=== PATIENT | female | born 1960 ===

== ENCOUNTER 2020-02-18 17:59 | Outpatient (REF) | payer OTHER, SELFPAY | END 2020-02-18 18:00 | disposition home or self-care (01) | LOC: HO.LAB 17:59 | PROVIDERS: PCP Internal Medicine; Visit Provider Internal Medicine | DX: Z20.828 Contact with and (suspected) exposure to other viral communicable diseases (principal) | CPT/HCPCS: C9803; U0003 ==

== ENCOUNTER 2020-05-01 13:05 | Outpatient (REF) | payer OTHER, SELFPAY | END 2020-05-01 13:06 | disposition home or self-care (01) | LOC: HO.LAB 13:05 | PROVIDERS: PCP Internal Medicine; Visit Provider Internal Medicine | DX: Z20.822 Contact with and (suspected) exposure to COVID-19 (principal) | CPT/HCPCS: 36415; C9803; U0003 ==

== ENCOUNTER → 2020-06-03 12:57 | Outpatient (BNVA) | payer OTHER, SELFPAY | PROVIDERS: PCP Internal Medicine; Visit Provider Hospitalist | DX: J84.89 Other specified interstitial pulmonary diseases (principal); R76.8 Other specified abnormal immunological findings in serum; R05 Cough; F51.01 Primary insomnia; Z79.899 Other long term (current) drug therapy | CPT/HCPCS: 99212 ==

== ENCOUNTER 2020-06-03 13:41 | Outpatient (REF) | payer OTHER, SELFPAY | END 2020-06-03 13:42 | disposition home or self-care (01) | LOC: HO.LAB 13:41 | PROVIDERS: Visit Provider Internal Medicine | DX: Z20.822 Contact with and (suspected) exposure to COVID-19 (principal) | CPT/HCPCS: 36415; C9803; U0003; U0005 ==

== ENCOUNTER 2020-06-18 11:05 | Outpatient (REF) | payer OTHER, SELFPAY | END 2020-06-18 11:06 | disposition home or self-care (01) | LOC: HO.LAB 11:05 | PROVIDERS: Visit Provider Internal Medicine | DX: Z20.822 Contact with and (suspected) exposure to COVID-19 (principal) | CPT/HCPCS: 36415; C9803; U0003; U0005 ==

== ENCOUNTER 2020-06-30 09:10 | Outpatient (REF) | payer OTHER, SELFPAY ==
--- NOTE | ~2020-06-30 | XR_ITS ---
EXAMINATION: XR CHEST CLINICAL INFORMATION: Abnormal immunological findings and serum. COMPARISON: None TECHNIQUE: 2 views of the chest were obtained. FINDINGS: No significant abnormality is noted involving the heart, lungs, mediastinum, bony thorax or soft tissues. XR/XR chest 2V IMPRESSION: Unremarkable chest examination.
[2020-06-30 10:35] LABS: MANUAL DIFF FLAG NO
[2020-06-30 10:49] LABS: Basophils Percent Auto 0.5 % (0-2); Eosinophils Absolute Auto 0.2 X10*3/uL (0.0-0.4); Eosinophils Percent Auto 3.2 % (0-4); Hematocrit 39.6 % (37-47); Hemoglobin 12.5 g/dl (12.0-16.0); Imm Gran Abs Auto 0.01 X10*3/uL (0.00-0.03); Imm Gran Pct Auto 0.2 % (0.0-0.4); Lymphocytes Absolute Auto 1.7 X10*3/uL (1.2-4.9); Lymphocytes Percent Auto 31.4 % (20-40); Mean Corpuscular HGB Conc 31.6 g/dl (31.0-35.0); Mean Corpuscular Hemoglobin 29.8 pg (27.0-33.0); Mean Corpuscular Volume 94.3 fL (80-98); Mean Platelet Volume 9.2 fL (9.4-12.3); Monocytes Absolute Auto 0.4 X10*3/uL (0.1-1.2); Monocytes Percent Auto 6.5 % (2-11); Neutrophils Absolute Auto 3.2 X10*3/uL (2.0-8.3); Neutrophils Percent Auto 58.2 % (45-73); Platelet Count 320 X10*3/uL (160-400); Red Cell Distribution Width 13.1 % (11.0-16.0); White Blood Count 5.5 X10*3/uL (4.8-10.8)
[2020-06-30 11:41] LABS: Erythrocyte Sedimentation Rate 30 MM/HR (0-20)
[2020-07-01 13:32] LABS: Anti DNA DS Antibody 2 IU/mL
[2020-07-01 14:47] LABS: Cyclic Citrullinated Peptide <16 UNITS
[2020-07-01 23:32] LABS: Anti Nuclear Antibody Screen POSITIVE (NEGATIVE)
== END 2020-06-30 09:11 | disposition home or self-care (01) ==
LOC: HO.LAB 09:10
PROVIDERS: PCP Internal Medicine; Visit Provider Hospitalist
DX: R76.8 Other specified abnormal immunological findings in serum (principal); J84.89 Other specified interstitial pulmonary diseases; R05 Cough
CPT/HCPCS: 36415; 71046; 85025; 85652; 86038; 86039; 86200; 86225

== ENCOUNTER 2020-07-28 13:04 | Outpatient (REF) | payer OTHER, SELFPAY ==
[2020-07-28 13:28] LABS: COVID-19 Test Negative (Negative)
== END 2020-07-28 13:05 | disposition home or self-care (01) ==
LOC: HO.LAB 13:04
PROVIDERS: Visit Provider Internal Medicine
DX: Z20.822 Contact with and (suspected) exposure to COVID-19 (principal)
CPT/HCPCS: 36415; 87635; C9803

== ENCOUNTER → 2021-06-02 12:45 | Outpatient (BNVA) | payer OTHER, SELFPAY | PROVIDERS: PCP Internal Medicine; Visit Provider Hospitalist | DX: J84.89 Other specified interstitial pulmonary diseases (principal); R76.8 Other specified abnormal immunological findings in serum; R05.9 Cough, unspecified; F51.01 Primary insomnia | CPT/HCPCS: 99212 ==

== ENCOUNTER 2021-06-04 10:16 | Outpatient (REF) | payer OTHER, SELFPAY ==
--- NOTE | ~2021-06-04 | XR_ITS ---
EXAMINATION: XR CHEST CLINICAL INFORMATION: Interstitial pulmonary disease COMPARISON: Previous chest x-ray June 2020 TECHNIQUE: 2 views of the chest were obtained. FINDINGS: The cardiac and mediastinal contours are normal. There is question of mild bronchiectasis and bronchial wall thickening in the right upper lung/suprahilar region. The lungs are otherwise clear. There is no pleural effusion or pneumothorax. There is evidence of old trauma to the left posterior seventh rib. Bony structures are otherwise unremarkable. XR/XR chest 2V IMPRESSION: Question bronchiectasis and bronchial wall thickening in the central right upper lobe/suprahilar region. Otherwise unremarkable exam.
[2021-06-04 10:45] LABS: MANUAL DIFF FLAG NO
[2021-06-04 10:50] LABS: Basophils Percent Auto 0.3 % (0-2); Eosinophils Absolute Auto 0.1 X10*3/uL (0.0-0.4); Eosinophils Percent Auto 1.9 % (0-4); Hematocrit 39.6 % (37.0-47.0); Hemoglobin 12.4 g/dl (12.0-16.0); Imm Gran Abs Auto 0.02 X10*3/uL (0.00-0.03); Imm Gran Pct Auto 0.3 % (0.0-0.4); Lymphocytes Absolute Auto 1.9 X10*3/uL (1.2-4.9); Lymphocytes Percent Auto 32.9 % (20-40); Mean Corpuscular HGB Conc 31.3 g/dl (31.0-35.0); Mean Corpuscular Hemoglobin 29.3 pg (27.0-33.0); Mean Corpuscular Volume 93.6 fL (80.0-98.0); Mean Platelet Volume 8.9 fL (9.4-12.3); Monocytes Absolute Auto 0.4 X10*3/uL (0.1-1.2); Monocytes Percent Auto 6.7 % (2-11); Neutrophils Absolute Auto 3.4 x10*3/uL (2.0-8.3); Neutrophils Percent Auto 57.9 % (45-73); Platelet Count 306 X10*3/uL (160-400); Red Blood Count 4.23 X10*6/uL (4.20-5.50); Red Cell Distribution Width 13.2 % (11.0-16.0); White Blood Count 5.8 X10*3/uL (4.8-10.8)
[2021-06-04 11:25] LABS: Erythrocyte Sedimentation Rate 26 MM/HR (0-20)
[2021-06-04 11:34] LABS: Alanine Aminotransferase 26 U/L (0-31); Albumin Level 4.7 g/dL (3.5-5.0); Alkaline Phosphatase 119 U/L (39-117); Anion Gap 14 (12-20); Aspartate Amino Transferase 25 U/L (5-31); Bilirubin Direct 0.2 mg/dL (0.0-0.5); Bilirubin Total 0.6 mg/dL (0.0-1.0); Blood Urea Nitrogen 12 mg/dL (9-16); Calcium 10.2 mg/dL (8.4-10.2); Carbon Dioxide 27 mmol/L (22-29); Chloride 107 mmol/L (96-108); Estimated Glomerular Filt Rate > 60; Glucose Random 93 mg/dL (60-115); Potassium 4.5 mmol/L (3.3-5.1); Sodium 143 mmol/L (135-145); Total Protein 8.2 g/dL (6.5-8.0)
[2021-06-06 14:19] LABS: Anti DNA DS Antibody 2 IU/mL
[2021-06-08 12:11] LABS: Anti Nuclear Antibody Screen POSITIVE (NEGATIVE)
== END 2021-06-04 10:17 | disposition home or self-care (01) ==
LOC: HO.XRAY 10:16
PROVIDERS: Visit Provider Hospitalist
DX: J84.89 Other specified interstitial pulmonary diseases (principal); R76.8 Other specified abnormal immunological findings in serum
CPT/HCPCS: 36415; 71046; 80048; 80076; 85025; 85652; 86038; 86039; 86225

== ENCOUNTER 2021-07-17 10:43 | Outpatient (REF) | payer OTHER, SELFPAY ==
[2021-07-17 11:20] LABS: COVID-19 Test Negative (Negative)
== END 2021-07-17 10:44 | disposition home or self-care (01) ==
LOC: HO.LAB 10:43
PROVIDERS: Visit Provider Internal Medicine
DX: Z20.822 Contact with and (suspected) exposure to COVID-19 (principal)
CPT/HCPCS: 87635; C9803

== ENCOUNTER 2021-08-21 10:15 | Outpatient (REF) | payer OTHER, SELFPAY ==
--- NOTE | ~2021-08-21 | XR_ITS ---
EXAMINATION: XR CHEST CLINICAL INFORMATION: Covid infection COMPARISON: Previous chest x-ray May 2021 TECHNIQUE: 2 views of the chest were obtained. FINDINGS: The cardiac and mediastinal contours are stable. There is question of central bronchial wall thickening, particularly in the lower lobes. The lungs are otherwise clear. There is no pleural effusion or pneumothorax. There is evidence of old trauma to left posterior seventh rib. Bony structures are otherwise unremarkable. XR/XR chest 2V IMPRESSION: Question central bronchial wall thickening otherwise unremarkable exam
== END 2021-08-21 10:16 | disposition home or self-care (01) ==
LOC: HO.XRAY 10:15
PROVIDERS: PCP Internal Medicine; Visit Provider Hospitalist
DX: U07.1 COVID-19 (principal)
CPT/HCPCS: 71046

== ENCOUNTER → 2021-09-03 09:59 | Outpatient (BNVA) | payer OTHER, SELFPAY | PROVIDERS: PCP Internal Medicine; Visit Provider Hospitalist | DX: J84.89 Other specified interstitial pulmonary diseases (principal); R76.8 Other specified abnormal immunological findings in serum; R05.9 Cough, unspecified; U07.1 COVID-19; F51.01 Primary insomnia; R00.2 Palpitations | CPT/HCPCS: 99212 ==

== ENCOUNTER 2021-09-08 08:14 | Outpatient (REF) | payer OTHER, SELFPAY ==
[2021-09-08 08:38] LABS: MANUAL DIFF FLAG NO
[2021-09-08 09:10] LABS: Basophils Percent Auto 0.1 % (0-2); Eosinophils Absolute Auto 0.1 X10*3/uL (0.0-0.4); Eosinophils Percent Auto 1.7 % (0-4); Hematocrit 35.8 % (37.0-47.0); Hemoglobin 11.4 g/dl (12.0-16.0); Imm Gran Abs Auto 0.07 X10*3/uL (0.00-0.03); Lymphocytes Absolute Auto 2.3 X10*3/uL (1.2-4.9); Mean Corpuscular HGB Conc 31.8 g/dl (31.0-35.0); Mean Corpuscular Hemoglobin 30.2 pg (27.0-33.0); Mean Corpuscular Volume 94.7 fL (80.0-98.0); Mean Platelet Volume 8.6 fL (9.4-12.3); Monocytes Absolute Auto 0.6 X10*3/uL (0.1-1.2); Monocytes Percent Auto 7.9 % (2-11); Neutrophils Absolute Auto 3.9 x10*3/uL (2.0-8.3); Neutrophils Percent Auto 56.3 % (45-73); Platelet Count 294 X10*3/uL (160-400); Red Blood Count 3.78 X10*6/uL (4.20-5.50); Red Cell Distribution Width 13.6 % (11.0-16.0); White Blood Count 6.9 X10*3/uL (4.8-10.8)
[2021-09-08 09:39] LABS: Anion Gap 10 (12-20); Blood Urea Nitrogen 12 mg/dL (9-16); Calcium 9.4 mg/dL (8.4-10.2); Carbon Dioxide 26 mmol/L (22-29); Chloride 109 mmol/L (96-108); Estimated Glomerular Filt Rate > 60; Glucose Random 83 mg/dL (60-115); Potassium 4.3 mmol/L (3.3-5.1); Sodium 141 mmol/L (135-145)
[2021-09-08 09:52] LABS: TSH reflex Free T4 0.71 uIU/mL (0.32-4.0)
[2021-09-08 09:54] LABS: Erythrocyte Sedimentation Rate 34 MM/HR (0-20)
== END 2021-09-08 08:15 | disposition home or self-care (01) ==
LOC: HO.LAB 08:14
PROVIDERS: Visit Provider Hospitalist
DX: R00.2 Palpitations (principal); U07.1 COVID-19
CPT/HCPCS: 36415; 80048; 84443; 85025; 85652

== ENCOUNTER → 2022-06-04 12:43 | Outpatient (BNVA) | payer MEDICAID, SELFPAY | PROVIDERS: PCP Physician Assistant; Visit Provider Hospitalist | DX: J84.89 Other specified interstitial pulmonary diseases (principal); R76.8 Other specified abnormal immunological findings in serum; G47.00 Insomnia, unspecified; F51.01 Primary insomnia; R00.2 Palpitations; Z23 Encounter for immunization | CPT/HCPCS: 90471; 90677; 99212 ==

== ENCOUNTER 2022-06-30 09:32 | Outpatient (REF) | payer MEDICAID, SELFPAY ==
[2022-06-30 09:55] LABS: MANUAL DIFF FLAG NO
[2022-06-30 10:57] LABS: Basophils Percent Auto 0.5 % (0-2); Eosinophils Absolute Auto 0.1 X10*3/uL (0.0-0.4); Eosinophils Percent Auto 1.7 % (0-4); Hematocrit 37.8 % (37.0-47.0); Hemoglobin 11.9 g/dl (12.0-16.0); Imm Gran Abs Auto 0.02 X10*3/uL (0.00-0.03); Imm Gran Pct Auto 0.3 % (0.0-0.4); Lymphocytes Absolute Auto 2.1 X10*3/uL (1.2-4.9); Lymphocytes Percent Auto 34.8 % (20-40); Mean Corpuscular HGB Conc 31.5 g/dl (31.0-35.0); Mean Corpuscular Hemoglobin 29.7 pg (27.0-33.0); Mean Corpuscular Volume 94.3 fL (80.0-98.0); Mean Platelet Volume 9.1 fL (9.4-12.3); Monocytes Absolute Auto 0.4 X10*3/uL (0.1-1.2); Monocytes Percent Auto 7.1 % (2-11); Neutrophils Absolute Auto 3.3 x10*3/uL (2.0-8.3); Neutrophils Percent Auto 55.6 % (45-73); Platelet Count 287 X10*3/uL (160-400); Red Blood Count 4.01 X10*6/uL (4.20-5.50); White Blood Count 5.9 X10*3/uL (4.8-10.8)
[2022-06-30 11:59] LABS: Erythrocyte Sedimentation Rate 25 MM/HR (0-20)
[2022-06-30 12:01] LABS: Anion Gap 13 (12-20); Blood Urea Nitrogen 16 mg/dL (9-16); Calcium 9.4 mg/dL (8.4-10.2); Carbon Dioxide 25 mmol/L (22-29); Chloride 110 mmol/L (96-108); Estimated Glomerular Filt Rate > 60; Glucose Random 83 mg/dL (60-115); Potassium 4.9 mmol/L (3.3-5.1); Sodium 143 mmol/L (135-145)
[2022-07-02 12:50] LABS: Anti DNA DS Antibody 1 IU/mL
[2022-07-02 23:00] LABS: Immunoglobulin E 20 kU/L (<OR=114)
[2022-07-06 13:44] LABS: Anti Nuclear Antibody Pattern Nuclear, Speckled; Anti Nuclear Antibody Screen POSITIVE (NEGATIVE)
== END 2022-06-30 09:33 | disposition home or self-care (01) ==
LOC: HO.LAB 09:32
PROVIDERS: Visit Provider Hospitalist
DX: J84.89 Other specified interstitial pulmonary diseases (principal); R76.8 Other specified abnormal immunological findings in serum
CPT/HCPCS: 36415; 80048; 82785; 83036; 83525; 84146; 85025; 85652; 86038; 86039; 86225

== ENCOUNTER → 2022-08-03 13:07 | Outpatient (BNVA) | payer MEDICAID, SELFPAY | PROVIDERS: PCP Physician Assistant; Visit Provider Dietitian, Registered | DX: E78.00 Pure hypercholesterolemia, unspecified (principal) | CPT/HCPCS: 97802 ==

== ENCOUNTER 2022-12-10 14:11 | Outpatient (AMB) | payer OTHER, SELFPAY ==
[2022-12-10 14:14] VITALS: BP 118/72; PULSE 82; O2SAT 99
--- NOTE | 2022-12-10 14:14 | A.OFFVIS_ITS ---
Intake Vital Signs 12/10/22 14:14 Weight 142 lb 3.17 oz BP 118/72 Blood Pressure Location Rt brachial Position Sitting Pulse 82 Pulse Source Pulse Oximeter Pulse Oximetry (%) 99 Oxygen Delivery Method Room Air Intake Visit Reasons: COPD Allergies No Known Allergies Allergy (Verified 12/10/22 14:16) Medication List - Last Reconciled 12/10/22 by Ghislaine Graves LPN cholecalciferol (vitamin D3) (Vitamin D3) 0 mcg PO cyclobenzaprine 5 mg PO BEDTIME eszopiclone (Lunesta) 3 mg PO BEDTIME 30 days Symbicort 160-4.5 mcg/actuation (budesonide-formoterol) 2 puffs inhalation BID 30 days NS HPI HPI Comments History of Present Illness Details The patient is a 62-year-old woman with a known history of elevated ROSEY in addition to interstitial lung disease in the past with evidence of organizing pneumonia biopsy. The patient had been doing very well. She recovered completely from the interstitial lung disease. This happened many years ago and she hasn't had any recurrence. Her respiratory status has been stable. She has been evaluated at [facility] with left-sided headaches. The been significant affecting her whole left side. She went to the ER there she had an x-ray that was relatively normal. She also had blood work demonstrating an elevated creatinine. It is unclear at this point. However, she did have elevations in the an a in the past. Subsequent workup for the positive ROSEY resulted in negative double-stranded DNA. The patient had had some arthritis and rashes in the past but she no longer has does findings. The patient is here for pulmonary follow-up visit. The patient is a 59-year-old woman with a known history of elevated ROSEY in addition to interstitial lung disease in the past with evidence of organizing pneumonia biopsy. The patient had been doing very well. She recovered completely from the interstitial lung disease. This happened many years ago and she hasn't had any recurrence. Her respiratory status has been stable. She has been evaluated at [facility] with left-sided headaches. The been significant affecting her whole left side. She went to the ER there she had an x-ray that was relatively normal. She also had blood work demonstrating an elevated creatinine. It is unclear at this point. However, she did have elevations in the an a in the past. Subsequent workup for the positive ROSEY resulted in negative double-stranded DNA. The patient had had some arthritis and rashes in the past but she no longer has does findings. 12/10/2022 the patient is here for a pulmonary follow-up visit. Her respiratory status is stable. Denies any coughing or any shortness of breath. She does complaint of musculoskeletal discomfort. She also notices any rash on her extremities including her lower extremities. Appears to be hyper pigmented areas. Denies any new rashes on her face. The patient has had elevations in her ROSEY titers. She did at some point follow-up with Rheumatology. No real definitive diagnosis noted. In view of the review of her symptoms of be reasonable to recheck her blood work to assess for connective tissue conditions. In addition to that the patient should have a chest x-ray to further follow-up her history of cryptogenic organizing pneumonia. the patient is still struggling with her sleep. The Lunesta is helpful. [facility] Medical History (Updated 12/10/22 @ 13:50 by Christi Ovalle PA-C) ROSEY positive Cervical neuralgia Cough GERD (gastroesophageal reflux disease) Hypercholesterolemia Insomnia Organizing pneumonia Palpitations Vitamin D deficiency Surgical History (Updated 12/10/22 @ 13:50 by Christi Ovalle PA-C) History of laparoscopic cholecystectomy Family History (Updated 12/10/22 @ 13:53 by Christi Ovalle PA-C) Father Prostate cancer Mother Stroke, Onset Age: 65 Brother Myocardial infarction Social History (Updated 06/02/21 @ 13:04 by Delia Manzano Gus) Patient Tobacco Use Status: Former Tobacco user Tobacco use type: Cigarette Years Smoked: 20 years Review of Systems Const Reports difficulty sleeping, Reports fatigue and Denies night sweats ENT Denies change in voice, Denies lip swelling, Denies mouth pain, Reports nasal congestion, Reports nasal discharge and Denies tongue swelling Card Denies chest pain, Reports palpitations and Reports dyspnea on exertion Resp Reports cough and Reports dyspnea on exertion GI Denies abdominal pain Musc Reports myalgias and Reports arthralgias Skin/Breast Reports rash Neuro Denies Neuro-related abnormal movements Psych Denies no additional complaints Endo Reports fatigue and Reports palpitations Nick/Lymph Denies easy bleeding and Denies lymphadenopathy Aller/Immun Denies lip swelling and Denies tongue swelling Physical Exam Vital Signs: Last Vital Signs Pulse 82 12/10/22 14:14 BP 118/72 09/01/23 14:14 Pulse Ox 99 12/10/22 14:14 Oxygen Delivery Method Room Air 12/10/22 14:14 Const General: alert Neck Neck: Yes normal visual inspection, Yes full ROM and Yes no lymphadenopathy Chest Chest palpation & inspection: normal inspection of the chest Resp Effort & Inspection: normal respiratory effort Auscultation: clear to auscultation bilaterally, no crackles, no rales, no rhonchi and no wheezes Cardio Rate: regular rate Rhythm: regular rhythm Heart sounds: S1 normal heart sound present and S2 normal heart sound present GI Palpation (GI): Soft to palpation and nontender Auscultation: normal bowel sounds Skin General skin exam: other ( Hypopigmented macular areas primarily in her lower extremities) Assessment & Plan Assessment & Plan (1) Organizing pneumonia: Code(s): J84.89 - Other specified interstitial pulmonary diseases (2) ROSEY positive: Code(s): R76.8 - Other specified abnormal immunological findings in serum (3) Cough: Code(s): R05 - Cough (4) Insomnia: Code(s): G47.00 - Insomnia, unspecified Qualifiers: Insomnia type: primary Qualified Code(s): F51.01 - Primary insomnia (5) Palpitations: Code(s): R00.2 - Palpitations Plan continue Lunesta 3mg, to use as needed. Bloodwork CXR continue Symbicort NOEL as needed follow-up 6 months Orders: Orders Erythrocyte Sedimentation Rate 12/10/22 J84.89 - Other specified interstitial pulmonary diseases ROSEY Reflex Titer and Pattern 12/10/22 J84.89 - Other specified interstitial pulmonary diseases Complete Blood Count Auto Diff 12/10/22 J84.89 - Other specified interstitial pulmonary diseases XR chest 2V 12/10/22 J84.89 - Other specified interstitial pulmonary diseases Coding Level of Care Code Est Pt Level 4 (56552) Diagnoses Organizing pneumonia . ROSEY positive R76.8 Cough R05 Insomnia F51.01 Insomnia type: primary Palpitations R00.2 Time Spent (min) 17
== END 2022-12-10 14:31 | disposition home or self-care (01) ==
PROVIDERS: PCP Physician Assistant; Visit Provider Hospitalist
DX: J84.89 Other specified interstitial pulmonary diseases (principal); R76.8 Other specified abnormal immunological findings in serum; R05.9 Cough, unspecified; F51.01 Primary insomnia; R00.2 Palpitations
CPT/HCPCS: 99214

== ENCOUNTER → 2022-12-10 14:11 | Outpatient (BNVA) | payer OTHER, SELFPAY | PROVIDERS: PCP Physician Assistant; Visit Provider Hospitalist | DX: J84.89 Other specified interstitial pulmonary diseases (principal); R76.8 Other specified abnormal immunological findings in serum; R05.9 Cough, unspecified; F51.01 Primary insomnia; R00.2 Palpitations | CPT/HCPCS: 99212 ==

== ENCOUNTER 2022-12-14 08:24 | Outpatient (AMB) | payer MEDICAID, SELFPAY ==
--- NOTE | 2022-12-14 08:35 | A.OFFVIS_ITS ---
Intake VS Expanded 12/14/22 08:36 Height 5 ft 2 in Weight 142 lb 3.17 oz BMI 26.0 Intake Visit Reasons: dm Allergies No Known Allergies Allergy (Verified 12/10/22 14:16) HPI Nutrition Presentation Details Pt presents for MNT follow up for lipid disorder Pt reports doing well and working on reducing on fried foods, reducing on saturated fats. Keeping physically active, walking daily. Reports feeling well. Most Recent Diabetes Results: Creatinine 0.87 mg/dL (0.5-1.4) 06/30/22 Blood Urea Nitrogen 16 mg/dL (9-16) 06/30/22 Sodium 143 mmol/L (135-145) 06/30/22 Potassium 4.9 mmol/L (3.3-5.1) 06/30/22 Chloride 110 mmol/L (96-108) H 06/30/22 Carbon Dioxide 25 mmol/L (22-29) 06/30/22 Calcium 9.4 mg/dL (8.4-10.2) 06/30/22 PFS Medical History (Updated 12/10/22 @ 13:50 by Christi Ovalle PA-C) ROSEY positive Cervical neuralgia Cough GERD (gastroesophageal reflux disease) Hypercholesterolemia Insomnia Organizing pneumonia Palpitations Vitamin D deficiency Surgical History (Updated 12/10/22 @ 13:50 by Christi Ovalle PA-C) History of laparoscopic cholecystectomy Family History (Updated 12/10/22 @ 13:53 by Christi Ovalle PA-C) Father Prostate cancer Mother Stroke, Onset Age: 65 Brother Myocardial infarction Social History (Updated 06/02/21 @ 13:04 by MICHELLE Alvarado) Patient Tobacco Use Status: Former Tobacco user Tobacco use type: Cigarette Years Smoked: 20 years Assessment & Plan Assessment & Plan (1) Hypercholesterolemia: Code(s): E78.00 - Pure hypercholesterolemia, unspecified Plan: Educate Pt on low cholesterol meal plan ? Used wt : 70 kg Est kcal as per MSJ: 1750 (40% carb, 30% fat/prot) Est fluid needs: 1750 ml/d (25 ml/kg bw) Rec fiber: increase to 8-10 g per day and gradually increase to 25 g/d or as tolerated Rec Na: < 2000 mg /d Educate patient on: (R= Reviewed, V = verbalizes understanding N/R= Needs review N/A= not applicable) * Low cholesterol food concepts: R * Difference between complex carbohydrates and simple carbohydrates, role of fiber in lowering cholesterol level : R * Differences between fats (MUFA/PUFA/saturated fats, trans fats), low cholesterol and food sources of various fats: R * Food sources of sodium and salt and healthy modifications for heart health and kidney health: R * How to interpret food labels: R * Healthy Plate method concept: R * Physical activity: benefits and precaution: R Patient Instructions: Continue working on reducing saturated fats, read food labels Continue working on choosing baked vs fried foods Keep hydrated Include iron rich foods (oatmeal, spinach, beans, lentils) Coding Level of Care Code Nutr Indiv Subseq (88517) Diagnoses Hypercholesterolemia E78.00 Time Spent (min) 20
[2022-12-14 08:36] VITALS: BMI 26.0
== END 2022-12-14 09:03 | disposition home or self-care (01) ==
PROVIDERS: PCP Physician Assistant; Visit Provider Dietitian, Registered
DX: E78.00 Pure hypercholesterolemia, unspecified (principal)

== ENCOUNTER → 2022-12-14 08:24 | Outpatient (BNVA) | payer OTHER, SELFPAY | PROVIDERS: PCP Physician Assistant; Visit Provider Dietitian, Registered | DX: E78.00 Pure hypercholesterolemia, unspecified (principal); Z71.3 Dietary counseling and surveillance | CPT/HCPCS: 97803 ==

== ENCOUNTER 2023-07-18 09:42 | Outpatient (REF) | payer OTHER, SELFPAY ==
--- NOTE | ~2023-07-18 | XR_ITS ---
EXAMINATION: XR CHEST CLINICAL INFORMATION: Other specified interstitial pulmonary diseases Additional Information: PT states difficulty breathing and that her icer machine routinely orders chest x-rays for check ups. COMPARISON: Prior chest most recent August 2021 TECHNIQUE: 2 views of the chest were obtained. FINDINGS: No significant abnormality is noted involving the heart, lungs, mediastinum, bony thorax or soft tissues. XR/XR chest 2V IMPRESSION: Unremarkable examination.
[2023-07-18 10:35] LABS: MANUAL DIFF FLAG NO
[2023-07-18 11:24] LABS: Basophils Percent Auto 0.6 % (0-2); Eosinophils Absolute Auto 0.1 X10*3/uL (0.0-0.4); Eosinophils Percent Auto 1.4 % (0-4); Hematocrit 34.9 % (37.0-47.0); Hemoglobin 11.2 g/dl (12.0-16.0); Imm Gran Abs Auto 0.04 X10*3/uL (0.00-0.03); Imm Gran Pct Auto 0.8 % (0.0-0.4); Lymphocytes Absolute Auto 1.7 X10*3/uL (1.2-4.9); Lymphocytes Percent Auto 32.6 % (20-40); Mean Corpuscular HGB Conc 32.1 g/dl (31.0-35.0); Mean Corpuscular Hemoglobin 30.6 pg (27.0-33.0); Mean Corpuscular Volume 95.4 fL (80.0-98.0); Monocytes Absolute Auto 0.4 X10*3/uL (0.1-1.2); Monocytes Percent Auto 7.4 % (2-11); Neutrophils Percent Auto 57.2 % (45-73); Platelet Count 265 X10*3/uL (160-400); Red Blood Count 3.66 X10*6/uL (4.20-5.50); Red Cell Distribution Width 13.3 % (11.0-16.0); White Blood Count 5.2 X10*3/uL (4.8-10.8)
[2023-07-18 12:28] LABS: Erythrocyte Sedimentation Rate 25 MM/HR (0-20)
[2023-07-20 10:54] LABS: Cyclic Citrullinated Peptide <16 UNITS
[2023-07-21 13:33] LABS: Anti DNA DS Antibody 1 IU/mL
[2023-07-21 15:07] LABS: ANA Pattern 2 Nuclear, Homogeneous; ANA Pattern 3 Nuclear, Speckled; Anti Nuclear Antibody Screen POSITIVE (NEGATIVE)
== END 2023-07-18 09:43 | disposition home or self-care (01) ==
LOC: HO.XRAY 09:42
PROVIDERS: PCP Physician Assistant; Visit Provider Hospitalist
DX: J44.9 Chronic obstructive pulmonary disease, unspecified (principal); R76.8 Other specified abnormal immunological findings in serum; R05.3 Chronic cough; J84.89 Other specified interstitial pulmonary diseases; G47.00 Insomnia, unspecified; R00.2 Palpitations; F51.01 Primary insomnia
CPT/HCPCS: 36415; 71046; 85025; 85652; 86038; 86039; 86200; 86225; 99212

== ENCOUNTER 2023-07-18 09:42 | Outpatient (AMB) | payer SELFPAY ==
--- NOTE | 2023-07-18 09:53 | A.OFFVIS_ITS ---
Intake Vital Signs 07/18/23 09:54 Height 5 ft 2 in Weight 140 lb BMI 25.6 BP 122/70 Blood Pressure Location Lt brachial Position Sitting Pulse 68 Pulse Source Pulse Oximeter Pulse Oximetry (%) 99 Oxygen Delivery Method Room Air Intake Visit Reasons: COPD Animal Care Supervisor Required: No Allergies No Known Allergies Allergy (Verified 07/18/23 09:59) HPI HPI Comments History of Present Illness Details The patient is a 63-year-old woman with a known history of elevated ROSEY in addition to interstitial lung disease in the past with evidence of organizing pneumonia biopsy. The patient had been doing very well. She recovered completely from the interstitial lung disease. This happened many years ago and she hasn't had any recurrence. Her respiratory status has been stable. She has been evaluated at [facility] with left-sided headaches. The been significant affecting her whole left side. She went to the ER there she had an x-ray that was relatively normal. She also had blood work demonstrating an elevated creatinine. It is unclear at this point. However, she did have elevations in the an a in the past. Subsequent workup for the positive ROSEY resulted in negative double-stranded DNA. The patient had had some arthritis and rashes in the past but she no longer has does findings. The patient is here for pulmonary follow-up visit. The patient is a 59-year-old woman with a known history of elevated ROSEY in addition to interstitial lung disease in the past with evidence of organizing pneumonia biopsy. The patient had been doing very well. She recovered completely from the interstitial lung disease. This happened many years ago and she hasn't had any recurrence. Her respiratory status has been stable. She has been evaluated at [facility] with left-sided headaches. The been significant affecting her whole left side. She went to the ER there she had an x-ray that was relatively normal. She also had blood work demonstrating an elevated creatinine. It is unclear at this point. However, she did have elevations in the an a in the past. Subsequent workup for the positive ROSEY resulted in negative double-stranded DNA. The patient had had some arthritis and rashes in the past but she no longer has does findings. 12/10/2022 the patient is here for a pulmonary follow-up visit. Her respiratory status is stable. Denies any coughing or any shortness of breath. She does complaint of musculoskeletal discomfort. She also notices any rash on her extremities including her lower extremities. Appears to be hyper pigmented areas. Denies any new rashes on her face. The patient has had elevations in her ROSEY titers. She did at some point follow-up with Rheumatology. No real definitive diagnosis noted. In view of the review of her symptoms of be reasonable to recheck her blood work to assess for connective tissue conditions. In addition to that the patient should have a chest x-ray to further follow-up her history of cryptogenic organizing pneumonia. the patient is still struggling with her sleep. The Lunesta is helpful. 07/18/2023 the patient is here for a pulmonary follow-up visit. Overall she is doing well from a respiratory status. She has been having some back pain. Recently she had an injection to the back and it caused her significant discomfort and she is still recovering from that. She was traumatized from it. The patient denies any other joint discomfort. She does have an elevated ROSEY has history of cough. Her last chest x-ray is reassuring. Although is back in 2021. Her respiratory exam is reassuring although she should have a repeat chest x-ray at this time. The last time she had blood work was about a year ago her ROSEY was significantly elevated. She did have 2 titers 1 that was higher than the other. Based on the fact that she has had interstitial lung disease in the past will go ahead and repeat her blood work at this time. [facility] Medical History (Updated 07/18/23 @ 09:56 by Jose Carlos Calvin MD) Cervical neuralgia GERD (gastroesophageal reflux disease) Vitamin D deficiency Hypercholesterolemia Palpitations Insomnia Organizing pneumonia ROSEY positive Cough Surgical History (Updated 12/10/22 @ 13:50 by Christi Ovalle PA-C) History of laparoscopic cholecystectomy Family History (Updated 12/10/22 @ 13:53 by Christi Ovalle PA-C) Father Prostate cancer Mother Stroke, Onset Age: 65 Brother Myocardial infarction Social History (Updated 06/02/21 @ 13:04 by MICHELLE Alvarado) Patient Tobacco Use Status: Former Tobacco user Tobacco use type: Cigarette Years Smoked: 20 years Review of Systems Const Reports difficulty sleeping, Reports fatigue and Denies night sweats ENT Denies change in voice, Denies lip swelling, Denies mouth pain, Reports nasal congestion, Reports nasal discharge and Denies tongue swelling Card Denies chest pain, Reports palpitations and Denies dyspnea on exertion Resp Denies cough and Denies dyspnea on exertion GI Denies abdominal pain Musc Reports back pain, Reports myalgias and Reports arthralgias Skin/Breast Reports rash Neuro Denies Neuro-related abnormal movements Psych Denies no additional complaints Endo Reports fatigue and Reports palpitations Nick/Lymph Denies easy bleeding and Denies lymphadenopathy Aller/Immun Denies lip swelling and Denies tongue swelling Physical Exam Vital Signs: Last Vital Signs Pulse 68 07/18/23 09:54 BP 122/70 07/18/23 09:54 Pulse Ox 99 07/18/23 09:54 Oxygen Delivery Method Room Air 07/18/23 09:54 BMI result Body Mass Index 25.6 Const General: alert Neck Neck: Yes normal visual inspection, Yes full ROM and Yes no lymphadenopathy Chest Chest palpation & inspection: normal inspection of the chest Resp Effort & Inspection: normal respiratory effort Auscultation: clear to auscultation bilaterally, no crackles, no rales, no rhonchi and no wheezes Cardio Rate: regular rate Rhythm: regular rhythm Heart sounds: S1 normal heart sound present and S2 normal heart sound present GI Palpation (GI): Soft to palpation and nontender Auscultation: normal bowel sounds Skin General skin exam: other ( Hypopigmented macular areas primarily in her lower extremities) Assessment & Plan Assessment & Plan (1) Organizing pneumonia: Code(s): J84.89 - Other specified interstitial pulmonary diseases (2) ROSEY positive: Code(s): R76.8 - Other specified abnormal immunological findings in serum (3) Cough: Code(s): R05 - Cough Qualifiers: Cough type: chronic Qualified Code(s): R05.3 - Chronic cough (4) Insomnia: Code(s): G47.00 - Insomnia, unspecified Qualifiers: Insomnia type: primary Qualified Code(s): F51.01 - Primary insomnia (5) Palpitations: Code(s): R00.2 - Palpitations Plan Bloodwork CXR continue Symbicort NOEL as needed follow-up 12 months Orders: Orders XR chest 2V Today J84.89 - Other specified interstitial pulmonary diseases Anti DNA DS Antibody Today J84.89 - Other specified interstitial pulmonary diseases, R05.3 - Chronic cough, R76.8 - Other specified abnormal immunological findings in serum ROSEY Reflex Titer and Pattern Today J84.89 - Other specified interstitial pulmonary diseases, R05.3 - Chronic cough, R76.8 - Other specified abnormal immunological findings in serum Cyclic Citrullinated Peptide Today J84.89 - Other specified interstitial pulmonary diseases, R05.3 - Chronic cough, R76.8 - Other specified abnormal immunological findings in serum Erythrocyte Sedimentation Rate Today J84.89 - Other specified interstitial pulmonary diseases, R05.3 - Chronic cough, R76.8 - Other specified abnormal immunological findings in serum Coding Level of Care Code Est Pt Level 4 (63450) Diagnoses Organizing pneumonia J. ROSEY positive R76.8 Chronic cough R05.3 Cough type: chronic Primary insomnia F51.01 Insomnia type: primary Palpitations R00.2 Time Spent (min) 17
[2023-07-18 09:54] VITALS: BP 122/70; PULSE 68; O2SAT 99; BMI 25.6
== END 2023-07-18 10:13 | disposition home or self-care (01) ==
PROVIDERS: PCP Physician Assistant; Visit Provider Hospitalist
DX: J84.89 Other specified interstitial pulmonary diseases (principal); R76.8 Other specified abnormal immunological findings in serum; R05.3 Chronic cough; F51.01 Primary insomnia; R00.2 Palpitations
CPT/HCPCS: 99214

== ENCOUNTER 2024-03-26 09:17 | Outpatient (AMB) | payer SELFPAY ==
[2024-03-26 09:28] VITALS: BP 118/60; PULSE 64; O2SAT 100
--- NOTE | 2024-03-26 09:28 | MHC.OFFVIS ---
Vital Signs 03/26/24 09:28 Weight 142 lb BP 118/60 Blood Pressure Location Rt brachial Position Sitting Pulse 64 Pulse Source Pulse Oximeter Pulse Oximetry (%) 100 Oxygen Delivery Method Room Air Intake Visit Reasons: copd Allergies No Known Allergies Allergy (Verified 03/26/24 09:32) Medication List - Last Reconciled 03/26/24 by Ghislaine Graves LPN amitriptyline 10 mg PO BEDTIME atorvastatin 20 mg PO DAILY buspirone 10 mg PO BID cholecalciferol (vitamin D3) (Vitamin D3) 0 mcg PO cyclobenzaprine 5 mg PO BEDTIME eszopiclone (Lunesta) 3 mg PO BEDTIME 30 days fluoxetine 10 mg PO DAILY hydroxyzine HCl 10 mg PO TID lorazepam mg PO meloxicam 15 mg PO DAILY Symbicort 160-4.5 mcg/actuation (budesonide-formoterol) 2 puffs inhalation BID 30 days NS tizanidine 4 mg PO BEDTIME HPI Comments Details: The patient is a 64-year-old woman with a known history of elevated ROSEY in addition to interstitial lung disease in the past with evidence of organizing pneumonia biopsy. The patient had been doing very well. She recovered completely from the interstitial lung disease. This happened many years ago and she hasn't had any recurrence. Her respiratory status has been stable. She has been evaluated at [facility] with left-sided headaches. The been significant affecting her whole left side. She went to the ER there she had an x-ray that was relatively normal. She also had blood work demonstrating an elevated creatinine. It is unclear at this point. However, she did have elevations in the an a in the past. Subsequent workup for the positive ROSEY resulted in negative double-stranded DNA. The patient had had some arthritis and rashes in the past but she no longer has does findings. The patient is here for pulmonary follow-up visit. The patient is a 59-year-old woman with a known history of elevated ROSEY in addition to interstitial lung disease in the past with evidence of organizing pneumonia biopsy. The patient had been doing very well. She recovered completely from the interstitial lung disease. This happened many years ago and she hasn't had any recurrence. Her respiratory status has been stable. She has been evaluated at [facility] with left-sided headaches. The been significant affecting her whole left side. She went to the ER there she had an x-ray that was relatively normal. She also had blood work demonstrating an elevated creatinine. It is unclear at this point. However, she did have elevations in the an a in the past. Subsequent workup for the positive ROSEY resulted in negative double-stranded DNA. The patient had had some arthritis and rashes in the past but she no longer has does findings. 12/10/2022 the patient is here for a pulmonary follow-up visit. Her respiratory status is stable. Denies any coughing or any shortness of breath. She does complaint of musculoskeletal discomfort. She also notices any rash on her extremities including her lower extremities. Appears to be hyper pigmented areas. Denies any new rashes on her face. The patient has had elevations in her ROSEY titers. She did at some point follow-up with Rheumatology. No real definitive diagnosis noted. In view of the review of her symptoms of be reasonable to recheck her blood work to assess for connective tissue conditions. In addition to that the patient should have a chest x-ray to further follow-up her history of cryptogenic organizing pneumonia. the patient is still struggling with her sleep. The Lunesta is helpful. 07/18/2023 the patient is here for a pulmonary follow-up visit. Overall she is doing well from a respiratory status. She has been having some back pain. Recently she had an injection to the back and it caused her significant discomfort and she is still recovering from that. She was traumatized from it. The patient denies any other joint discomfort. She does have an elevated ROSEY has history of cough. Her last chest x-ray is reassuring. Although is back in 2021. Her respiratory exam is reassuring although she should have a repeat chest x-ray at this time. The last time she had blood work was about a year ago her ROSEY was significantly elevated. She did have 2 titers 1 that was higher than the other. Based on the fact that she has had interstitial lung disease in the past will go ahead and repeat her blood work at this time. 03/26/2024 the patient is here for a pulmonary follow-up visit. Overall the patient has been doing well. She did develop COVID over the summer while she was in [place] and she was treated with prescriptions medicines. She did require a nebulizer and also albuterol for her wheezing. Subsequently after that [place] and she developed the flu. She decided not to seek medical care so therefore she continue with conservative therapies at home. She knows back to her baseline will make sure she has inhalers to be able to take a. Her last chest x-ray was back in July and it was intact without any acute disease. In addition to that she is complaining of some arthralgias and myalgias. At this point she has had elevations in her ROSEY therefore Rheumatology referral will be warranted. She is going to follow-up with her primary care and though hopefully refer her to Rheumatology of the time. [facility] Medical History (Updated 07/18/23 @ 09:56 by Jose Carlos Calvin MD) Cervical neuralgia GERD (gastroesophageal reflux disease) Vitamin D deficiency Hypercholesterolemia Palpitations Insomnia Organizing pneumonia ROSEY positive Cough Surgical History (Updated 12/10/22 @ 13:50 by Christi Ovalle PA-C) History of laparoscopic cholecystectomy Family History (Updated 12/10/22 @ 13:53 by Christi Ovalle PA-C) Father Prostate cancer Mother Stroke, Onset Age: 65 Brother Myocardial infarction Social History (Updated 06/02/21 @ 13:04 by Delia Manzano Gus) Patient Tobacco Use Status: Former Tobacco user Tobacco use type: Cigarette Years Smoked: 20 years Review of Systems Const Reports difficulty sleeping, Reports fatigue and Denies night sweats ENT Denies change in voice, Denies lip swelling, Denies mouth pain, Reports nasal congestion, Reports nasal discharge and Denies tongue swelling Card Denies chest pain and Denies dyspnea on exertion Resp Reports cough and Denies dyspnea on exertion GI Denies abdominal pain Musc Reports back pain, Reports myalgias and Reports arthralgias Skin/Breast Reports rash Neuro Denies Neuro-related abnormal movements Psych Denies no additional complaints Endo Reports fatigue Nick/Lymph Denies easy bleeding and Denies lymphadenopathy Aller/Immun Denies lip swelling and Denies tongue swelling Physical Exam Vital Signs: Last Vital Signs Pulse 64 03/26/24 09:28 BP 118/60 03/26/24 09:28 Pulse Ox 100 03/26/24 09:28 Oxygen Delivery Method Room Air 03/26/24 09:28 Const General: alert Neck Neck: Yes normal visual inspection, Yes full ROM and Yes no lymphadenopathy Chest Chest palpation & inspection: normal inspection of the chest Resp Effort & Inspection: normal respiratory effort Auscultation: clear to auscultation bilaterally, no crackles, no rales, no rhonchi and no wheezes Cardio Rate: regular rate Rhythm: regular rhythm Heart sounds: S1 normal heart sound present and S2 normal heart sound present GI Palpation (GI): Soft to palpation and nontender Auscultation: normal bowel sounds Skin General skin exam: other ( Hypopigmented macular areas primarily in her lower extremities) Assessment & Plan Assessment & Plan (1) Organizing pneumonia: Code(s): J84.89 - Other specified interstitial pulmonary diseases Category: Medical (2) ROSEY positive: Code(s): R76.8 - Other specified abnormal immunological findings in serum Category: Medical (3) Cough: Code(s): R05 - Cough Category: Medical Qualifiers: Cough type: chronic Qualified Code(s): R05.3 - Chronic cough (4) Insomnia: Code(s): G47.00 - Insomnia, unspecified Category: Medical Qualifiers: Insomnia type: primary Qualified Code(s): F51.01 - Primary insomnia Plan CXR spring 2024 continue Symbicort NOEL as needed consider Rheumatology referral follow-up 12 months Orders: Orders XR chest 2V Today J84.89 - Other specified interstitial pulmonary diseases Medications: Refilled Symbicort 160-4.5 mcg/actuation (budesonide-formoterol) 2 puffs inhalation BID 10.2 grams 11RF 30 days NS J44.9 - Chronic obstructive pulmonary disease, unspecified Coding Level of Care Code Est Pt Level 4 (73632) Diagnoses Organizing pneumonia J84.89 ROSEY positive R76.8 Chronic cough R05.3 Cough type: chronic Primary insomnia F51.01 Insomnia type: primary Time Spent (min) 16
== END 2024-03-26 10:00 | disposition home or self-care (01) ==
PROVIDERS: PCP Physician Assistant; Visit Provider Hospitalist
DX: J84.89 Other specified interstitial pulmonary diseases (principal); R76.8 Other specified abnormal immunological findings in serum; R05.3 Chronic cough; F51.01 Primary insomnia
CPT/HCPCS: 99214

== ENCOUNTER 2024-05-11 08:45 | Outpatient (AMB) | payer OTHER, SELFPAY ==
[2024-05-11 08:49] VITALS: BP 128/74; PULSE 64; O2SAT 100
--- NOTE | 2024-05-11 08:49 | MHC.OFFVIS ---
Vital Signs 05/11/24 08:49 Height 5 ft 2 in BMI Reason not done Patient refused/unable BP 128/74 Blood Pressure Location Rt brachial Position Sitting Pulse 64 Pulse Source Pulse Oximeter Pulse Oximetry (%) 100 Oxygen Delivery Method Room Air Intake Visit Reasons: abnormal CT Allergies No Known Allergies Allergy (Verified 05/11/24 08:51) HPI Comments Details: The patient is a 64-year-old woman with a known history of elevated ROSEY in addition to interstitial lung disease in the past with evidence of organizing pneumonia biopsy. The patient had been doing very well. She recovered completely from the interstitial lung disease. This happened many years ago and she hasn't had any recurrence. Her respiratory status has been stable. She has been evaluated at [facility] with left-sided headaches. The been significant affecting her whole left side. She went to the ER there she had an x-ray that was relatively normal. She also had blood work demonstrating an elevated creatinine. It is unclear at this point. However, she did have elevations in the an a in the past. Subsequent workup for the positive ROSEY resulted in negative double-stranded DNA. The patient had had some arthritis and rashes in the past but she no longer has does findings. The patient is here for pulmonary follow-up visit. The patient is a 59-year-old woman with a known history of elevated ROSEY in addition to interstitial lung disease in the past with evidence of organizing pneumonia biopsy. The patient had been doing very well. She recovered completely from the interstitial lung disease. This happened many years ago and she hasn't had any recurrence. Her respiratory status has been stable. She has been evaluated at [facility] with left-sided headaches. The been significant affecting her whole left side. She went to the ER there she had an x-ray that was relatively normal. She also had blood work demonstrating an elevated creatinine. It is unclear at this point. However, she did have elevations in the an a in the past. Subsequent workup for the positive ROSEY resulted in negative double-stranded DNA. The patient had had some arthritis and rashes in the past but she no longer has does findings. 03/26/2024 the patient is here for a pulmonary follow-up visit. Overall the patient has been doing well. She did develop COVID over the summer while she was in [place] and she was treated with prescriptions medicines. She did require a nebulizer and also albuterol for her wheezing. [facility] She decided not to seek medical care so therefore she continue with conservative therapies at home. She knows back to her baseline will make sure she has inhalers to be able to take a. Her last chest x-ray was back in July and it was intact without any acute disease. In addition to that she is complaining of some arthralgias and myalgias. At this point she has had elevations in her ROSEY therefore Rheumatology referral will be warranted. She is going to follow-up with her primary care and though hopefully refer her to Rheumatology of the time. 05/11/2024 the patient is here for sick visit. Apparently she started developing worsening pelvic discomfort. She went to [facility] where she was evaluated in the ER. She had a CT scan of the abdomen. It demonstrates she had adnexal masses bilaterally. They were concerned for malignancy. In addition to that picked up some changes on the lung windows. Therefore she underwent a CT scan of the chest. The description demonstrates areas of opacities airspace disease with ground-glass opacities. The patient is asymptomatic denies any cough wheezing. She denies any recent viral syndromes. She does have joint pains. She does take Motrin and also other Ryder 2 inhibitors for that. The patient was seen by Oncology. And she also seen a general surgeon and she is going to undergo surgery. She does have a history of positive ROSEY and has a history of cryptogenic organizing pneumonia treated with prednisone while in [place]. Most likely she has an underlying active interstitial process. Her previous x-rays have been okay. Will go ahead and start her on prednisone after she gets blood work and then will follow-up with an x-ray in a few weeks to see if there is interval improvement of the areas. Ultimately she will need another CT scan and only to review the images from [facility]. [facility] Medical History (Updated 05/11/24 @ 09:10 by Jose Carlos Calvin MD) Pneumonitis ILD (interstitial lung disease) Cervical neuralgia GERD (gastroesophageal reflux disease) Vitamin D deficiency Hypercholesterolemia Palpitations Insomnia Organizing pneumonia ROSEY positive Cough Surgical History (Updated 12/10/22 @ 13:50 by Christi Ovalle PA-C) History of laparoscopic cholecystectomy Family History (Updated 12/10/22 @ 13:53 by Christi Ovalle PA-C) Father Prostate cancer Mother Stroke, Onset Age: 65 Brother Myocardial infarction Social History Patient Tobacco Use Status: Former Tobacco user Tobacco use type: Cigarette Years Smoked: 20 years Review of Systems Const Reports difficulty sleeping, Reports fatigue and Denies night sweats ENT Denies change in voice, Denies lip swelling, Denies mouth pain, Reports nasal congestion, Reports nasal discharge and Denies tongue swelling Card Denies chest pain and Denies dyspnea on exertion Resp Reports cough and Denies dyspnea on exertion GI Denies abdominal pain Reports as per HPI Musc Reports back pain, Reports myalgias and Reports arthralgias Skin/Breast Reports rash Neuro Denies Neuro-related abnormal movements Psych Denies no additional complaints Endo Reports fatigue Nick/Lymph Denies easy bleeding and Denies lymphadenopathy Aller/Immun Denies lip swelling and Denies tongue swelling Physical Exam Vital Signs: Last Vital Signs Pulse 64 05/11/24 08:49 BP 128/74 05/11/24 08:49 Pulse Ox 100 05/11/24 08:49 Oxygen Delivery Method Room Air 05/11/24 08:49 Const General: alert Neck Neck: Yes normal visual inspection, Yes full ROM and Yes no lymphadenopathy Chest Chest palpation & inspection: normal inspection of the chest Resp Effort & Inspection: normal respiratory effort Auscultation: clear to auscultation bilaterally, no crackles, no rales, no rhonchi and no wheezes Cardio Rate: regular rate Rhythm: regular rhythm Heart sounds: S1 normal heart sound present and S2 normal heart sound present GI Palpation (GI): Soft to palpation and nontender Auscultation: normal bowel sounds Skin General skin exam: other ( Hypopigmented macular areas primarily in her lower extremities) Assessment & Plan Assessment & Plan (1) Organizing pneumonia: Code(s): J84.89 - Other specified interstitial pulmonary diseases Category: Medical (2) ROSEY positive: Code(s): R76.8 - Other specified abnormal immunological findings in serum Category: Medical (3) Cough: Code(s): R05 - Cough Category: Medical Qualifiers: Cough type: chronic Qualified Code(s): R05.3 - Chronic cough (4) Insomnia: Code(s): G47.00 - Insomnia, unspecified Category: Medical Qualifiers: Insomnia type: primary Qualified Code(s): F51.01 - Primary insomnia (5) ILD (interstitial lung disease): Code(s): J84.9 - Interstitial pulmonary disease, unspecified Category: Medical Plan bloodwork start prednisone CXR will undergo [employer] surgery continue Symbicort NOEL as needed consider Rheumatology referral follow-up 6-8 weeks Orders: Orders Anti DNA DS Antibody 05/11/24 J84.9 - Interstitial pulmonary disease, unspecified, J98.4 - Other disorders of lung ANCA Vasculitides 05/11/24 J84.9 - Interstitial pulmonary disease, unspecified, J98.4 - Other disorders of lung Sjogren's Antibodies 05/11/24 J84.9 - Interstitial pulmonary disease, unspecified, J98.4 - Other disorders of lung Erythrocyte Sedimentation Rate 05/11/24 J84.9 - Interstitial pulmonary disease, unspecified, J98.4 - Other disorders of lung Cyclic Citrullinated Peptide 05/11/24 J84.9 - Interstitial pulmonary disease, unspecified, J98.4 - Other disorders of lung ROSEY Reflex Titer and Pattern 05/11/24 J84.9 - Interstitial pulmonary disease, unspecified, J98.4 - Other disorders of lung Scleroderma 70 Antibody 05/11/24 J84.9 - Interstitial pulmonary disease, unspecified, J98.4 - Other disorders of lung Immunoglobulin E 05/11/24 J84.9 - Interstitial pulmonary disease, unspecified, J98.4 - Other disorders of lung Hypersensitive Pneumonitis Prf 05/11/24 J84.9 - Interstitial pulmonary disease, unspecified, J98.4 - Other disorders of lung, R91.8 - Other nonspecific abnormal finding of lung field Medications: New prednisone PO daily; Take 4 tabs x 4 days, then 3 tabs x 4 days, then 2 tabs daily x 4 days, then 1 tab x 4 days to complete. 30 tabs 0RF 16 days Coding Level of Care Code Est Pt Level 4 (63796) Diagnoses Organizing pneumonia J84.89 ROSEY positive R76.8 Chronic cough R05.3 Cough type: chronic Primary insomnia F51.01 Insomnia type: primary ILD (interstitial lung disease) J84.9 Time Spent (min) 17
--- OUTSIDE RECORDS SUMMARY | 2024-05-11 08:59 | XMS_ITS | Encounter Summary ---
Author Organization [facility] Address [address] [place] [address] Care Team Providers Care Paper And Pulp Mill Operator Name Role Phone Candy Almanzar Primary Care Provider + Reason for Referral * Consultation (Routine) - Closed Specialty Diagnoses / Procedures Referred By Contac t Referred To Contact Gynecologic Oncology / Breast Surgery Diagnoses Ovarian mass Liza Guajardo MD [address] [place] [address] Hilton Raymundo MD 271 [facility] [address] [place] [address] Referral ID Status Reason Start Date Expiration Date V isits Requested Visits Authorized [id number] Closed Specialty Services Required 04/19/2024 04/19/2025 1 1 Reason for Visit * Reason Comments Consult * Consultation (Routine) - Closed Specialty Diagnoses / Procedures Referred By Contac t Referred To Contact Hematology and Oncology Diagnoses Ovarian mass Candy Almanzar PA 175 [facility] [address] [place] [address] Referral ID Status Reason Start Date Expiration Date V isits Requested Visits Authorized [id number] Closed Specialty Services Required 04/19/2024 04/19/2025 1 1 Encounter Details Date Type Department Care Team (Late st Contact Info) Description 04/19/2024 2:45 PM EST Office Visit [facility] Hematology Oncology [address] [place] [address] Liza Guajardo MD [address] [place] [address] Ovarian mass Social History Tobacco Use Types Packs/Day Years Used Date Smoking Tobacco: Former Cigarettes Smokeless Tobacco: Never Tobacco Cessation:Counseling Given: Not Answered Alcohol Use Standard Drinks/Week Comments No 0 (1 standard drink = 0.6 oz pur e alcohol) Sex and Gender Information Value Date Recorded Sex Assigned at Not on file Gender Identity Not on file Sexual Orientation Not on file Job Start Date Occupation Industry Not on file Not on file Not on file documented as of this encounter Last Filed Vital Signs Vital Sign Reading Time Taken Comments Blood Pressure 126/59 04/19/2024 3:03 PM EST Pulse 92 04/19/2024 3:03 PM EST Temperature 37.2 ??C (99 ??F) 04/19/2024 3:03 PM EST Respiratory Rate - - Oxygen Saturation 98% 04/19/2024 3:03 PM EST Inhaled Oxygen Concentration - - Weight 66.6 kg (146 lb 12.8 oz) 04/19/2024 3:03 PM EST Height 152.4 cm (5') 04/19/2024 3:03 PM EST Body Mass Index 28.67 04/19/2024 3:03 PM EST documented in this encounter Functional Status Functional Status Response Date of Assess ment Are you deaf or do you have serious difficulty h earing? No 04/18/2024 Are you blind or do you have serious difficulty seeing, even when wearing glasses? No 04/18/2024 Do you have serious difficul ty walking or climbing stairs? No 04/18/2024 Do you have serious difficulty dressing or bathi ng? No 04/18/2024 Because of a physical, menta l, or emotional condition, do you have serious difficulty doing errands alone such as visiting the doctor? No 04/18/2024 Cognitive Status Response Date of Assessm ent Because of a physical, menta l, or emotional condition, do you have serious difficulty concentrating, remembering, or making decisions? (5 years old or older) No 04/18/2024 documented as of this encounter Progress Notes * Liza Guajardo MD - 04/19/2024 2:[address] Almanzar Thank you very much for referring this patient for consultation. HPI: This is a 64-year-old lady, who is referred from the emergency room after she presented there with abdominal pain and was found to have a complex left-sided ovarian mass concerning for malignancy Patient is accompanied by her granddaughter, Corinna who acts as Swedish Greek foreign languages department chair Patient reports that she has had increasing abdominal discomfort and pain over the last week. She came into the emergency room and had imaging studies as reviewed below. Initially she had a CT abdomen/pelvis that revealed a complex calcified left ovarian lesion and right-sided ovarian cyst. Pelvic ultrasound was performed that confirmed the findings. There was no ascites or lymphadenopathy. Thereafter she had a CT chest for completion that demonstrated nodules, and she was started on antibiotic for suspected pulmonary infection. However patient does have a prior history of pulmonary fibrosis for which she follows with Dr. Calvin, she has appointment for 05/11. Patient denies any fever, chills cough or dyspnea. Reviewed imaging studies and results. She also had a CA125 that was low at 14.2. I recommended referral to PRODUCT DEVELOPMENT ECOLOGIST oncology and patient agrees ROS: GENERAL: No malaise, significant weight loss or fever Recent weight gain NECK: No lumps, goiter, pain or significant neck swelling RESPIRATORY: No cough, wheezing or shortness of breath CARDIOVASCULAR: No chest pain, leg swelling or palpitations GI: Lower abdominal discomfort, No blood in stools or black stools MUSCULOSKELETAL: No joint pain or swelling, back pain, or muscle pain. HEMATOLOGY/LYMPHOLOGY No prolonged bleeding, easy bruisability or swollen nodes Other Systems review is non contributory PAST MEDICAL HISTORY: Active Ambulatory Problems Diagnosis Date Noted Asthma 2024 CAD (coronary artery disease) 02/22/2023 Chest pain 11/12/2022 Cyst of right kidney 07/29/2017 Fibrosis of lung (CMS/HCC) 01/20/2017 GERD (gastroesophageal reflux disease) 07/29/2017 Interstitial lung disease (CMS/HCC) 01/20/2017 Pain, joint, multiple sites 07/29/2017 Positive ROSEY (antinuclear antibody) 07/29/2017 Pure hypercholesterolemia 03/02/2022 Vitamin D deficiency 03/02/2022 Resolved Ambulatory Problems Diagnosis Date Noted No Resolved Ambulatory Problems Past Medical History: Diagnosis Date Anxiety PAST SURGICAL HISTORY: Past Surgical History: Procedure Laterality Date CHOLECYSTECTOMY PROCEDURE: HISTORICAL CHOLECYSTECTOMY CHOLECYSTECTOMY PROCEDURE: DC LAPAROSCOPY SURG CHOLECYSTECTOMY COLONOSCOPY PROCEDURE: HISTORICAL COLONOSCOPY ESOPHAGOGASTRODUODENOSCOPY PROCEDURE: DC ESOPHAGOGASTRODUODENOSCOPY TRANSORAL DIAGNOSTIC OTHER SURGICAL HISTORY PROCEDURE: ---- OTHER ----; COMMENT: hist lung biopsy x 2 SOCIAL HISTORY: Social History Tobacco Use Smoking status: Former Current packs/day: 0.25 Types: Cigarettes Smokeless tobacco: Never Substance Use Topics Alcohol use: No She is currently retired FAMILY HISTORY: Family History Problem Relation Name Age of Onset Stroke Mother stroke at age 65, heart problems, cancer ? type, HTN Coronary artery disease Mother Prostate cancer Father Heart attack Brother No Known Problems Daughter No Known Problems Daughter Coronary artery disease Uncle Coronary artery disease Sister MEDICATIONS: Current Outpatient Medications: amitriptyline (ELAVIL) 10 mg tablet, Take 1 Tablet by mouth at bedtime., Disp: , Rfl: aspirin 81 mg chewable tablet, Chew 1 tablet (81 mg total) 1 (one) time each day., Disp: , Rfl: atorvastatin (LIPITOR) 20 mg tablet, Take 1 tablet (20 mg total) by mouth 1 (one) time each day., Disp: , Rfl: busPIRone (BUSPAR) 10 mg tablet, , Disp: , Rfl: cholecalciferol (VITAMIN D-3) 50 mcg (2,000 unit) capsule, Take 1 capsule (2,000 Units total) by mouth 1 (one) time each day., Disp: , Rfl: doxycycline (VIBRAMYCIN) 100 mg capsule, Take 1 capsule (100 mg total) by mouth 2 (two) times a dayfor 10 days. Take with at least 8 ounces (large glass) of water, do not lie down for 30 minutes after, Disp: 20 capsule, Rfl: 0 eszopiclone (LUNESTA) 3 mg tablet, Take 3 mg by mouth at bedtime as needed., Disp: , Rfl: FLUoxetine (PROzac) 10 mg tablet, Take 1 tablet (10 mg total) by mouth 1 (one) time each day., Disp: , Rfl: gabapentin (NEURONTIN) 100 mg capsule, Take 1 capsule (100 mg total) by mouth 2 (two) times a day.,Disp: 60 capsule, Rfl: 2 LORazepam (ATIVAN) 0.5 mg tablet, Take 1 tablet (0.5 mg total) by mouth every 6 (six) hours if needed., Disp: , Rfl: meloxicam (MOBIC) 15 mg tablet, Take 1 tablet (15 mg total) by mouth 1 (one) time each day if needed for moderate pain. Take with food., Disp: 90 tablet, Rfl: 1 tiZANidine (ZANAFLEX) 4 mg tablet, Take 1 tablet (4 mg total) by mouth at bedtime as needed for muscle spasms (neck spasms)., Disp: 90 tablet, Rfl: 1 No Known Allergies PHYSICAL EXAM: Visit Vitals BP 126/59 (BP Location: Right arm, Patient Position: Sitting, BP Cuff Size: Small adult) Pulse 92 Temp 37.2 ??C (99 ??F) (Temporal) Ht 1.524 m (60 ) Wt 66.6 kg (146 lb 12.8 oz) SpO2 98% BMI 28.67 kg/m?? Smoking Status Former BSA 1.64 m?? APPEARANCE: Alert and in no acute distress + Fatigue EYES: PERRL, conjunctiva pink and sclera are Normal without icterus ORAL CAVITY: No erythema or exudates NECK: Neck supple, no adenopathy, HEART: RRR with normal S1 and S2, no murmurs, no gallops, no JVD appreciated LUNG: clear to auscultation bilaterally Percussion note normal LYMPH NODES: No palpable superficial adenopathy ABDOMEN: Bowel sounds normoactive, no bruits, soft,tender lower abd without organomegaly or palpable masses EXTREMITIES: Extremities warm and well perfused without clubbing, cyanosis, rash or edema NEURO: Oriented X 3, no focal weakness; sensation is normal Slow gait LABS: Lab Results Component Value Date WBC 8.5 04/18/2024 HGB 11.1 (L) 04/18/2024 HCT 35.3 04/18/2024 MCV 95.4 04/18/2024 PLT 340 04/18/2024 Lab Results Component Value Date NA 137 04/18/2024 K 4.0 04/18/2024 CO2 27 04/18/2024 CL 106 04/18/2024 BUN 16 04/18/2024 Testing: Review of Lab results , interpreted Lab Results Component Value Date WBC 8.5 04/18/2024 HGB 11.1 (L) 04/18/2024 HCT 35.3 04/18/2024 MCV 95.4 04/18/2024 PLT 340 04/18/2024 Lab Results Component Value Date NA 137 04/18/2024 K 4.0 04/18/2024 CL 106 04/18/2024 CO2 27 04/18/2024 GLUCOSE 89 04/18/2024 BUN 16 04/18/2024 CREATININE 0.90 04/18/2024 CALCIUM 9.0 04/18/2024 PROT 7.8 04/18/2024 ALBUMIN 3.6 04/18/2024 BILITOT 0.3 04/18/2024 AST 24 04/18/2024 ALT 36 04/18/2024 ALKPHOS 258 (H) 04/18/2024 EGFR 72 04/18/2024 Review of Imaging, interpreted CT Chest wo Contrast Narrative: History: Abnormal findings in the lungs on earlier abdominal CT. Comparison: CT abdomen/pelvis from earlier today. Technique: Helical volumetric imaging of the thorax was performed without IV contrast. DLP: 360.76 mGy/cm SeeqpeVentureBeat VCT Iterative reconstruction technique Findings: Image detail is mildly limited, especially in the lower lungs, due to respiratory motion. The trachea and central bronchial tree are patent. Several small nodular airspace opacities are scattered bilaterally, a combination of groundglass attenuation and lester lung consolidation. The largest of these areas is approximately 2.5 cm in diameter in the right lung apex. The findings at the bas e of the lingula and right middle lobe and both lower lobes are more consolidative in nature. The intervening lung is normal. No pleural or pericardial effusions are seen. The heart is within normal limits for size. Coronary artery calcification is noted. There is mild ectasia of the distal aortic arch and proximal descending thoracic aorta. The thyroid gland shows no suspicious nodule. Several subcentimeter lymph nodes are scattered within the mediastinum, nonspecific. A small portion of the upper abdomen included on the lowest images through the thorax is remarkablefor cholecystectomy sequelae of. The regional skeleton is intact. Impression: Impression: Scattered nodular airspace opacities in both lungs, possibly infectious/inflammatory in nature, with a neoplastic process not excluded. Short-term follow-up is recommended. Telerad HARPAL ([id number]) -------- FINAL REPORT -------- Dictated By: Mayi Avila Dictated Date: 04/18/2024 19:22 ET Assigned Physician: Mayi Avila Reviewed and Electronically Signed By: Mayi Avila Signed Date: 04/18/2024 19:30 ET Workstation ID: [id number] Transcribed By: Self Edit Transcribed Date: 04/18/2024 19:22 ET US Pelvis Non OB Complete w Transvaginal Narrative: INDICATION: Pelvic pain concern for ovarian torsion. Technique: Ultrasound of the pelvis was obtained with both transabdominal and transvaginal imaging. Comparison: CT scan of the abdomen and pelvis from same day reviewed. FINDINGS: Uterus: Normal in size, shape and echogenicity. The endometrial stripe measures 1 mm in width. Right ovary: Moderate complex cystic lesion again noted in the right adnexa largest measuring 5.6 cm x 4.5 cm x 5.6 cm. Peripheral echogenicity noted with vascular flow however no definite normal ovarian tissue identified. Left ovary: Calcified lesion with shadowing noted in the left adnexa corresponding to lesion noted on CT imaging measuring approximately 3 cm with posterior acoustic shadowing. No normal left ovariantissue noted. Free fluid: None. Impression: Bilateral adnexal cystic changes similar to prior CAT scan. Ovarian torsion cannot be excluded since no normal ovarian tissue is identified. Consider gynecological consultation. -------- FINAL REPORT -------- Dictated By: Ahmet Rivera Dictated Date: 04/18/2024 16:28 ET Assigned Physician: Ahmet Rivera Reviewed and Electronically Signed By: Ahmet Rivera Signed Date: 04/18/2024 16:33 ET Workstation ID: [id number] Transcribed By: Self Edit Transcribed Date: 04/18/2024 16:[address] Abdomen Pelvis w Contrast Narrative: INDICATION: Bilateral lower quadrant abdominal pain TECHNIQUE: CT scan of the abdomen and pelvis obtained with a total of 90 cc of Isovue-370 administered intravenously without incident. Oral contrast administered. Scanner: GE LightSpeed 64 slice VCT Dose reduction technique: ASIR (Adaptive statistical iterative reconstruction) and/or AEC (automated exposure control) Dose: total exam DLP 589 mGY per cm COMPARISON: No prior studies are available for comparison. FINDINGS: Mild branching [id number]-like attenuation within the lingula and inferior lateral left lower lobe. Peripheral atelectatic changes suspected along the inferomedial aspect of the right middle, laterally along the right lower lobe as well as within the lingula. No pleural effusions. Bony structures are unremarkable for the patient's age. Liver, spleen, pancreas, adrenal glands and kidneys are within normal limits. Status post cholecystectomy. Stomach unremarkable. Small bowel loops are well-opacified and normal in course and caliber withoutwall thickening or dilatation. Terminal unremarkable. Appendix normal. Unopacified colon within normal limits. No free air or free fluid. Urinary bladder decompressed. Uterus unremarkable. 3.2 cm rounded lesion in the left adnexa with peripheral calcification possibly a complex cyst. Cystic changes also noted on the right side with 5.5 cm as well as 2.8 cm components. Abdominal aorta normal in course and caliber. No lymphadenopathy. Impression: Bilateral adnexal cystic changes as detailed above. Scattered tree-in-bud attenuation as well as atelectasis within the lung bases suggesting atypical pneumonia. -------- FINAL REPORT -------- Dictated By: Ahmet Rivera Dictated Date: 04/18/2024 14:48 ET Assigned Physician: Ahmet Rivera Reviewed and Electronically Signed By: Ahmet Rivera Signed Date: 04/18/2024 14:55 ET Workstation ID: [id number] Transcribed By: Self Edit Transcribed Date: 04/18/2024 14:48 ET Review of External Documentation Notes from PCP office, notes from ER Tests ordered - None ASSESSMENT 1. Ovarian mass PLAN: 64-year-old lady with bilateral adnexal cystic changes, particularly calcified complex cyst in the left pelvis, concerning for benign/malignant ovarian lesion. She seems to have particularly symptomsrelated to abdominal pain, however no other concerning B symptoms such as weight loss. Tumor [id number] is in the normal range. She may have a borderline malignancy or benign lesion. Regarding the lung findings, in the absence of symptoms suggestive of pneumonia this is more likelyrelated to her pre-existing pulmonary fibrosis. Recommend follow-up with reduction plant supervisor and continueuse of inhaler. Patient agrees I discussed with the patient and her daughter regarding the imaging, lab and clinical findings. I recommended a referral to PRODUCT DEVELOPMENT ECOLOGIST oncology. Patient does not usually follow with a apprentice painter neckties. Will contact the nurse navigator of the office to expedite her appointment. Follow-up here in 3 months and sooner if any findings indicating need for systemic therapy. Patient and granddaughter are in agreement with this plan. Liza Guajardo MD Cc: Candy Almanzar, Steph Cc Jose Carlos Calvin Cc Hilton Raymundo documented in this encounter Plan of Treatment Upcoming Encounters Date Type Department Care Team (Latest Contact Info) Description 05/22/2024 1:00 PM EST Office Visit Internal Medicine - [place] [address] [phone] Candy Almanzar PA [address] [address] 06/11/2024 10:00 AM EST Pre-Admission Testing [facility] Pre-Admission Testing [address] [place] [phone] 06/18/2024 7:30 AM EDT Hospital Encounter [facility] Main OR [address] [place] [phone] Hilton Raymundo MD [address] [place] [phone] 06/18/2024 7:30 AM EDT - 06/18/2024 10:30 AM EDT Surgery [facility] Main OR [address] [place] [phone] Hilton Raymundo MD [address] [place] [phone] Davinci assisted laparoscopic bilateral salpingo-oophorectom y, ? total hysterectomy, staging, open laparotomy. [[id number] (CPT??)] 07/03/2024 11:20 AM EDT Office Visit [facility] [place] 271 [facility] [address] [place] [phone] Hilton Raymundo MD 271 [facility] [address] [place] [address] 07/18/2024 11:15 AM EDT Office Visit [facility] Hematology Oncology [address] [place] [phone] Richa-Liza Cruz MD [address] [place] [phone] Scheduled Procedures Name Priority Associated Diagnoses Date/Ti me OOPHORECTOMY ROBOT TWO Adnexal mass Cysts of both ovaries Pelvic pain 06/18/2024 7:30 AM EDT Scheduled Referrals Name Type Priority Associated Diagnoses Order Schedule Ambulatory referral to Gynecologic Oncology Outpatient Referral Routine Ovarian mass Expected: 04/26/2024, Expires: 04/19/2025 documented as of this encounter Visit Diagnoses Diagnosis Ovarian mass Unspecified noninflammatory disorder of ovary, fallopian tube, and broad ligament Adnexal mass Other specified symptom associated with female genital organs Cysts of both ovaries Other and unspecified ovarian cyst Pelvic pain documented in this encounter Orders Outpatient Referral Count Last Ordered Date Fir st Ordered Date AMB REFERRAL TO HEMATOLOGY / ONCOLOGY 1 12/2024 documented in this encounter Care Teams Paper And Pulp Mill Operator Relationship Specialty Start Date End Date Candy Almanzar PA [address] [address] PCP - General Internal Medicine 05/04/21 documented as of this encounter
--- OUTSIDE RECORDS SUMMARY | 2024-05-11 08:59 | XMS_ITS | Encounter Summary ---
Author Organization [facility] Address [address] [place] [address] Care Team Providers Care Casino Investigator Name Role Phone Danyel Anthony MD Primary Care Provider [phone] Candy Almanzar PA-C Primary Care Provider + Axel Montero MD Unavailable [phone] Dorothea Barragan NP Unavailable [phone] Encounter Details Date Type Department Care Team Description 08/02/2017 On Call Pharmacy Technician Report Medical Records [address] [place] [id number] Danyel Anthony MD [address] [place], [place] [phone] Social History Tobacco Use Types Packs/Day Years Used Date Smoking Tobacco: Never Assessed Sex Assigned at Date Recorded Not on file Job Start Date Occupation Industry Not on file Not on file Not on file documented as of this encounter Plan of Treatment Not on file documented as of this encounter Visit Diagnoses Not on filedocumented in this encounter Care Teams Casino Investigator Relationship Specialty Start Date End Date Danyel Anthony MD [address] [place], [place] [phone] PCP - General Internal Medicine 07/18/17 05/03/21 Candy Almanzar PA-C [address] [place], [place] [phone] PCP - General Internal Medicine 05/04/21 Axel Montero MD [address] [place] [phone] Specialist Cardiovascular Disease 09/09/22 Dorothea Barragan NP [address] [place] [address] [place] [address] [address] Cardiology 09/07/23 documented as of this encounter
--- OUTSIDE RECORDS SUMMARY | 2024-05-11 08:59 | XMS_ITS | Encounter Summary ---
Author Organization [facility] Address [address] [place] [address] Care Team Providers Care Creative Services Manager Name Role Phone Candy Almanzar Primary Care Provider + Reason for Visit * Reason Comments Consult Ovarian mass * Consultation (Routine) - Closed Specialty Diagnoses / Procedures Referred By Rehan mccall Referred To Contact Gynecologic Oncology / Breast Surgery Diagnoses Ovarian mass Richa-Liza Cruz MD [address] [place] [address] Hilton Raymundo MD 271 [facility] [address] [place] [address] Referral ID Status Reason Start Date Expiration Date V isits Requested Visits Authorized [id number] Closed Specialty Services Required 04/19/2024 04/19/2025 1 1 Encounter Details Date Type Department Care Team (Late st Contact Info) Description 05/03/2024 1:20 PM EST Consult Breast [facility] [address] [facility] [address] [place] [address] Hilton Raymundo MD 271 [facility] [address] [place] [address] Adnexal mass (Primary Dx); Cysts of both ovaries; Pelvic pain; Ovarian mass Social History Tobacco Use Types [...] Sign Reading Time Taken Comments Blood Pressure 120/72 05/03/2024 1:24 PM EST Pulse 63 05/03/2024 1:24 PM EST Temperature 36.8 ??C (98.2 ??F) 05/03/2024 1:24 PM ES T Respiratory Rate - - Oxygen Saturation - - Inhaled Oxygen Concentration - - Weight 67.2 kg (148 lb 3.2 oz) 05/03/2024 1:24 P M EST Height - - Body Mass Index 28.94 04/19/2024 3:03 PM EST documented in this [...] as of this encounter Progress Notes * Hilton Raymundo MD - 05/03/2024 1:20 PM EST REFERRING PROVIDER: Liza Guajardo MD PRIMARY CARE PROVIDER: HARPAL May CHIEF COMPLAINT: Bilateral adnexal masses. HISTORY OF PRESENT ILLNESS: Ms. Bonilla is a 64 y.o. female who presents for evaluation management following recent diagnosis of bilateral adnexal masses with concern for malignancy. The patient is accompanied by her granddaughter, Corinna. The patient is [place]orese-speaking and the encounter is performed with assistance of court interpreter via video. To review her history: The patient initially presented with increasing abdominal discomfort and pain in the first week of April. She presented to the emergency room at [facility] on 04/18/2024. CT abdomen pelvis on 04/18/2024 demonstrated in the pelvis a 3.2 cm rounded lesion in the left adnexawith peripheral calcification possibly a complex cyst. There were cystic changes also noted on the right adnexa with 5.5 cm as well as 2.8 cm components. Pelvic ultrasound on 825 further characterized in the right ovary a moderate complex cystic lesion measuring 5.6 x 4.5 x 5.6 cm. There was peripheral echogenicity noted with vascular flow however no definite normal ovarian tissue was identified. In the left ovary, there was a calcified lesion with shadowing noted corresponding to the lesion on CT that measured approximately 3 cm with posterior acoustic shadowing. There was no normal left ovarian tissue noted. CT chest without contrast on 04/18/2024 revealed scattered nodular airspace opacities in both lungs, possibly infectious/inflammatory in nature, with a neoplastic process not excluded. Of note, the patient does have a history of interstitial lung disease and pulmonary fibrosis. Today, she endorses some persistent lower abdominal pain. She denies any nausea or vomiting. Her appetite is fairly good. Denies fevers, chills, bowel or urinary symptoms. 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 The patient endorses glaucoma, heart murmur, muscle pain, frequent headaches, excessive urination. Remainder of comprehensive reiview of systems is negative as per intake sheet. PROBLEM LIST: Patient Active Problem List Diagnosis Date Noted Adnexal mass 05/03/2024 Cysts of both ovaries 05/03/2024 Pelvic pain 05/03/2024 Asthma 2024 CAD (coronary artery disease) 02/22/2023 Chest pain 11/12/2022 Pure hypercholesterolemia 03/02/2022 Vitamin D deficiency 03/02/2022 Cyst of right kidney 07/29/2017 GERD (gastroesophageal reflux disease) 07/29/2017 Pain, joint, multiple sites 07/29/2017 Positive ROSEY (antinuclear antibody) 07/29/2017 Fibrosis of lung (CMS/HCC) 01/20/2017 Interstitial lung disease (CMS/HCC) 01/20/2017 PAST MEDICAL HISTORY: Past Medical History: Diagnosis Date Anxiety Asthma DX:Asthma Cyst of right kidney 07/29/2017 DX:Cyst of right kidney Fibrosis of lung (CMS/HCC) 01/20/2017 DX:Fibrosis of lung (HCC) GERD (gastroesophageal reflux disease) 07/29/2017 DX:GERD (gastroesophageal reflux disease) Heart murmur Interstitial lung disease (CMS/HCC) 01/20/2017 DX:Interstitial lung disease (HCC) Pain, joint, multiple sites 07/29/2017 DX:Pain, joint, multiple sites Positive ROSEY (antinuclear antibody) 07/29/2017 DX:Positive ROSEY (antinuclear antibody) PAST SURGICAL HISTORY: Past Surgical History: Procedure Laterality Date CHOLECYSTECTOMY PROCEDURE: HISTORICAL CHOLECYSTECTOMY CHOLECYSTECTOMY PROCEDURE: FL LAPAROSCOPY SURG CHOLECYSTECTOMY COLONOSCOPY PROCEDURE: HISTORICAL COLONOSCOPY ESOPHAGOGASTRODUODENOSCOPY PROCEDURE: FL ESOPHAGOGASTRODUODENOSCOPY TRANSORAL DIAGNOSTIC OTHER SURGICAL HISTORY PROCEDURE: ---- OTHER ----; COMMENT: hist lung biopsy x 2 SOCIAL HISTORY: Social History Tobacco Use Smoking status: Former Current packs/day: 0.25 Types: Cigarettes Smokeless tobacco: Never Substance Use Topics Alcohol use: No FAMILY HISTORY: Family History Problem Relation Name Age of Onset Stroke Mother stroke at age 65, heart problems, cancer ? type, HTN Coronary artery disease Mother Prostate cancer Father Heart attack Brother No Known Problems Daughter No Known Problems Daughter Coronary artery disease Uncle Coronary artery disease Sister ACTIVE MEDICATIONS: Medication list was reviewed and updated with the patient. Current Outpatient Medications on File Prior to Visit Medication Sig Dispense Refill busPIRone (BUSPAR) 10 mg tablet eszopiclone (LUNESTA) 3 mg tablet Take 3 mg by mouth at bedtime as needed. FLUoxetine (PROzac) 10 mg tablet Take 1 tablet (10 mg total) by mouth 1 (one) time each day. gabapentin (NEURONTIN) 100 mg capsule Take 1 capsule (100 mg total) by mouth 2 (two) times a day. 60 capsule 2 LORazepam (ATIVAN) 0.5 mg tablet Take 1 tablet (0.5 mg total) by mouth every 6 (six) hours if needed. meloxicam (MOBIC) 15 mg tablet Take 1 tablet (15 mg total) by mouth 1 (one) time each day if neededfor moderate pain. Take with food. 90 tablet 1 tiZANidine (ZANAFLEX) 4 mg tablet Take 1 tablet (4 mg total) by mouth at bedtime as needed for muscle spasms (neck spasms). 90 tablet 1 [DISCONTINUED] aspirin 81 mg chewable tablet Chew 1 tablet (81 mg total) 1 (one) time each day. cholecalciferol (VITAMIN D-3) 50 mcg (2,000 unit) capsule Take 1 capsule (2,000 Units total) by mouth 1 (one) time each day. [DISCONTINUED] amitriptyline (ELAVIL) 10 mg tablet Take 1 Tablet by mouth at bedtime. [DISCONTINUED] atorvastatin (LIPITOR) 20 mg tablet Take 1 tablet (20 mg total) by mouth 1 (one) time each day. [DISCONTINUED] doxycycline (VIBRAMYCIN) 100 mg capsule Take 1 capsule (100 mg total) by mouth 2 (two) times a day for 10 days. Take with at least 8 ounces (large glass) of water, do not lie down for 30 minutes after 20 capsule 0 No current facility-administered medications on file prior to visit. ALLERGIES: No Known Allergies PHYSICAL EXAM: Visit Vitals BP 120/72 Pulse 63 Temp 36.8 ??C (98.2 ??F) (Temporal) Wt 67.2 kg (148 lb 3.2 oz) BMI 28.94 kg/m?? Smoking Status Former BSA 1.64 m?? GENERAL: Awake, alert, and in no acute distress. HEAD: Normocephalic, atraumatic. EYES: Pupils equal and round. Anicteric sclera. Conjunctiva normal. NECK: Supple, thyroid midline and without goiter or nodule. No tenderness or mass. No appreciable adenopathy. CHEST: Non-tender. LUNGS: Clear to auscultation bilaterally without wheezing, rales, or rhonchi. CARDIAC: RRR, normal S1/S2, no appreciable murmur. ABDOMEN: Soft, non-distended. Slight tenderness to deep palpation in the lower abdomen. No appreciable mass. No organomegaly. No ventral or umbilical hernia noted. EXTREMITIES: Warm, well-perfused. No edema. BACK: Grossly normal range of motion. SKIN: Skin color, texture, turgor normal. Warm, no lesion or rash noted on visible skin. NEURO: Awake, alert and oriented. Cranial nerves are intact. Motor and sensory grossly intact. GYNECOLOGIC: External genitalia within normal limits. Urethral meatus, urethra, and bladder are normal. Speculum exam reveals normal vaginal mucosa without lesion. Cervix normal in appearance withoutdischarge. Bimanual exam reveals small, midline uterus, with no tenderness to palpation. Right adnexal mass is appreciated, mobile, slightly tender. No left adnexal mass palpated. LABS: Lab results, as listed below, were reviewed and discussed with the patient. Lab Results Component Value Date CA125 14.2 04/18/2024 IMAGING: The following images were personally reviewed, including reports and associated films. Findings were discussed with the patient. 04/18/2024 CT Abdomen Pelvis with Contrast INDICATION: Bilateral lower quadrant abdominal pain TECHNIQUE: CT scan of the abdomen and pelvis obtained with a total of 90 cc of Isovue-370 administered intravenously without incident. Oral contrast administered. Scanner: NSCpeZignals 64 slice VCT Dose reduction technique: ASIR (Adaptive statistical iterative reconstruction) and/or AEC (automated exposure control) Dose: total exam DLP 589 mGY per cm COMPARISON: No prior studies are available for comparison. FINDINGS: Mild branching [id number]-[id number]-like attenuation within the lingula and inferior lateral [...] normal in course and caliber. No lymphadenopathy. IMPRESSION: Bilateral adnexal cystic changes as detailed above. Scattered tree-in-bud attenuation as well as atelectasis within the lung bases suggesting atypical pneumonia. -------- FINAL REPORT -------- Dictated By: Ahmet Rivera Dictated Date: 04/18/2024 14:48 ET 04/18/2024 US Pelvis Non OB Complete w Transvaginal INDICATION: Pelvic pain concern for ovarian torsion. [...] normal left ovariantissue noted. Free fluid: None. IMPRESSION: Bilateral adnexal cystic changes similar to prior CAT scan. Ovarian torsion cannot be excluded since no normal ovarian tissue is identified. Consider gynecological consultation. -------- FINAL REPORT -------- Dictated By: Ahmet Rivera Dictated Date: 04/18/2024 16:28 ET 04/18/2024 CT Chest wo Contrast History: Abnormal findings in the lungs on earlier abdominal CT. Comparison: CT abdomen/pelvis from earlier today. Technique: Helical volumetric imaging of the thorax was performed without IV contrast. DLP: 360.76 mGy/cm Taamkrupeed VCT Iterative reconstruction technique Findings: Image detail [...] sequelae of. The regional skeleton is intact. IMPRESSION: Scattered nodular airspace opacities in both lungs, possibly infectious/inflammatory in nature, with a neoplastic process not excluded. Short-term follow-up is recommended. Aileen ROWAN ([id number]) -------- FINAL REPORT -------- Dictated By: Mayi Avila Dictated Date: 04/18/2024 19:22 ET ASSESSMENT AND PLAN: 1. 2. 3. Adnexal mass Cysts of both ovaries Pelvic pain Case Request Operating Room: Robot assisted laparoscopic bilateral salpingo-oophorectomy, possible total hysterectomy, staging, open laparotomy. CBC and differential Type and screen In summary, Ms. Bonilla is a 64 y.o. female with bilateral ovarian cystic lesions and pelvic pain. I reviewed my findings and recommendations with the patient and her daughter today. I discussed thedifferential diagnosis of ovarian cystic lesions including: ?? Benign ovarian cysts ?? Ovarian cysts of borderline malignant potential ?? Malignant ovarian cysts (ovarian cancer) ?? Benign non-ovarian processes (fallopian tube cysts, fibroids, scar tissue) ?? Malignant non-ovarian processes (metastasis from another primary site) Malignancy cannot be ruled out without removal of the cystic lesions. Preoperative biopsy is not feasible as needle biopsy risks rupture of the cyst. If a malignancy were present, this would risk spill of tumor cells into the abdominal cavity that increases the risk of recurrence and potentially lead to the need for chemotherapy. I have recommended surgical excision of both tubes and ovaries. Once the specimens are removed, they will be sent for frozen section by pathology while the patient is still sleep. If the pathology isbenign, no further surgery would be required. If a malignancy were identified, further intraoperative procedures would be dependent upon what is identified. The spectrum of ovarian malignancies extends from low grade or borderline tumors that only require removal of the involved ovary to high gradetumors that require complete staging including hysterectomy, omentectomy, and pelvic/para-aortic lymphadenectomy. Surgical staging is an important part of management for some ovarian cancers as it can help determine whether the patient will benefit from postoperative chemotherapy. Given the size of the ovarian lesions, the patient is a candidate for a minimally invasive procedure. The ovaries will be placed in a bag, decompressed at the incision, to allow for removal through laparoscopic incisions without risking peritoneal contamination. We discussed the potential need for conversion to an open incision if the patient does not tolerate laparoscopy or in the event of an unanticipated event. We discussed that oncologic outcomes are equivalent with minimally invasive surgery with lower rates of perioperative complications and faster recovery versus laparotomy. We discussed the risks of surgery including bleeding, infection, injury to adjacent organs, anesthesia risks, thromboembolic risks, and risk of catastrophic event. At the conclusion of our discussion, the patient expressed understanding and agrees to proceed with surgery. Surgical consent was signed in the office today for: Robot-assisted laparoscopic bilateral salpingo- oophorectomy, possible total hysterectomy, staging, open laparotomy. I spent a total of 65 minutes on the date of the service, in seeing the patient and performing the following activities: Preparing to see the patient (e.g. reviewing tests), Obtaining and/or reviewing separately obtained history, Performing a medically appropriate examination and/or evaluation, Counseling and educating the patient, family or caregiver, Ordering medications, tests, or procedures and Documenting clinical information in the electronic health record. The encounter was performed with the assistance of a court interpreter, which further extended the time needed for the visit. Thank you for allowing me to participate in the care of Ms. Olga Bonilla at the [place] [facility] today. Please do not hesitate to contact me with any questions or concerns. Hilton Raymundo MD Gynecologic Oncologist and Breast Surgeon [place] [facility] [place] [address] CC: MD Candy Potts PA documented in this encounter Plan of Treatment Upcoming Encounters Date Type Department Care Team (Latest Contact Info) Description 05/22/2024 1:00 PM EST Office Visit Internal Medicine - [place] [address] [phone] Candy Almanzar PA 175 [place] [address] 06/11/2024 10:00 AM EST Pre-Admission Testing [facility] Pre-Admission Testing [address] [place] [phone] 06/18/2024 7:30 AM EDT Hospital Encounter [facility] Main OR [address] [place] [phone] Hilton Raymundo MD [address] [place] [address] 06/18/2024 7:30 AM EDT - 06/18/2024 10:[address] [facility] Main [address] [phone] Hilton Raymundo MD [address] [place] [id number] Davinci assisted laparoscopic bilateral salpingo-oophorectom y, ? total hysterectomy, staging, open laparotomy. [80347 (CPT??)] 07/03/2024 11:20 AM EDT Office Visit [facility] Care [address] [phone] Hilton Raymundo MD [address] [place] [address] 07/18/2024 11:15 AM EDT Office Visit [facility] Hematology Oncology [address] [place] [phone] Liza Guajardo MD [address] [place] [phone] Scheduled Orders Name Type Priority Associated Diagnoses Orde r Schedule CBC and differential Lab Routine Adnexal mass Cysts of both ovaries Pelvic pain 1 Occurrences starting 05/03/2024 until 05/03/2025 Type and screen Lab Routine Adnexal mass Cysts of both ovaries Pelvic pain 1 Occurrences starting 05/03/2024 until 05/03/2025 Scheduled Procedures Name Priority Associated Diagnoses Date/Ti me OOPHORECTOMY ROBOT TWO Adnexal mass Cysts of both ovaries Pelvic pain 06/18/2024 7:30 AM EDT documented as of this encounter Visit Diagnoses Diagnosis Adnexal mass- Primary Other specified symptom associated with female genital organs Cysts of both ovaries Other and unspecified ovarian cyst Pelvic pain Ovarian mass Unspecified noninflammatory disorder of ovary, fallopian tube, and broad ligament Adnexal mass Other specified symptom associated with female genital organs Cysts of both ovaries Other and unspecified ovarian cyst Pelvic pain Adnexal mass Other specified symptom associated with female genital organs Cysts of both ovaries Other and unspecified ovarian cyst Pelvic pain documented in this encounter Discontinued Medications Medication Sig Discontinue Reason Start Date End Da te amitriptyline (ELAVIL) 10 mg tablet Take 1 Tablet by mouth at bedtime. 05/03/2024 atorvastatin (LIPITOR) 20 mg tablet Take 1 tablet (20 mg total) by mouth 1 (one) time each day. 04/19/2023 05/03/2024 aspirin 81 mg chewable tablet Chew 1 tablet (81 mg total) 1 (one) time each day. 05/03/2024 doxycycline (VIBRAMYCIN) 100 mg capsule Take 1 capsule (100 mg total) by mouth 2 (two) times a day for 10 days. Take with at least 8 ounces (large glass) of water, do not lie down for 30 minutes after 04/18/2024 05/03/2024 documented as of this encounter Orders Outpatient Referral Count Last Ordered Date Fir st Ordered Date AMB REFERRAL TO GYNECOLOGIC ONCOLOGY 1 04/12 Case Request Count Last Ordered Date First Orde red Date CASE REQUEST OPERATING ROOM 1 05/03/2024 documented in this encounter Care Teams Creative Services Manager Relationship Specialty Start Date End Date Candy Almanzar PA [address] [address] PCP - General Internal Medicine 05/04/21 documented as of this encounter
--- OUTSIDE RECORDS SUMMARY | 2024-05-11 09:00 | XMS_ITS | Encounter Summary ---
Author Organization [facility] Address [address] [place] [address] Care Team Providers Care Cryptologic Technician Operator/Analyst Name Role Phone Candy Almanzar Primary Care Provider + Reason for Visit * Reason Onset Date Comments OTHER 05/07/2024 Advice Only 05/07/2024 Encounter Details Date Type Department Care Team (Late st Contact Info) Description 05/07/2024 Telephone [facility] - [place] [address] [facility] [address] [place] [phone] Hilton Raymundo MD [address] [facility] [address] [place] [address] OTHER; Advice Only Social History Tobacco Use Types Packs/Day Years Used Date Smoking Tobacco: Former Cigarettes Smokeless Tobacco: Never Alcohol Use Standard Drinks/Week Comments No 0 (1 standard drink = 0.6 oz pur e alcohol) Sex and Gender Information Value Date Recorded Sex Assigned at Not on file Gender Identity Not on file Sexual Orientation Not on file Job Start Date Occupation Industry Not on file Not on file Not on file documented as of this encounter Functional Status Functional Status Response [...] as of this encounter Progress Notes * Cookie Gagnon MA - 05/11/2024 7:15 AM EST You are fully booked until June. Unless you would like to strip picker XI time * Hilton Raymundo MD - 05/10/2024 5:58 PM EST Clyde Gary, why is her surgery scheduled so far out? If she is having so much pain, she should havesurgery sooner. * Nini Zelaya RN - 05/08/2024 10:07 AM EST Pt called using blanket inspector service ID# [id number] to assess her pain. She is rating her pain a 6 on a 1-10 pain scale. She states pain is located in both ovaries and into her lower back. She has only tried tylenol. I told her she can try motrin and heating pad to both lower abdomen and lower back. She states that she will try this. She was instructed to call back if this does not seem to be working, * Hilton Raymundo MD - 05/07/2024 8:31 PM EST Nini- Can you call this patient and assess her pain, etc. Has she tried OTC meds; How bad is thepain; What has she used in the past for pain, etc. Let me know if she needs an opioid prescription sent in. * Jorgito Ingram - 05/07/2024 11:43 AM EST Patients daughter called in stating that patient would like a pain medication prescribed for her upuntil her surgery. Please contact patient. documented in this encounter Plan of Treatment Upcoming Encounters Date Type Department Care Team (Latest Contact Info) Description 05/22/2024 1:00 PM EST Office Visit Internal Medicine - [place] [address] [phone] Candy Almanzar PA [address] [address] 06/11/2024 10:00 AM EST Pre-Admission Testing [facility] Pre-Admission Testing [address] [place] [phone] 06/18/2024 7:30 AM EDT Hospital Encounter [facility] Main OR [address] [place] [phone] Hilton Raymundo MD [address] [place] [address] 06/18/2024 7:30 AM EDT - 06/18/2024 10:30 AM EDT Surgery [facility] Main OR [address] [place] [phone] Hilton Raymundo MD [address] [address] Davinci assisted laparoscopic bilateral salpingo-oophorectom y, ? total hysterectomy, staging, open laparotomy. [[id number] (CPT??)] 07/03/2024 11:20 AM EDT Office Visit [facility] [address] [phone] Hilton Raymundo MD [address] [facility] 110 [place] [address] 07/18/2024 11:15 AM EDT Office Visit [facility] Hematology Oncology [address] [place] [phone] Liza Guajardo MD [address] [place] [phone] Scheduled Procedures Name Priority Associated Diagnoses Date/Ti me OOPHORECTOMY ROBOT TWO Adnexal mass Cysts of both ovaries Pelvic pain 06/18/2024 7:30 AM EDT documented as of this encounter Visit Diagnoses Not on filedocumented in this encounter Care Teams Cryptologic Technician Operator/Analyst Relationship Specialty Start Date End Date Candy Almanzar PA [address] [facility] 200 [place] [address] PCP - General Internal Medicine 05/04/21 documented as of this encounter
--- OUTSIDE RECORDS SUMMARY | 2024-05-11 09:00 | XMS_ITS | Encounter Summary ---
Author Organization [facility] Address [address] [place] [address] Care Team Providers Care Toe Sewer Name Role Phone Candy Almnazar Primary Care Provider + Reason for Visit * Reason Onset Date Comments Appointment 04/23/2024 Encounter Details Date Type Department Care Team (Late st Contact Info) Description 04/23/2024 Telephone [facility] [address] [place] [address] Nini Zelaya, RN Appointment Social History Tobacco Use Types Packs/Day Years [...] as of this encounter Progress Notes * Nini Zelaya RN - 04/23/2024 3:13 PM EST I spoke with patient via neck skewer to give her a new patient appointment with Dr. Raymundo. She was given date, time and location of the appointment along with our phone number documented in this encounter Plan of Treatment Upcoming Encounters Date Type Department Care Team (Latest Contact Info) Description 05/22/2024 1:00 PM EST Office Visit Internal Medicine [facility] [place] [address] [phone] Candy Almanzar PA [address] [address] 06/11/2024 10:00 AM EST Pre-Admission Testing [facility] Pre-Admission Testing [address] [place] [phone] 06/18/2024 7:30 AM EDT Hospital Encounter [facility] Main OR [address] [place] [phone] Hilton Raymundo MD [address] [place] [address] 06/18/2024 7:30 AM EDT - 06/18/2024 10:30 AM EDT Surgery [facility] Main OR [address] [place] [phone] Hilton Raymundo MD [address] [place] [address] Davinci assisted laparoscopic bilateral salpingo-oophorectom y, ? total hysterectomy, staging, open laparotomy. [[id number] (CPT??)] 07/03/2024 11:20 AM EDT Office Visit [facility] [address] [facility] [address] [place] [phone] Hilton Raymundo MD 271 [facility] [address] [place] [address] 07/18/2024 11:15 AM EDT Office Visit [facility] Hematology Oncology [address] [place] [phone] Richa-Liza Cruz MD [address] [place] [phone] Scheduled Procedures Name Priority Associated Diagnoses Date/Ti me OOPHORECTOMY ROBOT TWO Adnexal mass Cysts of both ovaries Pelvic pain 06/18/2024 7:30 AM EDT documented as of this encounter Visit Diagnoses Not on filedocumented in this encounter Care Teams Toe Sewer Relationship Specialty Start Date End Date Candy Almanzar PA [address] [address] PCP - General Internal Medicine 05/04/21 documented as of this encounter
--- OUTSIDE RECORDS SUMMARY | 2024-05-11 09:00 | XMS_ITS | Clinical Summary ---
Author Organization [facility] Address [address] [place] [address] Care Team Providers Care Sap Abap Programmer Name Role Phone Unavailable Primary Care Provider Unavailabl e Source Comments PLEASE NOTE, if this patient is a minor, it may be UNLAWFUL to discuss sensitive information that is contained in these records (such as FAMILY PLANNING, MENTAL HEALTH or SUBSTANCE ABUSE) with the minor patient's parent or other person without the patient's specific authorization.[facility] Allergies No known active allergies Medications ondansetron (ZOFRAN) 4 mg tablet 0 05/05/2015 Active pantoprazole (PROTONIX) 40 mg EC tabletIndication s:Gastroesophage al reflux disease, esophagitis presence not specified Take 1 Tab by mouth every morning before breakfast. Swallow whole. Do not crush or chew. 30 Tab 2 01/26/2016 Active naproxen sodium (ANAPROX) 550 mg tabletIndication s:Pain in joint, multiple sites Take 1 Tab by mouth 2 (two) times daily with a meal. 60 Tab 2 01/26/2016 Active Active Problems Problem Noted Date Diagnosed Date Cyst of right kidney 07/22/2015 Screening for colon cancer 06/03/2015 Overview (06/03/2015): 03/24/15 Eval by Nena Buckner at [facility] for Colon Consult. Will plan for colonoscopy. H/O mammogram 05/23/2015 Overview (05/23/2015): Done on 03/31/2015 at [facility]: no mammographic evidence of malignancy is seen. Next due 03/2016 Positive ROSEY (antinuclear antibody) 02/27/2015 Pulmonary fibrosis (HCC-CMS) 02/21/2015 Interstitial pneumonitis (HCC-CMS) Immunizations Name Administration Dates Next Due INFLUENZA, SEASONAL, INJECTABLE 02/21/2015 Family History Medical History Relation Name Comments Diabetes Brother Cancer Father prostate Cancer Mother Heart Problems Mother Stroke Mother Relation Name Status Comments Brother Father Mother Social History Tobacco Use Types Packs/Day Years Used Date Smoking Tobacco: Former Smokeless Tobacco: Never Alcohol Use Standard Drinks/Week Comments No 0 (1 standard drink = 0.6 oz pur e alcohol) Social Connections Answer Date Recorded Social Connections and Isolation 0 12/03/2018 Financial Resource Strain Answer Date R ecorded Financial Resource Strain 0 2018 Stress Answer Date Recorded Stress 0 12/03/2018 Physical Activity Answer Date Recorded Physical Activity 0 12/03/2018 Food Insecurity Answer Date Recorded Food 0 12/03/2018 Transportation Needs Answer Date Record ed Transportation 0 12/03/2018 Housing Stability Answer Date Recorded Housing 0 12/03/2018 Safety and Environment Answer Date Kristopher rded Safety 0 12/03/2018 Utilities Answer Date Recorded Utilities 0 12/03/2018 Employment Answer Date Recorded Employment 0 12/03/2018 Comments No Sex and Gender Information Value Date Recorded Sex Assigned at Not on file Legal Sex Female 11:23 AM PDT Gender Identity Not on file Sexual Orientation Not on file Occupation Industry Job Start Date Job End Date unemployed Not on file Not on file Not on file Last Filed Vital Signs Vital Sign Reading Time Taken Comments Blood Pressure 110/64 01/10/2017 11:07 AM EDT Pulse 64 01/10/2017 11:07 AM EDT Temperature 36.9 ??C (98.5 ??F) 01/10/2017 11:07 AM E DT Respiratory Rate 16 01/10/2017 11:07 AM EDT Oxygen Saturation - - Inhaled Oxygen Concentration - - Weight 65.8 kg (145 lb) 01/10/2017 11:07 AM EDT Height 160 cm (5' 3 ) 01/10/2017 11:07 AM EDT Body Mass Index 25.69 01/10/2017 11:07 AM EDT Plan of Treatment Not on file Insurance [employer] [place] [facility] [place] [address] [place] [facility] Member Subscriber Plan / Payer (Ef fective 2015-Present) Name:George Bonillaga Relation to Subscriber:Self Name:Chad Payer ID:[id number] Group ID:Not on file Type:Indemnity Address: [place] [address] [address] [address]
--- OUTSIDE RECORDS SUMMARY | 2024-05-11 09:00 | XMS_ITS | Encounter Summary ---
Author Organization [facility] Address [address] [place] [address] Care Team Providers Care Cardroom Manager Name Role Phone Candy Almanzar PA-C Primary Care Provider + Axel Montero MD Unavailable [phone] Dorothea Barragan NP Unavailable [phone] Encounter Details Date Type Department Care Team Description 09/12/2023 SCAN Medical Records [address] [place] [phone] Abstract, Provider Social History Tobacco Use Types Packs/Day Years Used Date Smoking Tobacco: Former Cigarettes 0.3 20 Smokeless Tobacco: Never Alcohol Use Standard Drinks/Week Comments No 0 (1 standard drink = 0.6 oz pur e alcohol) Sex Assigned at Date Recorded Not on file Job Start Date Occupation Industry Not on file Not on file Not on file documented as of this encounter Plan of Treatment Not on file documented as of this encounter Procedures Procedure Name Priority Date/Time Associated Diagnosis Comments OUTSIDE CARDIAC CATH Routine 09/12/2023 OUTSIDE LAB Routine 09/12/2023 documented in this encounter Results * OUTSIDE LAB (09/12/2023) Provider Default LAB * OUTSIDE CARDIAC CATH (09/12/2023) Provider Default CARDIOLOGY documented in this encounter Visit Diagnoses Not on filedocumented in this encounter Care Teams Cardroom Manager Relationship Specialty Start Date End Date Candy Almanzar PA-C PCP - General Internal Medicine 05/04/21 Axel Montero MD [address] [place] [address] Specialist Cardiovascular Disease 09/09/22 Dorothea Barragan NP [address] [address] Cardiology 09/07/23 documented as of this encounter
--- OUTSIDE RECORDS SUMMARY | 2024-05-11 09:00 | XMS_ITS | Encounter Summary ---
Author Organization [facility] Address [address] [place] [address] Care Team Providers Care Commodities Manager Name Role Phone Candy Almanzar PA-C Primary Care Provider + Axel Montero MD Unavailable [phone] Dorothea Barragan NP Unavailable Encounter Details Date Type Department Care Team Description 08/16/2023 SCAN Medical Records [address] [place] [phone] Abstract, Provider Social History Tobacco Use Types [...] Name Priority Date/Time Associated Diagnosis Comments OUTSIDE LAB Routine 08/16/2023 documented in this encounter Results * OUTSIDE LAB (08/16/2023) Provider Default LAB documented in this encounter Visit Diagnoses Not on filedocumented in this encounter Care Teams Commodities Manager Relationship Specialty Start Date End Date Candy Almanzar PA-C PCP - General Internal Medicine 05/04/21 Axel Montero MD [address] [place] [phone] Specialist Cardiovascular Disease 09/09/22 Dorothea Barragan NP [address] [place] [address] Cardiology 09/07/23 documented as of this encounter
--- OUTSIDE RECORDS SUMMARY | 2024-05-11 09:00 | XMS_ITS | Encounter Summary ---
Author Organization [facility] Address [address] [place] [address] Care Team Providers Care Entertainment Director Name Role Phone Danyel Anthony MD Primary Care Provider [phone] Candy Almanzar PA-C Primary Care Provider + Axel Montero MD Unavailable [phone] Dorothea Barragan NP Unavailable [phone] Encounter Details Date Type Department Care Team Description 07/20/2017 Release of Information Medical Records [address] [place] [phone] Abstract, Provider Social History Tobacco Use Types Packs/Day Years Used Date Smoking Tobacco: Never Assessed Sex Assigned at Date Recorded Not on file Job Start Date Occupation Industry Not on file Not on file Not on file documented as of this encounter Plan of Treatment Not on file documented as of this encounter Visit Diagnoses Not on filedocumented in this encounter Care Teams Entertainment Director Relationship Specialty Start Date End Date Danyel Anthony MD [address] [place], [place] [phone] PCP - General Internal Medicine 07/18/17 05/03/21 Candy Almanzar PA-C [address] [place] [address] PCP - General Internal Medicine 05/04/21 Axel Montero MD [address] [place] [address] Dr [address] [place] [address] Specialist Cardiovascular Disease 09/09/22 Dorothea Barragan NP [address] [place] [address] [address] Cardiology 09/07/23 documented as of this encounter
--- OUTSIDE RECORDS SUMMARY | 2024-05-11 09:00 | XMS_ITS | Encounter Summary ---
Author Organization [facility] Address [address] [place] [address] Care Team Providers Care Mouthpiece Maker Name Role Phone Candy Almanzar PA-C Primary Care Provider + Axel Montero MD Unavailable [phone] Dorothea Barragan NP Unavailable [phone] Reason for Visit * Reason Onset Date Comments refill request 01/02/2024 Encounter Details Date Type Department Care Team Description 01/02/2024 Refill Internal Medicine - [address], [address] [place] [address] Candy Almanzar PA-C [address] [place] [phone] refill request Social History Tobacco Use Types Packs/Day Years Used Date Smoking Tobacco: Former Cigarettes 0.3 20 Smokeless Tobacco: Never Alcohol Use Standard Drinks/Week Comments No 0 (1 standard drink = 0.6 oz pur e alcohol) Sex Assigned at Date Recorded Not on file Job Start Date Occupation Industry Not on file Not on file Not on file documented as of this encounter Miscellaneous Notes * Telephone Encounter - Alee Watt M.A. - 01/05/2024 8:38 AM EDT Lab Results Component Value Date NA 142 09/02/2022 K 3.8 09/02/2022 CO2 27 09/02/2022 CL 109 09/02/2022 BUN 12 09/02/2022 CREAT 0.82 09/02/2022 GLU 78 09/02/2022 CA 9.2 09/02/2022 GFR 81 09/02/2022 * Telephone Encounter - Aimee Garcia - 01/02/2024 10:34 AM EDT [place] 05/17/23 documented in this encounter Plan of Treatment Not on file documented as of this encounter Visit Diagnoses Diagnosis Cervico-occipital neuralgia Other syndromes affecting cervical region documented in this encounter Care Teams Mouthpiece Maker Relationship Specialty Start Date End Date Candy Almanzar PA-C PCP - General Internal Medicine 05/04/21 Axel Montero MD [address] [place] [address] Specialist Cardiovascular Disease 09/09/22 Dorothea Barragan NP [address] [place] [address] Cardiology 09/07/23 documented as of this encounter
--- OUTSIDE RECORDS SUMMARY | 2024-05-11 09:00 | XMS_ITS | Encounter Summary ---
Author Organization [facility] Address [address] [place] [address] Care Team Providers Care City Planning Aide Name Role Phone Candy Almanzar PA-C Primary Care Provider + Axel Montero MD Unavailable [phone] Dorothea Barragan NP Unavailable [phone] Reason for Visit * Reason Onset Date Comments REFERRAL 03/19/[address] [facility] Encounter Details Date Type Department Care Team Description 03/19/2022 Telephone Pulmonology - [place] [address] [facility] [address] [place] [address] Candy Almanzar PA-C [address] [place] [address] RE[facility]AL [facility] Social History Tobacco Use Types Packs/Day Years Used Date Smoking Tobacco: Former Cigarettes 0.3 20 Smokeless Tobacco: Never Alcohol Use Standard Drinks/Week Comments No 0 (1 standard drink = 0.6 oz pur e alcohol) Sex Assigned at Date Recorded Not on file Job Start Date Occupation Industry Not on file Not on file Not on file COVID-19 Exposure Response Date Recorded In the last 10 days, have yo u been in contact with someone who was confirmed or suspected to have Coronavirus/COVID-19? No / Unsure 03/02/2022 12:35 PM EST documented as of this encounter Miscellaneous Notes * Telephone Encounter - Shanda Brookeentes - 05/12/2022 1:59 PM EST Migratory Game Bird Biologist please advise see message below please contact patient. * Telephone Encounter - Joy Dakota Matamoros - 05/12/2022 10:30 AM EST Patient walked in, she has questions regarding this referral. She would like to know what is going on since she has not herd anything about it. Please Advise. * Telephone Encounter - Shanda Brookeentes - 03/23/2022 2:29 PM EST Migratory Game Bird Biologist please advise does provider need to put new referral orders for Dermatology and Nutrition patient insurance changed now only has [facility] referral that was processed does not accept [employer]. * Telephone Encounter - Candy Almanzar PA-C - 03/23/2022 11:05 AM EST Okay let me know if I need to place new referrals for dermatology and nutrition. Thank you. * Telephone Encounter - Shanda Najera - 03/23/2022 9:44 AM EST Candy, Yes that is correct per patient Dr. Sharma does not accept localbacon. I did send a message to the referral department to notify them regarding Nutrition and Dermetology referral. * Telephone Encounter - Candy Almanzar PA-C - 03/22/2022 4:46 PM EST Okay there is already nutrition referral in her chart. Can they book her with whoever will take herinsurance? Also why did referrals book her with Dr. Sharma if he does not take her insurance? * Telephone Encounter - Shanda Najera - 03/22/2022 2:41 PM EST Candy I called and spoke with the patient she stated Dr. Sharma does not accept Farfetch Patient needs to be seen by a dermetologist and Nutrionist who accepts iMER. Not sure if Anitra takes iMER but the previous issue was she could not see the nutrionist because Anitra is notcredentialed with [facility] patient no longer has behzad so maybe she can now see her. * Telephone Encounter - Shanda Najera - 03/22/2022 2:38 PM EST Migratory Game Bird Biologist please advise patient had nutriton referral placed on 03/02/22 note stated Anitra Pereira is not credientialed with [facility]. Patient no longer has behzad only [employer] can she now see the nutrionist.? * Telephone Encounter - Candy Almanzar PA-C - 03/19/2022 3:45 PM EST I placed a referral to dermatology 03/02/2022 and looks like she was scheduled with Dr. Driscoll as she said that Dr. Isabel does not take her insurance. She is saying that Dr. Driscoll does not take her insurance either? * Telephone Encounter - Sherice Oro M.A. - 03/19/2022 1:24 PM EST Fwd to pcp please review below thanks * Telephone Encounter - Joy Matamoros - 03/19/2022 11:41 AM EST Patient walked in, Her insurance change to [employer] and she needs a new referral to a dermatologythat accepts [employer] since the one that was sent to doesn't. Please Advice documented in this encounter Plan of Treatment Not on file documented as of this encounter Visit Diagnoses Not on filedocumented in this encounter Care Teams City Planning Aide Relationship Specialty Start Date End Date Candy Almanzar PA-C PCP - General Internal Medicine 05/04/21 Axel Montero MD [address] [place] [address] Specialist Cardiovascular Disease 09/09/22 Dorothea Barragan NP [address] [place] [address] Cardiology 09/07/23 documented as of this encounter
--- OUTSIDE RECORDS SUMMARY | 2024-05-11 09:00 | XMS_ITS | Encounter Summary ---
Author Organization [facility] Address [address] [place] [address] Care Team Providers Care Bellhop Captain Name Role Phone Candy Almanzar PA-C Primary Care Provider + Axel Montero MD Unavailable [phone] Dorothea Barragan NP Unavailable [phone] Reason for Visit * Reason Comments E-prescribe Rx Request Encounter Details Date Type Department Care Team Description 08/23/2022 Refill Internal Medicine - [address], [address] [place] [address] Candy Almanzar PA-C [address] [place] [phone] E-prescribe Rx Request Social History Tobacco Use Types Packs/Day Years [...] encounter Miscellaneous Notes * Telephone Encounter - Luz Patino - 08/25/2022 11:07 AM EDT Brian 03/02/22 Nov 08/30/22 documented in this encounter Plan of Treatment Not on file documented as of this encounter Visit Diagnoses Diagnosis Cervico-occipital neuralgia Other syndromes affecting cervical region documented in this encounter Care Teams Bellhop Captain Relationship Specialty Start Date End Date Candy Almanzar PA-C PCP - General Internal Medicine 05/04/21 Axel Montero MD [address] [place] [phone] Specialist Cardiovascular Disease 09/09/22 Dorothea Barragan NP [address] [place] [address] [phone] Cardiology 09/07/23 documented as of this encounter
--- OUTSIDE RECORDS SUMMARY | 2024-05-11 09:01 | XMS_ITS | Encounter Summary ---
Author Organization [facility] Address [address] [place] [address] Care Team Providers Care Tariff Expert Name Role Phone Candy Almanzar PA-C Primary Care Provider + Axel Montero MD Unavailable [phone] Dorothea Barragan NP Unavailable [phone] Encounter Details Date Type Department Care Team Description 09/03/2021 Application Packaging Consultant Report Medical Records [address] [place] [address] Jose Carlos Calvin MD Social History Tobacco Use Types Packs/Day Years [...] on filedocumented in this encounter Care Teams Tariff Expert Relationship Specialty Start Date End Date Candy Almanzar PA-C PCP - General Internal Medicine 05/04/21 Axel Montero MD [address] [place] [address] [place] [address] Specialist Cardiovascular Disease 09/09/22 Dorothea Barragan, KATT [address] [place] [address] Cardiology 09/07/23 documented as of this encounter
--- OUTSIDE RECORDS SUMMARY | 2024-05-11 09:01 | XMS_ITS | Encounter Summary ---
Author Organization [facility] Address [address] [place] [address] Care Team Providers Care Furniture Associate Name Role Phone Candy Almanzar PA-C Primary Care Provider + Axel Montero MD Unavailable Dorothea Barragan NP Unavailable [phone] Encounter Details Date Type Department Care Team Description 02/22/2023 Telephone Cardio [facility] [address] [place] [address] [address] [place] [address] Axel Montero MD [address] [place] [address] [address] Baptiste [address] [place], [place] [phone] Social History Tobacco Use Types Packs/Day Years [...] Recorded In the last 10 days, have sagar u been in contact with someone who was confirmed or suspected to have Coronavirus/COVID-19? No / Unsure 02/22/2023 3:11 PM EST documented as of this encounter Miscellaneous Notes * Telephone Encounter - Rajat Ingram - 02/22/2023 4:09 PM EST PT left sample medication at checkout , if calls it is with the front desk administrator in cabinet. Pt may stop by and chart picker when available. documented in this encounter Plan of Treatment Not on file documented as of this encounter Visit Diagnoses Not on filedocumented in this encounter Care Teams Furniture Associate Relationship Specialty Start Date End Date Candy Almanzar PA-C PCP - General Internal Medicine 05/04/21 Axel Montero MD [address] [place] [address] [phone] Specialist Cardiovascular Disease 09/09/22 Dorothea Barragan NP [address] [place] [address] [phone] Cardiology 09/07/23 documented as of this encounter
--- OUTSIDE RECORDS SUMMARY | 2024-05-11 09:01 | XMS_ITS | Clinical Summary ---
Author Organization [address] [facility] Address [address] [place] [address] Phone Care Team Providers Care Supply Aide Name Role Phone Candy Almanzar Primary Care Provider + Allergies No known active allergies Medications Medication Sig Dispensed Refills Start Date End Date Status cholecalciferol (VITAMIN D-3) 50 mcg (2,000 unit) capsule Take 1 capsule (2,000 Units total) by mouth 1 (one) time each day. 08/30/2022 Active eszopiclone (LUNESTA) 3 mg tablet Take 3 mg by mouth at bedtime as needed. Active FLUoxetine (PROzac) 10 mg tablet Take 1 tablet (10 mg total) by mouth 1 (one) time each day. Active LORazepam (ATIVAN) 0.5 mg tablet Take 1 tablet (0.5 mg total) by mouth every 6 (six) hours if needed. Active busPIRone (BUSPAR) 10 mg tablet 02/08/2024 Active meloxicam (MOBIC) 15 mg tabletIndication s:Chronic neck and back pain Take 1 tablet (15 mg total) by mouth 1 (one) time each day if needed for moderate pain. Take with food. 90 tablet 1 02/20/2024 Active tiZANidine (ZANAFLEX) 4 mg tabletIndication s:Chronic neck and back pain Take 1 tablet (4 mg total) by mouth at bedtime as needed for muscle spasms (neck spasms). 90 tablet 1 02/20/2024 Active gabapentin (NEURONTIN) 100 mg capsuleIndicatio ns:Chronic neck and back pain Take 1 capsule (100 mg total) by mouth 2 (two) times a day. 60 capsule 2 02/20/2024 Active amitriptyline (ELAVIL) 10 mg tablet Take 1 Tablet by mouth at bedtime. 05/03/2024 Discontinued aspirin 81 mg chewable tablet Chew 1 tablet (81 mg total) 1 (one) time each day. 05/03/2024 Discontinued atorvastatin (LIPITOR) 20 mg tablet Take 1 tablet (20 mg total) by mouth 1 (one) time each day. 04/19/2023 05/03/2024 Discontinued doxycycline (VIBRAMYCIN) 100 mg capsule Take 1 capsule (100 mg total) by mouth 2 (two) times a day for 10 days. Take with at least 8 ounces (large glass) of water, do not lie down for 30 minutes after 20 capsule 04/18/2024 05/03/2024 Discontinued Active Problems Problem Noted Date Diagnosed Date Adnexal mass 05/03/2024 Cysts of both ovaries 05/03/2024 Pelvic pain 05/03/2024 Asthma 2024 CAD (coronary artery disease) 02/22/2023 Overview (2024): Last Assessment & Plan: Patient has a history of nonobstructive coronary artery disease. She recently underwent a left heart catheterization which showed mild luminal irregularities less than 30% in the left main, LAD, left circumflex and 30% stenosis in the mid subsection of the proximal RCA. We discussed these results in depth today. She reports she has not noticed any difference in her symptoms since starting isosorbide mononitrate and ultimately discontinued the medication after her left heart catheterization. She denies any further episodes of chest pain. She will continue her current cardioprotective medical therapy with statin and aspirin. Patient advised to seek emergency medical attention by calling 911 if they were to develop severe dyspnea, chest pain that did not resolve with rest or nitroglycerin, or if they were to faint. Chest pain 11/12/2022 Overview (2024): Last Assessment & Plan: The patient came for evaluation due to episodes of chest pain. The description of the symptoms is consistent with atypical chest pain. The patient has also been noticing symptoms of exertional dyspnea/fatigue. The patient has the following risk factors for coronary artery disease: Hyperlipidemia. Given the patient's age, gender, description of the symptoms, and risk factors for CAD, the patient has an intermediate risk for coronary artery disease. Nuclear stress test in July 2022 did not show any evidence of ischemia or infarct. However, further testing is indicated given the patient's continued symptoms of chest discomfort, dyspnea and fatigue. As such, we will order a cardiac CT scan to rule out any epicardial coronary artery disease as a cause of the patient's symptoms. The use of a cardiac CT scan is recommended by the ACC chest pain guidelines for evaluation of intermediate risk patients without known CAD. Also, will order an echocardiogram to rule out any underlying structural heart disease that may be related to her symptoms. Pure hypercholesterolemia 03/02/2022 Overview (2024): Last Assessment & Plan: The patient has a history of hyperlipidemia as well as a history of nonobstructive coronary artery disease. Last fasting lipid panel showed acceptable cholesterol control with an LDL of 70. She will continue her current dose of atorvastatin as prescribed. I have reviewed with the patient the importance of a heart healthy lifestyle which includes eating a low-fat low-salt diet, getting regular exercise, maintaining a healthy weight, not smoking, and following up with routine medical care. Vitamin D deficiency 03/02/2022 Cyst of right kidney 07/29/2017 GERD (gastroesophageal reflux disease) 8 Pain, joint, multiple sites 07/29/2017 Positive ROSEY (antinuclear antibody) 07/29/2017 Fibrosis of lung 01/20/2017 Interstitial lung disease 01/20/2017 Encounters Date Type Department Care Team Description 05/07/2024 Telephone [facility] [address] [place] [address] Hilton Raymundo MD OTHER; Advice Only 05/03/2024 1:20 PM EST Consult [facility] [address] [place] [address] Hilton Raymundo MD Adnexal mass (Primary Dx); Cysts of both ovaries; Pelvic pain; Ovarian mass 04/23/2024 Telephone [facility] [address] [place] [address] Nini Zelaya, RN Appointment 04/19/2024 2:45 PM EST Office Visit [facility] Hematology Oncology [address] [place] [address] Liza Guajardo MD Ovarian mass 04/18/2024 10:26 AM EST - 04/18/2024 9:45 PM EST Emergency [facility] Emergency [address] [place] [address] Jose Daniel Collazo MD Abnormal chest CT (Primary Dx); Pelvic pain Discharge Disposition: Home or Self Care 02/20/2024 9:45 AM EST Office Visit [facility] [place] [address] [facility] [address] [place] [address] Candy Almanzar PA Pure hypercholesterolemia (Primary Dx); Chronic neck and back pain; Anxiety and depression from Last 3 Months Immunizations Name Administration Dates Next Due Influenza Quadravalent, MDCK , 0.5ml, preservative free (Flucelvax) 6mo and older 05/04/2021 Surgical History Surgery Date Site/Laterality Comments CHOLECYSTECTOMY PROCEDURE: HISTORICAL CHOLECYSTECTOMY OTHER SURGICAL HISTORY PROCEDURE: ---- OTHER ----; COMMENT: hist lung biopsy x 2 COLONOSCOPY PROCEDURE: HISTORICAL COLONOSCOPY CHOLECYSTECTOMY PROCEDURE: [place] LAPAROSCOPY SURG CHOLECYSTECTOMY ESOPHAGOGASTRODUODENOSCOPY PROCEDURE: [place] ESOPHAGOGASTRODUODENOSCOPY TRANSORAL DIAGNOSTIC Medical History Medical History Date Comments Fibrosis of lung (CMS/HCC) 01/20/2017 DX:Fi brosis of lung (HCC) Interstitial lung disease (CMS/HCC) 01/20/2017 DX:Interstitial lung disease (HCC) GERD (gastroesophageal reflux disease) 07/29/2017 DX:GERD (gastroesophageal reflux disease) Positive ROSEY (antinuclear antibody) 07/29/2017 DX:Positive ROSEY (antinuclear antibody) Cyst of right kidney 07/29/2017 DX:Cyst of right kidney Pain, joint, multiple sites 07/29/2017 DX:P ain, joint, multiple sites Asthma DX:Asthma Anxiety Heart murmur Family History Medical History Relation Name Comments Heart attack Brother No Known Problems Daughter 1 No Known Problems Daughter 2 Prostate cancer Father Coronary artery disease Mother Stroke Mother stroke at age 6 5, heart problems, cancer ? type, HTN Coronary artery disease Sister Coronary artery disease Uncle Relation Name Status Comments Brother Daughter 1 Daughter 2 Father Mother Sister Uncle Social History Tobacco Use Types Packs/Day Years [...] file Not on file Not on file Obstetrics History Last Filed Vital Signs Vital Sign Reading Time Taken Comments Blood Pressure 120/72 05/03/2024 1:24 PM EST Pulse 63 05/03/2024 1:24 PM EST Temperature 36.8 ??C (98.2 ??F) 05/03/2024 1:24 PM ES T Respiratory Rate 18 04/18/2024 7:41 PM EST Oxygen Saturation 98% 04/19/2024 3:03 PM EST Inhaled Oxygen Concentration - - Weight 67.2 kg (148 lb 3.2 oz) 05/03/2024 1:24 P M EST Height 152.4 cm (5') 04/19/2024 3:03 PM EST Body Mass Index 28.94 04/19/2024 3:03 PM EST Plan of Treatment Upcoming Encounters Date Type Department Care Team (Latest Contact Info) Description 05/22/2024 1:00 PM EST Office Visit [facility] [place] [address] [place] [phone] Candy Almanzar PA [address] [facility] [address] [place] [address] 06/11/2024 10:00 AM EST Pre-Admission Testing [facility] Pre-Admission Testing [address] [place] [phone] 06/18/2024 7:30 AM EDT Hospital Encounter [facility] Main OR [address] [place] [phone] Hilton Raymundo MD [address] [address] 06/18/2024 7:30 AM EDT - 06/18/2024 10:30 AM EDT Surgery [facility] Main OR [address] [place] [phone] Hilton Raymundo MD [address] [place] [address] Davinci assisted laparoscopic bilateral salpingo-oophorectom y, ? total hysterectomy, staging, open laparotomy. [04521 (CPT??)] 07/03/2024 11:20 AM EDT Office Visit [address] [phone] Hilton Raymundo MD [address] [place] [address] 07/18/2024 11:15 AM EDT Office Visit [facility] Hematology Oncology [address] [place] [phone] Liza Guajardo MD [address] [place] [phone] Scheduled Procedures Name Priority Associated Diagnoses Date/Ti me OOPHORECTOMY ROBOT TWO Adnexal mass Cysts of both ovaries Pelvic pain 06/18/2024 7:30 AM EDT Health Maintenance Due Date Last Done Comments Breast Cancer Screening 1960 Pneumococcal Vaccine: Pediatrics (0 to 5 Years) and At-Risk Patients (6 to 64 Years) (1 of 2 - PCV) 1967 DTaP,Tdap,and Td Vaccines (1 - Tdap) 01/24/1980 Cervical Cancer Screening: P ap Smear 1982 Zoster Vaccines (1 of 2) 2011 RSV Immunization Patients 60 + Years Old (1 - Risk 60-74 years 1-dose series) 2021 Colorectal Cancer Screening: Colonoscopy 03/14/2022 Depression Screening 03/14/2022 HIV Screening 03/14/2022 Social Influencers of Health Screening 03/14/2022 COVID-19 Vaccine (1 - 2023-2 5 season) 2023 Influenza Vaccine (#1) 2023 , 02/21/2015 Hypertension/CHF/CAD Annual BMP Blood Test 04/18/2025 04/18/2024, 01/25/2024, 10/03/2022 Cholesterol Screening (Lipid Panel) 01/24/2029 01/25/2024, 12/09/2022 Hepatitis C Screening Completed 02/06/2018 HIB Vaccines Aged Out No longer eligi ble based on patient's age to complete this topic HPV Vaccines Aged Out No longer eligi ble based on patient's age to complete this topic Hepatitis A Vaccines Aged Out No long er eligible based on patient's age to complete this topic Hepatitis B Vaccines Aged Out No long er eligible based on patient's age to complete this topic IPV Vaccines Aged Out No longer eligi ble based on patient's age to complete this topic MMR Vaccines Aged Out No longer eligi ble based on patient's age to complete this topic Meningococcal ACWY Vaccine Aged Out N o longer eligible based on patient's age to complete this topic RSV Immunization Patients Under 20 months Aged Out No longer eligible b ased on patient's age to complete this topic Varicella Vaccines Aged Out No longer eligible based on patient's age to complete this topic Procedures Procedure Name Priority Date/Time Associated Diagnosis Comments CT CHEST WO CONTRAST STAT 04/18/2024 5:06 PM EST US PELVIS NON OB COMPLETE W TRANSVAGINAL STAT 04/18/2024 4:[address] ABDOMEN PELVIS W CONTRAST STAT 04/18/2024 1:54 PM EST MCGEE URINE CULTURE TUBE STAT 04/18/2024 1:45 PM EST URINALYSIS WITH REFLEX MICROSCOPIC AND CULTURE STAT 04/18/2024 1:45 PM EST URINALYSIS WITH REFLEX MICROSCOPIC AND CULTURE STAT 04/18/2024 1:45 PM EST CANCER ANTIGEN 125 Add-On 04/18/2024 10 :54 AM EST CBC WITH AUTO DIFFERENTIAL STAT 04/18/2024 10:54 AM EST COMPREHENSIVE METABOLIC PANEL STAT 04/18/2024 10:54 AM EST CBC AND DIFFERENTIAL STAT 04/18/2024 10:54 AM EST LIPID PANEL Routine 12/09/2022 HM HEPATITIS C SCREENING Routine 02/06/2018 from Last 3 Months or Most Recently Relevant to Health Maintenance Results * CT Chest wo Contrast (04/18/2024 5:06 PM EST) Anatomical Region Laterality Modality Body Computed Tomogra phy 04/18/2024 7:22 PM EST Impressions 04/18/2024 7:30 PM EST Impression: Scattered nodular airspace opacities in both lungs, possibly infectious/inflammatory in nature, with a neoplastic process not excluded. Short-term follow-up is recommended. Telerad HARPAL ([id number]) -------- FINAL REPORT -------- Dictated By: Mayi Avila Dictated Date: 04/18/2024 19:22 ET Assigned Physician: Mayi Avila Reviewed and Electronically Signed By: Mayi Avila Signed Date: 04/18/2024 19:30 ET Workstation ID: [id number] Transcribed By: Self Edit Transcribed Date: 04/18/2024 19:22 ET Narrative 04/18/2024 7:30 PM EST History: Abnormal findings in the lungs on earlier abdominal CT. Comparison: CT abdomen/pelvis from earlier today. Technique: Helical volumetric imaging of the thorax was performed without IV contrast. DLP: 360.76 mGy/cm [employer] VCT Iterative reconstruction technique Findings: Image detail [...] right lung apex. The findings at the base of the lingula and right middle lobe [...] the lowest images through the thorax is remarkable for cholecystectomy sequelae of. The regional skeleton is intact. Procedure Note Mayi Avila MD - 04/18/2024 History: Abnormal findings in the lungs on earlier abdominal CT. Comparison: CT abdomen/pelvis from earlier today. Technique: Helical volumetric imaging of the thorax was performed withoutIV contrast. DLP: 360.76 mGy/cm [employer] VCT Iterative reconstruction technique Findings: Image detail is mildly limited, especially in the lower lungs, due torespiratory motion. The trachea and central bronchial tree are patent. Several small nodularairspace opacities are scattered bilaterally, a combination of groundglassattenuation and lester lung consolidation. The largest of these areas isapproximately 2.5 cm in diameter in the right lung apex. The findings atthe base of the lingula and right middle lobe and both lower lobes aremore consolidative in nature. The intervening lung is normal. No pleural or pericardial effusions are seen. The heart is within normal limits for size. Coronary artery calcificationis noted. There is mild ectasia of the distal aortic arch and proximaldescending thoracic aorta. The thyroid gland shows no suspicious nodule.Several subcentimeter lymph nodes are scattered within the mediastinum,nonspecific. A small portion of the upper abdomen included on the lowest images throughthe thorax is remarkable for cholecystectomy sequelae of. The regional skeleton is intact. IMPRESSION: Impression: Scattered nodular airspace opacities in both lungs, possiblyinfectious/inflammatory in nature, with a neoplastic process not excluded.Short-term follow-up is recommended. Telerad PA ([id number]) -------- FINAL REPORT -------- Dictated By: Mayi Avila Dictated Date: 04/18/2024 19:22 ET Assigned Physician: Mayi Avila Reviewed and Electronically Signed By: Mayi Avila Signed Date: 04/18/2024 19:30 ET Workstation ID: [id number] Transcribed By: Self Edit Transcribed Date: 04/18/2024 19:22 ET Bailey R[address]AN IMG CT PROCEDU RES * US Pelvis Non OB Complete w Transvaginal (04/18/2024 4:02 PM EST) Anatomical Region Laterality Modality Body, Pelvis Ultrasound 04/18/2024 4:28 PM EST Impressions 04/18/2024 4:33 PM EST Bilateral adnexal cystic changes similar to prior CAT scan. Ovarian torsion cannot be excluded since no normal ovarian tissue is identified. Consider gynecological consultation. -------- FINAL REPORT -------- Dictated By: Ahmet Rivera Dictated Date: 04/18/2024 16:28 ET Assigned Physician: Ahmet Rivera Reviewed and Electronically Signed By: Ahmet Rivera Signed Date: 04/18/2024 16:33 ET Workstation ID: [id number] Transcribed By: Self Edit Transcribed Date: 04/18/2024 16:28 ET Narrative 04/18/2024 4:33 PM EST INDICATION: Pelvic pain concern for ovarian torsion. [...] with posterior acoustic shadowing. No normal left ovarian tissue noted. Free fluid: None. Procedure Note Ahmet Rivera MD - 04/18/2024 INDICATION: Pelvic pain concern for ovarian torsion. Technique: Ultrasound of the pelvis was obtained with both transabdominaland transvaginal imaging. Comparison: CT scan of the abdomen and pelvis from same day reviewed. FINDINGS: Uterus: Normal in size, shape and echogenicity. The endometrial stripemeasures 1 mm in width. Right ovary: Moderate complex cystic lesion again noted in the rightadnexa largest measuring 5.6 cm x 4.5 cm x 5.6 cm. Peripheral echogenicitynoted with vascular flow however no definite normal ovarian tissueidentified. Left ovary: Calcified lesion with shadowing noted in the left adnexacorresponding to lesion noted on CT imaging measuring approximately 3 cmwith posterior acoustic shadowing. No normal left ovarian tissue noted. Free fluid: None. IMPRESSION: Bilateral adnexal cystic changes similar to prior CAT scan. Ovariantorsion cannot be excluded since no normal ovarian tissue is identified.Consider gynecological consultation. -------- FINAL REPORT -------- Dictated By: Ahmet Rivera Dictated Date: 04/18/2024 16:28 ET Assigned Physician: Ahmet Rivera Reviewed and Electronically Signed By: Ahmet Rivera Signed Date: 04/18/2024 16:33 ET Workstation ID: [id number] Transcribed By: Self Edit Transcribed Date: 04/18/2024 16:28 ET Bailey ROWAN IMG US PROCEDU RES * CT Abdomen Pelvis w Contrast (04/18/2024 1:54 PM EST) Anatomical Region Laterality Modality Body Computed Tomogra phy 04/18/2024 2:48 PM EST Impressions 04/18/2024 2:55 PM EST Bilateral adnexal cystic changes as detailed above. Scattered tree-in-bud attenuation as well as atelectasis within the lung bases suggesting atypical pneumonia. -------- FINAL REPORT -------- Dictated By: Ahmet Rivera Dictated Date: 04/18/2024 14:48 ET Assigned Physician: Ahmet Rivera Reviewed and Electronically Signed By: Ahmet Rivera Signed Date: 04/18/2024 14:55 ET Workstation ID: [id number] Transcribed By: Self Edit Transcribed Date: 04/18/2024 14:48 ET Narrative 04/18/2024 2:55 PM EST INDICATION: Bilateral lower quadrant abdominal pain TECHNIQUE: CT scan of the abdomen and pelvis obtained with a total of 90 cc of Isovue-370 administered intravenously without incident. Oral contrast administered. Scanner: [employer] 64 slice VCT Dose reduction technique: ASIR (Adaptive statistical iterative reconstruction) and/or AEC (automated exposure control) Dose: total exam DLP 589 mGY per cm COMPARISON: No prior studies are available for comparison. FINDINGS: Mild branching [id number]-fg-ogq-like attenuation within the lingula and inferior lateral [...] well-opacified and normal in course and caliber without wall thickening or dilatation. Terminal unremarkable. Appendix normal. [...] normal in course and caliber. No lymphadenopathy. Procedure Note Ahmet Rivera MD - 04/18/2024 INDICATION: Bilateral lower quadrant abdominal pain TECHNIQUE: CT scan of the abdomen and pelvis obtained with a total of 90cc of Isovue-370 administered intravenously without incident. Oralcontrast administered. Scanner: [employer] 64 slice VCT Dose reduction technique: ASIR (Adaptive statistical iterativereconstruction) and/or AEC (automated exposure control) Dose: total exam DLP 589 mGY per cm COMPARISON: No prior studies are available for comparison. FINDINGS: Mild branching uwfe-sv-jgu-like attenuation within the lingula andinferior lateral left lower lobe. Peripheral atelectatic changes suspectedalong the inferomedial aspect of the right middle, laterally along theright lower lobe as well as within the lingula. No pleural effusions. Bony structures are unremarkable for the patient's age. Liver, spleen, pancreas, adrenal glands and kidneys are within normallimits. Status post cholecystectomy. Stomach unremarkable. Small bowel loops are well-opacified and normal incourse and caliber without wall thickening or dilatation. Terminalunremarkable. Appendix normal. Unopacified colon within normal limits. Nofree air or free fluid. Urinary bladder decompressed. Uterus unremarkable. 3.2 cm rounded lesion in the left adnexa withperipheral calcification possibly a complex cyst. Cystic changes alsonoted on the right side with 5.5 cm as well as 2.8 cm components. Abdominal aorta normal in course and caliber. No lymphadenopathy. IMPRESSION: Bilateral adnexal cystic changes as detailed above. Scattered tree-in-bud attenuation as well as atelectasis within the lungbases suggesting atypical pneumonia. -------- FINAL REPORT -------- Dictated By: Ahmet Rivera Dictated Date: 04/18/2024 14:48 ET Assigned Physician: Ahmet Rivera Reviewed and Electronically Signed By: Ahmet Rivera Signed Date: 04/18/2024 14:55 ET Workstation ID: [id number] Transcribed By: Self Edit Transcribed Date: 04/18/2024 14:48 ET Ashlee ROWAN Masha CT PROCEDURES * (ABNORMAL) Urinalysis with reflex microscopic and culture (04/18/2024 1:45 PM EST) Specific [place] Urine 1.007 1.003 - 1.030 LAB URINALYSIS - AUTOMATED METHOD 04/18/2024 2:04 PM [facility] pH, Urine 6.5 5.0 - 8.0 pH LAB URINALYSIS - AUTOMATED METHOD 04/18/2024 2:04 PM [facility] Leukocytes, Urine Negative Negative LAB URINALYSIS - AUTOMATED METHOD 04/18/2024 2:04 PM [facility] Nitrite, Urine Negative Negative LAB URINALYSIS - AUTOMATED METHOD 04/18/2024 2:04 PM [facility] Protein, Urine Negative <=Trace mg/dL LAB URINALYSIS - AUTOMATED METHOD 04/18/2024 2:04 PM [facility] Glucose, Urine Negative Negative mg/dL LAB URINALYSIS - AUTOMATED METHOD 04/18/2024 2:04 PM [facility] Ketones, Urine Negative Negative mg/dL LAB URINALYSIS - AUTOMATED METHOD 04/18/2024 2:04 PM [facility] Urobilinogen, Urine 0.2 0.2 - 1.0 mg/dL LAB URINALYSIS - AUTOMATED METHOD 04/18/2024 2:04 PM [facility] Bilirubin, Urine Negative Negative LAB URINALYSIS - AUTOMATED METHOD 04/18/2024 2:04 PM [facility] Blood, Urine Trace(A) Negative LAB URINALYSIS - AUTOMATED METHOD 04/18/2024 2:04 PM [facility] RBC, Urine 2.2 0 - 4 /HPF LAB URINALYSIS - AUTOMATED METHOD 04/18/2024 2:04 PM [facility] WBC, Urine 0.1 0 - 4 /HPF LAB URINALYSIS - AUTOMATED METHOD 04/18/2024 2:04 PM [facility] Squamous Epithelial, Urine 2 0 - 60 /LPF LAB URINALYSIS - AUTOMATED METHOD 04/18/2024 2:04 PM [facility] Bacteria, Urine Negative Negative /HPF LAB URINALYSIS - AUTOMATED METHOD 04/18/2024 2:04 PM [facility] Hyaline Casts, Urine 0.0 0 - 3 /LPF LAB URINALYSIS - AUTOMATED METHOD 04/18/2024 2:04 PM [facility] Urine Urine specimen obtained by clean catch procedure / Unknown Non-blood Collection / Unknown 04/18/2024 1:45 PM EST 04/18/2024 1:54 PM EST Jose Daniel A Cottle MD LAB URINE ORDERABLES Performing Organization Address [facility]/ZIP Co de Phone Number [facility] [address] [place] [address], * [place]ge[place] urine culture tube (04/18/2024 1:45 PM EST) Pathologist [facility] Extra Tube Hold for add-ons. 04/18/2024 3:01 PM EST [facility] Comment:Auto resulted. Urine Urine specimen obtained by clean catch procedure / Unknown Non-blood Collection / Unknown 04/18/2024 1:45 PM EST 04/18/2024 1:54 PM EST Jose Daniel Gus Collazo MD LAB URINE ORDERABLES Performing Organization Address [facility]/ZIP Co de Phone Number [facility] [address] [place] [address], * (ABNORMAL) CBC auto differential (04/18/2024 10:54 AM EST) [facility] WBC 8.5 4.8 - 10.8 K/mcL LAB HEMETOLOGY METHOD 04/18/2024 12:19 PM [facility] RBC 3.70(L) 3.80 - 4.80 M/mcL LAB HEMETOLOGY METHOD 04/18/2024 12:19 PM [facility] Hemoglobin 11.1(L) 11.5 - 16.0 g/dL LAB HEMETOLOGY METHOD 04/18/2024 12:19 PM [facility] Hematocrit 35.3 35.0 - 47.0 % LAB HEMETOLOGY METHOD 04/18/2024 12:19 PM [facility] LAB MCV 95.4 79.0 - 98.0 FL LAB HEMETOLOGY METHOD 04/18/2024 12:19 PM [facility] MCH 30.0 27.0 - 32.0 pcg LAB HEMETOLOGY METHOD 04/18/2024 12:19 PM [facility] LAB MCHC 31.4(L) 32.0 - 37.0 g/dL LAB HEMETOLOGY METHOD 04/18/2024 12:19 PM [facility] LAB RDW 12.4 11.0 - 15.0 % LAB HEMETOLOGY METHOD 04/18/2024 12:19 PM [facility] Platelets 340 130 - 400 K/mcL LAB HEMETOLOGY METHOD 04/18/2024 12:19 PM [facility] LAB MPV 8.7 7.0 - 11.0 FL LAB HEMETOLOGY METHOD 04/18/2024 12:19 PM [facility] LAB NRBC 0.0 <1.0 % LAB HEMETOLOGY METHOD 04/18/2024 12:19 PM [facility] LAB NRBC Absolute 0.00 <0.10 K/mcL LAB HEMETOLOGY METHOD 04/18/2024 12:19 PM [facility] LAB Neutrophils Relative 76.8 % LAB HEMETOLOGY METHOD 04/18/2024 12:19 PM [facility] Lymphocytes Relative 16.6 % LAB HEMETOLOGY METHOD 04/18/2024 12:19 PM [facility] Monocytes Relative 5.2 % LAB HEMETOLOGY METHOD 04/18/2024 12:19 PM [facility] Eosinophils Relative 0.7 % LAB HEMETOLOGY METHOD 04/18/2024 12:19 PM [facility] Basophils Relative 0.2 % LAB HEMETOLOGY METHOD 04/18/2024 12:19 PM [facility] Immature Granulocytes Relative 0.5 % LAB HEMETOLOGY METHOD 04/18/2024 12:19 PM [facility] Neutrophils Absolute 6.53 1.50 - 7.00 K/mcL LAB HEMETOLOGY METHOD 04/18/2024 12:19 PM EST [facility] LAB Lymphocytes Absolute 1.41 1.00 - 5.00 K/mcL LAB HEMETOLOGY METHOD 04/18/2024 12:19 PM EST [facility] LAB Monocytes Absolute 0.44 0.20 - 1.00 K/mcL LAB HEMETOLOGY METHOD 04/18/2024 12:19 PM EST [facility] LAB Eosinophils Absolute 0.06 0.00 - 0.50 K/mcL LAB HEMETOLOGY METHOD 04/18/2024 12:19 PM EST [facility] Basophils Absolute 0.02 0.00 - 0.20 K/mcL LAB HEMETOLOGY METHOD 04/18/2024 12:19 PM EST [facility] Immature Granulocytes Absolute 0.04(H) 0.00 - 0.03 K/mcL LAB HEMETOLOGY METHOD 04/18/2024 12:19 PM EST [facility] Blood Venous blood specimen / Unknown Venipuncture / Unknown 04/18/2024 10:54 AM EST 04/18/2024 12:00 PM EST Jose Daniel Collazo MD LAB BLOOD ORDERABLES [facility] [address] [place] [address], * Cancer antigen 125 (04/18/2024 10:54 AM EST) CA 125 14.2 <35.0 unit/mL LAB CHEMISTRY METHOD 04/18/2024 7:00 PM EST [facility] Blood Venous blood specimen / Unknown Venipuncture / Unknown 04/18/2024 10:54 AM EST 04/18/2024 11:59 AM EST Narrative [facility] - 04/18/2024 7:00 PM EST The Siemens Advia Centaur Chemiluminescent Immunoassay is used. Results obtained with different assay methods or kits cannot be used interchangeably. Results cannot be interpreted as absolute evidence of the presence or absence of malignant disease. Bailey ROWAN LAB BLOOD MELANIE BLISS [facility] [address] [place] [address], * (ABNORMAL) Comprehensive metabolic panel (04/18/2024 10:54 AM EST) Sodium 137 133 - 145 mmol/L LAB CHEMISTRY METHOD 04/18/2024 12:29 PM [facility] Potassium 4.0 3.5 - 5.5 mmol/L LAB CHEMISTRY METHOD 04/18/2024 12:29 PM [facility] Chloride 106 96 - 110 mmol/L LAB CHEMISTRY METHOD 04/18/2024 12:29 PM [facility] CO2 27 21 - 32 mmol/L LAB CHEMISTRY METHOD 04/18/2024 12:29 PM [facility] Anion Gap 4 3 - 11 LAB CHEMISTRY METHOD 04/18/2024 12:29 PM [facility] Glucose 89 70 - 100 mg/dL LAB CHEMISTRY METHOD 04/18/2024 12:29 PM [facility] BUN 16 5 - 25 mg/dL LAB CHEMISTRY METHOD 04/18/2024 12:29 PM [facility] Creatinine 0.90 0.50 - 1.10 mg/dL LAB CHEMISTRY METHOD 04/18/2024 12:29 PM [facility] eGFR 72 >=60 mL/min/1. 73m2 LAB CHEMISTRY METHOD 04/18/2024 12:29 PM [facility] Comment:Calculation based on the??Chronic Kidney Disease Epidemiology Collaboration (CKD-EPI) equation refit??without adjustment for race. BUN/Creatinine Ratio 17.8 LAB CHEMISTRY METHOD 04/18/2024 12:29 PM [facility] Calcium 9.0 8.5 - 10.5 mg/dL LAB CHEMISTRY METHOD 04/18/2024 12:29 PM [facility] AST (SGOT) 24 10 - 42 unit/L LAB CHEMISTRY METHOD 04/18/2024 12:29 PM [facility] ALT (SGPT) 36 10 - 60 unit/L LAB CHEMISTRY METHOD 04/18/2024 12:29 PM [facility] Alkaline Phosphatase 258(H) 42 - 121 unit/L LAB CHEMISTRY METHOD 04/18/2024 12:29 PM [facility] Total Protein 7.8 6.0 - 8.0 g/dL LAB CHEMISTRY METHOD 04/18/2024 12:29 PM [facility] Albumin 3.6 3.2 - 5.0 g/dL LAB CHEMISTRY METHOD 04/18/2024 12:29 PM [facility] Total Bilirubin 0.3 0.0 - 1.4 mg/dL LAB CHEMISTRY METHOD 04/18/2024 12:29 PM [facility] Blood Venous blood specimen / Unknown Venipuncture / Unknown 04/18/2024 10:54 AM EST 04/18/2024 11:59 AM EST Jose Daniel Collazo MD LAB BLOOD ORDERABLES [facility] [address] [place] [address], * Lipid panel (12/09/2022) LDL/HDL Ratio 3 0 - 4 Triglycerides 148 0 - 150 mg/dL Cholesterol 168 0 - 200 mg/dL HDL 65 40 mg/dL LDL Cholesterol 74 0 - 100 mg/dL Blood Venous blood specimen / Unknown Historical Provider LAB BLOOD ORDERAB LES * Hepatitis C Screening (02/06/2018) Pathologist [facility] Hepatitis C Screening abstracted Historical Provider MD [employer] E from Last 3 Months or Most Recently Relevant to Health Maintenance Care Teams Supply Aide Relationship Specialty Start Date End Date Candy Almanzar PA [address] [facility] [address] [place] [address] PCP - General Internal Medicine 05/04/21
--- OUTSIDE RECORDS SUMMARY | 2024-05-11 09:01 | XMS_ITS | Encounter Summary ---
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 Role Phone Candy Almanzar Primary Care Provider + Reason for Visit * Reason Comments Abdominal Pain Pelvic pain x 6 days radiating to back Encounter Details Date Type Department Care Team (Late st Contact Info) Description 04/18/2024 10:26 AM EST - 04/18/2024 9:45 PM EST Emergency [facility] Emergency [address] [place] [phone] Jose Daniel Collazo MD [address] [place] [address] (Primary Dx); Pelvic pain Discharge Disposition: Home or Self Care Social History Tobacco Use Types Packs/Day Years [...] Sign Reading Time Taken Comments Blood Pressure 125/91 04/18/2024 7:41 PM EST Pulse 70 04/18/2024 7:41 PM EST Temperature 36.8 ??C (98.2 ??F) 04/18/2024 7:41 PM ES T Respiratory Rate 18 04/18/2024 7:41 PM EST Oxygen Saturation 99% 04/18/2024 7:41 PM EST Inhaled Oxygen Concentration - - Weight 63.5 kg (140 lb) 04/18/2024 10:30 AM EST Height 157.5 cm (5' 2 ) 04/18/2024 10:30 AM EST Body Mass Index 25.61 04/18/2024 10:30 AM EST documented in this encounter Functional Status [...] No 04/18/2024 documented as of this encounter Medications at Time of Discharge Medication Sig Dispensed Refills Start Date End Date busPIRone (BUSPAR) 10 mg tablet 02/08/2024 cholecalciferol (VITAMIN D-3) 50 mcg (2,000 unit) capsule Take 1 capsule (2,000 Units total) by mouth 1 (one) time each day. 08/30/2022 eszopiclone (LUNESTA) 3 mg tablet Take 3 mg by mouth at bedtime as needed. FLUoxetine (PROzac) 10 mg tablet Take 1 tablet (10 mg total) by mouth 1 (one) time each day. gabapentin (NEURONTIN) 100 mg capsuleIndications:Chr onic neck and back pain Take 1 capsule (100 mg total) by mouth 2 (two) times a day. 60 capsule 2 02/20/2024 LORazepam (ATIVAN) 0.5 mg tablet Take 1 tablet (0.5 mg total) by mouth every 6 (six) hours if needed. 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 Take with food. 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 90 tablet 1 02/20/2024 amitriptyline (ELAVIL) 10 mg tablet Take 1 Tablet by mouth at bedtime. 05/03/2024 aspirin 81 mg chewable tablet Chew 1 tablet (81 mg total) 1 (one) time each day. 05/03/2024 atorvastatin (LIPITOR) 20 mg tablet Take 1 tablet (20 mg total) by mouth 1 (one) time each day. 04/19/2023 05/03/2024 doxycycline (VIBRAMYCIN) 100 mg capsule Take 1 capsule (100 mg total) by mouth 2 (two) times a day for 10 days. Take with at least 8 ounces (large glass) of water, do not lie down for 30 minutes after 20 capsule 04/18/2024 05/03/2024 documented as of this encounter Ordered Prescriptions Prescription Sig Dispensed Refills Start Date End Da te doxycycline (VIBRAMYCIN) 100 mg capsule Take 1 capsule (100 mg total) by mouth 2 (two) times a day for 10 days. Take with at least 8 ounces (large glass) of water, do not lie down for 30 minutes after 20 capsule 04/18/2024 05/03/2024 documented in this encounter Discharge Disposition Disposition Code Departure Means Destination Comment s Home or Self Nursing Home documented in this encounter Progress Notes * Jeannie Day RN - 04/18/2024 10:25 AM EST Denies burning with urination. Complaints of lower abdominal and pelvic pain radiating to back x 6 days. Complaints of headache. * HARPAL Clarke - 04/18/2024 10:23 AM EST Emergency Medicine Note Patient Name: Olga Bonilla Initial Evaluation: 04/18/2024 : 1960 Patient's PCP: HARPAL May Emergency Physician: HARPAL Clarke History of Present Illness Chief Complaint: Chief Complaint Patient presents with Abdominal Pain Pelvic pain x 6 days radiating to back HPI: This is a 64-year-old female with medical history of anxiety presenting today with complaint of abdominal pain. Patient reports for the past 6 days she has had a lower abdominal pain that has been worsening. Pain radiating to her back bilaterally. She also reports urination. She denies fevers, headache or visual changes, chest pain shortness of breath, nausea vomiting or diarrhea, constipation, weakness or paresthesias. She took Tylenol without relief. Last dose of Tylenol was last. Currently pain is 6 out of 10 severity. Reports abdominal surgical history of cholecystectomy. She denies concern for STI, denies a change in vaginal discharge. ROS: I have performed a ROS with the pertinent positives and negatives documented in the history ofpresent illness. Previous History Past Medical History: Diagnosis Date Anxiety Asthma DX:Asthma Cyst of right kidney 07/29/2017 DX:Cyst of right kidney Fibrosis of lung ([facility]/HCC) 01/20/2017 DX:Fibrosis of lung (HCC) GERD (gastroesophageal reflux disease) 07/29/2017 DX:GERD (gastroesophageal reflux disease) Interstitial lung disease ([facility]/HCC) 01/20/2017 DX:Interstitial lung disease (HCC) Pain, joint, multiple sites 07/29/2017 DX:Pain, joint, multiple sites Positive ROSEY (antinuclear antibody) 07/29/2017 DX:Positive ROSEY (antinuclear antibody) Past Surgical History: Procedure Laterality Date CHOLECYSTECTOMY PROCEDURE: HISTORICAL CHOLECYSTECTOMY CHOLECYSTECTOMY PROCEDURE: [place] LAPAROSCOPY SURG CHOLECYSTECTOMY COLONOSCOPY PROCEDURE: HISTORICAL COLONOSCOPY ESOPHAGOGASTRODUODENOSCOPY PROCEDURE: [place] ESOPHAGOGASTRODUODENOSCOPY TRANSORAL DIAGNOSTIC OTHER SURGICAL HISTORY PROCEDURE: ---- OTHER ----; COMMENT: hist lung biopsy x 2 Social History Tobacco Use Smoking status: Former Current packs/day: 0.25 Types: Cigarettes Smokeless tobacco: Never Substance Use Topics Alcohol use: No Drug use: Never Family History Problem Relation Name Age of Onset Stroke Mother stroke at age 65, heart problems, cancer ? type, HTN Coronary artery disease Mother Prostate cancer Father Heart attack Brother No Known Problems Daughter No Known Problems Daughter Coronary artery disease Uncle Coronary artery disease Sister has No Known Allergies. No current facility-administered medications on file prior to encounter. Current Outpatient Medications on File Prior to Encounter Medication Sig Dispense Refill amitriptyline (ELAVIL) 10 mg tablet Take 1 Tablet by mouth at bedtime. aspirin 81 mg chewable tablet Chew 1 tablet (81 mg total) 1 (one) time each day. atorvastatin (LIPITOR) 20 mg tablet Take 1 tablet (20 mg total) by mouth 1 (one) time each day. busPIRone (BUSPAR) 10 mg tablet cholecalciferol (VITAMIN D-3) 50 mcg (2,000 unit) capsule Take 1 capsule (2,000 Units total) by mouth 1 (one) time each day. eszopiclone (LUNESTA) 3 mg tablet Take 3 [...] muscle spasms (neck spasms). 90 tablet 1 Physical Exam ED Triage Vitals [04/18/24 1030] Temp Heart Rate Resp BP 37.1 ??C (98.8 ??F) 86 16 109/72 SpO2 Temp Source Heart Rate Source Patient Position 98 % Oral Monitor Sitting BP Location FiO2 (%) Right arm;Upper -- General: awake, calm, cooperative, in no acute distress. Skin: warm, dry, no diaphoresis. Eyes: PERRLA, EOMI. Respiratory: lungs clear to auscultation bilaterally, no increased work of breathing. Cardiovascular: regular rate and rhythm, no peripheral edema. Equal pulses in all four extremities. Gastrointestinal: Soft, nondistended, tender to palpation in bilateral lower quadrants with guarding no rebound tenderness, no CVA tenderness. Normoactive bowel signs MSK: Moving all extremities spontaneously, no deformity or edema. Neurologic: Awake, alert, and oriented x3. No focal deficits. Psychiatric: Appropriate mood and affect Results Labs Reviewed COMPREHENSIVE METABOLIC PANEL - Abnormal Result Value Sodium 137 Potassium 4.0 Chloride 106 CO2 27 Anion Gap 4 Glucose 89 BUN 16 Creatinine 0.90 eGFR 72 BUN/Creatinine Ratio 17.8 Calcium 9.0 AST (SGOT) 24 ALT (SGPT) 36 Alkaline Phosphatase 258 (*) Total Protein 7.8 Albumin 3.6 Total Bilirubin 0.3 CBC WITH AUTO DIFFERENTIAL - Abnormal WBC 8.5 RBC 3.70 (*) Hemoglobin 11.1 (*) Hematocrit 35.3 MCV 95.4 MCH 30.0 MCHC 31.4 (*) RDW 12.4 Platelets 340 MPV 8.7 NRBC 0.0 NRBC Absolute 0.00 Neutrophils Relative 76.8 Lymphocytes Relative 16.6 Monocytes Relative 5.2 Eosinophils Relative 0.7 Basophils Relative 0.2 Immature Granulocytes Relative 0.5 Neutrophils Absolute 6.53 Lymphocytes Absolute 1.41 Monocytes Absolute 0.44 Eosinophils Absolute 0.06 Basophils Absolute 0.02 Immature Granulocytes Absolute 0.04 (*) URINALYSIS WITH REFLEX MICROSCOPIC AND CULTURE - Abnormal Specific [place] Urine 1.007 pH, Urine 6.5 Leukocytes, Urine Negative Nitrite, Urine Negative Protein, Urine Negative Glucose, Urine Negative Ketones, Urine Negative Urobilinogen, Urine 0.2 Bilirubin, Urine Negative Blood, Urine Trace (*) RBC, Urine 2.2 WBC, Urine 0.1 Squamous Epithelial, Urine 2 Bacteria, Urine Negative Hyaline Casts, Urine 0.0 CBC AND DIFFERENTIAL Narrative: The following orders were created for panel order CBC and differential. Procedure Abnormality Status --------- ------ CBC auto differential[[id number]] Abnormal Final result Please view results for these tests on the individual orders. URINALYSIS WITH REFLEX MICROSCOPIC AND CULTURE Narrative: The following orders were created for panel order Urinalysis with reflex microscopic and culture. Procedure Abnormality Status --------- ------ Urinalysis with reflex ...[[id number]] Abnormal Final result Mcgee urine culture tube[[id number]] Final result Please view results for these tests on the individual orders. Abnormal Labs Reviewed COMPREHENSIVE METABOLIC PANEL - Abnormal; Notable for the following components: Result Value Alkaline Phosphatase 258 (*) All other components within normal limits CBC WITH AUTO DIFFERENTIAL - Abnormal; Notable for the following components: RBC 3.70 (*) Hemoglobin 11.1 (*) MCHC 31.4 (*) Immature Granulocytes Absolute 0.04 (*) All other components within normal limits URINALYSIS WITH REFLEX MICROSCOPIC AND CULTURE - Abnormal; Notable for the following components: Blood, Urine Trace (*) All other components within normal limits CT Abdomen Pelvis w Contrast Final Result Bilateral adnexal cystic changes as detailed above. Scattered tree-in-bud attenuation as well as atelectasis within the lung bases suggesting atypical pneumonia. -------- FINAL REPORT -------- Dictated By: Ahmet Rivera Dictated Date: 04/18/2024 14:48 ET Assigned Physician: Ahmet Rivera Reviewed and Electronically Signed By: Ahmet Rivera Signed Date: 04/18/2024 14:55 ET Workstation ID: [id number] Transcribed By: Self Edit Transcribed Date: 04/18/2024 14:48 ET XR Chest 2 Views (Results Pending) US Pelvis Non OB Complete (Results Pending) EKG Interpretation Critical Care Time None ? Differential Diagnosis Urinary tract infection, pyelonephritis, nephrolithiasis, appendicitis, diverticulitis, gastroenteritis Medical Decision Making 64-year-old female presenting with 6 out of 10 constant abdominal pain as sharp and radiated to herback on bilateral sides. On exam patient alert and oriented no acute distress she is hemodynamically stable and afebrile. Cardiopulmonary exam is unremarkable, abdomen is soft nondistended tender palpation bilateral lower quadrants with guarding no rebound, no CVA tenderness. CTA pelvis is pending at this time. Labs are pending. Medications sodium chloride 0.9 % bolus 1,000 mL (0 mL intravenous Stopped 04/18/24 1432) ondansetron (PF) (ZOFRAN) injection 4 mg (4 mg intravenous Given 04/18/24 1304) ketorolac (TORADOL) injection 15 mg (15 mg intravenous Given 04/18/24 1304) sodium chloride 0.9 % flush 10 mL (10 mL intravenous Given 04/18/24 1342) iopamidoL (ISOVUE-370) 370 mg iodine /mL (76 %) injection 90 mL (90 mL intravenous Given 04/18/24 1342) ED Course as of 04/18/24 1547 TueApr 18, 2024 1515 US Pelvis Non OB Complete [RH] 1516 US Pelvis Non OB Complete [RH] 1534 Labs are unremarkable there is no leukocytosis, no JON, no electrolyte derangement. UA shows trace blood electrolytes negative. [BT] 1535 CT Abdomen Pelvis w Contrast Bilateral adnexal cystic changes as detailed above. Scattered tree-in-bud attenuation as well as atelectasis within the lung bases suggesting atypical pneumonia. [BT] 1535 Chest x-ray and pelvic ultrasound are pending at this time. [facility] Shabnam Conklin PA-C at approximately 4 PM pending disposition. [BT] ED Course User Index [BT] HARPAL Clarke [RH] HARPAL Quiles Procedures Procedures Diagnosis No diagnosis found. Disposition Data Unavailable ED Prescriptions None Physician Attestation This is a split/shared visit with HARPAL Clarke. I personally performed the medical decision making (MDM) for the care of this patient on 04/18/24 as documented below 64-year-old female patient presents with a complaint of abdominal pain, primarily lower abdomen which has been present over the course of the last 6 days. She has no nausea or vomiting. She has no prior history of similar pain. She does have a prior surgical history significant for cholecystectomy.Upon my exam, the patient is diffusely tender across the lower abdomen. Vital signs were reviewed. Laboratory analysis ordered and CT scan of the abdomen pelvis ordered to rule out surgical/infectious etiology. HARPAL Clarke 04/18/24 3:47 PM EST HARPAL Clarke PA 04/18/24 1256 Jose Daniel Collazo MD 04/18/24 1304 HARPAL Clarke 04/18/24 1536 HARPAL Clarke 04/18/24 1547 documented in this encounter Plan of Treatment Upcoming Encounters Date Type Department Care Team (Latest Contact Info) Description 05/22/2024 1:00 PM EST Office Visit Internal Medicine - [place] [address] [phone] Candy Almanzar PA [address] [address] 06/11/2024 10:00 AM EST Pre-Admission Testing [facility] Pre-Admission Testing [address] [place] [phone] 06/18/2024 7:30 AM EDT Hospital Encounter [facility] Main [address] [phone] Hilton Raymundo MD [address] [place] [phone] 06/18/2024 7:30 AM EDT - 06/18/2024 10:30 AM EDT Surgery [facility] Main [address] [phone] Hilton Raymundo MD [address] [place] [phone] Davinci assisted laparoscopic bilateral salpingo-oophorectom y, ? total hysterectomy, staging, open laparotomy. [98020 (CPT??)] 07/03/2024 11:20 AM EDT Office Visit [facility] [address] [phone] Hilton Raymundo MD [address] [place] [phone] 07/18/2024 11:15 AM EDT Office Visit [facility] Hematology Oncology [address] [place] [phone] Liza Guajardo MD [address] [place] [phone] Scheduled Procedures Name Priority Associated Diagnoses Date/Ti me OOPHORECTOMY ROBOT TWO Adnexal mass Cysts of both ovaries Pelvic pain 06/18/2024 7:30 AM EDT documented as of this encounter Procedures Procedure Name Priority Date/Time Associated Diagnosis Comments CT CHEST WO CONTRAST STAT 04/18/2024 5:06 PM EST US PELVIS NON OB COMPLETE W TRANSVAGINAL STAT 04/18/2024 4:[address] ABDOMEN PELVIS W CONTRAST STAT 04/18/2024 1:54 PM EST URINALYSIS WITH REFLEX MICROSCOPIC AND CULTURE STAT 04/18/2024 1:45 PM EST MCGEE URINE CULTURE TUBE STAT 04/18/2024 1:45 PM EST URINALYSIS WITH REFLEX MICROSCOPIC AND CULTURE STAT 04/18/2024 1:45 PM EST CBC WITH AUTO DIFFERENTIAL STAT 04/18/2024 10:54 AM EST CBC AND DIFFERENTIAL STAT 04/18/2024 10:54 AM EST CANCER ANTIGEN 125 Add-On 04/18/2024 10 :54 AM EST COMPREHENSIVE METABOLIC PANEL STAT 04/18/2024 10:54 AM EST documented in this encounter Results * CT Chest wo Contrast (04/18/2024 5:06 PM EST) Anatomical Region Laterality Modality Body Computed Tomogra phy 04/18/2024 7:22 PM EST Impressions 04/18/2024 7:30 PM EST Impression: Scattered nodular airspace opacities in both lungs, possibly infectious/inflammatory in nature, with a neoplastic process not excluded. Short-term follow-up is recommended. Telerad HARPAL ([id number]) -------- FINAL REPORT -------- Dictated By: Mayi Avila Dictated Date: 04/18/2024 19:22 ET Assigned Physician: Mayi Avila Reviewed and Electronically Signed By: Mayi Avila Signed Date: 04/18/2024 19:30 ET Workstation ID: [id number] Transcribed By: Self Edit Transcribed Date: 04/18/2024 19:22 ET Narrative 04/18/2024 7:30 PM EST History: Abnormal findings in the lungs on earlier abdominal CT. Comparison: CT abdomen/pelvis from earlier today. Technique: Helical volumetric imaging of the thorax was performed without IV contrast. DLP: 360.76 mGy/cm GE Lightspeed VCT Iterative reconstruction technique Findings: Image detail [...] was performed withoutIV contrast. DLP: 360.76 mGy/cm GE Dinero Limitedpeed VCT Iterative reconstruction technique Findings: Image detail [...] neoplastic process not excluded.Short-term follow-up is recommended. Aileen ROWAN ([id number]) -------- FINAL REPORT -------- Dictated By: Mayi Avila Dictated Date: 04/18/2024 19:22 ET Assigned Physician: Mayi Avila Reviewed and Electronically Signed By: Mayi Avila Signed Date: 04/18/2024 19:30 ET Workstation ID: [id number] Transcribed By: Self Edit Transcribed Date: 04/18/2024 [...] Signed Date: 04/18/2024 16:33 ET Workstation ID: [id number] Transcribed By: Self Edit Transcribed Date: 04/18/2024 [...] Signed Date: 04/18/2024 16:33 ET Workstation ID: [id number] Transcribed By: Self Edit Transcribed Date: 04/18/2024 16:28 ET Bailey Hynds-Katerin PA IMG US PROCEDU RES * CT Abdomen [...] Signed Date: 04/18/2024 14:55 ET Workstation ID: [id number] Transcribed By: Self Edit Transcribed Date: 04/18/2024 14:48 ET Narrative 04/18/2024 2:55 PM EST INDICATION: Bilateral lower quadrant abdominal pain TECHNIQUE: CT scan of the abdomen and pelvis obtained with a total of 90 cc of Isovue-370 administered intravenously without incident. Oral contrast administered. Scanner: [employer] 64 slice VCT Dose reduction technique: ASIR (Adaptive statistical iterative reconstruction) and/or AEC (automated exposure control) Dose: total exam DLP 589 mGY per cm COMPARISON: No prior studies are available for comparison. FINDINGS: Mild branching iwux-fm-mrj-like attenuation within the lingula and inferior lateral [...] administered intravenously without incident. Oralcontrast administered. Scanner: [employer] 64 slice VCT Dose reduction technique: ASIR (Adaptive statistical iterativereconstruction) and/or AEC (automated exposure control) Dose: total exam DLP 589 mGY per cm COMPARISON: No prior studies are available for comparison. FINDINGS: Mild branching dwsl-wl-pbd-like attenuation within the lingula andinferior lateral left [...] Signed Date: 04/18/2024 14:55 ET Workstation ID: [id number] Transcribed By: Self Edit Transcribed Date: 04/18/2024 14:48 ET Ashlee ROWAN [facility] [place] PROCEDURES * Mcgee urine culture tube (04/18/2024 1:45 PM EST) Extra Tube Hold for add-ons. 04/18/2024 3:01 PM [facility] Comment:Auto resulted. Urine Urine specimen obtained by clean catch procedure / Unknown Non-blood Collection / Unknown 04/18/2024 1:45 PM EST 04/18/2024 1:54 PM EST Jose Daniel Collazo MD LAB URINE ORDERABLES [facility] [address] [place] [address], * (ABNORMAL) Urinalysis with reflex microscopic and culture (04/18/2024 1:45 PM EST) [facility] Specific [place] Urine 1.007 1.003 - 1.030 LAB URINALYSIS - AUTOMATED METHOD 04/18/2024 2:04 PM [facility] pH, Urine 6.5 5.0 - 8.0 pH LAB URINALYSIS - AUTOMATED METHOD 04/18/2024 2:04 PM [facility] Leukocytes, Urine Negative Negative LAB URINALYSIS - AUTOMATED METHOD 04/18/2024 2:04 PM [facility] Nitrite, Urine Negative Negative LAB URINALYSIS - AUTOMATED METHOD 04/18/2024 2:04 PM [facility] Protein, Urine Negative <=Trace mg/dL LAB URINALYSIS - AUTOMATED METHOD 04/18/2024 2:04 PM [facility] Glucose, Urine Negative Negative mg/dL LAB URINALYSIS - AUTOMATED METHOD 04/18/2024 2:04 PM [facility] Ketones, Urine Negative Negative mg/dL LAB URINALYSIS - AUTOMATED METHOD 04/18/2024 2:04 PM [facility] Urobilinogen, Urine 0.2 0.2 - 1.0 mg/dL LAB URINALYSIS - AUTOMATED METHOD 04/18/2024 2:04 PM [facility] Bilirubin, Urine Negative Negative LAB URINALYSIS - AUTOMATED METHOD 04/18/2024 2:04 PM [facility] Blood, Urine Trace(A) Negative LAB URINALYSIS - AUTOMATED METHOD 04/18/2024 2:04 PM [facility] RBC, Urine 2.2 0 - 4 /HPF LAB URINALYSIS - AUTOMATED METHOD 04/18/2024 2:04 PM [facility] WBC, Urine 0.1 0 - 4 /HPF LAB URINALYSIS - AUTOMATED METHOD 04/18/2024 2:04 PM [facility] Squamous Epithelial, Urine 2 0 - 60 /LPF LAB URINALYSIS - AUTOMATED METHOD 04/18/2024 2:04 PM [facility] Bacteria, Urine Negative Negative /HPF LAB URINALYSIS - AUTOMATED METHOD 04/18/2024 2:04 PM [facility] Hyaline Casts, Urine 0.0 0 - 3 /LPF LAB URINALYSIS - AUTOMATED METHOD 04/18/2024 2:04 PM [facility] Urine Urine specimen obtained by clean catch procedure / Unknown Non-blood Collection / Unknown 04/18/2024 1:45 PM EST 04/18/2024 1:54 PM EST Jose Daniel Collazo MD LAB URINE ORDERABLES [facility] [address] [place] [address], * Cancer antigen 125 (04/18/2024 10:54 AM EST) CA 125 14.2 <35.0 unit/mL LAB CHEMISTRY METHOD 04/18/2024 7:00 PM [facility] Blood Venous blood specimen / Unknown Venipuncture / Unknown 04/18/2024 10:54 AM EST 04/18/2024 11:59 AM EST Narrative [facility] - 04/18/2024 7:00 PM EST The Siemens Advia Centaur Chemiluminescent Immunoassay is used. Results obtained with different assay methods or kits cannot be used interchangeably. Results cannot be interpreted as absolute evidence of the presence or absence of malignant disease. Bailey ROWAN LAB BLOOD MELANIE BLISS [facility] [address] [place] [address], * (ABNORMAL) CBC auto differential (04/18/2024 10:54 AM EST) WBC 8.5 4.8 - 10.8 K/mcL LAB HEMETOLOGY METHOD 04/18/2024 12:19 PM [facility] RBC 3.70(L) 3.80 - 4.80 M/mcL LAB HEMETOLOGY METHOD 04/18/2024 12:19 PM [facility] Hemoglobin 11.1(L) 11.5 - 16.0 g/dL LAB HEMETOLOGY METHOD 04/18/2024 12:19 PM [facility] Hematocrit 35.3 35.0 - 47.0 % LAB HEMETOLOGY METHOD 04/18/2024 12:19 PM [facility] MCV 95.4 79.0 - 98.0 FL LAB HEMETOLOGY METHOD 04/18/2024 12:19 PM [facility] MCH 30.0 27.0 - 32.0 pcg LAB HEMETOLOGY METHOD 04/18/2024 12:19 PM [facility] MCHC 31.4(L) 32.0 - 37.0 g/dL LAB HEMETOLOGY METHOD 04/18/2024 12:19 PM [facility] RDW 12.4 11.0 - 15.0 % LAB HEMETOLOGY METHOD 04/18/2024 12:19 PM [facility] Platelets 340 130 - 400 K/mcL LAB HEMETOLOGY METHOD 04/18/2024 12:19 PM [facility] MPV 8.7 7.0 - 11.0 FL LAB HEMETOLOGY METHOD 04/18/2024 12:19 PM [facility] NRBC 0.0 <1.0 % LAB HEMETOLOGY METHOD 04/18/2024 12:19 PM [facility] NRBC Absolute 0.00 <0.10 K/mcL LAB HEMETOLOGY METHOD 04/18/2024 12:19 PM [facility] Neutrophils Relative 76.8 % LAB HEMETOLOGY METHOD 04/18/2024 12:19 PM [facility] Lymphocytes Relative 16.6 % LAB HEMETOLOGY METHOD 04/18/2024 12:19 PM [facility] Monocytes Relative 5.2 % LAB HEMETOLOGY METHOD 04/18/2024 12:19 PM [facility] Eosinophils Relative 0.7 % LAB HEMETOLOGY METHOD 04/18/2024 12:19 PM [facility] Basophils Relative 0.2 % LAB HEMETOLOGY METHOD 04/18/2024 12:19 PM [facility] Immature Granulocytes Relative 0.5 % LAB HEMETOLOGY METHOD 04/18/2024 12:19 PM [facility] Neutrophils Absolute 6.53 1.50 - 7.00 K/mcL LAB HEMETOLOGY METHOD 04/18/2024 12:19 PM [facility] Lymphocytes Absolute 1.41 1.00 - 5.00 K/mcL LAB HEMETOLOGY METHOD 04/18/2024 12:19 PM [facility] Monocytes Absolute 0.44 0.20 - 1.00 K/mcL LAB HEMETOLOGY METHOD 04/18/2024 12:19 PM [facility] Eosinophils Absolute 0.06 0.00 - 0.50 K/[facility] LAB HEMETOLOGY METHOD 04/18/2024 12:19 PM [facility] Basophils Absolute 0.02 0.00 - 0.20 K/mcL LAB HEMETOLOGY METHOD 04/18/2024 12:19 PM [facility] Immature Granulocytes Absolute 0.04(H) 0.00 - 0.03 K/mcL LAB HEMETOLOGY METHOD 04/18/2024 12:19 PM [facility] Blood Venous blood specimen / Unknown Venipuncture / Unknown 04/18/2024 10:54 AM EST 04/18/2024 12:00 PM EST Jose Daniel Collazo MD LAB BLOOD ORDERABLES [facility] [address] [place] [address], * (ABNORMAL) Comprehensive metabolic panel (04/18/2024 10:54 AM EST) Sodium 137 133 - 145 mmol/L LAB CHEMISTRY METHOD 04/18/2024 12:29 PM [facility] Potassium 4.0 3.5 - 5.5 mmol/L LAB CHEMISTRY METHOD 04/18/2024 12:29 PM [facility] Chloride 106 96 - 110 mmol/L LAB CHEMISTRY METHOD 04/18/2024 12:29 PM [facility] CO2 27 21 - 32 mmol/L LAB CHEMISTRY METHOD 04/18/2024 12:29 PM [facility] Anion Gap 4 3 - 11 LAB CHEMISTRY METHOD 04/18/2024 12:29 PM [facility] Glucose 89 70 - 100 mg/dL LAB CHEMISTRY METHOD 04/18/2024 12:29 PM [facility] BUN 16 5 - 25 mg/dL LAB CHEMISTRY METHOD 04/18/2024 12:29 PM [facility] Creatinine 0.90 0.50 - 1.10 mg/dL LAB CHEMISTRY METHOD 04/18/2024 12:29 PM [facility] eGFR 72 >=60 mL/min/1. 73m2 LAB CHEMISTRY METHOD 04/18/2024 12:29 PM [facility] Comment:Calculation based on the??Chronic Kidney Disease Epidemiology Collaboration (CKD-EPI) equation refit??without adjustment for race. BUN/Creatinine Ratio 17.8 LAB CHEMISTRY METHOD 04/18/2024 12:29 PM [facility] Calcium 9.0 8.5 - 10.5 mg/dL LAB CHEMISTRY METHOD 04/18/2024 12:29 PM [facility] AST (SGOT) 24 10 - 42 unit/L LAB CHEMISTRY METHOD 04/18/2024 12:29 PM [facility] ALT (SGPT) 36 10 - 60 unit/L LAB CHEMISTRY METHOD 04/18/2024 12:29 PM [facility] Alkaline Phosphatase 258(H) 42 - 121 unit/L LAB CHEMISTRY METHOD 04/18/2024 12:29 PM [facility] Total Protein 7.8 6.0 - 8.0 g/dL LAB CHEMISTRY METHOD 04/18/2024 12:29 PM [facility] Albumin 3.6 3.2 - 5.0 g/dL LAB CHEMISTRY METHOD 04/18/2024 12:29 PM [facility] Total Bilirubin 0.3 0.0 - 1.4 mg/dL LAB CHEMISTRY METHOD 04/18/2024 12:29 PM [facility] Blood Venous blood specimen / Unknown Venipuncture / Unknown 04/18/2024 10:54 AM EST 04/18/2024 11:59 AM EST Jose Daniel Collazo MD [facility]LOOD [facility]AB[facility] [address] [place] [address], documented in this encounter Visit Diagnoses Diagnosis Abnormal chest CT- Primary Nonspecific (abnormal) findings on radiological and other examination of other intrathoracic organs Pelvic pain Adnexal mass Other specified symptom associated with female genital organs Cysts of both ovaries Other and unspecified ovarian cyst Pelvic pain documented in this encounter Administered Medications Inactive Administered Medications - up to 3 most recent administrations Medication Order MAR Action Action Date Dose Rate Site iopamidoL (ISOVUE-370) 370 mg iodine /mL (76 %) injection 90 mL 90 mL, intravenous, Once in imaging, Starting on Tue04/18/24 at 1342, For 1 dose Given 04/18/2024 1:42 PM EST 90 mL ketorolac (TORADOL) injection 15 mg 15 mg, intravenous, Once, On Tue04/18/24 at 1224, For 1 dose Given 04/18/2024 1:04 PM EST 15 mg ondansetron (PF) (ZOFRAN) injection 4 mg 4 mg, intravenous, Once, On Tue04/18/24 at 1224, For 1 dose Given 04/18/2024 1:04 PM EST 4 mg sodium chloride 0.9 % bolus 1,000 mL 1,000 mL, intravenous, at 2,000 mL/hr, Administer over 30 Minutes, Once, On Tue04/18/24 at 1224, For 1 dose New Bag 04/18/2024 1:05 PM EST 1,000 mL 2000 mL/hr sodium chloride 0.9 % flush 10 mL 10 mL, intravenous, Once, On Tue04/18/24 at 1343, For 1 dose Given 04/18/2024 1:42 PM EST 10 mL documented in this encounter Active and Recently Administered Medications Times are shown in EST. Scheduled Medication Order 04/16/2024 04/17/2024 04/18/2024 iopamidoL (ISOVUE-370) 370 mg iodine /mL (76 %) injection 90 mL (COMPLETED) 90 mL, intravenous, Once in imaging, Starting on Tue04/18/24 at 1342, For 1 dose 1342 (Given - Provid er: Corinne Chow) ketorolac (TORADOL) injection 15 mg (COMPLETED) 15 mg, intravenous, Once, On Tue04/18/24 at 1224, For 1 dose 1304 (Given - Provid er: Isabel Ingram RN) ondansetron (PF) (ZOFRAN) injection 4 mg (COMPLETED) 4 mg, intravenous, Once, On Tue04/18/24 at 1224, For 1 dose 1304 (Given - Provid er: Isabel Ingram RN) sodium chloride 0.9 % bolus 1,000 mL (COMPLETED) 1,000 mL, intravenous, at 2,000 mL/hr, Administer over 30 Minutes, Once, On Tue04/18/24 at 1224, For 1 dose 1305 (New Bag - Prov ider: Isabel Ingram RN)1432 (Stopped - Provider: Isabel Ingram RN) sodium chloride 0.9 % flush 10 mL (COMPLETED) 10 mL, intravenous, Once, On Tue04/18/24 at 1343, For 1 dose 1342 (Given - Provid er: Corinne Chow) documented in this encounter Care Teams Artificial Glass Eye Maker Relationship Specialty Start Date End Date Cnady Almanzar PA [address] [place] [address] PCP - General Internal Medicine 05/04/21 documented as of this encounter
--- OUTSIDE RECORDS SUMMARY | 2024-05-11 09:01 | XMS_ITS | Encounter Summary ---
Author Organization [facility] Address [address] [place] [address] Care Team Providers Care Beveler Name Role Phone Candy Almanzar PA-C Primary Care Provider + Axel Montero MD Unavailable [phone] Dorothea Barragan NP Unavailable [phone] Encounter Details Date Type Department Care Team Description 03/15/2023 Field Identification Specialist Report Medical Records [address] [place] [address] Vaibhav White DO Social History Tobacco Use Types Packs/Day Years [...] PM EST documented as of this encounter Plan of Treatment Not on file documented as of this encounter Visit Diagnoses Not on filedocumented in this encounter Care Teams Beveler Relationship Specialty Start Date End Date Candy Almanzar PA-C PCP - General Internal Medicine 05/04/21 Axel Montero MD [address] [place] [address] Specialist Cardiovascular Disease 09/09/22 Dorothea Barragan NP [address] [place] [address] [address] Cardiology 09/07/23 documented as of this encounter
--- OUTSIDE RECORDS SUMMARY | 2024-05-11 09:01 | XMS_ITS | Encounter Summary ---
Author Organization [facility] [place] [facility] Address [address] [place] [address] Care Team Providers Care Cinder Worker Name Role Phone Danyel Anthony MD Primary Care Provider [phone] Candy Almanzar PA-C Primary Care Provider + Axel Montero MD Unavailable [phone] Dorothea Barragan NP Unavailable [phone] Encounter Details Date Type Department Care Team Description 04/23/2019 Coater Hand Report Medical Records [address] [place] [address] Axel Montero MD [address] [place] [address] Dr Baptiste [address] [place] [address] Social History Tobacco Use Types Packs/Day Years [...] on filedocumented in this encounter Care Teams Cinder Worker Relationship Specialty Start Date End Date Danyel Anthony MD [address] [place], [place] [id number] PCP - General Internal Medicine 07/18/17 05/03/21 Candy Almanzar PA-C [address] [place] [address] PCP - General Internal Medicine 05/04/21 Axel Montero MD [address] [place] [address] Specialist Cardiovascular Disease 09/09/22 Dorothea Barragan NP [address] [place] [address] [address] Cardiology 09/07/23 documented as of this encounter
--- OUTSIDE RECORDS SUMMARY | 2024-05-11 09:01 | XMS_ITS | Encounter Summary ---
Author Organization [facility] Address [address] [place] [address] Care Team Providers Care Magnetic Tape Typewriter Operator Name Role Phone Danyel Anthony MD Primary Care Provider [phone] Candy Almanzar PA-C Primary Care Provider + Axel Montero MD Unavailable [phone] Dorothea Barragan NP Unavailable [phone] Encounter Details Date Type Department Care Team Description 04/12/2019 Music Video Director Report Medical Records [address] [place] [address] Jose Carlos Calvin MD Social History Tobacco [...] on filedocumented in this encounter Care Teams Magnetic Tape Typewriter Operator Relationship Specialty Start Date End Date Danyel Anthony MD [address] [place] [address] PCP - General Internal Medicine 07/18/17 05/03/21 Candy Almanzar PA-C [address] [place], [place] [phone] PCP - General Internal Medicine 05/04/21 Axel Montero MD [address] [place] [address] Specialist Cardiovascular Disease 09/09/22 Dorothea Barragan NP [address] [place] [address] [id number] Cardiology 09/07/23 documented as of this encounter
--- OUTSIDE RECORDS SUMMARY | 2024-05-11 09:01 | XMS_ITS | Encounter Summary ---
Author Organization [facility] Address [address] [place] [address] Care Team Providers Care Sap Abap Programmer Name Role Phone Candy Almanzar PA-C Primary Care Provider + Axel Montero MD Unavailable [phone] Dorothea Barragan NP Unavailable [phone] Encounter Details Date Type Department Care Team Description 10/16/2022 Release of Information Medical Records [address] [place] [id number] [place] [address] Social History Tobacco Use Types Packs/Day Years [...] on filedocumented in this encounter Care Teams Sap Abap Programmer Relationship Specialty Start Date End Date Candy Almanzar PA-C PCP - General Internal Medicine 05/04/21 Axel Montero MD [address] [place] [address] [place] [address] Specialist Cardiovascular Disease 09/09/22 Dorothea Barragan, KATT [address] [place] [address] Cardiology 09/07/23 documented as of this encounter
--- OUTSIDE RECORDS SUMMARY | 2024-05-11 09:01 | XMS_ITS | Encounter Summary ---
Author Organization [facility] Address [address] [place] [address] Care Team Providers Care Mortgage Advisor Name Role Phone Candy Almanzar PA-C Primary Care Provider + Axel Montero MD Unavailable [phone] Dorothea Barragan NP Unavailable [phone] Encounter Details Date Type Department Care Team Description 09/02/2022 Orders Only Internal Medicine - [address], [address] [place], [place] [phone] Candy Almanzar PA-C [address] [place] [phone] Abnormal chest x-ray Social History Tobacco Use Types Packs/Day Years [...] suspected to have Coronavirus/COVID-19? No / Unsure 09/02/2022 7:39 AM EDT documented as of this encounter Plan of Treatment Not on file documented as of this encounter Procedures Procedure Name Priority Date/Time Associated Diagnosis Comments CHG RADIOLOGIC EXAM CHEST 2 VIEWS Routine 09/02/2022 Abnormal chest x-ray documented in this encounter Results * RADIOLOGIC EXAM CHEST 2 VIEWS (09/02/2022) Candy Almanzar PA-C RADIOLOGY documented in this encounter Visit Diagnoses Diagnosis Abnormal chest x-ray Other nonspecific abnormal finding of lung field documented in this encounter Care Teams Mortgage Advisor Relationship Specialty Start Date End Date Candy Almanzar PA-C PCP - General Internal Medicine 05/04/21 Axel Montero MD [address] [place] [address] Specialist Cardiovascular Disease 09/09/22 Dorothea Barragan NP [address] [place] [address] [address] Cardiology 09/07/23 documented as of this encounter
--- OUTSIDE RECORDS SUMMARY | 2024-05-11 09:01 | XMS_ITS | Encounter Summary ---
Author Organization [facility] Address [address] [place] [address] Care Team Providers Care Auto Damage Adjuster Name Role Phone Danyel Anthony MD Primary Care Provider [phone] Candy Almanzar PA-C Primary Care Provider + Axel Montero MD Unavailable [phone] Dorothea Barragan NP Unavailable [phone] Encounter Details Date Type Department Care Team Description 05/01/2019 Aeronautical Engineer Report Medical Records [address] [place] [address] Sarah Jarquin MD Social History Tobacco Use Types Packs/Day [...] on filedocumented in this encounter Care Teams Auto Damage Adjuster Relationship Specialty Start Date End Date Danyel Anthony MD [address] [place] [address] PCP - General Internal Medicine 07/18/17 05/03/21 Candy Almanzar PA-C [address] [place] [address] PCP - General Internal Medicine 05/04/21 Axel Montero MD [address] [place] [address] Specialist Cardiovascular Disease 09/09/22 Dorothea Barragan NP [address] [place] [address] Cardiology 09/07/23 documented as of this encounter
--- OUTSIDE RECORDS SUMMARY | 2024-05-11 09:01 | XMS_ITS | Encounter Summary ---
Author Organization [facility] Address [address] [place] [address] Care Team Providers Care Event Management Consultant Name Role Phone Candy Almanzar PA-C Primary Care Provider + Axel Montero MD Unavailable [phone] Dorothea Barragan NP Unavailable [phone] Encounter Details Date Type Department Care Team Description 06/23/2023 Hospital Medical Records [address] [place] [address] Vaibhav White DO Social History Tobacco Use [...] on filedocumented in this encounter Care Teams Event Management Consultant Relationship Specialty Start Date End Date Candy Almanzar PA-C PCP - General Internal Medicine 05/04/21 Axel Montero MD [address] [place] [address] [place] [address] Specialist Cardiovascular Disease 09/09/22 Dorothea Barragan, KATT [address] [place] [address] [place] [address] Cardiology 09/07/23 documented as of this encounter
--- OUTSIDE RECORDS SUMMARY | 2024-05-11 09:01 | XMS_ITS | Encounter Summary ---
Author Organization [facility] Address [address] [place] [address] Care Team Providers Care Stick Inserter Name Role Phone Candy Almanzar PA-C Primary Care Provider + Axel Montero MD Unavailable [phone] Dorothea Barragan NP Unavailable [phone] Reason for Visit * Reason Comments E-prescribe Rx Request Encounter Details Date Type Department Care Team Description 10/27/2021 Refill Internal Medicine - [address], [address] [place] [address] Candy Almanzar PA-C [address] [place] [phone] E-prescribe Rx Request Social History Tobacco [...] encounter Miscellaneous Notes * Telephone Encounter - Sherice Oro M.A. - 10/28/2021 1:18 PM EDT Rx last filled on 08/31/21 w/ 1 refill rx pended fwd norma riggs * Telephone Encounter - Eve Jordan - 10/27/2021 4:43 PM EDT [place] 05/04/21 NOV 01/15/22 documented in this encounter Plan of Treatment Not on file documented as of this encounter Visit Diagnoses Diagnosis Upper back pain on left side Pain in thoracic spine documented in this encounter Care Teams Stick Inserter Relationship Specialty Start Date End Date Candy Almanzar PA-C PCP - General Internal Medicine 05/04/21 Axel Montero MD [address] [place] [address] Specialist Cardiovascular Disease 09/09/22 Dorothea Barragan NP [address] [place] [address] Cardiology 09/07/23 documented as of this encounter
--- OUTSIDE RECORDS SUMMARY | 2024-05-11 09:01 | XMS_ITS | Encounter Summary ---
Author Organization [facility] Address [address] [place] [address] Care Team Providers Care Microsoft Infrastructure Consultant Name Role Phone Danyel Anthony MD Primary Care Provider [phone] Candy Almanzar PA-C Primary Care Provider + Axel Montero MD Unavailable [phone] Dorothea Barragan NP Unavailable [phone] Reason for Visit * Reason Onset Date Comments Silk Soaker Feedback 04/09/2021 Insurance Auth ( Dr. Jose Carlos Calvin) Encounter Details Date Type Department Care Team Description 04/09/2021 Telephone Internal Medicine - [address], [address] [place] [address] Danyel Anthony MD [address] [place] [address] Silk Soaker Feedback (Insurance Auth (Dr. Jose Carlos Calvin)) Social History Tobacco Use Types Packs/Day Years [...] encounter Miscellaneous Notes * Telephone Encounter - Wendy Dowd - 04/09/2021 10:11 AM EST Subscriber: OLGA SANDERS : 1960 Submitter : DANYEL ANTHONY Submitter Type: Provider Referral (#[id number]) Specialty Care Review Type: Initial Certification Status : Certified in total Service Type : Medical Care Place Of Service : Office Visits : 6 Service Date : 04/11/2021-04/11/2022 Service Providers Provider Name ID Provider Type JOSE CARLOS CALVIN NPI : [id number] Service Provider documented in this encounter Plan of Treatment Not on file documented as of this encounter Visit Diagnoses Not on filedocumented in this encounter Care Teams Microsoft Infrastructure Consultant Relationship Specialty Start Date End Date Danyel Anthony MD [address] [place] [address] PCP - General Internal Medicine 07/18/17 05/03/21 Candy Almanzar PA-C [address] [place] [address] PCP - General Internal Medicine 05/04/21 Axel Montero MD [address] [place] [address] Specialist Cardiovascular Disease 09/09/22 Dorothea Barragan NP [address] [place] [address] Cardiology 09/07/23 documented as of this encounter
--- OUTSIDE RECORDS SUMMARY | 2024-05-11 09:01 | XMS_ITS | Encounter Summary ---
Author Organization [facility] Address [address] [place] [address] Care Team Providers Care Director Of Public Works Name Role Phone Candy Almanzar PA-C Primary Care Provider + Axel Montero MD Unavailable [phone] Dorothea Barragan NP Unavailable [phone] Encounter Details Date Type Department Care Team Description 08/25/2021 Medical Assembly Report Medical Records [address] [place] [address] Sarah Jarquin MD Social History Tobacco Use [...] on filedocumented in this encounter Care Teams Director Of Public Works Relationship Specialty Start Date End Date Candy Almanzar PA-C PCP - General Internal Medicine 05/04/21 Axel Montero MD [address] [place] [address] Dr Arceo [place], [place] [phone] Specialist Cardiovascular Disease 09/09/22 Dorothea Barragan, KATT [address] [place] [address] [place] [address] Cardiology 09/07/23 documented as of this encounter
--- OUTSIDE RECORDS SUMMARY | 2024-05-11 09:01 | XMS_ITS | Encounter Summary ---
Author Organization [facility] Address [address] [place] [address] Care Team Providers Care Premium Representative Name Role Phone Candy Almanzar PA-C Primary Care Provider + Axel Montero MD Unavailable [phone] Dorothea Barragan NP Unavailable [phone] Encounter Details Date Type Department Care Team Description 06/02/2021 Key Account Coordinator Report Medical Records [address] [place] [phone] Jose Carlos Calvin MD Social History Tobacco [...] Exposure Response Date Recorded In the last month, have you been in contact with someone who was confirmed or suspected to have Coronavirus / COVID-19? No / Unsure 05/04/2021 3:32 PM EST documented as of this encounter Plan of Treatment Not on file documented as of this encounter Visit Diagnoses Not on filedocumented in this encounter Care Teams Premium Representative Relationship Specialty Start Date End Date Candy Almanzar PA-C PCP - General Internal Medicine 05/04/21 Axel Montero MD [address] [place] [address] Specialist Cardiovascular Disease 09/09/22 Dorothea Barragan NP [address] [place] [address] [address] Cardiology 09/07/23 documented as of this encounter
--- OUTSIDE RECORDS SUMMARY | 2024-05-11 09:01 | XMS_ITS | Encounter Summary ---
Author Organization [facility] Address [address] [place] [address] Care Team Providers Care Knockout Machine Operator Name Role Phone Candy Almanzar PA-C Primary Care Provider + Axel Montero MD Unavailable [phone] Dorothea Barragan NP Unavailable [phone] Encounter Details Date Type Department Care Team Description 03/24/2022 [facility] Medical Records [address] [place] [address] Abstract, Provider Social History Tobacco Use Types [...] on filedocumented in this encounter Care Teams Knockout Machine Operator Relationship Specialty Start Date End Date Candy Almanzar PA-C PCP - General Internal Medicine 05/04/21 Axel Montero MD [address] [place] [address] Specialist Cardiovascular Disease 09/09/22 Dorothea Barragan NP [address] [place] [address] [address] Cardiology 09/07/23 documented as of this encounter
--- OUTSIDE RECORDS SUMMARY | 2024-05-11 09:01 | XMS_ITS | Encounter Summary ---
Author Organization [facility] Address [address] [place] [address] Care Team Providers Care Paperhanger Supervisor Name Role Phone Candy Almanzar PA-C Primary Care Provider + Axel Montero MD Unavailable Dorothea Barragan NP Unavailable Reason for Visit * Reason Onset Date Comments refill request 03/19/2022 Encounter Details Date Type Department Care Team Description 03/19/2022 Refill Pulmonology - [facility] [address] [facility] [address] [place] [address] Candy Almanzar PA-C [address] [place] [address] refill request Social History Tobacco Use [...] encounter Miscellaneous Notes * Telephone Encounter - Candy Almanzar PA-C - 03/19/2022 1:38 PM EST This is prescribed by her varnishing unit operator Dr. Calvin, not primary care. Thank you. * Telephone Encounter - Naz Sadler MA - 03/19/2022 11:54 AM EST Acquisition Specialist printed and placed on desk * Telephone Encounter - Joy Matamoros - 03/19/2022 11:44 AM EST Patient would like script to be: E-PRESCRIBED/FAXED TO PHARMACY WHEN WAS THE PATIENT'S LAST APPOINTMENT IN ADULT MEDICINE? 03/02/22 WHEN WAS THE LAST TIME THE PATIENT SAW THEIR PCP? Same as above Does patient have an upcoming appointment? Yes 08/30/22 (THE MEDICATION REQUESTED IS ON THE MED LIST ABOVE) All of the medications requested were on the CURRENT MEDS list Did you check the Pharmacy information above?: YES Patient wants: 30 -day supply Is this a mail order prescription request ? NO If the refill is from a FAXED refill request what is the RX # listed on the fax? N/A Patients current insurance carrier is: [place] / Product Type[place]ICA[place] [id number] documented in this encounter Plan of Treatment Not on file documented as of this encounter Visit Diagnoses Not on filedocumented in this encounter Care Teams Paperhanger Supervisor Relationship Specialty Start Date End Date Candy Almanzar PA-C PCP - General Internal Medicine 05/04/21 Axel Montero MD [address] [place] [address] Specialist Cardiovascular Disease 09/09/22 Dorothea Barragan NP [address] [place] [id number] Cardiology 09/07/23 documented as of this encounter
--- OUTSIDE RECORDS SUMMARY | 2024-05-11 09:01 | XMS_ITS | Encounter Summary ---
Author Organization [facility] Address [address] [place] [address] Care Team Providers Care University Lecturer Name Role Phone Candy Almanzar PA-C Primary Care Provider + Axel Montero MD Unavailable [phone] Dorothea Barragan NP Unavailable [phone] Reason for Visit * Reason Comments E-prescribe Rx Request Encounter Details Date Type Department Care Team Description 04/25/2022 Refill Internal Medicine - [address], [address] [place] [address] Candy Almanzar PA-C [address] [place] [phone] E-prescribe Rx Request Social History Tobacco [...] encounter Miscellaneous Notes * Telephone Encounter - Lillian Hdez - 04/26/2022 11:10 AM EST Brian 03/02/2022 Nov 08/30/2022 documented in this encounter Plan of Treatment Not on file documented as of this encounter Visit Diagnoses Diagnosis Cervico-occipital neuralgia Other syndromes affecting cervical region documented in this encounter Care Teams University Lecturer Relationship Specialty Start Date End Date Candy Almanzar PA-C PCP - General Internal Medicine 05/04/21 Axel Montero MD [address] [place] [address] [phone] Specialist Cardiovascular Disease 09/09/22 Dorothea Barragan NP [address] [place] [address] Cardiology 09/07/23 documented as of this encounter
--- OUTSIDE RECORDS SUMMARY | 2024-05-11 09:02 | XMS_ITS | Encounter Summary ---
Author Organization [facility] Address [address] [place] [address] Care Team Providers Care Um Nurse Name Role Phone Candy Almanzar PA-C Primary Care Provider + Axel Montero MD Unavailable [phone] Dorothea Barragan NP Unavailable [phone] Reason for Visit * Reason Onset Date Comments refill request 10/11/2022 Patient is reque sting Rx Refill on Duloxetine 30mg, Tizanidine 4mg, Atorvastatin 10mg. Encounter Details Date Type Department Care Team Description 10/11/2022 Refill Internal Medicine - [address], [address] [place] [address] Candy Almanzar PA-C [address] [place] [phone] refill request (Patient is requesting Rx Refill on Duloxetine 30mg, Tizanidine 4mg, Atorvastatin 10mg. ) Social History Tobacco Use Types Packs/Day Years [...] encounter Miscellaneous Notes * Telephone Encounter - Mar Mtz - 10/11/2022 9:39 AM EDT Lab Results Component Value Date CHOL 240 09/02/2022 LDL 146 09/02/2022 HDL 54 09/02/2022 TRIG 203 09/02/2022 * Telephone Encounter - Aroldo Dewey - 10/11/2022 9:04 AM EDT [place] 08/30/22 NOV 11/16/22 documented in this encounter Plan of Treatment Not on file documented as of this encounter Visit Diagnoses Diagnosis Pure hypercholesterolemia Cervico-occipital neuralgia Other syndromes affecting cervical region documented in this encounter Care Teams Um Nurse Relationship Specialty Start Date End Date Candy Almanzar PA-C PCP - General Internal Medicine 05/04/21 Axel Montero MD [address] [place] [address] Specialist Cardiovascular Disease 09/09/22 Dorothea Barragan NP [address] [place] [address] Cardiology 09/07/23 documented as of this encounter
--- OUTSIDE RECORDS SUMMARY | 2024-05-11 09:02 | XMS_ITS | Encounter Summary ---
Author Organization [facility] Address [address] [place] [address] Care Team Providers Care Credit Assistant Name Role Phone Candy Almanzar PA-C Primary Care Provider + Axel Montero MD Unavailable [phone] Dorothea Barragan NP Unavailable [phone] Encounter Details Date Type Department Care Team Description 09/03/2022 Telephone Internal Medicine - [address], [address] [place], [place] [phone] Candy Almanzar PA-C [address] [place] [address] Social History Tobacco Use Types Packs/Day Years [...] AM EDT documented as of this encounter Miscellaneous Notes * Telephone Encounter - Greg Sampson - 09/03/2022 9:40 AM EDT Spoke with pt and informed of xray results. * Telephone Encounter - Kennbrainainsley Sampson - 09/03/2022 9:40 AM EDT ----- Message from Candy Almanzar PA-C sent at 09/02/2022 3:44 PM EDT ----- Please let patient know that her chest x-ray is normal. documented in this encounter Plan of Treatment Not on file documented as of this encounter Visit Diagnoses Not on filedocumented in this encounter Care Teams Credit Assistant Relationship Specialty Start Date End Date Candy Almanzar PA-C PCP - General Internal Medicine 05/04/21 Axel Montero MD [address] [place] [address] Specialist Cardiovascular Disease 09/09/22 Dorothea Barragan NP [address] [place] [address] Cardiology 09/07/23 documented as of this encounter
== END 2024-05-11 09:17 | disposition home or self-care (01) ==
PROVIDERS: PCP Physician Assistant; Visit Provider Hospitalist
DX: J84.89 Other specified interstitial pulmonary diseases (principal); R76.8 Other specified abnormal immunological findings in serum; R05.3 Chronic cough; F51.01 Primary insomnia; J84.9 Interstitial pulmonary disease, unspecified
CPT/HCPCS: 99214

== ENCOUNTER → 2024-05-11 08:45 | Outpatient (BNVA) | payer OTHER, SELFPAY | PROVIDERS: PCP Physician Assistant; Visit Provider Hospitalist | DX: J84.89 Other specified interstitial pulmonary diseases (principal); J84.9 Interstitial pulmonary disease, unspecified; R05.3 Chronic cough; J98.4 Other disorders of lung; R91.8 Other nonspecific abnormal finding of lung field; R76.8 Other specified abnormal immunological findings in serum; F51.01 Primary insomnia | CPT/HCPCS: 99212 ==

== ENCOUNTER 2024-05-11 09:28 | Outpatient (REF) | payer OTHER, SELFPAY ==
--- OUTSIDE RECORDS SUMMARY | 2024-05-11 09:58 | XMS_ITS | Encounter Summary ---
Author Organization [facility] Address [address] [place] [address] Care Team Providers Care Sales Strategy Manager Name Role Phone Danyel Anthony MD Primary Care Provider [phone] Candy Almanzar PA-C Primary Care Provider + Axel Montero MD Unavailable [phone] Dorothea Barragan NP Unavailable [phone] Encounter Details Date Type Department Care Team Description 03/03/2019 [facility] Medical Records [address] [place] [phone] [place] [address] Social History Tobacco Use Types Packs/Day Years [...] Name Priority Date/Time Associated Diagnosis Comments OUTSIDE EKG Routine 03/03/2019 documented in this encounter Results * OUTSIDE EKG (03/03/2019) Provider Default CARDIOLOGY documented in this encounter Visit Diagnoses Not on filedocumented in this encounter Care Teams Sales Strategy Manager Relationship Specialty Start Date End Date Danyel Anthony MD [address] [place] [address] PCP - General Internal Medicine 07/18/17 05/03/21 Candy Almanzar PA-C [address] [facility] [place] [address] PCP - General Internal Medicine 05/04/21 Axel Montero MD [address] [place] [address] Specialist Cardiovascular Disease 09/09/22 Dorothea Barragan NP [address] [place] [address] [address] Cardiology 09/07/23 documented as of this encounter
--- OUTSIDE RECORDS SUMMARY | 2024-05-11 09:58 | XMS_ITS | Encounter Summary ---
Author Organization [facility] Address [address] [place] [address] Care Team Providers Care Screener And Blender Name Role Phone Candy Almanzar Primary Care Provider + Reason for Visit * Reason Comments Consult Ovarian mass * Consultation (Routine) - Closed Specialty Diagnoses / Procedures Referred By Rehan mccall Referred To Contact Gynecologic Oncology / Breast Surgery Diagnoses Ovarian mass Richa-Liza Cruz MD [address] [place] [address] Hilton Raymundo MD 271 [facility] 110 [place] [address] Referral ID Status Reason Start Date Expiration Date V isits Requested Visits Authorized [id number] Closed Specialty Services Required 04/19/2024 04/19/2025 1 1 Encounter Details Date Type Department Care Team (Late st Contact Info) Description 05/03/2024 1:20 PM EST Consult [facility] 271 [facility] [address] [place] [address] Hilton Raymundo MD 271 [facility] 110 [place] [address] Adnexal mass (Primary Dx); Cysts of both [...] by her granddaughter, Corinna. The patient is Burmese-speaking and the encounter is performed with assistance of mat gauger via video. To review her history: The patient initially presented with increasing abdominal discomfort and pain in the first week of April. She presented to the emergency room at [facility] on 04/18/2024. CT abdomen pelvis on 04/18/2024 [...] Denies fevers, chills, bowel or urinary symptoms. 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 Oral contrast administered. Scanner: [email or web address] 64 slice VCT Dose reduction technique: ASIR (Adaptive statistical iterative reconstruction) and/or AEC (automated exposure control) Dose: total exam DLP 589 mGY per cm COMPARISON: No prior studies are available for comparison. FINDINGS: Mild branching peao-ww-ros-like attenuation within the lingula and inferior lateral [...] performed without IV contrast. DLP: 360.76 mGy/cm EmergenSeepeed VCT Iterative reconstruction technique Findings: Image detail [...] excluded. Short-term follow-up is recommended. Aileen ROWAN ([id number]) -------- FINAL REPORT -------- Dictated By: Mayi [...] was performed with the assistance of a mat gauger, which further extended the time needed for the visit. Thank you for allowing me to participate in the care of Ms. Olga Bonilla at the [facility] today. Please do not hesitate to contact me with any questions or concerns. Hilton Raymundo MD Gynecologic Oncologist and Breast Surgeon [facility] [place] [address] CC: MD Candy Potts PA documented in this encounter Plan of Treatment Upcoming Encounters Date Type Department Care Team (Latest Contact Info) Description 05/22/2024 1:00 PM EST Office Visit Internal Medicine - [place] [address] [phone] Candy Almanzar PA [address] [place] [address] 06/11/2024 10:00 AM EST Pre-Admission Testing [facility] Pre-Admission Testing [address] [place] [phone] 06/18/2024 7:30 AM EDT Hospital Encounter [facility] Main OR [address] [place] [phone] Hilton Raymundo MD [address] [place] [address] 06/18/2024 7:30 AM EDT - 06/18/2024 10:30 AM EDT Surgery [facility] Main [address] [phone] Hilton Raymundo MD [address] [place] [address] Davinci assisted laparoscopic bilateral salpingo-oophorectom y, ? total hysterectomy, staging, open laparotomy. [42212 (CPT??)] 07/03/2024 11:20 AM EDT Office Visit [facility] Care [address] [phone] Hilton Raymundo MD [address] [place] [address] 07/18/2024 11:15 AM EDT Office Visit [facility] Hematology Oncology [address] [place] [phone] Liza Guajardo MD [address] [place] [phone] Scheduled Orders Name Type Priority Associated Diagnoses [...] 05/03/2024 documented in this encounter Care Teams Screener And Blender Relationship Specialty Start Date End Date Candy Almanzar PA [address] [address] PCP - General Internal Medicine 05/04/21 documented as of this encounter
--- OUTSIDE RECORDS SUMMARY | 2024-05-11 09:58 | XMS_ITS | Encounter Summary ---
Author Organization [facility] Address [address] [place] [address] Care Team Providers Care Fashion Model Name Role Phone Candy Almanzar Primary Care Provider + Reason for Referral * Consultation (Routine) - Closed Specialty Diagnoses / Procedures Referred By Contac t Referred To Contact Gynecologic Oncology / Breast Surgery Diagnoses Ovarian mass Liza Guajardo MD [address] [place] [address] Hilton Raymundo MD 271 [facility] 110 [place] [address] Referral ID Status Reason Start Date Expiration Date V isits Requested Visits Authorized [id number] Closed Specialty Services Required 04/19/2024 04/19/2025 1 1 Reason for Visit * Reason Comments Consult * Consultation (Routine) - Closed Specialty Diagnoses / Procedures Referred By Contac t Referred To Contact Hematology and Oncology Diagnoses Ovarian mass Candy Almanzar PA 175 [facility] 200 [address] Referral ID Status Reason Start Date Expiration Date V isits Requested Visits Authorized [id number] Closed Specialty Services Required 04/19/2024 04/19/2025 1 1 Encounter Details Date Type Department Care Team (Late st Contact Info) Description 04/19/2024 2:45 PM EST Office Visit [facility] Hematology Oncology [address] [place] [address] Liza Guajardo MD [address] [place] [address] Ovarian mass Social History Tobacco [...] by her granddaughter, Corinna who acts as Portuguese Lebanese beauty culturist Patient reports that she has had increasing [...] low at 14.2. I recommended referral to [facility] oncology and patient agrees ROS: GENERAL: No [...] Date CHOLECYSTECTOMY PROCEDURE: HISTORICAL CHOLECYSTECTOMY CHOLECYSTECTOMY PROCEDURE: GA LAPAROSCOPY SURG CHOLECYSTECTOMY COLONOSCOPY PROCEDURE: HISTORICAL COLONOSCOPY ESOPHAGOGASTRODUODENOSCOPY PROCEDURE: GA ESOPHAGOGASTRODUODENOSCOPY TRANSORAL DIAGNOSTIC OTHER SURGICAL HISTORY PROCEDURE: [...] performed without IV contrast. DLP: 360.76 mGy/cm [employer] VCT Iterative reconstruction technique Findings: Image detail [...] excluded. Short-term follow-up is recommended. Telerad HARPAL ([id number]) -------- FINAL REPORT -------- Dictated By: Mayi Avila Dictated Date: 04/18/2024 19:22 ET Assigned Physician: Mayi Avila Reviewed and Electronically Signed By: Mayi Avila Signed Date: 04/18/2024 19:30 ET Workstation ID: [id number] Transcribed By: Self Edit Transcribed Date: 04/18/2024 [...] Signed Date: 04/18/2024 16:33 ET Workstation ID: [id number] Transcribed By: Self Edit Transcribed Date: 04/18/2024 [...] are available for comparison. FINDINGS: Mild branching ghkf-xq-nhv-like attenuation within the lingula and inferior lateral [...] Signed Date: 04/18/2024 14:55 ET Workstation ID: [id number] Transcribed By: Self Edit Transcribed Date: 04/18/2024 [...] B symptoms such as weight loss. Tumor [id number] is in the normal range. She may have a borderline malignancy or benign lesion. Regarding the lung findings, in the absence of symptoms suggestive of pneumonia this is more likelyrelated to her pre-existing pulmonary fibrosis. Recommend follow-up with chef de cuisine and continueuse of inhaler. Patient agrees I discussed with the patient and her daughter regarding the imaging, lab and clinical findings. I recommended a referral to [facility] oncology. Patient does not usually follow with a director of conservation. Will contact the nurse navigator of the [...] PM EST Office Visit Internal Medicine - [place] [address] [phone] Candy Almanzar PA [address] [address] 06/11/2024 10:00 AM EST Pre-Admission Testing [facility] Pre-Admission Testing [address] [place] [phone] 06/18/2024 7:30 AM EDT Hospital Encounter [facility] Main OR [address] [place] [phone] Hilton Raymundo MD [address] [place] [address] 06/18/2024 7:30 AM EDT - 06/18/2024 10:30 AM EDT Surgery [facility] Main OR [address] [place] [phone] Hilton Raymundo MD [address] [place] [address] Davinci assisted laparoscopic bilateral salpingo-oophorectom y, ? total hysterectomy, staging, open laparotomy. [[id number] (CPT??)] 07/03/2024 11:20 AM EDT Office Visit [facility] [place] [facility] [place] 271 [facility] 200 [place] [phone] Hilton Raymundo MD 271 [facility] 110 [place] [address] 07/18/2024 11:15 AM EDT Office Visit [facility] Hematology Oncology [address] [place] [phone] Richa-Liza Cruz MD [address] [place] [phone] Scheduled Procedures Name Priority Associated Diagnoses Date/Ti [...] 12/2024 documented in this encounter Care Teams Fashion Model Relationship Specialty Start Date End Date Candy Almanzar PA [address] [address] PCP - General Internal Medicine 05/04/21 documented as of this encounter
--- OUTSIDE RECORDS SUMMARY | 2024-05-11 09:59 | XMS_ITS | Encounter Summary ---
Author Organization [facility] Address [address] [place] [address] Care Team Providers Care English As A Second Language Instructor Name Role Phone Danyel Anthony MD Primary Care Provider [phone] Candy Almanzar PA-C Primary Care Provider + Axel Montero MD Unavailable [phone] Dorothea Barragan NP Unavailable [phone] Encounter Details Date Type Department Care Team Description 08/17/2017 Transfer Records Medical Records [address] [place] [address] Abstract, Provider Social History Tobacco Use Types Packs/Day Years Used Date Smoking Tobacco: Former Cigarettes 0.3 20 Sex Assigned at Date Recorded Not on file Job Start Date Occupation Industry Not on file Not on file Not on file documented as of this encounter Plan of Treatment Not on file documented as of this encounter Visit Diagnoses Not on filedocumented in this encounter Care Teams English As A Second Language Instructor Relationship Specialty Start Date End Date Danyel Anthony MD [address] [place], [place] [phone] PCP - General Internal Medicine 07/18/17 05/03/21 Candy Almanzar PA-C [address] [place] [address] PCP - General Internal Medicine 05/04/21 Axel Montero MD [address] [place] [address] Dr Baptiste [address] [place] [address] Specialist Cardiovascular Disease 09/09/22 Dorothea Barragan NP [address] [place] [address] [address] Cardiology 09/07/23 documented as of this encounter
--- OUTSIDE RECORDS SUMMARY | 2024-05-11 09:59 | XMS_ITS | Encounter Summary ---
Author Organization [facility] Address [address] [place] [address] Care Team Providers Care Coal Pulverizing Operator Name Role Phone Candy Almanzar Primary Care Provider + Reason for Visit * Reason Onset Date Comments OTHER 05/07/2024 Advice Only 05/07/2024 Encounter Details Date Type Department Care Team (Late st Contact Info) Description 05/07/2024 Telephone [facility] [place] [address] [facility] [address] [address] [address] [place] [phone] Hilton Raymundo MD [address] [facility] [address] [address] [place] [address] [place] [address] OTHER; Advice Only Social History Tobacco Use [...] until June. Unless you would like to hot die picker XI time * Hilton Raymundo MD - 05/10/2024 5:58 PM EST Clyde Gary, why is her surgery scheduled so far out? If she is having so much pain, she should havesurgery sooner. * Nini Zelaya RN - 05/08/2024 10:07 AM EST Pt called using campaign management senior manager service ID# [id number] to assess her pain. She is rating [...] PM EST Office Visit Internal Medicine - [place] [address] [phone] Candy Almanzar PA [address] [address] 06/11/2024 10:00 AM EST Pre-Admission Testing [facility] Pre-Admission Testing [address] [place] [phone] 06/18/2024 7:30 AM EDT Hospital Encounter [facility] Main OR [address] [place] [phone] Hilton Raymundo MD [address] [place] [address] 06/18/2024 7:30 AM EDT - 06/18/2024 10:30 AM EDT Surgery [facility] Main OR [address] [place] [phone] Hilton Raymundo MD [address] [address] Davinci assisted laparoscopic bilateral salpingo-oophorectom y, ? total hysterectomy, staging, open laparotomy. [[id number] (CPT??)] 07/03/2024 11:20 AM EDT Office Visit [facility] [address] [phone] Hilton Raymundo MD 271 [facility] 110 [place] [address] 07/18/2024 11:15 AM EDT Office Visit [facility] Hematology Oncology [address] [place] [phone] Liza Guajardo MD [address] [place] [phone] Scheduled Procedures Name Priority Associated Diagnoses Date/Ti me OOPHORECTOMY ROBOT TWO Adnexal mass Cysts of both ovaries Pelvic pain 06/18/2024 7:30 AM EDT documented as of this encounter Visit Diagnoses Not on filedocumented in this encounter Care Teams Coal Pulverizing Operator Relationship Specialty Start Date End Date Candy Almanzar PA 175 [facility] 200 [place] [address] PCP - General Internal Medicine 05/04/21 documented as of this encounter
--- OUTSIDE RECORDS SUMMARY | 2024-05-11 09:59 | XMS_ITS | Encounter Summary ---
Author Organization [facility] Address [address] [place] [address] Care Team Providers Care Laborer Drying Department Name Role Phone Candy Almanzar Primary Care Provider + Reason for Visit * Reason Onset Date Comments Appointment 04/23/2024 Encounter Details Date Type Department Care Team (Late st Contact Info) Description 04/23/2024 Telephone [facility] [place] [address] [facility] [address] [place] [address] Nini Zelaya, RN Appointment Social [...] PM EST I spoke with patient via etymology teacher to give her a new patient appointment with Dr. Raymundo. She was given date, time and location of the appointment along with our phone number documented in this encounter Plan of Treatment Upcoming Encounters Date Type Department Care Team (Latest Contact Info) Description 05/22/2024 1:00 PM EST Office Visit Internal Medicine - [place] [address] [address] Candy Almanzar PA [address] [address] 06/11/2024 10:00 AM EST Pre-Admission Testing [facility] Pre-Admission Testing [address] [place] [phone] 06/18/2024 7:30 AM EDT Hospital Encounter [facility] Main OR [address] [place] [phone] Hilton Raymundo MD [address] [place] [address] 06/18/2024 7:30 AM EDT - 06/18/2024 10:30 AM EDT Surgery [facility] Main OR [address] [place] [phone] Hilton Raymundo MD [address] [place] [address] Davinci assisted laparoscopic bilateral salpingo-oophorectom y, ? total hysterectomy, staging, open laparotomy. [[id number] (CPT??)] 07/03/2024 11:20 AM EDT Office Visit [facility] [place] 271 [facility] 200 [place] [phone] Hilton Raymundo MD 271 [facility] 110 [place] [address] 07/18/2024 11:15 AM EDT Office Visit [facility] Hematology Oncology 271 [place] [phone] Richa-Liza Cruz MD 271 [place] [phone] Scheduled Procedures Name Priority Associated Diagnoses Date/Ti me OOPHORECTOMY ROBOT TWO Adnexal mass Cysts of both ovaries Pelvic pain 06/18/2024 7:30 AM EDT documented as of this encounter Visit Diagnoses Not on filedocumented in this encounter Care Teams Laborer Drying Department Relationship Specialty Start Date End Date Candy Almanzar PA [address] [address] PCP - General Internal Medicine 05/04/21 documented as of this encounter
--- OUTSIDE RECORDS SUMMARY | 2024-05-11 09:59 | XMS_ITS | Encounter Summary ---
Author Organization [facility] Address [address] [place] [address] Care Team Providers Care Nuclear Operator Name Role Phone Candy Almanzar PA-C Primary Care Provider + Axel Montero MD Unavailable [phone] Dorothea Barragan NP Unavailable [phone] Reason for Visit * Reason Onset Date Comments refill request 01/02/2024 Encounter Details Date Type Department Care Team Description 01/02/2024 Refill Internal Medicine - [address], [address] [place] [address] Candy Almanzar PA-C [address] [place] [phone] refill request Social History Tobacco Use [...] region documented in this encounter Care Teams Nuclear Operator Relationship Specialty Start Date End Date Candy Almanzar PA-C PCP - General Internal Medicine 05/04/21 Axel Montero MD [address] [place] [address] Specialist Cardiovascular Disease 09/09/22 Dorothea Barragan NP [address] [place] [address] Cardiology 09/07/23 documented as of this encounter
--- OUTSIDE RECORDS SUMMARY | 2024-05-11 09:59 | XMS_ITS | Clinical Summary ---
Author Organization [facility] Address [address] [place] [address] Care Team Providers Care Stiff Leg Operator Name Role Phone Unavailable Primary Care Provider [...] (06/03/2015): 03/24/15 Eval by Nena Buckner at [facility] for Colon Consult. Will plan for colonoscopy. H/O mammogram 05/23/2015 Overview (05/23/2015): Done on 03/31/2015 at [facility]: no mammographic evidence of malignancy is seen. [...] on file Insurance [employer] NET D[facility] [place] [address] [employer] [facility] Member Subscriber Plan / Payer (Ef fective 2015-Present) Name:Geogre Bonillaga Relation to Subscriber:Self Name:Chad Payer ID:[id number] Group ID:Not on file Type:Indemnity Address: [place] [address] [address] [id number]
--- OUTSIDE RECORDS SUMMARY | 2024-05-11 10:01 | XMS_ITS | Encounter Summary ---
Author Organization [facility] Address [address] [place] [address] Care Team Providers Care Strategic Communications Specialist Name Role Phone Candy Almanzar PA-C Primary Care Provider + Axel Montero MD Unavailable [phone] Dorothea Barragan NP Unavailable [phone] Reason for Visit * Reason Comments E-prescribe Rx Request Encounter Details Date Type Department Care Team Description 06/24/2022 Refill Internal Medicine - [address], [address] [place] [address] Candy Almanzar PA-C [address] [place] [phone] E-prescribe Rx Request Social History Tobacco [...] encounter Miscellaneous Notes * Telephone Encounter - Lashaun Wallace - 06/24/2022 2:13 PM EDT BP Readings from Last 3 Encounters: 03/02/22 115/72 01/15/22 (!) 140/70 05/04/21 108/72 * Telephone Encounter - Eve Jordan - 06/24/2022 12:07 PM EDT Brian 03/02/22 Nov 08/30/22 documented in this encounter Plan of Treatment Not on file documented as of this encounter Visit Diagnoses Diagnosis Cervico-occipital neuralgia Other syndromes affecting cervical region documented in this encounter Care Teams Strategic Communications Specialist Relationship Specialty Start Date End Date Candy Almanzar PA-C PCP - General Internal Medicine 05/04/21 Axel Montero MD [address] [place] [address] [place] [address] Specialist Cardiovascular Disease 09/09/22 Dorothea Barragan NP [address] [place] [address] [address] Cardiology 09/07/23 documented as of this encounter
--- OUTSIDE RECORDS SUMMARY | 2024-05-11 10:01 | XMS_ITS | Encounter Summary ---
Author Organization [facility] Address [address] [place] [address] Care Team Providers Care In Classroom Tutor Name Role Phone Candy Almanzar PA-C Primary Care Provider + Axel Montero MD Unavailable [phone] Dorothea Barragan NP Unavailable [phone] Encounter Details Date Type Department Care Team Description 03/24/2022 [facility] Medical Records [address] [place] [address] Abstract, Provider Social History Tobacco Use Types [...] on filedocumented in this encounter Care Teams In Classroom Tutor Relationship Specialty Start Date End Date Candy Almanzar PA-C PCP - General Internal Medicine 05/04/21 Axel Montero MD [address] [place] [address] Specialist Cardiovascular Disease 09/09/22 Dorothea Barragan NP [address] [place] [address] [address] Cardiology 09/07/23 documented as of this encounter
--- OUTSIDE RECORDS SUMMARY | 2024-05-11 10:01 | XMS_ITS | Encounter Summary ---
Author Organization [facility] [employer] [facility] Address [address] [place] [address] Care Team Providers Care Marine Cargo Inspector Name Role Phone Candy Almanzar PA-C Primary Care Provider + Axel Montero MD Unavailable [phone] Dorothea Barragan NP Unavailable [phone] Encounter Details Date Type Department Care Team Description 09/13/2023 Orders Only Cardio [facility] [address] [place] [address] [address] [place] [address] Default, Provider Social History Tobacco Use Types Packs/Day [...] Diagnosis Comments OUTSIDE CARDIAC CATH Routine 09/12/2023 documented in this encounter Results * OUTSIDE CARDIAC CATH (09/12/2023) Provider Default CARDIOLOGY documented in this encounter Visit Diagnoses Not on filedocumented in this encounter Care Teams Marine Cargo Inspector Relationship Specialty Start Date End Date Candy Almanzar PA-C PCP - General Internal Medicine 1/24/22 Axel Montero MD [address] [place] [address] Specialist Cardiovascular Disease 09/09/22 Dorothea Barragan NP [address] [place] [address] Cardiology 09/07/23 documented as of this encounter
--- OUTSIDE RECORDS SUMMARY | 2024-05-11 10:01 | XMS_ITS | Encounter Summary ---
Author Organization [facility] Address [address] [place] [address] Care Team Providers Care Mine Inspector Name Role Phone Candy Almanzar PA-C Primary Care Provider + Axel Montero MD Unavailable Dorothea Barragan NP Unavailable [phone] Encounter Details Date Type Department Care Team Description 06/06/2023 Engine Repairer Service Report Medical Records [address] [place] [address] Vaibhav White DO Social History Tobacco Use [...] on filedocumented in this encounter Care Teams Mine Inspector Relationship Specialty Start Date End Date Candy Almanzar PA-C PCP - General Internal Medicine 05/04/21 Axel Montero MD [address] [place] [address] [place] [address] Specialist Cardiovascular Disease 09/09/22 Dorothea Barragan, KATT [address] [place] [address] Cardiology 09/07/23 documented as of this encounter
--- OUTSIDE RECORDS SUMMARY | 2024-05-11 10:01 | XMS_ITS | Encounter Summary ---
Author Organization [facility] Address [address] [place] [address] Care Team Providers Care Medical Research Associate Name Role Phone Candy Almanzar PA-C Primary Care Provider + Axel Montero MD Unavailable [phone] Dorothea Barragan NP Unavailable [phone] Encounter Details Date Type Department Care Team Description 06/23/2023 Hospital Medical Records [address] [place] [address] Vaibhav White DO Social History Tobacco Use [...] on filedocumented in this encounter Care Teams Medical Research Associate Relationship Specialty Start Date End Date Candy Almanzar PA-C PCP - General Internal Medicine 05/04/21 Axel Montero MD [address] [place] [address] [place] [address] Specialist Cardiovascular Disease 09/09/22 Dorothea Barragan, KATT [address] [place] [address] [place] [address] Cardiology 09/07/23 documented as of this encounter
--- OUTSIDE RECORDS SUMMARY | 2024-05-11 10:01 | XMS_ITS | Encounter Summary ---
Author Organization [facility] Address [address] [place] [address] Care Team Providers Care Postal Superintendent Name Role Phone Candy Almanzar PA-C Primary Care Provider + Axel Montero MD Unavailable [phone] Dorothea Barragan NP Unavailable [phone] Reason for Visit * Reason Onset Date Comments REFERRAL 03/19/2022 Dermatology [facility] Encounter Details Date Type Department Care Team Description 03/19/2022 Telephone Pulmonology - [place] [address] [facility] [address] [place] [address] Candy Almanzar PA-C [address] [place] [address] [facility] Social History Tobacco Use Types Packs/Day Years [...] Shanda Brookeentes - 05/12/2022 1:59 PM EST Textile Chemist please advise see message below please contact patient. * Telephone Encounter - Joy Dakota Matamoros - 05/12/2022 10:30 AM EST Patient walked in, she has questions regarding this referral. She would like to know what is going on since she has not herd anything about it. Please Advise. * Telephone Encounter - Shanda Brookeentes - 03/23/2022 2:29 PM EST Textile Chemist please advise does provider need to put new referral orders for Dermatology and Nutrition patient insurance changed now only has [facility] referral that was processed does not accept [employer] Card. * Telephone Encounter - Candy Almanzar PA-C - 03/23/2022 11:05 AM EST Okay let me know if I need to place new referrals for dermatology and nutrition. Thank you. * Telephone Encounter - Shanda Najera - 03/23/2022 9:44 AM EST Candy, Yes that is correct per patient Dr. Sharma does not accept [employer]. I did send a message to the [...] she stated Dr. Sharma does not accept [employer] Card Patient needs to be seen by a dermetologist and Nutrionist who accepts [employer]. Not sure if Anitra takes [employer] but the previous issue was she could not see the nutrionist because Anitra is notcredentialed with [facility] patient no longer has behzad so maybe she can now see her. * Telephone Encounter - Shanda Najera - 03/22/2022 2:38 PM EST Textile Chemist please advise patient had [facility] referral placed on 03/02/22 note stated Anitra Pereira [facility] not crediential[facility]. Patient no longer has behzad only [employer] Card can she now see the nutrionist.? * [...] Patient walked in, Her insurance change to [employer] and she needs a new referral to a dermatologythat accepts [employer] since the one that was sent to doesn't. Please Advice documented in this encounter Plan of Treatment Not on file documented as of this encounter Visit Diagnoses Not on filedocumented in this encounter Care Teams Postal Superintendent Relationship Specialty Start Date End Date Candy Almanzar PA-C PCP - General Internal Medicine 05/04/21 Axel Montero MD [address] [place] [address] Specialist Cardiovascular Disease 09/09/22 Dorothea Barragan NP [address] [place] [address] Cardiology 09/07/23 documented as of this encounter
--- OUTSIDE RECORDS SUMMARY | 2024-05-11 10:02 | XMS_ITS | Encounter Summary ---
Author Organization [facility] Address [address] [place] [address] Care Team Providers Care Glove Cutter Name Role Phone Danyel Anthony MD Primary Care Provider [phone] Candy Almanzar PA-C Primary Care Provider + Axel Montero MD Unavailable [phone] Dorothea Barragan NP Unavailable [phone] Encounter Details Date Type Department Care Team Description 04/23/2019 Nuclear Control Operator Report Medical Records [address] [place] [address] Axel Montero MD [address] [place] [address] Dr Baptiste [address] [place] [address] Social History Tobacco Use Types Packs/Day Years [...] on filedocumented in this encounter Care Teams Glove Cutter Relationship Specialty Start Date End Date Danyel Anthony MD [address] [place], [place] [phone] PCP - General Internal Medicine 07/18/17 05/03/21 Candy Almanzar PA-C [address] [place] [address] PCP - General Internal Medicine 05/04/21 Axel Montero MD [address] [place] [address] Specialist Cardiovascular Disease 09/09/22 Dorothea Barragan NP [address] [place] [address] [address] Cardiology 09/07/23 documented as of this encounter
--- OUTSIDE RECORDS SUMMARY | 2024-05-11 10:02 | XMS_ITS | Encounter Summary ---
Author Organization [facility] Address [address] [place] [address] Care Team Providers Care Casino Floorperson Name Role Phone Candy Almanzar PA-C Primary Care Provider + Axel Montero MD Unavailable [phone] Dorothea Barragan NP Unavailable [phone] Reason for Visit * Reason Comments E-prescribe Rx Request Encounter Details Date Type Department Care Team Description 10/27/2021 Refill Internal Medicine - [address], [address] [place] [address] Candy Almanzar PA-C [address] [place] [phone] E-prescribe Rx Request Social History Tobacco [...] spine documented in this encounter Care Teams Casino Floorperson Relationship Specialty Start Date End Date Candy Almanzar PA-C PCP - General Internal Medicine 05/04/21 Axel Montero MD [address] [place] [address] Specialist Cardiovascular Disease 09/09/22 Dorothea Barragan NP [address] [place] [address] Cardiology 09/07/23 documented as of this encounter
--- OUTSIDE RECORDS SUMMARY | 2024-05-11 10:02 | XMS_ITS | Clinical Summary ---
Author Organization 175 [facility] Address [address] [place] [address] Phone Care Team Providers Care Solder Deposit Operator Name Role Phone Candy Almanzar Primary [...] Type Department Care Team Description 05/07/2024 Telephone [facility] [address] [place] [address] Hilton Raymundo MD OTHER; Advice Only 05/03/2024 1:20 PM EST Consult [facility] [address] [place] [address] Hilton Raymundo MD Adnexal mass (Primary Dx); Cysts of both ovaries; Pelvic pain; Ovarian mass 04/23/2024 Telephone [facility] [address] [place] [address] Nini Zelaya, RN Appointment 04/19/2024 2:45 PM EST Office Visit Hematology Oncology [address] [place] [address] Liza Guajardo MD Ovarian mass 04/18/2024 10:26 AM EST - 04/18/2024 9:45 PM EST Emergency Emergency [address] [place] [address] Jose Daniel Collazo MD Abnormal chest CT (Primary Dx); Pelvic pain Discharge Disposition: Home or Self Care 02/20/2024 9:45 AM EST Office Visit Internal Medicine - [place] 175 [facility] [address] [place] [address] Candy Almanzar PA Pure hypercholesterolemia [...] 2 COLONOSCOPY PROCEDURE: HISTORICAL COLONOSCOPY CHOLECYSTECTOMY PROCEDURE: AL LAPAROSCOPY SURG CHOLECYSTECTOMY ESOPHAGOGASTRODUODENOSCOPY PROCEDURE: AL ESOPHAGOGASTRODUODENOSCOPY TRANSORAL DIAGNOSTIC Medical History Medical History [...] PM EST Office Visit [facility] [place] [address] [facility] [address] [place] [phone] Candy Almanzar PA 175 [facility] 200 [place] [address] 06/11/2024 10:00 AM EST Pre-Admission Testing Pre-Admission Testing [address] [place] [phone] 06/18/2024 7:30 AM EDT Hospital Encounter Main OR [address] [place] [phone] Hilton Raymundo MD [address] [address] 06/18/2024 7:30 AM EDT - 06/18/2024 10:30 AM EDT Surgery Main OR [address] [place] [phone] Hilton Raymundo MD [address] [place] [address] Davinci assisted laparoscopic bilateral salpingo-oophorectom y, ? total hysterectomy, staging, open laparotomy. [12022 (CPT??)] 07/03/2024 11:20 AM EDT Office Visit [address] [phone] Hilton Raymundo MD [address] [place] [address] 07/18/2024 11:15 AM EDT Office Visit Hematology Oncology [address] [place] [phone] Liza Guajardo MD [address] [place] [phone] Scheduled Procedures Name Priority Associated Diagnoses Date/Ti [...] excluded. Short-term follow-up is recommended. Telerad HARPAL ([id number]) -------- FINAL REPORT -------- Dictated By: Mayi Avila Dictated Date: 04/18/2024 19:22 ET Assigned Physician: Mayi Avila Reviewed and Electronically Signed By: Mayi Avila Signed Date: 04/18/2024 19:30 ET Workstation ID: [id number] Transcribed By: Self Edit Transcribed Date: 04/18/2024 19:22 ET Narrative 04/18/2024 7:30 PM EST History: Abnormal findings in the lungs on earlier abdominal CT. Comparison: CT abdomen/pelvis from earlier today. Technique: Helical volumetric imaging of the thorax was performed without IV contrast. DLP: 360.76 mGy/cm Hidden Radio VCT Iterative reconstruction technique Findings: Image detail [...] was performed withoutIV contrast. DLP: 360.76 mGy/cm Hidden Radio VCT Iterative reconstruction technique Findings: Image detail [...] not excluded.Short-term follow-up is recommended. Telerad PA ([id number]) -------- FINAL REPORT -------- Dictated By: Mayi Avila Dictated Date: 04/18/2024 19:22 ET Assigned Physician: Mayi Avila Reviewed and Electronically Signed By: Mayi Avila Signed Date: 04/18/2024 19:30 ET Workstation ID: [id number] Transcribed By: Self Edit Transcribed Date: 04/18/2024 [...] Signed Date: 04/18/2024 16:33 ET Workstation ID: [id number] Transcribed By: Self Edit Transcribed Date: 04/18/2024 [...] Signed Date: 04/18/2024 16:33 ET Workstation ID: [id number] Transcribed By: Self Edit Transcribed Date: 04/18/2024 [...] Signed Date: 04/18/2024 14:55 ET Workstation ID: [id number] Transcribed By: Self Edit Transcribed Date: 04/18/2024 14:48 ET Narrative 04/18/2024 2:55 PM EST INDICATION: Bilateral lower quadrant abdominal pain TECHNIQUE: CT scan of the abdomen and pelvis obtained with a total of 90 cc of Isovue-370 administered intravenously without incident. Oral contrast administered. Scanner: [email or web address] 64 slice VCT Dose reduction technique: ASIR (Adaptive statistical iterative reconstruction) and/or AEC (automated exposure control) Dose: total exam DLP 589 mGY per cm COMPARISON: No prior studies are available for comparison. FINDINGS: Mild branching cmwk-ys-mvp-like attenuation within the lingula and inferior lateral [...] are available for comparison. FINDINGS: Mild branching rxrs-rs-opo-like attenuation within the lingula andinferior lateral left [...] Signed Date: 04/18/2024 14:55 ET Workstation ID: [id number] Transcribed By: Self Edit Transcribed Date: 04/18/2024 14:48 ET Ashlee ROWAN Masha CT PROCEDURES * (ABNORMAL) Urinalysis with reflex microscopic and culture (04/18/2024 1:45 PM EST) Specific [place] Urine 1.007 1.003 - 1.030 LAB URINALYSIS - AUTOMATED METHOD 04/18/2024 2:04 PM [facility] pH, Urine 6.5 5.0 - 8.0 pH LAB URINALYSIS - AUTOMATED METHOD 04/18/2024 2:04 PM [facility] Leukocytes, Urine Negative Negative LAB URINALYSIS - AUTOMATED METHOD 04/18/2024 2:04 PM [facility] Nitrite, Urine Negative Negative LAB URINALYSIS - AUTOMATED METHOD 04/18/2024 2:04 PM [facility] Protein, Urine Negative <=Trace mg/dL LAB URINALYSIS - AUTOMATED METHOD 04/18/2024 2:04 PM [facility] Glucose, Urine Negative Negative mg/dL LAB URINALYSIS - AUTOMATED METHOD 04/18/2024 2:04 PM [facility] Ketones, Urine Negative Negative mg/dL LAB URINALYSIS - AUTOMATED METHOD 04/18/2024 2:04 PM [facility] Urobilinogen, Urine 0.2 0.2 - 1.0 mg/dL LAB URINALYSIS - AUTOMATED METHOD 04/18/2024 2:04 PM [facility] Bilirubin, Urine Negative Negative LAB URINALYSIS - AUTOMATED METHOD 04/18/2024 2:04 PM [facility] Blood, Urine Trace(A) Negative LAB URINALYSIS - AUTOMATED METHOD 04/18/2024 2:04 PM [facility] RBC, Urine 2.2 0 - 4 /HPF LAB URINALYSIS - AUTOMATED METHOD 04/18/2024 2:04 PM [facility] WBC, Urine 0.1 0 - 4 /HPF LAB URINALYSIS - AUTOMATED METHOD 04/18/2024 2:04 PM [facility] Squamous Epithelial, Urine 2 0 - 60 /LPF LAB URINALYSIS - AUTOMATED METHOD 04/18/2024 2:04 PM [facility] Bacteria, Urine Negative Negative /HPF LAB URINALYSIS - AUTOMATED METHOD 04/18/2024 2:04 PM [facility] Hyaline Casts, Urine 0.0 0 - 3 /LPF LAB URINALYSIS - AUTOMATED METHOD 04/18/2024 2:04 PM [facility] Urine Urine specimen obtained by clean catch procedure / Unknown Non-blood Collection / Unknown 04/18/2024 1:45 PM EST 04/18/2024 1:54 PM EST Jose Daniel A Alcona MD LAB URINE ORDERABLES Performing Organization Address [facility]/ZIP Co de Phone Number [facility] [address] [place] [address], * [place]gee urine culture tube (04/18/2024 1:45 PM EST) Pathologist [facility] Extra Tube Hold for add-ons. 04/18/2024 3:01 PM EST [facility] Comment:Auto resulted. Urine Urine specimen obtained by clean catch procedure / Unknown Non-blood Collection / Unknown 04/18/2024 1:45 PM EST 04/18/2024 1:54 PM EST Jose Daniel Gus Collazo MD LAB URINE ORDERABLES Performing Organization Address [facility]/ZIP Co de Phone Number [facility] [address] [place] [address], * (ABNORMAL) CBC auto differential (04/18/2024 10:54 AM EST) [facility] WBC 8.5 4.8 - 10.8 K/mcL LAB HEMETOLOGY METHOD 04/18/2024 12:19 PM [facility] RBC 3.70(L) 3.80 - 4.80 M/mcL LAB HEMETOLOGY METHOD 04/18/2024 12:19 PM [facility] Hemoglobin 11.1(L) 11.5 - 16.0 g/dL LAB HEMETOLOGY METHOD 04/18/2024 12:19 PM [facility] Hematocrit 35.3 35.0 - 47.0 % LAB HEMETOLOGY METHOD 04/18/2024 12:19 PM [facility] MCV 95.4 79.0 - 98.0 FL LAB HEMETOLOGY METHOD 04/18/2024 12:19 PM [facility] MCH 30.0 27.0 - 32.0 pcg LAB HEMETOLOGY METHOD 04/18/2024 12:19 PM [facility] MCHC 31.4(L) 32.0 - 37.0 g/dL LAB HEMETOLOGY METHOD 04/18/2024 12:19 PM [facility] RDW 12.4 11.0 - 15.0 % LAB HEMETOLOGY METHOD 04/18/2024 12:19 PM [facility] Platelets 340 130 - 400 K/mcL LAB HEMETOLOGY METHOD 04/18/2024 12:19 PM [facility] MPV 8.7 7.0 - 11.0 FL LAB HEMETOLOGY METHOD 04/18/2024 12:19 PM [facility] NRBC 0.0 <1.0 % LAB HEMETOLOGY METHOD 04/18/2024 12:19 PM [facility] NRBC Absolute 0.00 <0.10 K/mcL LAB HEMETOLOGY METHOD 04/18/2024 12:19 PM [facility] Neutrophils Relative 76.8 % LAB HEMETOLOGY METHOD 04/18/2024 12:19 PM [facility] Lymphocytes Relative 16.6 % LAB HEMETOLOGY METHOD 04/18/2024 12:19 PM [facility] Monocytes Relative 5.2 % LAB HEMETOLOGY METHOD 04/18/2024 12:19 PM [facility] Eosinophils Relative 0.7 % LAB HEMETOLOGY METHOD 04/18/2024 12:19 PM [facility] Basophils Relative 0.2 % LAB HEMETOLOGY METHOD 04/18/2024 12:19 PM [facility] Immature Granulocytes Relative 0.5 % LAB HEMETOLOGY METHOD 04/18/2024 12:19 PM [facility] Neutrophils Absolute 6.53 1.50 - 7.00 [...] LAB BLOOD ORDERABLES [facility] [address] [place] [address], * Cancer antigen 125 (04/18/2024 10:54 AM [...] BLOOD MELANIE BLISS [facility] [address] [place] [address], * (ABNORMAL) Comprehensive metabolic panel (04/18/2024 10:54 AM EST) Sodium 137 133 - 145 mmol/L LAB CHEMISTRY METHOD 04/18/2024 12:29 PM [facility] Potassium 4.0 3.5 - 5.5 mmol/L LAB CHEMISTRY METHOD 04/18/2024 12:29 PM [facility] Chloride 106 96 - 110 mmol/L LAB CHEMISTRY METHOD 04/18/2024 12:29 PM [facility] CO2 27 21 - 32 mmol/L LAB CHEMISTRY METHOD 04/18/2024 12:29 PM [facility] Anion Gap 4 3 - 11 LAB CHEMISTRY METHOD 04/18/2024 12:29 PM [facility] Glucose 89 70 - 100 mg/dL LAB CHEMISTRY METHOD 04/18/2024 12:29 PM [facility] BUN 16 5 - 25 mg/dL LAB CHEMISTRY METHOD 04/18/2024 12:29 PM [facility] Creatinine 0.90 0.50 - 1.10 mg/dL LAB CHEMISTRY METHOD 04/18/2024 12:29 PM [facility] eGFR 72 >=60 mL/min/1. 73m2 LAB CHEMISTRY METHOD 04/18/2024 12:29 PM [facility] Comment:Calculation based on the??Chronic Kidney Disease Epidemiology Collaboration (CKD-EPI) equation refit??without adjustment for race. BUN/Creatinine Ratio 17.8 LAB CHEMISTRY METHOD 04/18/2024 12:29 PM [facility] Calcium 9.0 8.5 - 10.5 mg/dL LAB CHEMISTRY METHOD 04/18/2024 12:29 PM [facility] AST (SGOT) 24 10 - 42 unit/L LAB CHEMISTRY METHOD 04/18/2024 12:29 PM [facility] ALT (SGPT) 36 10 - 60 unit/L LAB CHEMISTRY METHOD 04/18/2024 12:29 PM [facility] Alkaline Phosphatase 258(H) 42 - 121 unit/L LAB CHEMISTRY METHOD 04/18/2024 12:29 PM [facility] Total Protein 7.8 6.0 - 8.0 g/dL LAB CHEMISTRY METHOD 04/18/2024 12:29 PM [facility] Albumin 3.6 3.2 - 5.0 g/dL LAB CHEMISTRY METHOD 04/18/2024 12:29 PM [facility] Total Bilirubin 0.3 0.0 - 1.4 mg/dL LAB CHEMISTRY METHOD 04/18/2024 12:29 PM [facility] Blood Venous blood specimen / Unknown Venipuncture / Unknown 04/18/2024 10:54 AM EST 04/18/2024 11:59 AM EST Jose Daniel Collazo MD LAB BLOOD ORDERABLES [facility] [address] [place] [address], * Lipid panel (12/09/2022) LDL/HDL Ratio 3 0 - 4 Triglycerides 148 0 - 150 mg/dL Cholesterol 168 0 - 200 mg/dL HDL 65 40 mg/dL LDL Cholesterol 74 0 - 100 mg/dL Blood Venous blood specimen / Unknown Historical Provider LAB BLOOD ORDERAB LES * Hepatitis C Screening (02/06/2018) Pathologist [facility] Hepatitis C Screening abstracted Historical Provider MD HEALTH MAINTENANC E from Last 3 Months or Most Recently Relevant to Health Maintenance Care Teams Solder Deposit Operator Relationship Specialty Start Date End Date Candy Almanzar PA [address] [facility] [address] [place] [address] PCP - General Internal Medicine 05/04/21
--- OUTSIDE RECORDS SUMMARY | 2024-05-11 10:02 | XMS_ITS | Encounter Summary ---
Author Organization [facility] Address [address] [place] [address] Care Team Providers Care Saddle Stitch Operator Name Role Phone Candy Almanzar PA-C Primary Care Provider + Axel Montero MD Unavailable [phone] Dorothea Barragan NP Unavailable [phone] Encounter Details Date Type Department Care Team Description 09/02/2022 Orders Only Internal Medicine - [address], [address] [place], [place] [phone] Candy Almanzar PA-C [address] [place] [phone] Abnormal chest x-ray Social History Tobacco [...] field documented in this encounter Care Teams Saddle Stitch Operator Relationship Specialty Start Date End Date Candy Almanzar PA-C PCP - General Internal Medicine 05/04/21 Axel Montero MD [address] [place] [address] Specialist Cardiovascular Disease 09/09/22 Dorothea Barragan NP [address] [place] [address] [place] [address] [address] Cardiology 09/07/23 documented as of this encounter
--- OUTSIDE RECORDS SUMMARY | 2024-05-11 10:02 | XMS_ITS | Encounter Summary ---
Author Organization [facility] Address [address] [place] [address] Care Team Providers Care Refrigeration Installer Name Role Phone Danyel Anthony MD Primary Care Provider [phone] Candy Almanzar PA-C Primary Care Provider + Axel Montero MD Unavailable [phone] Dorothea Barragan NP Unavailable [phone] Encounter Details Date Type Department Care Team Description 05/01/2019 Alignment Mechanic Report Medical Records [address] [place] [id number] Sarah Jarquin MD Social History Tobacco Use [...] on filedocumented in this encounter Care Teams Refrigeration Installer Relationship Specialty Start Date End Date Danyel Anthony MD [address] [place] [address] PCP - General Internal Medicine 07/18/17 05/03/21 Candy Almanzar PA-C [address] [place] [address] PCP - General Internal Medicine 05/04/21 Axel Montero MD [address] [place] [address] Specialist Cardiovascular Disease 09/09/22 Dorothea Barragan NP [address] [place] [phone] Cardiology 09/07/23 documented as of this encounter
--- OUTSIDE RECORDS SUMMARY | 2024-05-11 10:02 | XMS_ITS | Encounter Summary ---
Author Organization [facility] Address [address] [place] [address] Care Team Providers Care Airplane Cabin Attendant Name Role Phone Candy Almanzar Primary Care Provider + Reason for Visit * Reason Comments Abdominal Pain Pelvic pain x 6 days radiating to back Encounter Details Date Type Department Care Team (Late st Contact Info) Description 04/18/2024 10:26 AM EST - 04/18/2024 9:45 PM EST Emergency [facility] Emergency [address] [place] [phone] Jose Daniel Collazo MD [address] [place] [address] (Primary Dx); Pelvic pain [...] hours if needed. 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 Take with food. 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 neck and back pain Take 1 [...] Means Destination Comment s Home or Self Longterm documented in this encounter Progress Notes * [...] DX:Cyst of right kidney Fibrosis of lung ([facility]/HCC) 01/20/2017 DX:Fibrosis of lung (HCC) GERD (gastroesophageal reflux disease) 07/29/2017 DX:GERD (gastroesophageal reflux disease) Interstitial lung disease ([facility]/HCC) 01/20/2017 DX:Interstitial lung disease (HCC) Pain, joint, multiple sites 07/29/2017 DX:Pain, joint, multiple sites Positive ROSEY (antinuclear antibody) 07/29/2017 DX:Positive ROSEY (antinuclear antibody) Past Surgical History: Procedure Laterality Date CHOLECYSTECTOMY PROCEDURE: HISTORICAL CHOLECYSTECTOMY CHOLECYSTECTOMY PROCEDURE: PA LAPAROSCOPY SURG CHOLECYSTECTOMY COLONOSCOPY PROCEDURE: HISTORICAL COLONOSCOPY ESOPHAGOGASTRODUODENOSCOPY PROCEDURE: PA ESOPHAGOGASTRODUODENOSCOPY TRANSORAL DIAGNOSTIC OTHER SURGICAL HISTORY PROCEDURE: [...] REFLEX MICROSCOPIC AND CULTURE - Abnormal Specific [place] Urine 1.007 pH, Urine 6.5 Leukocytes, Urine [...] Procedure Abnormality Status --------- ------ CBC auto differential[[id number]] Abnormal Final result Please view results for these tests on the individual orders. URINALYSIS WITH REFLEX MICROSCOPIC AND CULTURE Narrative: The following orders were created for panel order Urinalysis with reflex microscopic and culture. Procedure Abnormality Status --------- ------ Urinalysis with reflex ...[[id number]] Abnormal Final result Mcgee urine culture tube[[id number]] Final result Please view results for these [...] Signed Date: 04/18/2024 14:55 ET Workstation ID: [id number] Transcribed By: Self Edit Transcribed Date: 04/18/2024 [...] time. [facility] Shabnam Conklin PA-C at approximately 4 [...] PM EST Office Visit Internal Medicine - [place] [address] [phone] Candy Almanzar PA [address] [address] 06/11/2024 10:00 AM EST Pre-Admission Testing [facility] Pre-Admission Testing [address] [place] [phone] 06/18/2024 7:30 AM EDT Hospital Encounter [facility] Main [address] [phone] Hilton Raymundo MD [address] [place] [address] 06/18/2024 7:30 AM EDT - 06/18/2024 10:30 AM EDT Surgery [facility] Main [address] [phone] Hilton Raymundo MD [address] [place] [address] Davinci assisted laparoscopic bilateral salpingo-oophorectom y, ? total hysterectomy, staging, open laparotomy. [[id number] (CPT??)] 07/03/2024 11:20 AM EDT Office Visit [facility] [address] [address] Hilton Raymundo MD [address] [place] [address] 07/18/2024 11:15 AM EDT Office Visit [facility] Hematology Oncology [address] [place] [phone] Liza Guajardo MD [address] [place] [phone] Scheduled Procedures Name Priority Associated Diagnoses Date/Ti [...] excluded. Short-term follow-up is recommended. Telerad HARPAL ([id number]) -------- FINAL REPORT -------- Dictated By: Mayi Avila Dictated Date: 04/18/2024 19:22 ET Assigned Physician: Mayi Avila Reviewed and Electronically Signed By: Mayi Avila Signed Date: 04/18/2024 19:30 ET Workstation ID: [id number] Transcribed By: Self Edit Transcribed Date: 04/18/2024 [...] performed withoutIV contrast. DLP: 360.76 mGy/cm GE reKode Educationpeed VCT Iterative reconstruction technique Findings: Image detail is mildly limited, especially in the lower lungs, due torespiratory motion. The trachea and central bronchial tree are patent. Several small nodularairspace opacities are scattered bilaterally, a combination of groundglassattenuation and letser lung consolidation. The largest of these areas [...] not excluded.Short-term follow-up is recommended. Aileen ROWAN ([id number]) -------- FINAL REPORT -------- Dictated By: Mayi Avila Dictated Date: 04/18/2024 19:22 ET Assigned Physician: Mayi Avila Reviewed and Electronically Signed By: Mayi Avila Signed Date: 04/18/2024 19:30 ET Workstation ID: [id number] Transcribed By: Self Edit Transcribed Date: 04/18/2024 [...] Signed Date: 04/18/2024 16:33 ET Workstation ID: [id number] Transcribed By: Self Edit Transcribed Date: 04/18/2024 [...] Signed Date: 04/18/2024 16:33 ET Workstation ID: [id number] Transcribed By: Self Edit Transcribed Date: 04/18/2024 [...] Signed Date: 04/18/2024 14:55 ET Workstation ID: [id number] Transcribed By: Self Edit Transcribed Date: 04/18/2024 14:48 ET Narrative 04/18/2024 2:55 PM EST INDICATION: Bilateral lower quadrant abdominal pain TECHNIQUE: CT scan of the abdomen and pelvis obtained with a total of 90 cc of Isovue-370 administered intravenously without incident. Oral contrast administered. Scanner: [employer] 64 slice VCT Dose reduction technique: ASIR (Adaptive statistical iterative reconstruction) and/or AEC (automated exposure control) Dose: total exam DLP 589 mGY per cm COMPARISON: No prior studies are available for comparison. FINDINGS: Mild branching txvi-ct-ilj-like attenuation within the lingula and inferior lateral [...] administered intravenously without incident. Oralcontrast administered. Scanner: [employer] 64 slice VCT Dose reduction technique: ASIR (Adaptive statistical iterativereconstruction) and/or AEC (automated exposure control) Dose: total exam DLP 589 mGY per cm COMPARISON: No prior studies are available for comparison. FINDINGS: Mild branching dymi-vu-nox-like attenuation within the lingula andinferior lateral left [...] Signed Date: 04/18/2024 14:55 ET Workstation ID: [id number] Transcribed By: Self Edit Transcribed Date: 04/18/2024 14:48 ET Ashlee ROWAN [facility] CT PROCEDURES * Mcgee urine culture tube (04/18/2024 1:45 PM EST) Extra Tube Hold for add-ons. 04/18/2024 3:01 PM [facility] Comment:Auto resulted. Urine Urine specimen obtained by clean catch procedure / Unknown Non-blood Collection / Unknown 04/18/2024 1:45 PM EST 04/18/2024 1:54 PM EST Jose Daniel Collazo MD LAB URINE ORDERABLES [facility] [address] [place] [address], * (ABNORMAL) Urinalysis with reflex microscopic and culture (04/18/2024 1:45 PM EST) [facility] Specific [place] Urine 1.007 1.003 - 1.030 LAB URINALYSIS - AUTOMATED METHOD 04/18/2024 2:04 PM [facility] pH, Urine 6.5 5.0 - 8.0 pH LAB URINALYSIS - AUTOMATED METHOD 04/18/2024 2:04 PM [facility] Leukocytes, Urine Negative Negative LAB URINALYSIS - AUTOMATED METHOD 04/18/2024 2:04 PM [facility] Nitrite, Urine Negative Negative LAB URINALYSIS - AUTOMATED METHOD 04/18/2024 2:04 PM [facility] Protein, Urine Negative <=Trace mg/dL LAB URINALYSIS - AUTOMATED METHOD 04/18/2024 2:04 PM [facility] Glucose, Urine Negative Negative mg/dL LAB URINALYSIS - AUTOMATED METHOD 04/18/2024 2:04 PM [facility] Ketones, Urine Negative Negative mg/dL LAB URINALYSIS - AUTOMATED METHOD 04/18/2024 2:04 PM [facility] Urobilinogen, Urine 0.2 0.2 - 1.0 mg/dL LAB URINALYSIS - AUTOMATED METHOD 04/18/2024 2:04 PM [facility] Bilirubin, Urine Negative Negative LAB URINALYSIS - AUTOMATED METHOD 04/18/2024 2:04 PM [facility] Blood, Urine Trace(A) Negative LAB URINALYSIS - AUTOMATED METHOD 04/18/2024 2:04 PM [facility] RBC, Urine 2.2 0 - 4 /HPF LAB URINALYSIS - AUTOMATED METHOD 04/18/2024 2:04 PM [facility] WBC, Urine 0.1 0 - 4 /HPF LAB URINALYSIS - AUTOMATED METHOD 04/18/2024 2:04 PM [facility] Squamous Epithelial, Urine 2 0 - 60 /LPF LAB URINALYSIS - AUTOMATED METHOD 04/18/2024 2:04 PM [facility] Bacteria, Urine Negative Negative /HPF LAB URINALYSIS - AUTOMATED METHOD 04/18/2024 2:04 PM [facility] Hyaline Casts, Urine 0.0 0 - 3 /LPF LAB URINALYSIS - AUTOMATED METHOD 04/18/2024 2:04 PM [facility] Urine Urine specimen obtained by clean catch procedure / Unknown Non-blood Collection / Unknown 04/18/2024 1:45 PM EST 04/18/2024 1:54 PM EST Jose Daniel Collazo MD LAB URINE ORDERABLES [facility] [address] [place] [address], * Cancer antigen 125 (04/18/2024 10:54 AM EST) CA 125 14.2 <35.0 unit/mL LAB CHEMISTRY METHOD 04/18/2024 7:00 PM [facility] Blood Venous blood specimen / Unknown Venipuncture / Unknown 04/18/2024 10:54 AM EST 04/18/2024 11:59 AM EST Narrative [facility] - 04/18/2024 7:00 PM EST The Siemens Advia Centaur Chemiluminescent Immunoassay is used. Results obtained with different assay methods or kits cannot be used interchangeably. Results cannot be interpreted as absolute evidence of the presence or absence of malignant disease. Bailey ROWAN LAB BLOOD MELANIE BLISS [facility] [address] [place] [address], * (ABNORMAL) CBC auto differential (04/18/2024 10:54 AM EST) WBC 8.5 4.8 - 10.8 K/mcL LAB HEMETOLOGY METHOD 04/18/2024 12:19 PM [facility] RBC 3.70(L) 3.80 - 4.80 M/mcL LAB HEMETOLOGY METHOD 04/18/2024 12:19 PM [facility] Hemoglobin 11.1(L) 11.5 - 16.0 g/dL LAB HEMETOLOGY METHOD 04/18/2024 12:19 PM [facility] Hematocrit 35.3 35.0 - 47.0 % LAB HEMETOLOGY METHOD 04/18/2024 12:19 PM [facility] MCV 95.4 79.0 - 98.0 FL LAB HEMETOLOGY METHOD 04/18/2024 12:19 PM [facility] MCH 30.0 27.0 - 32.0 pcg LAB HEMETOLOGY METHOD 04/18/2024 12:19 PM [facility] MCHC 31.4(L) 32.0 - 37.0 g/dL LAB HEMETOLOGY METHOD 04/18/2024 12:19 PM [facility] RDW 12.4 11.0 - 15.0 % LAB HEMETOLOGY METHOD 04/18/2024 12:19 PM [facility] Platelets 340 130 - 400 K/mcL LAB HEMETOLOGY METHOD 04/18/2024 12:19 PM [facility] MPV 8.7 7.0 - 11.0 FL LAB HEMETOLOGY METHOD 04/18/2024 12:19 PM [facility] NRBC 0.0 <1.0 % LAB HEMETOLOGY METHOD 04/18/2024 12:19 PM [facility] NRBC Absolute 0.00 <0.10 K/mcL LAB HEMETOLOGY METHOD 04/18/2024 12:19 PM [facility] Neutrophils Relative 76.8 % LAB HEMETOLOGY METHOD 04/18/2024 12:19 PM [facility] Lymphocytes Relative 16.6 % LAB HEMETOLOGY METHOD 04/18/2024 12:19 PM [facility] Monocytes Relative 5.2 % LAB HEMETOLOGY METHOD 04/18/2024 12:19 PM [facility] Eosinophils Relative 0.7 % LAB HEMETOLOGY METHOD 04/18/2024 12:19 PM [facility] Basophils Relative 0.2 % LAB HEMETOLOGY METHOD 04/18/2024 12:19 PM [facility] Immature Granulocytes Relative 0.5 % LAB HEMETOLOGY METHOD 04/18/2024 12:19 PM [facility] Neutrophils Absolute 6.53 1.50 - 7.00 K/mcL LAB HEMETOLOGY METHOD 04/18/2024 12:19 PM [facility] Lymphocytes Absolute 1.41 1.00 - 5.00 K/mcL LAB HEMETOLOGY METHOD 04/18/2024 12:19 PM [facility] Monocytes Absolute 0.44 0.20 - 1.00 K/mcL LAB HEMETOLOGY METHOD 04/18/2024 12:19 PM [facility] Eosinophils Absolute 0.06 0.00 - 0.50 K/[facility] LAB HEMETOLOGY METHOD 04/18/2024 12:19 PM [facility] Basophils Absolute 0.02 0.00 - 0.20 K/mcL LAB HEMETOLOGY METHOD 04/18/2024 12:19 PM [facility] Immature Granulocytes Absolute 0.04(H) 0.00 - 0.03 K/mcL LAB HEMETOLOGY METHOD 04/18/2024 12:19 PM [facility] Blood Venous blood specimen / Unknown Venipuncture / Unknown 04/18/2024 10:54 AM EST 04/18/2024 12:00 PM EST Jose Daniel Collazo MD LAB BLOOD ORDERABLES [facility] [address] [place] [address], * (ABNORMAL) Comprehensive metabolic panel (04/18/2024 10:54 AM EST) Sodium 137 133 - 145 mmol/L LAB CHEMISTRY METHOD 04/18/2024 12:29 PM [facility] Potassium 4.0 3.5 - 5.5 mmol/L LAB CHEMISTRY METHOD 04/18/2024 12:29 PM [facility] Chloride 106 96 - 110 mmol/L LAB CHEMISTRY METHOD 04/18/2024 12:29 PM [facility] CO2 27 21 - 32 mmol/L LAB CHEMISTRY METHOD 04/18/2024 12:29 PM [facility] Anion Gap 4 3 - 11 LAB CHEMISTRY METHOD 04/18/2024 12:29 PM [facility] Glucose 89 70 - 100 mg/dL LAB CHEMISTRY METHOD 04/18/2024 12:29 PM [facility] BUN 16 5 - 25 mg/dL LAB CHEMISTRY METHOD 04/18/2024 12:29 PM [facility] Creatinine 0.90 0.50 - 1.10 mg/dL LAB CHEMISTRY METHOD 04/18/2024 12:29 PM [facility] eGFR 72 >=60 mL/min/1. 73m2 LAB CHEMISTRY METHOD 04/18/2024 12:29 PM [facility] Comment:Calculation based on the??Chronic Kidney Disease Epidemiology Collaboration (CKD-EPI) equation refit??without adjustment for race. BUN/Creatinine Ratio 17.8 LAB CHEMISTRY METHOD 04/18/2024 12:29 PM [facility] Calcium 9.0 8.5 - 10.5 mg/dL LAB CHEMISTRY METHOD 04/18/2024 12:29 PM [facility] AST (SGOT) 24 10 - 42 unit/L LAB CHEMISTRY METHOD 04/18/2024 12:29 PM [facility] ALT (SGPT) 36 10 - 60 unit/L LAB CHEMISTRY METHOD 04/18/2024 12:29 PM [facility] Alkaline Phosphatase 258(H) 42 - 121 unit/L LAB CHEMISTRY METHOD 04/18/2024 12:29 PM [facility] Total Protein 7.8 6.0 - 8.0 g/dL LAB CHEMISTRY METHOD 04/18/2024 12:29 PM [facility] Albumin 3.6 3.2 - 5.0 g/dL LAB CHEMISTRY METHOD 04/18/2024 12:29 PM [facility] Total Bilirubin 0.3 0.0 - 1.4 mg/dL LAB CHEMISTRY METHOD 04/18/2024 12:29 PM [facility] Blood Venous blood specimen / Unknown Venipuncture / Unknown 04/18/2024 10:54 AM EST 04/18/2024 11:59 AM EST Jose Daniel Collazo MD LAB [facility]LOOD [facility]AB[facility] [address] [place] [address], documented in this encounter Visit Diagnoses Diagnosis [...] Chow) documented in this encounter Care Teams Airplane Cabin Attendant Relationship Specialty Start Date End Date Candy Almanzar PA [address] [place] [phone] PCP - General Internal Medicine 05/04/21 documented as of this encounter
--- OUTSIDE RECORDS SUMMARY | 2024-05-11 10:02 | XMS_ITS | Encounter Summary ---
Author Organization [facility] Address [address] [place] [address] Care Team Providers Care Vehicle Detailer Name Role Phone Candy Almanzar PA-C Primary Care Provider + Axel Montero MD Unavailable [phone] Dorothea Barragan NP Unavailable [phone] Reason for Visit * Reason Onset Date Comments refill request 10/11/2022 Patient is reque sting Rx Refill on Duloxetine 30mg, Tizanidine 4mg, Atorvastatin 10mg. Encounter Details Date Type Department Care Team Description 10/11/2022 Refill Internal Medicine - [address], [address] [place] [address] Candy Almanzar PA-C [address] [place] [phone] refill request (Patient is requesting Rx Refill [...] region documented in this encounter Care Teams Vehicle Detailer Relationship Specialty Start Date End Date Candy Almanzar PA-C PCP - General Internal Medicine 05/04/21 Axel Montero MD [address] [place] [phone] Specialist Cardiovascular Disease 09/09/22 Dorothea Barragan NP [address] [place] [address] Cardiology 09/07/23 documented as of this encounter
--- OUTSIDE RECORDS SUMMARY | 2024-05-11 10:02 | XMS_ITS | Encounter Summary ---
Author Organization [email or web address] [facility] Address [address] [place] [address] Care Team Providers Care Flight Superintendent Name Role Phone Candy Almanzar PA-C Primary Care Provider + Aexl Montero MD Unavailable Dorothea Barragan NP Unavailable [phone] Encounter Details Date Type Department Care Team Description 02/22/2023 Telephone Cardio [facility] [address] [place] [address] Drive [address] [place] [address] Axel Montero MD [address] [place] [address] [address] [place], [place] [address] Social History Tobacco Use Types Packs/Day Years [...] if calls it is with the front office supervisor in cabinet. Pt may stop by and last picker when available. documented in this encounter Plan of Treatment Not on file documented as of this encounter Visit Diagnoses Not on filedocumented in this encounter Care Teams Flight Superintendent Relationship Specialty Start Date End Date Candy Almanzar PA-C PCP - General Internal Medicine 05/04/21 Axel Montero MD [address] [place] [phone] Specialist Cardiovascular Disease 09/09/22 Dorothea Barragan NP [address] [place] [address] [address] [phone] Cardiology 09/07/23 documented as of this encounter
--- OUTSIDE RECORDS SUMMARY | 2024-05-11 10:02 | XMS_ITS | Encounter Summary ---
Author Organization [facility] Address [address] [place] [address] Care Team Providers Care Public Health Doctor Name Role Phone Candy Almanzar PA-C Primary Care Provider + Axel Montero MD Unavailable [phone] Dorothea Barragan NP Unavailable [phone] Encounter Details Date Type Department Care Team Description 11/16/2022 SCAN Medical Records [address] [place] [id number] [facility] Social History Tobacco Use Types Packs/Day Years [...] suspected to have Coronavirus/COVID-19? No / Unsure 11/16/2022 9:46 AM EDT documented as of this encounter Plan of Treatment Not on file documented as of this encounter Visit Diagnoses Not on filedocumented in this encounter Care Teams Public Health Doctor Relationship Specialty Start Date End Date Candy Almanzar PA-C PCP - General Internal Medicine 05/04/21 Axel Montero MD [address] [place] [address] Specialist Cardiovascular Disease 09/09/22 Dorothea Barragan NP [address] [place] [address] [address] Cardiology 09/07/23 documented as of this encounter
--- OUTSIDE RECORDS SUMMARY | 2024-05-11 10:02 | XMS_ITS | Encounter Summary ---
Author Organization [facility] Address [address] [place] [address] Care Team Providers Care Customer Manager Name Role Phone Candy Almanzar PA-C Primary Care Provider + Axel Montero MD Unavailable Dorothea Barragan NP Unavailable [phone] Reason for Visit * Reason Comments E-prescribe Rx Request Encounter Details Date Type Department Care Team Description 12/26/2021 Refill Internal Medicine - [address], [address] [place] [address] Candy Almanzar PA-C [address] [place] [phone] E-prescribe Rx Request Social History Tobacco [...] * Telephone Encounter - Lashaun Wallace - 12/28/2021 1:47 PM EDT BP Readings from Last 3 Encounters: 05/04/21 108/72 02/26/21 94/62 10/19/19 128/74 * Telephone Encounter - Adela Garcia - 12/28/2021 8:17 AM EDT [place] 05/04/2021 NOV 01/15/2022 documented in this encounter Plan of Treatment Not on file documented as of this encounter Visit Diagnoses Diagnosis Upper back pain on left side Pain in thoracic spine documented in this encounter Care Teams Customer Manager Relationship Specialty Start Date End Date Candy Almanzar PA-C PCP - General Internal Medicine 05/04/21 Axel Montero MD [address] [place] [address] Specialist Cardiovascular Disease 09/09/22 Dorothea Barragan NP [address] [place] [address] [place] [address] [address] Cardiology 09/07/23 documented as of this encounter
--- OUTSIDE RECORDS SUMMARY | 2024-05-11 10:02 | XMS_ITS | Encounter Summary ---
Author Organization [facility] Address [address] [place] [address] Care Team Providers Care Steam Shovelman Name Role Phone Candy Almanzar PA-C Primary Care Provider + Axel Montero MD Unavailable [phone] Dorothea Barragan NP Unavailable [phone] Encounter Details Date Type Department Care Team Description 06/02/2021 Sweat Box Attendant Report Medical Records [address] [place] [address] Jose Carlos Calvin MD Social History Tobacco [...] on filedocumented in this encounter Care Teams Steam Shovelman Relationship Specialty Start Date End Date Candy Almanzar PA-C PCP - General Internal Medicine 05/04/21 Axel Montero MD [address] [place] [phone] Specialist Cardiovascular Disease 09/09/22 Dorothea Barragan NP [address] [place] [address] [address] Cardiology 09/07/23 documented as of this encounter
[2024-05-11 11:21] LABS: Erythrocyte Sedimentation Rate 32 MM/HR (0-20)
[2024-05-14 16:23] LABS: Anti DNA DS Antibody 1 IU/mL; Antibody to SS-A Antigen <1.0 NEG AI (<1.0 NEG); Antibody to SS-B Antigen <1.0 NEG AI (<1.0 NEG); Myeloperoxidase Antibody <1.0 AI; Proteinase 3 PR3 Antibodies <1.0 AI; Scleroderma 70 Antibody <1.0 NEG AI (<1.0 NEG)
[2024-05-14 22:08] LABS: Cyclic Citrullinated Peptide <16 UNITS
[2024-05-15 05:54] LABS: Immunoglobulin E 18 kU/L (<OR=114)
[2024-05-18 10:59] LABS: ANA Pattern 2 Nuclear, Speckled; ANA Titer 2 1:40 titer; Anti Nuclear Antibody Screen POSITIVE (NEGATIVE)
[2024-05-18 13:53] LABS: Asperg fumigatus Precip Abs NEGATIVE (NEGATIVE); Micropoly faeni Abs NEGATIVE (NEGATIVE); Pigeon serum Abs NEGATIVE (NEGATIVE); Saccharo pora viridis Abs NEGATIVE (NEGATIVE); Thermo candidus Abs NEGATIVE (NEGATIVE); Thermoa vulgaris #1 NEGATIVE (NEGATIVE)
== END 2024-05-11 09:29 | disposition home or self-care (01) ==
LOC: HO.LAB 09:28
PROVIDERS: PCP Physician Assistant; Visit Provider Hospitalist
DX: R05.3 Chronic cough (principal); R91.8 Other nonspecific abnormal finding of lung field; R76.8 Other specified abnormal immunological findings in serum; J84.89 Other specified interstitial pulmonary diseases; J98.4 Other disorders of lung; J84.9 Interstitial pulmonary disease, unspecified
CPT/HCPCS: 36415; 82785; 85652; 86021; 86038; 86039; 86200; 86225; 86235; 86331; 86606; 86609

== ENCOUNTER 2024-05-28 10:25 | Outpatient (REF) | payer OTHER, SELFPAY ==
--- NOTE | ~2024-05-28 | XR_ITS ---
CLINICAL HISTORY: J84.89 - Other specified interstitial pulmonary diseases 2 view chest x-ray Comparison: 08/21/2021 Findings: No consolidation or effusion. Heart size is normal. No acute fracture. Right upper abdominal surgical clips. IMPRESSION: 1. No acute findings. This document has been electronically signed by: Aliya Kirk MD on 05/28/2024 10:59:49
--- OUTSIDE RECORDS SUMMARY | 2024-05-28 10:28 | XMS_ITS | Encounter Summary ---
Author Organization [facility] Address [address] [place] [address] Care Team Providers Care Window Display Designer Name Role Phone Candy Almanzar Primary Care Provider + Reason for Visit * Reason Onset Date Comments OTHER 05/07/2024 Advice Only 05/07/2024 Encounter Details Date Type Department Care Team (Late st Contact Info) Description 05/07/2024 [facility]phone [facility] [place] [address] [place] [phone] Hilton Raymundo MD [address] [facility] [address] [facility] [address] [place] [address] OTHER; Advice Only Social History Tobacco Use Types Packs/Day Years Used Date Smoking Tobacco: Former Cigarettes Smokeless Tobacco: Never Alcohol Use Standard Drinks/Week Comments No 0 (1 standard drink = 0.6 oz pur e alcohol) Comments Unknown Sex and Gender Information Value Date Recorded Sex Assigned at Female 05/28/2024 9:32 AM EST Legal Sex Female 1:00 AM EST Gender Identity Female 05/28/2024 9:32 AM EST Sexual Orientation Something else 05/28/2024 9: 32 AM EST Sexual Orientation Straight 05/28/2024 9: 32 AM EST documented as of this encounter Functional Status * Are you deaf or do you have serious difficulty hearing? Answer Date of Assessment Author No 04/18/2024 3:02 PM Le Velasco RN * Are you blind or do you have serious difficulty seeing, even when wearing glasses? Answer Date of Assessment Author No 04/18/2024 3:02 PM eL Velasco RN * Do you have serious difficulty walking or climbing stairs? Answer Date of Assessment Author No 04/18/2024 3:02 PM Le Velasco RN * Do you have serious difficulty dressing or bathing? Answer Date of Assessment Author No 04/18/2024 3:02 PM Le Velasco RN * Because of a physical, mental, or emotional condition, do you have serious difficulty doing errandsalone such as visiting the doctor? Answer Date of Assessment Author No 04/18/2024 3:02 PM Le Velasco RN documented as of this encounter Mental Status * Because of a physical, mental, or emotional condition, do you have serious difficulty concentrating, remembering, or making decisions? (5 years old or older) Answer Entry Date Author No 04/18/2024 3:02 PM Le Velasco RN documented in this encounter Progress Notes * Cookie Gagnon MA - 05/14/2024 8:47 AM EST Pt is now booked for 06/04 @ 145 * Cookie Gagnon MA - 05/11/2024 7:15 [...] 05/08/2024 10:07 AM EST Pt called using lang interpreter service ID# [id number] to assess her pain. She is rating [...] Department Care Team (Latest Contact Info) Description 06/04/2024 1:45 PM EST Hospital Encounter [facility] [place] [address] [place] [phone] Hilton Raymundo MD [address] [place] [phone] 06/04/2024 1:45 PM EST - 06/04/2024 4:[address] [facility] OR [address] [place] [phone] Hilton Raymundo MD [address] [place] [phone] Davinci assisted laparoscopic bilateral salpingo-oophorectom y, ? total hysterectomy, staging, open laparotomy. [29000 (CPT??)] 06/19/2024 2:20 PM EDT Office [facility] [place] [address] [phone] Hilton Raymundo MD 271 [facility] 110 [place] [address] 07/03/2024 1:00 PM EDT Office Visit Internal Medicine [facility] [place] [address] [phone] Candy Almanzar PA [address] [address] 07/18/2024 11:15 AM EDT Office Visit [facility] Hematology Oncology [address] [place] [phone] Liza Guajardo MD [address] [place] [phone] Scheduled Procedures Name Priority Associated Diagnoses Date/Ti me OOPHORECTOMY ROBOT TWO Adnexal mass Cysts of both ovaries Pelvic pain 06/04/2024 1:45 PM EST documented as of this encounter Visit Diagnoses Not on filedocumented in this encounter Care Teams Window Display Designer Relationship Specialty Start Date End Date Candy Almanzar PA [address] [address] PCP - General Internal Medicine 05/04/21 documented as of this encounter
--- OUTSIDE RECORDS SUMMARY | 2024-05-28 10:28 | XMS_ITS | Clinical Summary ---
Author Organization 175 [facility] Address 175 [place] [address] Phone Care Team Providers Care Supervisor Of Officials Name Role Phone Candy Almanzar Primary Care Provider + Allergies No known active allergies Medications cholecalcifero l (VITAMIN D-3) 50 mcg (2,000 unit) capsule Take 1 capsule (2,000 Units total) by mouth 1 (one) time each day. 08/31/19 23 Active eszopiclone (LUNESTA) 3 mg tablet Take 3 mg by mouth at bedtime as needed. Active FLUoxetine (PROzac) 10 mg tablet Take 1 tablet (10 mg total) by mouth 1 (one) time each day. Active LORazepam (ATIVAN) 0.5 mg tablet Take 1 tablet (0.5 mg total) by mouth every 6 (six) hours if needed. Active busPIRone (BUSPAR) 10 mg tablet 02/08/20 24 Active meloxicam (MOBIC) 15 mg tabletIndicati ons:Chronic neck and back pain Take 1 tablet (15 mg total) by mouth 1 (one) time each day if needed for moderate pain. Take with food. 90 tablet 1 02/20/20 24 Active gabapentin (NEURONTIN) 100 mg capsuleIndicat ions:Chronic neck and back pain Take 1 capsule (100 mg total) by mouth 2 (two) times a day. 60 capsule 2 02/20/20 24 Active predniSONE 10 mg tablets,dose pack Take by mouth. Active tiZANidine (ZANAFLEX) 4 mg tabletIndicati ons:Chronic neck and back pain Take 1 tablet (4 mg total) by mouth at bedtime as needed for muscle spasms (neck spasms). 90 tablet 1 05/22/19 25 Active amitriptyline (ELAVIL) 10 mg tablet Take 1 Tablet by mouth at bedtime. 025 Discontinued aspirin 81 mg chewable tablet Chew 1 tablet (81 mg total) 1 (one) time each day. 025 Discontinued atorvastatin (LIPITOR) 20 mg tablet Take 1 tablet (20 mg total) by mouth 1 (one) time each day. 04/19/19 24 025 Discontinued tiZANidine (ZANAFLEX) 4 mg tabletIndicati ons:Chronic neck and back pain Take 1 tablet (4 mg total) by mouth at bedtime as needed for muscle spasms (neck spasms). 90 tablet 1 02/20/20 24 025 Discontinued(Re order) doxycycline (VIBRAMYCIN) 100 mg capsule Take 1 capsule (100 mg total) by mouth 2 (two) times a day for 10 days. Take with at least 8 ounces (large glass) of water, do not lie down for 30 minutes after 20 capsule 04/18/19 25 025 Discontinued Active Problems Problem Noted Date Diagnosed [...] Encounters Date Type Department Care Team Description 05/22/2024 1:00 PM EST Office Visit Internal Medicine - [address] [place] [phone] Candy Almanzar PA Adnexal mass (Primary Dx); Chronic neck and back pain 05/07/[address] [phone] Hilton Raymundo MD OTHER; Advice Only 05/03/2024 1:20 PM EST Consult [address] [phone] Hilton Raymundo MD Adnexal mass (Primary Dx); Cysts of both ovaries; Pelvic pain; Ovarian mass 04/23/[address] [phone] Nini Zelaya, CALLY Appointment 04/19/2024 2:45 PM EST Office Visit [facility] Hematology Oncology [address] [place] [phone] Liza Guajardo MD Ovarian mass 04/18/2024 10:26 AM EST - 04/18/2024 9:45 PM EST Emergency [facility] Emergency [address] [place] [place] [phone] Jose Daniel Collazo MD Abnormal chest CT (Primary Dx); Pelvic pain Discharge Disposition: Home or Self Care from Last 3 Months Immunizations Name Administration Dates Next Due Influenza Quadravalent, MDCK , 0.5ml, preservative free (Flucelvax) 6mo and older 05/04/2021 Surgical History Surgery Date Site/Laterality Comments CHOLECYSTECTOMY PROCEDURE: HISTORICAL CHOLECYSTECTOMY OTHER SURGICAL HISTORY PROCEDURE: ---- OTHER ----; COMMENT: hist lung biopsy x 2 COLONOSCOPY PROCEDURE: HISTORICAL COLONOSCOPY CHOLECYSTECTOMY PROCEDURE: OR LAPAROSCOPY SURG CHOLECYSTECTOMY ESOPHAGOGASTRODUODENOSCOPY PROCEDURE: OR ESOPHAGOGASTRODUODENOSCOPY TRANSORAL DIAGNOSTIC Medical History Medical History [...] multiple sites Asthma DX:Asthma Anxiety Heart murmur Depression Arthritis Family History Medical History Relation Name Comments [...] Orientation Straight 05/28/2024 9: 32 AM EST Obstetrics History Last Filed Vital Signs Vital Sign Reading Time Taken Comments Blood Pressure 128/88 05/22/2024 1:02 PM EST Pulse 70 05/22/2024 1:02 PM EST Temperature 36.6 ??C (97.9 ??F) 05/22/2024 1:02 PM ES T Respiratory Rate 18 04/18/2024 7:41 PM EST Oxygen Saturation 98% 05/22/2024 1:02 PM EST Inhaled Oxygen Concentration - - Weight 64.9 kg (143 lb) 05/22/2024 1:02 PM EST Height 157.5 cm (5' 2 ) 05/22/2024 1:02 PM EST Body Mass Index 26.16 05/22/2024 1:02 PM EST Plan of Treatment Upcoming Encounters Date Type Department Care Team (Latest Contact Info) Description 06/04/2024 1:45 PM EST Hospital Encounter [facility] Main OR [address] [place] [place] [phone] Hilton Raymundo MD [address] [place] [address] [place] [address] 06/04/2024 1:45 PM EST - 06/04/2024 4:45 PM EST Surgery [facility] Main OR [address] [place] [phone] Hilton Raymundo MD [address] [address] Davinci assisted laparoscopic bilateral salpingo-oophorectom y, ? total hysterectomy, staging, open laparotomy. [54350 (CPT??)] 06/19/2024 2:20 PM EDT Office Visit [facility] [address] [phone] Hilton Raymundo MD [address] [address] 07/03/2024 1:00 PM EDT Office Visit Internal Medicine [facility] [address] [phone] Candy Almanzar, HARPAL [address] [address] 07/18/2024 11:15 AM EDT Office Visit [facility] Hematology Oncology [address] [place] [place] [phone] Liza Guajardo MD [address] [place] [phone] Scheduled Procedures Name Priority Associated Diagnoses Date/Ti me OOPHORECTOMY ROBOT TWO Adnexal mass Cysts of both ovaries Pelvic pain 06/04/2024 1:45 PM EST Health Maintenance Due Date Last Done Comments Breast Cancer Screening 1960 DTaP,Tdap,and Td Vaccines (1 - Tdap) 01/24/1980 Pneumococcal Vaccine: 50+ Years (1 of 2 - PCV) 01/24/1980 Pneumococcal Vaccine: Pediatrics (0 to 5 Years) and At-Risk Patients (6 to 64 Years) (1 of 2 - PCV) 01/24/1980 Cervical Cancer Screening: P ap Smear [...] patient's age to complete this topic Meningococcal B Vacine Aged Out No lo nger eligible based on patient's age to complete this topic RSV Immunization Patients Under 20 months Aged Out No longer eligible b ased on patient's age to complete this topic Varicella Vaccines Aged Out No longer eligible based on patient's age to complete this topic Procedures Procedure Name Priority Date/Time Associated Diagnosis Comments CBC WITH AUTO DIFFERENTIAL Routine 05/28/2024 9:45 AM EST Adnexal mass Cysts of both ovaries Pelvic pain CBC AND DIFFERENTIAL Routine 05/28/2024 9:45 AM EST Adnexal mass Cysts of both ovaries Pelvic pain CT CHEST WO CONTRAST STAT 04/18/2024 5:06 [...] 10:54 AM EST LIPID PANEL Routine 12/09/2022 HEPATITIS C SCREENING Routine 02/06/2018 from Last 3 Months or Most Recently Relevant to Health Maintenance Results * (ABNORMAL) CBC auto differential (05/28/2024 9:45 AM EST) Only the most recent of2 resultswithin the time period is included. WBC 9.4 4.8 - 10.8 K/mcL LAB HEMETOLOGY METHOD 05/28/2024 10:[address] [facility] RBC 4.00 3.80 - 4.80 M/mcL LAB HEMETOLOGY METHOD 05/28/2024 10:[address] [facility] Hemoglobin 11.9 11.5 - 16.0 g/dL LAB HEMETOLOGY METHOD 05/28/2024 10:19 AM [facility] Hematocrit 37.6 35.0 - 47.0 % LAB HEMETOLOGY METHOD 05/28/2024 10:19 AM [facility] MCV 94.5 79.0 - 98.0 FL LAB HEMETOLOGY METHOD 05/28/2024 10:19 AM [facility] MCH 29.9 27.0 - 32.0 pcg LAB HEMETOLOGY METHOD 05/28/2024 10:19 AM [facility] MCHC 31.6(L) 32.0 - 37.0 g/dL LAB HEMETOLOGY METHOD 05/28/2024 10:19 AM [facility] RDW 13.8 11.0 - 15.0 % LAB HEMETOLOGY METHOD 05/28/2024 10:19 AM [facility] Platelets 324 130 - 400 K/mcL LAB HEMETOLOGY METHOD 05/28/2024 10:19 AM [facility] MPV 8.5 7.0 - 11.0 FL LAB HEMETOLOGY METHOD 05/28/2024 10:19 AM [facility] NRBC 0.0 <1.0 % LAB HEMETOLOGY METHOD 05/28/2024 10:19 AM [facility] NRBC Absolute 0.00 <0.10 K/mcL LAB HEMETOLOGY METHOD 05/28/2024 10:19 AM [facility] Neutrophils Relative 57.9 % LAB HEMETOLOGY METHOD 05/28/2024 10:19 AM [facility] Lymphocytes Relative 34.5 % LAB HEMETOLOGY METHOD 05/28/2024 10:19 AM [facility] Monocytes Relative 5.6 % LAB HEMETOLOGY METHOD 05/28/2024 10:[address] [facility] Eosinophils Relative 1.1 % LAB HEMETOLOGY METHOD 05/28/2024 10:19 AM [facility] Basophils Relative 0.5 % LAB HEMETOLOGY METHOD 05/28/2024 10:19 AM [facility] Immature Granulocytes Relative 0.4 % LAB HEMETOLOGY METHOD 05/28/2024 10:19 AM [facility] Neutrophils Absolute 5.42 1.50 - 7.00 K/mcL LAB HEMETOLOGY METHOD 05/28/2024 10:19 AM [facility] Lymphocytes Absolute 3.23 1.00 - 5.00 K/mcL LAB HEMETOLOGY METHOD 05/28/2024 10:19 AM [facility] Monocytes Absolute 0.52 0.20 - 1.00 K/mcL LAB HEMETOLOGY METHOD 05/28/2024 10:19 AM [facility] Eosinophils Absolute 0.10 0.00 - 0.50 K/mcL LAB HEMETOLOGY METHOD 05/28/2024 10:19 AM [facility] Basophils Absolute 0.05 0.00 - 0.20 K/mcL LAB HEMETOLOGY METHOD 05/28/2024 10:19 AM [facility] Immature Granulocytes Absolute 0.04(H) 0.00 - 0.03 K/mcL LAB HEMETOLOGY METHOD 05/28/2024 10:19 AM [facility] Blood Venous blood specimen / Unknown Venipuncture / Unknown 05/28/2024 9:45 AM EST 05/28/2024 10:13 AM EST us Hilton Raymundo MD LAB BLOOD ORDERABLES Final Resul t [facility] [address] [place] [address], * CT Chest wo Contrast (04/18/2024 5:06 PM EST) Anatomical Region Laterality Modality Body Computed Tomogra phy 04/18/2024 7:22 PM EST Impressions 04/18/2024 7:30 PM EST Impression: Scattered nodular airspace opacities in both lungs, possibly infectious/inflammatory in nature, with a neoplastic process not excluded. Short-term follow-up is recommended. Telerad HARPAL ([id number]) -------- FINAL REPORT -------- Dictated By: Mayi Avila Dictated Date: 04/18/2024 19:22 ET Assigned Physician: Mayi Avila Reviewed and Electronically Signed By: Mayi Avila Signed Date: 04/18/2024 19:30 ET Workstation ID: [id number] Transcribed By: Self Edit Transcribed Date: 04/18/2024 19:22 ET Narrative 04/18/2024 7:30 PM EST History: Abnormal findings in the lungs on earlier abdominal CT. Comparison: CT abdomen/pelvis from earlier today. Technique: Helical volumetric imaging of the thorax was performed without IV contrast. DLP: 360.76 mGy/cm [employer] VCT Iterative reconstruction technique Findings: Image detail [...] was performed withoutIV contrast. DLP: 360.76 mGy/cm Second [employer] VCT Iterative reconstruction technique Findings: Image detail [...] not excluded.Short-term follow-up is recommended. Aileen ROWAN ([id number]) -------- FINAL REPORT -------- Dictated By: Mayi Avila Dictated Date: 04/18/2024 19:22 ET Assigned Physician: Mayi Avila Reviewed and Electronically Signed By: Mayi Avila Signed Date: 04/18/2024 19:30 ET Workstation ID: [id number] Transcribed By: Self Edit Transcribed Date: 04/18/2024 19:22 ET us Bailey ROWAN IMMasha CT PROCEDURES Sheyla l Result * US Pelvis Non OB Complete w [...] Signed Date: 04/18/2024 16:33 ET Workstation ID: [id number] Transcribed By: Self Edit Transcribed Date: 04/18/2024 [...] Signed Date: 04/18/2024 16:33 ET Workstation ID: [id number] Transcribed By: Self Edit Transcribed Date: 04/18/2024 16:28 ET us Bailey Hynds-Katerin PA IMG US PROCEDURES Sheyla l Result * CT Abdomen Pelvis w Contrast (04/18/2024 [...] Signed Date: 04/18/2024 14:55 ET Workstation ID: [id number] Transcribed By: Self Edit Transcribed Date: 04/18/2024 14:48 ET Narrative 04/18/2024 2:55 PM EST INDICATION: Bilateral lower quadrant abdominal pain TECHNIQUE: CT scan of the abdomen and pelvis obtained with a total of 90 cc of Isovue-370 administered intravenously without incident. Oral contrast administered. Scanner: [employer] 64 slice VCT Dose reduction technique: ASIR (Adaptive statistical iterative reconstruction) and/or AEC (automated exposure control) Dose: total exam DLP 589 mGY per cm COMPARISON: No prior studies are available for comparison. FINDINGS: Mild branching [id number]-dq-[id number]-like attenuation within the lingula and inferior lateral [...] administered intravenously without incident. Oralcontrast administered. Scanner: [employer] 64 slice VCT Dose reduction technique: ASIR (Adaptive statistical iterativereconstruction) and/or AEC (automated exposure control) Dose: total exam DLP 589 mGY per cm COMPARISON: No prior studies are available for comparison. FINDINGS: Mild branching wcvh-hk-[id number]-like attenuation within the lingula andinferior lateral left [...] Signed Date: 04/18/2024 14:55 ET Workstation ID: [id number] Transcribed By: Self Edit Transcribed Date: 04/18/2024 14:48 ET Ashlee ROWAN IMMasha CT PROCEDURES Final Result * (ABNORMAL) Urinalysis with reflex microscopic and culture (04/18/2024 1:45 PM EST) Specific [place] Urine 1.007 1.003 - 1.030 LAB URINALYSIS - AUTOMATED METHOD 04/18/2024 2:04 PM [facility] pH, Urine 6.5 5.0 - 8.0 pH LAB URINALYSIS - AUTOMATED METHOD 04/18/2024 2:04 PM [facility] Leukocytes, Urine Negative Negative LAB URINALYSIS - AUTOMATED METHOD 04/18/2024 2:04 PM [facility] Nitrite, Urine Negative Negative LAB URINALYSIS - AUTOMATED METHOD 04/18/2024 2:04 PM [facility] Protein, Urine Negative <=Trace mg/dL LAB URINALYSIS - AUTOMATED METHOD 04/18/2024 2:04 PM [facility] Glucose, Urine Negative Negative mg/dL LAB URINALYSIS - AUTOMATED METHOD 04/18/2024 2:04 PM [facility] Ketones, Urine Negative Negative mg/dL LAB URINALYSIS - AUTOMATED METHOD 04/18/2024 2:04 PM [facility] Urobilinogen, Urine 0.2 0.2 - 1.0 mg/dL LAB URINALYSIS - AUTOMATED METHOD 04/18/2024 2:04 PM [facility] Bilirubin, Urine Negative Negative LAB URINALYSIS - AUTOMATED METHOD 04/18/2024 2:04 PM [facility] Blood, Urine Trace(A) Negative LAB URINALYSIS - AUTOMATED METHOD 04/18/2024 2:04 PM [facility] RBC, Urine 2.2 0 - 4 /HPF LAB URINALYSIS - AUTOMATED METHOD 04/18/2024 2:04 PM [facility] WBC, Urine 0.1 0 - 4 /HPF LAB URINALYSIS - AUTOMATED METHOD 04/18/2024 2:04 PM [facility] Squamous Epithelial, Urine 2 0 - 60 /LPF LAB URINALYSIS - AUTOMATED METHOD 04/18/2024 2:04 PM [facility] Bacteria, Urine Negative Negative /HPF LAB URINALYSIS - AUTOMATED METHOD 04/18/2024 2:04 PM [facility] Hyaline Casts, Urine 0.0 0 - 3 /LPF LAB URINALYSIS - AUTOMATED METHOD 04/18/2024 2:04 PM [facility] Urine Urine specimen obtained by clean catch procedure / Unknown Non-blood Collection / Unknown 04/18/2024 1:45 PM EST 04/18/2024 1:54 PM EST Jose Daniel Collazo MD LAB URINE ORDERABLES Final Resu lt [facility] [address] [place] [address], * [place] urine culture tube (04/18/2024 1:45 PM EST) Extra Tube Hold for add-ons. 04/18/2024 3:01 PM [facility] Comment:Auto resulted. Urine Urine specimen obtained by clean catch procedure / Unknown Non-blood Collection / Unknown 04/18/2024 1:45 PM EST 04/18/2024 1:54 PM EST Jose Daniel Collazo MD LAB URINE ORDERABLES Final Resu lt Performing Organization Address City/[facility]/ZIP Co de Phone Number [facility] [address] [place] [address], [place] [phone] * Cancer antigen 125 (04/18/2024 10:54 AM EST) CA 125 14.2 <35.0 unit/mL LAB CHEMISTRY METHOD 04/18/2024 7:[address] [facility] Blood Venous blood specimen / Unknown Venipuncture / Unknown 04/18/2024 10:54 AM EST 04/18/2024 11:[address] [facility] - 04/18/2024 7:00 PM EST The Siemens Advia Centaur Chemiluminescent Immunoassay is used. Results obtained with different assay methods or kits cannot be used interchangeably. Results cannot be interpreted as absolute evidence of the presence or absence of malignant disease. Bailey ROWAN LAB BLOOD ORDERABLES F inal Result Performing Organization Address [facility]/ZIP Co de Phone Number [facility] [address] [place] [address], [place] [phone] * (ABNORMAL) Comprehensive metabolic panel (04/18/2024 10:54 AM EST) Sodium 137 133 - 145 mmol/L LAB CHEMISTRY METHOD 04/18/2024 12:[address] [facility] Potassium 4.0 3.5 - 5.5 mmol/L LAB CHEMISTRY METHOD 04/18/2024 12:[address] [facility] Chloride 106 96 - 110 mmol/L LAB CHEMISTRY METHOD 04/18/2024 12:[address] [facility] CO2 27 21 - 32 mmol/L LAB CHEMISTRY METHOD 04/18/2024 12:[address] [facility] Anion Gap 4 3 - 11 LAB CHEMISTRY METHOD 04/18/2024 12:29 PM [facility] Glucose 89 70 - 100 mg/dL LAB CHEMISTRY METHOD 04/18/2024 12:29 PM [facility] BUN 16 5 - 25 mg/dL LAB CHEMISTRY METHOD 04/18/2024 12:29 PM [facility] Creatinine 0.90 0.50 - 1.10 mg/dL LAB CHEMISTRY METHOD 04/18/2024 12:29 PM [facility] eGFR 72 >=60 mL/min/1. 73m2 LAB CHEMISTRY METHOD 04/18/2024 12:29 PM [facility] Comment:Calculation based on the??Chronic Kidney Disease Epidemiology Collaboration (CKD-EPI) equation refit??without adjustment for race. BUN/Creatinine Ratio 17.8 LAB CHEMISTRY METHOD 04/18/2024 12:29 PM [facility] Calcium 9.0 8.5 - 10.5 mg/dL LAB CHEMISTRY METHOD 04/18/2024 12:29 PM [facility] AST (SGOT) 24 10 - 42 unit/L LAB CHEMISTRY METHOD 04/18/2024 12:29 PM [facility] ALT (SGPT) 36 10 - 60 unit/L LAB CHEMISTRY METHOD 04/18/2024 12:29 PM [facility] Alkaline Phosphatase 258(H) 42 - 121 unit/L LAB CHEMISTRY METHOD 04/18/2024 12:29 PM [facility] Total Protein 7.8 6.0 - 8.0 g/dL LAB CHEMISTRY METHOD 04/18/2024 12:29 PM [facility] Albumin 3.6 3.2 - 5.0 g/dL LAB CHEMISTRY METHOD 04/18/2024 12:29 PM [facility] Total Bilirubin 0.3 0.0 - 1.4 mg/dL LAB CHEMISTRY METHOD 04/18/2024 12:29 PM [facility] Blood Venous blood specimen / Unknown Venipuncture / Unknown 04/18/2024 10:54 AM EST 04/18/2024 11:59 AM EST Jose Daniel Collazo MD LAB BLOOD ORDERABLES Final Resu lt [facility] [address] [place] [address], * Lipid panel (12/09/2022) LDL/HDL Ratio 3 0 - 4 Triglycerides 148 0 - 150 mg/dL Cholesterol 168 0 - 200 mg/dL HDL 65 >=40 mg/dL LDL Cholesterol 74 0 - 100 mg/dL Blood Venous blood specimen / Unknown Historical Provider LAB BLOOD ORDERABLES Sheyla l Result * Hepatitis C Screening (02/06/2018) Pathologist [facility] Hepatitis C Screening abstracted Historical Provider HEALTH MAINTENANCE Final Result from Last 3 Months or Most Recently Relevant to Health Maintenance Insurance [facility] Care Teams Supervisor Of Officials Relationship Specialty Start Date End Date Candy Almanzar PA 175 [facility] [address] [place] [address] PCP - General Internal Medicine 05/04/21
--- OUTSIDE RECORDS SUMMARY | 2024-05-28 10:28 | XMS_ITS | Encounter Summary ---
Author Organization [facility] Address [address] [place] [address] Care Team Providers Care Pillowcase Sewer Name Role Phone Candy Almanzar Primary Care Provider + Reason for Visit * Reason Comments Consult Ovarian mass * Consultation (Routine) - Closed Specialty Diagnoses / Procedures Referred By Rehan mccall Referred To Contact Gynecologic Oncology / Breast Surgery Diagnoses Ovarian mass Richa-Liza Cruz MD [address] [place] [address] Phone: tel: fax: Hilton Raymundo MD 271 [facility] [address] [place] [address] Phone: tel: fax: Referral ID Status Reason Start Date Expiration Date V isits Requested Visits Authorized [id number] Closed Specialty Services Required 04/19/2024 04/19/2025 1 1 Encounter Details Date Type Department Care Team (Late st Contact Info) Description 05/03/2024 1:20 PM EST Consult Breast Care Center [facility] 271 [facility] [address] [place] [address] Hilton Raymundo MD [address] [facility] [address] [place], [place] [id number] Adnexal mass (Primary Dx); Cysts of both [...] AM EST documented as of this encounter Last Filed [...] EST documented in this encounter Functional Status * Are you [...] Entry Date Author No 04/18/2024 3:02 PM EST Le Ingram RN documented in this encounter Progress Notes * Hilton Raymundo [...] by her granddaughter, Corinna. The patient is Australian-speaking and the encounter is performed with assistance of hazardous material specialist via video. To review her history: The patient initially presented with increasing abdominal discomfort and pain in the first week of April. She presented to the emergency room at [facility] on 04/18/2024. CT abdomen pelvis [...] Denies fevers, chills, bowel or urinary symptoms. 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 Oral contrast administered. Scanner: [employer] 64 slice VCT Dose reduction technique: ASIR (Adaptive statistical iterative reconstruction) and/or AEC (automated exposure control) Dose: total exam DLP 589 mGY per cm COMPARISON: No prior studies are available for comparison. FINDINGS: Mild branching xbya-ad-vfx-like attenuation within the lingula and inferior lateral [...] performed without IV contrast. DLP: 360.76 mGy/cm payeverT Iterative reconstruction technique Findings: Image detail is [...] not excluded. Short-term follow-up is [place]. [place] ([id number]) -------- FINAL REPORT -------- Dictated By: Mayi [...] was performed with the assistance of a hazardous material specialist, which further extended the time needed for the visit. Thank you for allowing me to participate in the care of Ms. Olga Bonilla at the [facility] today. Please do not hesitate to contact me with any questions or concerns. Hilton Raymundo MD Gynecologic Oncologist and Breast Surgeon [facility] [place] [address] CC: MD Candy Potts PA documented in this encounter Plan of Treatment Upcoming Encounters Date Type Department Care Team (Latest Contact Info) Description 06/04/2024 1:45 PM EST Hospital Encounter [facility] Main [place] [address] [place] [phone] Hilton Raymundo MD [address] [address] 06/04/2024 1:45 PM EST - 06/04/2024 4:[address] [facility] Main OR [address] [place] [phone] Hilton Raymundo MD [address] [address] Davinci assisted laparoscopic bilateral salpingo-oophorectom y, ? total hysterectomy, staging, open laparotomy. [[id number] (CPT??)] 06/19/2024 2:20 PM EDT Office Visit Breast Care Center [facility] [address] [phone] Hilton Raymundo MD [address] [address] 07/03/2024 1:00 PM EDT Office Visit Internal Medicine [facility] [address] [phone] Candy Almanzar PA [address] [address] 07/18/2024 11:15 AM EDT Office Visit [facility] Hematology Oncology [address] [place] [phone] Liza Guajardo MD [address] [place] [phone] Pending Results Name Type Priority Associated Diagnoses Date /Time Type and screen Lab Routine Adnexal mass Cysts of both ovaries Pelvic pain 05/28/2024 9:45 AM EST Scheduled Orders Name Type Priority Associated Diagnoses Orde r Schedule Type and screen Lab Routine Adnexal mass [...] 05/03/2024 documented in this encounter Care Teams Pillowcase Sewer Relationship Specialty Start Date End Date Kalnenieks, Candy C, PA [address] [place] [address] PCP - General Internal Medicine 05/04/21 documented as of this encounter
--- OUTSIDE RECORDS SUMMARY | 2024-05-28 10:28 | XMS_ITS | Clinical Summary ---
Author Organization [facility] Address [address] [place] [address] Care Team Providers Care Pathology Tech Name Role Phone Unavailable Primary Care Provider [...] (06/03/2015): 03/24/15 Eval by Nena Buckner at [facility] for Colon Consult. Will plan for colonoscopy. H/O mammogram 05/23/2015 Overview (05/23/2015): Done on 03/31/2015 at [facility]: no mammographic evidence of malignancy is seen. [...] on file Insurance [employer] [facility] [place] [id number] [employer] [facility] Member Subscriber Plan / Payer (Ef fective 2015-Present) Name:George Bonillaga Relation to Subscriber:Self Name:Chad Payer ID:[id number] Group ID:Not on file Type:Indemnity Address: [place] [address] [address] [address]
--- OUTSIDE RECORDS SUMMARY | 2024-05-28 10:29 | XMS_ITS | Encounter Summary ---
Author Organization [facility] Address [address] [place] [address] Care Team Providers Care Unhairing Machine Operator Name Role Phone Candy Almanzar Primary Care Provider + Reason for Visit * Reason Comments Follow-up [facility] ER 04/18/24 pelv ic pain Encounter Details Date Type Department Care Team (Late st Contact Info) Description 05/22/2024 1:00 PM EST Office Visit Internal Medicine - [place] [address] [place] [phone] Candy Almanzar PA [address] [place] [address] [place] [address] Adnexal mass (Primary Dx); Chronic neck and back pain Social History Tobacco Use Types Packs/Day Years [...] 05/22/2024 1:02 PM ES T Respiratory Rate - - Oxygen Saturation 98% 05/22/2024 1:02 PM EST Inhaled Oxygen Concentration - - Weight 64.9 kg (143 lb) 05/22/2024 1:02 PM EST Height 157.5 cm (5' 2 ) 05/22/2024 1:02 PM EST Body Mass Index 26.16 05/22/2024 1:02 PM EST documented in this encounter Functional [...] Le Velasco RN documented in this encounter Ordered Prescriptions Prescription Sig Dispense Quantity Refills Last Filled Start Date End Date tiZANidine (ZANAFLEX) 4 mg tabletIndications: Chronic neck and back pain Take 1 tablet (4 mg total) by mouth at bedtime as needed for muscle spasms (neck spasms). 90 tablet 1 05/22/2024 documented in this encounter Progress Notes * HARPAL May - 05/22/2024 1:00 PM EST CHIEF COMPLAINT: Follow-up ([facility] ER 04/18/24 pelvic pain) IDENTIFIER: Olga Bonilla is a 64 y.o. old female. HPI: ER follow-up. Patient was seen at [facility] ER 04/18/2024 with complaints of pelvic pain. CT scan abdomenand pelvis revealed bilateral adnexal cystic changes, scattered tree-in-bud attenuation as well as atelectasis within the lung bases suggesting atypical pneumonia. She did have CT of her chest which revealed scattered nodular airspace opacities in both lungs, possibly infectious/inflammatory in nature, with neoplastic process not excluded. Short- term follow-up was recommended. 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 Ca1 25 was in normal range. She was referred to [facility] oncologist Dr. Perez seen 05/03/2024 who recommended robotic assisted laparoscopic bilateral salpingo- oophorectomy, possible total hysterectomy, staging, open laparotomy which is scheduled 06/04/24. Of note she did f/u with her pulm Dr. Calvin recently who she see's for ILD, and he treated her with a course of oral prednisone. She was treated with a course of doxycycline at ER visit 04/18/24. She is also on symbicort 160/4.5 mcg 1 puff bid. She is on gabapentin 100 mg twice daily, meloxicam 15 mg daily as needed (holding now because sheis on prednisone) and tizanidine 4 mg nightly as needed for her neck and back pain, wants a refill on tizanidine. She also takes Tylenol for her pelvic pain. Accompanied by her granddaughter today. Other providers: Medical Insurance Collector Dr. Calvin - ILD Neurologist Dr. Jarquin - headaches Organisational Psychologist - Glaucoma Head Waiter Dr. Montero - hyperlipidemia, chest pain Psychiatrist at [address] - anxiety Enroute Controller Dr. White - neck pain ROS: GENERAL: Negative for malaise, significant weight loss and fever RESPIRATORY: No cough, wheezing or shortness of breath CARDIOVASCULAR: No chest pain, leg swelling or palpitations SKIN: No lesions, rash or itching NEURO: No headaches or dizziness PAST MEDICAL HISTORY: Patient Active Problem List Diagnosis Date Noted [...] (CMS/HCC) 01/20/2017 Interstitial lung disease (CMS/HCC) 01/20/2017 Past Surgical History: Procedure Laterality Date CHOLECYSTECTOMY [...] artery disease Uncle Coronary artery disease Sister MEDICATIONS DISCONTINUED/REORDERED: Medications Discontinued During This Encounter Medication Reason tiZANidine (ZANAFLEX) 4 mg tablet Reorder ACTIVE MEDICATIONS: Outpatient Medications Marked as Taking for the 05/22/24 encounter (Office Visit) with HARPAL May Medication Sig Dispense Refill tiZANidine (ZANAFLEX) 4 mg tablet Take 1 tablet (4 mg total) by mouth at bedtime as needed for muscle spasms (neck spasms). 90 tablet 1 ALLERGIES: No Known Allergies PHYSICAL EXAM: Visit Vitals BP 128/88 (BP Location: Left arm, Patient Position: Sitting, BP Cuff Size: Adult) Pulse 70 Temp 36.6 ??C (97.9 ??F) (Temporal) Ht 1.575 m (62 ) Wt 64.9 kg (143 lb) SpO2 98% BMI 26.16 kg/m?? Smoking Status Former BSA 1.66 m?? APPEARANCE: Alert and in no acute distress EYES: Conjunctiva and sclera normal. HEART: RRR LUNG: clear to auscultation bilaterally EXTREMITIES: No edema NEURO: Awake, alert and oriented x 3 SKIN: Skin color normal. Warm and dry. LABS: Admission on 04/18/2024, Discharged on 04/18/2024 Component Date Value Ref Range Status Sodium 04/18/2024 137 133 - 145 mmol/L Final Potassium 04/18/2024 4.0 3.5 - 5.5 mmol/L Final Chloride 04/18/2024 106 96 - 110 mmol/L Final CO2 04/18/2024 27 21 - 32 mmol/L Final Anion Gap 04/18/2024 4 3 - 11 Final Glucose 04/18/2024 89 70 - 100 mg/dL Final BUN 04/18/2024 16 5 - 25 mg/dL Final Creatinine 04/18/2024 0.90 0.50 - 1.10 mg/dL Final eGFR 04/18/2024 72 >=60 mL/min/1.73m2 Final Calculation based on the Chronic Kidney Disease Epidemiology Collaboration (CKD- EPI) equation refitwithout adjustment for race. BUN/Creatinine Ratio 04/18/2024 17.8 Final Calcium 04/18/2024 9.0 8.5 - 10.5 mg/dL Final AST (SGOT) 04/18/2024 24 10 - 42 unit/L Final ALT (SGPT) 04/18/2024 36 10 - 60 unit/L Final Alkaline Phosphatase 04/18/2024 258 (H) 42 - 121 unit/L Final Total Protein 04/18/2024 7.8 6.0 - 8.0 g/dL Final Albumin 04/18/2024 3.6 3.2 - 5.0 g/dL Final Total Bilirubin 04/18/2024 0.3 0.0 - 1.4 mg/dL Final WBC 04/18/2024 8.5 4.8 - 10.8 K/mcL Final RBC 04/18/2024 3.70 (L) 3.80 - 4.80 M/mcL Final Hemoglobin 04/18/2024 11.1 (L) 11.5 - 16.0 g/dL Final Hematocrit 04/18/2024 35.3 35.0 - 47.0 % Final MCV 04/18/2024 95.4 79.0 - 98.0 FL Final MCH 04/18/2024 30.0 27.0 - 32.0 pcg Final MCHC 04/18/2024 31.4 (L) 32.0 - 37.0 g/dL Final RDW 04/18/2024 12.4 11.0 - 15.0 % Final Platelets 04/18/2024 340 130 - 400 K/mcL Final MPV 04/18/2024 8.7 7.0 - 11.0 FL Final NRBC 04/18/2024 0.0 <1.0 % Final NRBC Absolute 04/18/2024 0.00 <0.10 K/mcL Final Neutrophils Relative 04/18/2024 76.8 % Final Lymphocytes Relative 04/18/2024 16.6 % Final Monocytes Relative 04/18/2024 5.2 % Final Eosinophils Relative 04/18/2024 0.7 % Final Basophils Relative 04/18/2024 0.2 % Final Immature Granulocytes Relative 04/18/2024 0.5 % Final Neutrophils Absolute 04/18/2024 6.53 1.50 - 7.00 K/mcL Final Lymphocytes Absolute 04/18/2024 1.41 1.00 - 5.00 K/mcL Final Monocytes Absolute 04/18/2024 0.44 0.20 - 1.00 K/mcL Final Eosinophils Absolute 04/18/2024 0.06 0.00 - 0.50 K/mcL Final Basophils Absolute 04/18/2024 0.02 0.00 - 0.20 K/mcL Final Immature Granulocytes Absolute 04/18/2024 0.04 (H) 0.00 - 0.03 K/mcL Final Specific Davis Urine 04/18/2024 1.007 1.003 - 1.030 Final pH, Urine 04/18/2024 6.5 5.0 - 8.0 pH Final Leukocytes, Urine 04/18/2024 Negative Negative Final Nitrite, Urine 04/18/2024 Negative Negative Final Protein, Urine 04/18/2024 Negative <=Trace mg/dL Final Glucose, Urine 04/18/2024 Negative Negative mg/dL Final Ketones, Urine 04/18/2024 Negative Negative mg/dL Final Urobilinogen, Urine 04/18/2024 0.2 0.2 - 1.0 mg/dL Final Bilirubin, Urine 04/18/2024 Negative Negative Final Blood, Urine 04/18/2024 Trace (A) Negative Final RBC, Urine 04/18/2024 2.2 0 - 4 /HPF Final WBC, Urine 04/18/2024 0.1 0 - 4 /HPF Final Squamous Epithelial, Urine 04/18/2024 2 0 - 60 /LPF Final Bacteria, Urine 04/18/2024 Negative Negative /HPF Final Hyaline Casts, Urine 04/18/2024 0.0 0 - 3 /LPF Final Extra Tube 04/18/2024 Hold for add-ons. Final Auto resulted. CA 125 04/18/2024 14.2 <35.0 unit/mL Final Abstract on 2024 Component Date Value Ref Range Status Hepatitis C Screening 02/06/2018 abstracted Final Annual BMP Blood Test 10/03/2022 abstracted Final LDL/HDL Ratio 12/09/2022 3 0 - 4 Final Triglycerides 12/09/2022 148 0 - 150 mg/dL Final Cholesterol 12/09/2022 168 0 - 200 mg/dL Final HDL 12/09/2022 65 >=40 mg/dL Final LDL Cholesterol 12/09/2022 74 0 - 100 mg/dL Final Medication and lab orders: No orders of the defined types were placed in this encounter. Other orders: None IMAGING: See HPI IMPRESSION: 1. Adnexal mass 2. Chronic neck and back pain PLAN: Bilateral adnexal mass scheduled for surgery this month. Obtained and reviewed records from [facility] ER 04/18/2024, oncologist 04/19/2024, [facility] oncologist 05/03/2024. Tizanidine refilled for her neck and backpain. Follow-up with me in 6 weeks. Call sooner if needed. HARPAL May on 05/22/2024 at 4:05 PM EST documented in this encounter Plan of Treatment Upcoming Encounters Date Type Department Care Team (Latest Contact Info) Description 06/04/2024 1:45 PM EST Hospital Encounter [facility] Main OR [address] [place] [phone] Hilton Raymundo MD [address] [address] 06/04/2024 1:45 PM EST - 06/04/2024 4:45 PM EST Surgery [facility] Main OR [address] [place] [phone] Hilton Raymundo MD [address] [address] Davinci assisted laparoscopic bilateral salpingo-oophorectom y, ? total hysterectomy, staging, open laparotomy. [[id number] (CPT??)] 06/19/2024 2:20 PM EDT Office Visit Breast Care Center [facility] [address] [phone] Hilton Raymundo MD [address] [address] 07/03/2024 1:00 PM EDT Office Visit Internal Medicine [facility] [address] [phone] Candy Almanzar, PA [address] [address] 07/18/2024 11:15 AM EDT Office Visit [facility] Hematology Oncology [address] [place] [phone] Liza Guajardo MD [address] [place] [phone] Scheduled Procedures Name Priority Associated Diagnoses Date/Ti me OOPHORECTOMY ROBOT TWO Adnexal mass Cysts of both ovaries Pelvic pain 06/04/2024 1:45 PM EST documented as of this encounter Visit Diagnoses Diagnosis Adnexal mass Other specified symptom associated with female genital organs Cysts of both ovaries Other and unspecified ovarian cyst Pelvic pain Adnexal mass- Primary Other specified symptom associated with female genital organs Chronic neck and back pain Adnexal mass Other specified symptom associated with female genital organs Cysts of both ovaries Other and unspecified ovarian cyst Pelvic pain documented in this encounter Discontinued Medications Medication Sig Discontinue Reason Start Date End Da te tiZANidine (ZANAFLEX) 4 mg tabletIndications:Chroni c neck and back pain Take 1 tablet (4 mg total) by mouth at bedtime as needed for muscle spasms (neck spasms). Reorder 02/20/2024 05/22/2024 documented as of this encounter Care Teams Unhairing Machine Operator Relationship Specialty Start Date End Date Candy Almanzar PA [address] [place] [address] PCP - General Internal Medicine 05/04/21 documented as of this encounter
== END 2024-05-28 10:26 | disposition home or self-care (01) ==
LOC: HO.XRAY 10:25
PROVIDERS: PCP Physician Assistant; Visit Provider Hospitalist
DX: J84.89 Other specified interstitial pulmonary diseases (principal)
CPT/HCPCS: 71046

== ENCOUNTER → 2024-05-28 10:30 | Outpatient (BNV) | payer OTHER, SELFPAY | PROVIDERS: PCP Physician Assistant; Visit Provider Radiology Diagnostic Radiology | DX: J84.89 Other specified interstitial pulmonary diseases (principal) | CPT/HCPCS: 71046 ==

== ENCOUNTER 2024-07-18 09:52 | Outpatient (AMB) | payer OTHER, SELFPAY ==
--- NOTE | 2024-07-18 10:08 | MHC.OFFVIS ---
Vital Signs 07/18/24 10:09 Height 5 ft 2 in Weight 152 lb 1.903 oz BMI 27.8 BP 130/64 Blood Pressure Location Rt brachial Position Sitting Pulse 71 Pulse Source Pulse Oximeter Pulse Oximetry (%) 100 Oxygen Delivery Method Room Air Intake Visit Reasons: COPD Allergies No Known Allergies Allergy (Verified 07/18/24 10:12) HPI Comments Details: The patient is a 64-year-old woman with a known history of elevated ROSEY in addition to interstitial lung disease in the past with evidence of organizing pneumonia biopsy. The patient had been doing very well. She recovered completely from the interstitial lung disease. This happened many years ago and she hasn't had any recurrence. Her respiratory status has been stable. She has been evaluated at [facility] with left-sided headaches. The been significant affecting her whole left side. She went to the ER there she had an x-ray that was relatively normal. She also had blood work demonstrating an elevated creatinine. It is unclear at this point. However, she did have elevations in the an a in the past. Subsequent workup for the positive ROSEY resulted in negative double-stranded DNA. The patient had had some arthritis and rashes in the past but she no longer has does findings. The patient is here for pulmonary follow-up visit. The patient is a 59-year-old woman with a known history of elevated ROSEY in addition to interstitial lung disease in the past with evidence of organizing pneumonia biopsy. The patient had been doing very well. She recovered completely from the interstitial lung disease. This happened many years ago and she hasn't had any recurrence. Her respiratory status has been stable. She has been evaluated at [facility] with left-sided headaches. The been significant affecting her whole left side. She went to the ER there she had an x-ray that was relatively normal. She also had blood work demonstrating an elevated creatinine. It is unclear at this point. However, she did have elevations in the an a in the past. Subsequent workup for the positive ROSEY resulted in negative double-stranded DNA. The patient had had some arthritis and rashes in the past but she no longer has does findings. 03/26/2024 the patient is here for a pulmonary follow-up visit. Overall the patient has been doing well. She did develop COVID over the summer while she was in [place] and she was treated with prescriptions medicines. She did require a nebulizer and also albuterol for her wheezing. Subsequently after that she got back to the [facility] and she developed the flu. She decided not to seek medical care so therefore she continue with conservative therapies at home. She knows back to her baseline will make sure she has inhalers to be able to take a. Her last chest x-ray was back in July and it was intact without any acute disease. In addition to that she is complaining of some arthralgias and myalgias. At this point she has had elevations in her ROSEY therefore Rheumatology referral will be warranted. She is going to follow-up with her primary care and though hopefully refer her to Rheumatology of the time. 05/11/2024 the patient is here for sick visit. Apparently she started developing worsening pelvic discomfort. She went to [facility] where she was evaluated in the ER. She had a CT scan of the abdomen. It demonstrates she had adnexal masses bilaterally. They were concerned for malignancy. In addition to that picked up some changes on the lung windows. Therefore she underwent a CT scan of the chest. The description demonstrates areas of opacities airspace disease with ground-glass opacities. The patient is asymptomatic denies any cough wheezing. She denies any recent viral syndromes. She does have joint pains. She does take Motrin and also other Ryder 2 inhibitors for that. The patient was seen by Oncology. And she also seen a general surgeon and she is going to undergo surgery. She does have a history of positive ROSEY and has a history of cryptogenic organizing pneumonia treated with prednisone while in [place]. Most likely she has an underlying active interstitial process. Her previous x-rays have been okay. Will go ahead and start her on prednisone after she gets blood work and then will follow-up with an x-ray in a few weeks to see if there is interval improvement of the areas. Ultimately she will need another CT scan and only to review the images from [facility]. 07/18/2024 the patient is here for pulmonary follow-up visit. He is status post surgery. It went well. The masses on the ovaries were benign tumors. This is per report. She tolerated surgery well that she did have significant pain afterwards. She did complain of prednisone as prescribed. The patient's breathing is better. She does have arthralgias. She does have Rheumatology evaluation pending. We did plenty of blood work. We did fever copies. Her connective tissue disease workup was only positive for the low titer ROSEY but everything else was negative for any specific connective tissue disease. She will follow-up with Rheumatology. Otherwise patient is doing well. Will have her repeat her CT scan sometime November or December to follow-up with the basilar opacities and ground-glass opacities. In addition to that will have her undergo pulmonary function studies in the follow-up after that. If she has any issues between now and then she is going to call for earlier if asthma [facility] Medical History (Updated 05/11/24 @ 09:10 by Jose Carlos Calvin MD) Pneumonitis ILD (interstitial lung disease) Cervical neuralgia GERD (gastroesophageal reflux disease) Vitamin D deficiency Hypercholesterolemia Palpitations Insomnia Organizing pneumonia ROSEY positive Cough Surgical History (Updated 12/10/22 @ 13:50 by Christi Ovalle PA-C) History of laparoscopic cholecystectomy Family History (Updated 12/10/22 @ 13:53 by Christi Ovalle PA-C) Father Prostate cancer Mother Stroke, Onset Age: 65 Brother Myocardial infarction Social History Patient Tobacco Use Status: Former Tobacco user Tobacco use type: Cigarette Years Smoked: 20 years Review of Systems Const Denies night sweats ENT Denies change in voice, Denies lip swelling, Denies mouth pain, Reports nasal congestion, Reports nasal discharge and Denies tongue swelling Card Denies chest pain and Denies dyspnea on exertion Resp Reports cough and Denies dyspnea on exertion GI Denies abdominal pain Reports as per HPI Musc Reports back pain, Reports myalgias and Reports arthralgias Skin/Breast Reports rash Neuro Denies Neuro-related abnormal movements Psych Denies no additional complaints Nick/Lymph Denies easy bleeding and Denies lymphadenopathy Aller/Immun Denies lip swelling and Denies tongue swelling Physical Exam Vital Signs: Last Vital Signs Pulse 71 07/18/24 10:09 BP 130/64 07/18/24 10:09 Pulse Ox 100 07/18/24 10:09 Oxygen Delivery Method Room Air 07/18/24 10:09 BMI result Body Mass Index 27.8 Assessment & Plan Assessment & Plan (1) Organizing pneumonia: Code(s): J84.89 - Other specified interstitial pulmonary diseases Category: Medical (2) ROSEY positive: Code(s): R76.8 - Other specified abnormal immunological findings in serum Category: Medical (3) Cough: Code(s): R05 - Cough Category: Medical Qualifiers: Cough type: chronic Qualified Code(s): R05.3 - Chronic cough (4) Insomnia: Code(s): G47.00 - Insomnia, unspecified Category: Medical Qualifiers: Insomnia type: primary Qualified Code(s): F51.01 - Primary insomnia (5) ILD (interstitial lung disease): Code(s): J84.9 - Interstitial pulmonary disease, unspecified Category: Medical (6) Pneumonitis: Code(s): J98.4 - Other disorders of lung Category: Medical Plan repeat CT chest 11/2024 to f/u pneumonitis continue Symbicort NOEL as needed Rheumatology referral pending PFTs follow-up December 2024 Orders: Orders PFT pulmonary function test 11/26/24 J84.9 - Interstitial pulmonary disease, unspecified, J98.4 - Other disorders of lung CT chest wo IV con 11/26/24 J84.9 - Interstitial pulmonary disease, unspecified, J98.4 - Other disorders of lung Coding Level of Care Code Est Pt Level 4 (14915) Diagnoses Organizing pneumonia J84.89 ROSEY positive R76.8 Chronic cough R05.3 Cough type: chronic Primary insomnia F51.01 Insomnia type: primary ILD (interstitial lung disease) J84.9 Pneumonitis J98.4 Time Spent (min) 16
[2024-07-18 10:09] VITALS: BP 130/64; PULSE 71; O2SAT 100; BMI 27.8
--- OUTSIDE RECORDS SUMMARY | 2024-07-18 10:53 | XMS_ITS | Encounter Summary ---
Author Organization [facility] Address [address] [place] [address] Care Team Providers Care Diagnostic Tech Name Role Phone Krystal Foster MD Primary Care Provider [facility] Danyel Anthony MD Primary Care Provider [phone] Danyel Anthony MD Primary Care Provider [phone] Candy Almanzar PA-C Primary Care Provider + Axel Montero MD Unavailable [phone] Dorothea Barragan NP Unavailable [phone] Encounter Details Date Type Department Care Team Description 12/31/2016 SCAN Medical Records [address] [place] [address] Abstract, Provider Social History Tobacco Use Types Packs/Day Years Used Date Smoking Tobacco: Never Assessed Sex Assigned at Date Recorded Not on file Job Start Date Occupation Industry Not on file Not on file Not on file documented as of this encounter Plan of Treatment Not on file documented as of this encounter Procedures Procedure Name Priority Date/Time Associated Diagnosis Comments OUTSIDE CT Routine 12/31/[address] Routine 12/31/2016 documented in this encounter Results * OUTSIDE CT (12/31/2016) Provider Default RADIOLOGY * OUTSIDE CT (12/31/2016) Provider Default RADIOLOGY documented in this encounter Visit Diagnoses Not on filedocumented in this encounter Care Teams Diagnostic Tech Relationship Specialty Start Date End Date Krystal Foster MD PCP - General Internal Medicine 05/26/17 Danyel Anthony MD [address] [place] [address] PCP - General Internal Medicine 07/18/17 05/03/21 Danyel Anthony MD [address] [place] [address] PCP - General 12/31/16 05/25/17 Candy Almanzar PA-C [address] [place] [address] PCP - General Internal Medicine 05/04/21 Axel Montero MD [address] [place] [address] Specialist Cardiovascular Disease 09/09/22 Dorothea Barragan NP [address] [place] [address] [id number] Cardiology 09/07/23 documented as of this encounter
--- OUTSIDE RECORDS SUMMARY | 2024-07-18 10:53 | XMS_ITS | Encounter Summary ---
Author Organization [facility] Address [address] [place] [address] Care Team Providers Care Inspecting Engineer Name Role Phone Candy Almanzar PA-C Primary Care Provider + Axel Montero MD Unavailable [phone] Dorothea Barragan NP Unavailable Reason for Visit * Reason Comments E-prescribe Rx Request Encounter Details Date Type Department Care Team Description 06/24/2022 Refill Internal Medicine - [address], [address] [place] [address] Candy Almanzar PA-C [address] [place] [phone] E-prescribe Rx Request Social History Tobacco [...] region documented in this encounter Care Teams Inspecting Engineer Relationship Specialty Start Date End Date Candy Almanzar PA-C PCP - General Internal Medicine 05/04/21 Axel Montero MD [address] [place] [address] [place] [address] Specialist Cardiovascular Disease 09/09/22 Dorothea Barragan NP [address] [place] [address] [address] Cardiology 09/07/23 documented as of this encounter
--- OUTSIDE RECORDS SUMMARY | 2024-07-18 10:53 | XMS_ITS | Encounter Summary ---
Author Organization [facility] Address [address] [place] [address] Care Team Providers Care Dormitory Maid Name Role Phone Candy Almanzar PA-C Primary Care Provider + Axel Montero MD Unavailable [phone] Dorothea Barragan NP Unavailable [phone] Reason for Visit * Reason Onset Date Comments refill request 01/02/2024 Encounter Details Date Type Department Care Team Description 01/02/2024 Refill Internal Medicine - [address], [address] [place] [address] Candy Almanzar PA-C [address] [place] [phone] refill request Social History Tobacco Use [...] region documented in this encounter Care Teams Dormitory Maid Relationship Specialty Start Date End Date Candy Almanzar PA-C PCP - General Internal Medicine 05/04/21 Axel Montero MD [address] [place] [address] Specialist Cardiovascular Disease 09/09/22 Dorothea Barragan NP [address] [place] [address] Cardiology 09/07/23 documented as of this encounter
--- OUTSIDE RECORDS SUMMARY | 2024-07-18 10:53 | XMS_ITS | Encounter Summary ---
Author Organization [facility] [facility] Address [address] [place] [address] Care Team Providers Care Wire Photo Operator News Name Role Phone Candy Almanzar PA-C Primary Care Provider + Axel Montero MD Unavailable [phone] Dorothea Barragan NP Unavailable [phone] Encounter Details Date Type Department Care Team Description 09/13/2023 Orders Only Cardio [facility] [address] [place] [address] [address] [place] [address] Default, Provider Social History Tobacco [...] on filedocumented in this encounter Care Teams Wire Photo Operator News Relationship Specialty Start Date End Date Candy Almanzar PA-C PCP - General Internal Medicine 1/24/22 Axel Montero MD [address] [place] [address] Specialist Cardiovascular Disease 09/09/22 Dorothea Barragan NP [address] [place] [address] Cardiology 09/07/23 documented as of this encounter
--- OUTSIDE RECORDS SUMMARY | 2024-07-18 10:53 | XMS_ITS | Clinical Summary ---
Author Organization [facility] Address [address] [place] [address] Care Team Providers Care Gore Maker Name Role Phone Candy Almanzar PA-C Primary Care Provider + Axel Montero MD Unavailable [phone] Dorothea Barragan NP Unavailable Allergies Active Allergy Reactions Severity Noted Date Comments No Known Drug Allergies 01/20/2017 Medications Medication Sig Dispensed Refills Start Date End Date Status Eszopiclone 3 MG Tab Take 3 mg by mouth at bedtime as needed. 0 Active Cholecalciferol (Vitamin D) 50 MCG (1999) CapIndications:Vitamin D deficiency Take 1 Capsule by mouth daily. 90 Capsule 3 08/30/2022 Active aspirin 81 MG chewable tablet Take 1 Tablet by mouth daily. 0 Active fluoxetine (PROZAC) 10 MG tablet Take 1 Tablet by mouth daily. 0 Active amitriptyline (ELAVIL) 10 MG tablet Take 1 Tablet by mouth at bedtime. 0 Active lorazepam (ATIVAN) 0.5 MG tablet Take 1 Tablet by mouth every 6 hours as needed. 0 Active tizanidine (ZANAFLEX) 4 MG tabletIndications:Cervico- occipital neuralgia TAKE 1 TABLET BY MOUTH EVERY NIGHT AT BEDTIME NEEDED FOR MUSCLE SPASMS 30 Tablet 2 09/21/2023 Active meloxicam (MOBIC) 15 MG tabletIndications:Cervico- occipital neuralgia Take 1 Tablet by mouth daily. 30 Tablet 0 01/05/2024 Active gabapentin (NEURONTIN) 100 MG capsuleIndications:Chronic neck and back pain Take 1 Capsule by mouth 2 times daily. 60 Capsule 1 01/20/2024 Active atorvastatin (LIPITOR) 20 MG tabletIndications:Pure hypercholesterolemia TAKE 1 TABLET BY MOUTH DAILY. 90 Tablet 3 02/08/2024 Active Active Problems Problem Noted Date History of cardiac catheterization 10/04 Overview: Done on 09/12/2023 at [facility] indications: Chest tightness w / exertion CAD (coronary artery disease) 02/22/2023 Last Assessment & Plan: Patient has a [...] they were to faint. Chest pain 11/12/2022 Last Assessment & Plan: The patient came [...] related to her symptoms. Pure hypercholesterolemia 03/02/2022 Last Assessment & Plan: The patient has [...] routine medical care. Vitamin D deficiency 03/02/2022 GERD (gastroesophageal reflux disease) 0 07/29/2017 Positive ROSEY (antinuclear antibody) 07/11 Cyst of right kidney 07/29/2017 Pain, joint, multiple sites 07/29/2017 Interstitial lung disease 01/20/2017 Fibrosis of lung 01/20/2017 Asthma Resolved Problems Problem Noted Date Resolved Date History of interstitial lung disease 08/05/2017 08/30/2017 Immunizations Name Administration Dates Next Due Influenza Vaccine-preservati ve Free-quadrivalent 4 Years 05/04/2021 Family History Medical History Relation Name Comments [place] Brother No Known Problems Daughter 1 No Known Problems Daughter 2 Cancer of the Prostate Father CAD Mother Stroke Mother stroke at age 6 5, heart problems, cancer ? type, HTN CAD Sister CAD Uncle Relation Name Status Comments Brother Daughter 1 Daughter 2 Father Mother Sister Uncle Social History Tobacco Use Types Packs/Day Years Used Date Smoking Tobacco: Former Cigarettes 0.3 20 Smokeless Tobacco: Never Tobacco Cessation:Counseling Given: Not Answered Alcohol Use Standard Drinks/Week Comments No 0 (1 standard drink = 0.6 oz pur e alcohol) Sex Assigned at Date Recorded Not on file Job Start Date Occupation Industry Not on file Not on file Not on file Last Filed Vital Signs Vital Sign Reading Time Taken Comments Blood Pressure 112/72 01/20/2024 3:53 PM EDT Pulse 76 01/20/2024 3:53 PM EDT Temperature 36.4 ??C (97.5 ??F) 05/17/2023 3:52 PM ES T Respiratory Rate 14 08/15/2018 2:29 PM EDT Oxygen Saturation 94% 10/27/2023 9:40 AM EDT Inhaled Oxygen Concentration - - Weight 64.7 kg (142 lb 9.6 oz) 01/20/2024 3:53 P M EDT Height 157.5 cm (5' 2 ) 01/20/2024 3:53 PM EDT Body Mass Index 26.08 01/20/2024 3:53 PM EDT Plan of Treatment Health Maintenance Due Date Last Done Comments Covid-19 Vaccine (#1) 1961 DTAP/TDAP/TD (1 - Tdap) 01/24/1980 CERVICAL CANCER SCREENING 1982 MAMMOGRAM 2001 COLON CANCER SCREENING 2011 SHINGLES VACCINE (1 of 2) 2011 BMI CHECK/ADVISE 04/11/2024 01/20/2024, , 08/30/2022, Additional history exists DEPRESSION SCREENING/FOLLOWUP 04/11/2024 01/15/2022, 10/19/2019 SOCIAL NEEDS SCREENING 04/11/2024 05/13/2023 INFLUENZA (Season Ended) 2024 05/04/2021 BASELINE HEALTH EXAM 40-64 01/24/202601/24, 01/20/2024, 05/17/2023, Additional history exists PNEUMOCOCCAL VACCINE FOR HIG H RISK PATIENTS (#2) 06/04/2027 06/04/2022 CHOLESTEROL SCREENING 01/24/2029 01/25/2024 , 01/25/2024, 12/09/2022, Additional history exists HEPATITIS C SCREENING Completed 02/06/2018 Care Teams Gore Maker Relationship Specialty Start Date End Date Candy Almanzar PA-C PCP - General Internal Medicine 05/04/21 Axel Montero MD [address] [place] [address] Specialist Cardiovascular Disease 09/09/22 Dorothea Barragan NP [address] [place] [address] Cardiology 09/07/23
--- OUTSIDE RECORDS SUMMARY | 2024-07-18 10:53 | XMS_ITS | Encounter Summary ---
Author Organization [employer] [facility] Address [address] [place] [address] Care Team Providers Care Chain Forming Machine Operator Name Role Phone Candy Almanzar PA-C Primary Care Provider + Axel Montero MD Unavailable [phone] Dorothea Barragan NP Unavailable [phone] Encounter Details Date Type Department Care Team Description 08/07/2022 Hospital Medical Records [address] [place] [id number] Social History Tobacco Use Types Packs/Day Years [...] Name Priority Date/Time Associated Diagnosis Comments OUTSIDE NUCLEAR STRESS TEST Routine 08/08/2022 OUTSIDE NUCLEAR MEDICINE Routine 08/08/2022 OUTSIDE LAB Routine 08/08/2022 OUTSIDE EKG Routine 08/07/[address] Routine 08/07/2022 OUTSIDE PLAIN FILM Routine 08/07/2022 OUTSIDE LAB Routine 08/07/2022 documented in this encounter Results * OUTSIDE NUCLEAR MEDICINE (08/08/2022) Provider Default RADIOLOGY * OUTSIDE LAB (08/08/2022) Provider Default LAB * OUTSIDE NUCLEAR STRESS TEST (08/08/2022) Provider Default CARDIOLOGY * OUTSIDE CT (08/07/2022) Provider Default RADIOLOGY * OUTSIDE PLAIN FILM (08/07/2022) Provider Default RADIOLOGY * OUTSIDE LAB (08/07/2022) Provider Default LAB * OUTSIDE EKG (08/07/2022) Provider Default CARDIOLOGY documented in this encounter Visit Diagnoses Not on filedocumented in this encounter Care Teams Chain Forming Machine Operator Relationship Specialty Start Date End Date Candy Almanzar PA-C PCP - General Internal Medicine 05/04/21 Axel Montero MD [address] [place] [address] Specialist Cardiovascular Disease 09/09/22 Dorothea Barragan NP [address] [place] [address] Cardiology 09/07/23 documented as of this encounter
--- OUTSIDE RECORDS SUMMARY | 2024-07-18 10:54 | XMS_ITS | Encounter Summary ---
Author Organization [facility] Address [address] [place] [address] Care Team Providers Care Bulb Filler Name Role Phone Danyel Anthony MD Primary Care Provider [phone] Candy Almanzar PA-C Primary Care Provider + Axel Montero MD Unavailable [phone] Dorothea Barragan NP Unavailable [phone] Reason for Visit * Reason Onset Date Comments Tobacco Primer Machine Operator Feedback 04/09/2021 Insurance Auth ( Dr. Jose Carlos Calvin) Encounter Details Date Type Department Care Team Description 04/09/2021 Telephone Internal Medicine - [address], [address] [place] [address] Danyel Anthony MD [address] [place] [address] Tobacco Primer Machine Operator Feedback (Insurance Auth (Dr. Jose Carlos Calvin)) [...] : DANYEL ANTHONY Submitter Type: Provider Referral (#[id number]) Specialty Care Review Type: Initial Certification Status : Certified in total Service Type : Medical Care Place Of Service : Office Visits : 6 Service Date : 04/11/2021-04/11/2022 Service Providers Provider Name ID Provider Type JOSE CARLOS CALVIN NPI : [id number] Service Provider documented in this encounter Plan of Treatment Not on file documented as of this encounter Visit Diagnoses Not on filedocumented in this encounter Care Teams Bulb Filler Relationship Specialty Start Date End Date Danyel Anthony MD [address] [place] [address] PCP - General Internal Medicine 07/18/17 05/03/21 Candy Almanzar PA-C [address] [place] [address] PCP - General Internal Medicine 05/04/21 Axel Montero MD [address] [place] [address] Specialist Cardiovascular Disease 09/09/22 Dorothea Barragan NP [address] [place] [address] Cardiology 09/07/23 documented as of this encounter
--- OUTSIDE RECORDS SUMMARY | 2024-07-18 10:54 | XMS_ITS | Encounter Summary ---
Author Organization [facility] Address [address] [place] [address] Care Team Providers Care Emergency Veterinary Assistant Name Role Phone Danyel Anthony MD Primary Care Provider [phone] Candy Almanzar PA-C Primary Care Provider + Axel Montero MD Unavailable [phone] Dorothea Barragan NP Unavailable [phone] Encounter Details Date Type Department Care Team Description 04/12/2019 Manager Hardware Report Medical Records [address] [place] [address] Jose Carlos Calvin MD Social History Tobacco [...] on filedocumented in this encounter Care Teams Emergency Veterinary Assistant Relationship Specialty Start Date End Date Danyel Anthony MD [address] [place] [address] PCP - General Internal Medicine 07/18/17 05/03/21 Candy Almanzar PA-C [address] [place], [place] [phone] PCP - General Internal Medicine 05/04/21 Axel Montero MD [address] [place] [address] Specialist Cardiovascular Disease 09/09/22 Dorothea Barragan NP [address] [place] [address] [id number] Cardiology 09/07/23 documented as of this encounter
--- OUTSIDE RECORDS SUMMARY | 2024-07-18 10:54 | XMS_ITS | Encounter Summary ---
Author Organization [facility] Address [address] [place] [address] Care Team Providers Care Analytical Clerk Name Role Phone Candy Almanzar PA-C Primary Care Provider + Axel Montero MD Unavailable [phone] Dorothea Barragan NP Unavailable [phone] Encounter Details Date Type Department Care Team Description 06/02/2021 Console Attendant Report Medical Records [address] [place] [address] Jose Carlos Calvin MD Social History Tobacco [...] on filedocumented in this encounter Care Teams Analytical Clerk Relationship Specialty Start Date End Date Candy Almanzar PA-C PCP - General Internal Medicine 05/04/21 Axel Montero MD [address] [place] [address] Specialist Cardiovascular Disease 09/09/22 Dorothea Barragan NP [address] [place] [address] [address] Cardiology 09/07/23 documented as of this encounter
--- OUTSIDE RECORDS SUMMARY | 2024-07-18 10:54 | XMS_ITS | Encounter Summary ---
Author Organization [facility] Address [address] [place] [address] Care Team Providers Care Anthropologist Name Role Phone Candy Almanzar PA-C Primary Care Provider + Axel Montero MD Unavailable [phone] Dorothea Barragan NP Unavailable [phone] Reason for Visit * Reason Onset Date Comments Medical Records 01/12/2023 Encounter Details Date Type Department Care Team Description 01/12/2023 Telephone Cardio [facility] [address] [place] [address] [address] [place] [address] Axel Montero MD [address] [place] [address] [address] [place], [place] [id number] Medical Records Social History Tobacco Use Types Packs/Day Years [...] suspected to have Coronavirus/COVID-19? No / Unsure 01/05/2023 9:41 AM EDT documented as of this encounter Miscellaneous Notes * Telephone Encounter - Anitra Smiht - 01/12/2023 4:39 PM EDT Printed and faxed the 11/16/22 office note to [phone]. Fax confirmed sent 8 pages on 01/12/23 @ 3:42pm. * Telephone Encounter - Bettina Macdonald - 01/12/2023 11:22 AM EDT Medical Records Request Caller: Elyse Calling from: [facility] [place] dept Requesting provider's first & last name: Daya Pappas Direct Phone Number or Ext: [phone] What records are being requested: Office note How far back: 11/16/22 What is it for:CT Tuesday Needed by: JESSA . documented in this encounter Plan of Treatment Not on file documented as of this encounter Visit Diagnoses Not on filedocumented in this encounter Care Teams Anthropologist Relationship Specialty Start Date End Date Candy Almanzar PA-C PCP - General Internal Medicine 05/04/21 Axel Montero MD [address] [place] [address] Specialist Cardiovascular Disease 09/09/22 Dorothea Barragan NP [address] [place] [address] Cardiology 09/07/23 documented as of this encounter
--- OUTSIDE RECORDS SUMMARY | 2024-07-18 10:54 | XMS_ITS | Encounter Summary ---
Author Organization [facility] Address [address] [place] [address] Care Team Providers Care Special Forces Senior Sergeant Name Role Phone Candy Almanzar PA-C Primary Care Provider + Axel Montero MD Unavailable [phone] Dorothea Barragan NP Unavailable [phone] Encounter Details Date Type Department Care Team Description 11/16/2022 SCAN Medical Records [address] [place] [address] [facility] Social History Tobacco Use Types Packs/Day [...] Date/Time Associated Diagnosis Comments OUTSIDE LAB Routine 11/16/2022 documented in this encounter Results * OUTSIDE LAB (11/16/2022) Provider Abstract LAB documented in this encounter Visit Diagnoses Not on filedocumented in this encounter Care Teams Special Forces Senior Sergeant Relationship Specialty Start Date End Date Candy Almanzar PA-C PCP - General Internal Medicine 05/04/21 Axel Montero MD [address] [place] [phone] Specialist Cardiovascular Disease 09/09/22 Dorothea Barragan NP [address] [place] [address] Cardiology 09/07/23 documented as of this encounter
--- OUTSIDE RECORDS SUMMARY | 2024-07-18 10:54 | XMS_ITS | Encounter Summary ---
Author Organization [facility] Address [address] [place] [address] Care Team Providers Care Casino Floor Runner Name Role Phone Candy Almanzar PA-C Primary Care Provider + Axel Montero MD Unavailable [phone] Dorothea Barragan NP Unavailable [phone] Reason for Visit * Reason Onset Date Comments REFERRAL 03/19/2022 Dermatology [facility] Encounter Details Date Type Department Care Team Description 03/19/2022 Telephone Pulmonology - [place] [address] [place] [address] Candy Almanzar PA-C [address] [place] [address] RE[facility]AL [facility] Social History Tobacco [...] Shanda Brookeentes - 05/12/2022 1:59 PM EST Curling Machine Operator please advise see message below please contact patient. * Telephone Encounter - Joy Dakota Matamoros - 05/12/2022 10:30 AM EST Patient walked in, she has questions regarding this referral. She would like to know what is going on since she has not herd anything about it. Please Advise. * Telephone Encounter - Shanda Brookeentes - 03/23/2022 2:29 PM EST Curling Machine Operator please advise does provider need to put new referral orders for Dermatology and Nutrition patient insurance changed now only has [facility] referral that was processed does not accept [employer]. * Telephone Encounter - Candy Almanzar PA-C - 03/23/2022 11:05 AM EST Okay let me know if I need to place new referrals for dermatology and nutrition. Thank you. * Telephone Encounter - Shanda Najera - 03/23/2022 9:44 AM EST Candy, Yes that is correct per patient Dr. Sharma does not accept [employer]. I did send a message to the [...] she stated Dr. Sharma does not accept [employer] Patient needs to be seen by a dermetologist and Nutrionist who accepts [employer]. Not sure if Anitra takes [employer] but the previous issue was she could not see the nutrionist because Anitra is notcredentialed with [facility] patient no longer has behzad so maybe she can now see her. * Telephone Encounter - Shanda Najera - 03/22/2022 2:38 PM EST Curling Machine Operator please advise patient had nutriton referral placed on 03/02/22 note stated Anitra Pereira is not credientialed with [facility]. Patient no longer has behzad only [employer] can she now see the nutrionist.? * [...] Patient walked in, Her insurance change to I AM AT and she needs a new referral to a dermatologythat accepts [facility] since the one that was sent to doesn't. Please Advice documented in this encounter Plan of Treatment Not on file documented as of this encounter Visit Diagnoses Not on filedocumented in this encounter Care Teams Casino Floor Runner Relationship Specialty Start Date End Date Candy Almanzar PA-C PCP - General Internal Medicine 05/04/21 Axel Montero MD [address] [place] [address] Specialist Cardiovascular Disease 09/09/22 Dorothea Barragan NP [address] [place] [address] Cardiology 09/07/23 documented as of this encounter
--- OUTSIDE RECORDS SUMMARY | 2024-07-18 10:54 | XMS_ITS | Encounter Summary ---
Author Organization [facility] Address [address] [place] [address] Care Team Providers Care Camera Storage Clerk Name Role Phone Candy Almanzar PA-C Primary Care Provider + Axel Montero MD Unavailable [phone] Dorothae Barragan NP Unavailable [phone] Reason for Visit * Reason Comments E-prescribe Rx Request Encounter Details Date Type Department Care Team Description 10/27/2021 Refill Internal Medicine - [address], [address] [place] [address] Candy Almanzar PA-C [address] [place] [phone] E-prescribe Rx Request Social History Tobacco [...] spine documented in this encounter Care Teams Camera Storage Clerk Relationship Specialty Start Date End Date Candy Almanzar PA-C PCP - General Internal Medicine 05/04/21 Axel Montero MD [address] [place] [address] Specialist Cardiovascular Disease 09/09/22 Dorothea Barragan NP [address] [place] [address] Cardiology 09/07/23 documented as of this encounter
--- OUTSIDE RECORDS SUMMARY | 2024-07-18 10:54 | XMS_ITS | Encounter Summary ---
Author Organization [facility] Address [address] [place] [address] Care Team Providers Care Principal Engineer Name Role Phone Cadny Almanzar PA-C Primary Care Provider + Axel Montero MD Unavailable Dorothea Barragan NP Unavailable [phone] Encounter Details Date Type Department Care Team Description 03/15/2023 Compensation And Benefits Advisor Report Medical Records [address] [place] [address] Vaibhav White DO Social History Tobacco Use [...] on filedocumented in this encounter Care Teams Principal Engineer Relationship Specialty Start Date End Date Candy Almanzar PA-C PCP - General Internal Medicine 05/04/21 Axel Montero MD [address] [place] [address] Specialist Cardiovascular Disease 09/09/22 Dorothea Barragan NP [address] [place] [address] [address] Cardiology 09/07/23 documented as of this encounter
--- OUTSIDE RECORDS SUMMARY | 2024-07-18 10:54 | XMS_ITS | Encounter Summary ---
Author Organization [facility] Address [address] [place] [address] Care Team Providers Care Surveillance Supervisor Name Role Phone Candy Almanzar PA-C Primary Care Provider + Axel Montero MD Unavailable [phone] Dorothea Barragan NP Unavailable [phone] Reason for Visit * Reason Onset Date Comments lipids 09/03/2022 Encounter Details Date Type Department Care Team Description 09/03/2022 Telephone Internal Medicine - [address], [address] [place] [address] Candy Almanzar PA-C [address] [place] [phone] lipids Social History Tobacco Use Types Packs/Day Years [...] Telephone Encounter - Greg Sampson - 09/03/2022 3:23 PM EDT Spoke with pt and informed. * Telephone Encounter - Candy Almanzar PA-C - 09/03/2022 9:38 AM EDT Sent atorvastatin 10 mg 1 tab nightly and encouraged to continue with diet. We will plan to repeat fasting labs at her next visit. Thank you. * Telephone Encounter - Greg Sampson - 09/03/2022 9:35 AM EDT Spoke with pt she stated that she has been doing her diet and been seen the assembler semiconductor, pt wants to know if she could take a cholesterol medication at this time to help with her cholesterol. * Telephone Encounter - Greg Sampson - 09/03/2022 9:34 AM EDT ----- Message from Candy Almanzar PA-C sent at 09/02/2022 3:44 PM EDT ----- Please let patient know that her cholesterol is still elevated, her LDL bad cholesterol has improved, but her triglycerides increased. Her liver enzymes did improve. Please find out if she has been seeing her assembler semiconductor that she needs to continue to work on diet. Thank you. documented in this encounter Plan of Treatment Not on file documented as of this encounter Visit Diagnoses Diagnosis Pure hypercholesterolemia- Primary documented in this encounter Care Teams Surveillance Supervisor Relationship Specialty Start Date End Date Candy Almanzar PA-C PCP - General Internal Medicine 05/04/21 Axel Montero MD [address] [place] [address] Dr Emile [address] [place] [address] Specialist Cardiovascular Disease 09/09/22 Dorothea Barragan NP [address] [place] [address] [place] [address] Cardiology 09/07/23 documented as of this encounter
--- OUTSIDE RECORDS SUMMARY | 2024-07-18 10:54 | XMS_ITS | Encounter Summary ---
Author Organization [facility] Address [address] [place] [address] Care Team Providers Care Thermospray Operator Name Role Phone Candy Almanzar PA-C Primary Care Provider + Axel Montero MD Unavailable [phone] Dorothea Barragan NP Unavailable [phone] Reason for Visit * Reason Onset Date Comments Faxed Order 04/25/2023 [facility] Encounter Details Date Type Department Care Team Description 04/25/2023 Telephone Internal Medicine - [address], [address] [place] [address] Candy Almanzar PA-C [address] [place] [phone] Faxed Order ([facility]) Social History Tobacco Use Types Packs/Day Years [...] * Telephone Encounter - Greg Sampson - 04/25/2023 2:03 PM EST Form faxed. * Telephone Encounter - Aimee Garcia - 04/25/2023 1:01 PM EST [facility] Send date of last PE and attach the most recent office visit, medication and diagnosis list. Sign, date and return documented in this encounter Plan of Treatment Not on file documented as of this encounter Visit Diagnoses Not on filedocumented in this encounter Care Teams Thermospray Operator Relationship Specialty Start Date End Date Candy Almanzar PA-C PCP - General Internal Medicine 05/04/21 Axel Montero MD [address] [place] [address] Specialist Cardiovascular Disease 09/09/22 Dorothea Barragan NP [address] [place] [address] Cardiology 09/07/23 documented as of this encounter
--- OUTSIDE RECORDS SUMMARY | 2024-07-18 10:54 | XMS_ITS | Encounter Summary ---
Author Organization [facility] Address [address] [place] [address] Care Team Providers Care Twisting Frame Changer Name Role Phone Candy Almanzar PA-C Primary Care Provider + Axel Montero MD Unavailable [phone] Dorothea Barragan NP Unavailable [phone] Reason for Visit * Reason Comments E-prescribe Rx Request Encounter Details Date Type Department Care Team Description 12/26/2021 Refill Internal Medicine - [address], [address] [place] [address] Candy Almanzar PA-C [address] [place] [phone] E-prescribe Rx Request Social History Tobacco [...] spine documented in this encounter Care Teams Twisting Frame Changer Relationship Specialty Start Date End Date Candy Almanzar PA-C PCP - General Internal Medicine 05/04/21 Axel Montero MD [address] [place] [address] Specialist Cardiovascular Disease 09/09/22 Dorothea Barragan NP [address] [place] [address] [place] [address] [address] Cardiology 09/07/23 documented as of this encounter
--- OUTSIDE RECORDS SUMMARY | 2024-07-18 10:54 | XMS_ITS | Clinical Summary ---
Author Organization 175 [facility] Address [address] [place] [address] Phone Care Team Providers Care Developmental Specialist Name Role Phone Candy Almanzar Primary Care [...] food. 90 tablet 1 02/20/20 24 Active tiZANidine (ZANAFLEX) 4 mg tabletIndicati ons:Chronic neck and back pain Take 1 tablet (4 mg total) by mouth at bedtime as needed for muscle spasms (neck spasms). 90 tablet 1 05/22/19 25 Active gabapentin (NEURONTIN) 100 mg capsuleIndicat ions:Chronic neck and back pain TAKE 1 CAPSULE BY MOUTH 2 TIMES DAILY. 60 capsule 2 05/28/19 25 Active acetaminophen (TYLENOL) 500 mg tablet Take 2 tablets (1,000 mg total) by mouth every 8 (eight) hours. 30 tablet 06/04/19 25 Active lidocaine (LIDODERM) 5 % patchIndicatio ns:Chronic neck and back pain Apply 1 patch topically 1 (one) time each day if needed for mild pain. Apply to painful area 12 hours per day, remove for 12 hours. 30 each 07/04/19 25 026 Active ibuprofen (ADVIL,MOTRIN) 200 mg tablet Take 2 tablets (400 mg total) by mouth every 6 (six) hours if needed for moderate pain. 025 Discontinued( erapy completed) oxyCODONE (ROXICODONE) 5 mg immediate release tablet Take 1 tablet (5 mg total) by mouth every 6 (six) hours if needed for severe pain. Max Daily Amount: 20 mg 15 tablet 06/04/19 25 025 Discontinued Active Problems Problem Noted Date Diagnosed Date Adnexal mass 05/03/2024 Cysts of both ovaries 05/03/2024 Pelvic pain 05/03/2024 Asthma 2024 Chest pain 11/12/2022 Overview (2024): Last Assessment [...] Encounters Date Type Department Care Team Description 07/09/2024 Telephone Internal Medicine - [address] [phone] Alee Elder [place] Medication Problem 07/03/2024 1:00 PM EDT Office Visit Internal Medicine [facility] [address] [phone] Candy Almanzar PA Adnexal mass (Primary Dx); Cysts of both ovaries; Chronic neck and back pain 06/19/2024 2:20 PM EDT Office Visit Breast Care Center [facility] [address] [phone] Hilton Raymundo MD S/P BSO (bilateral salpingo-oophorectom y) (Primary Dx); Cystadenofibroma of right ovary; Cystadenoma of left ovary 06/04/2024 3:11 PM EST Anesthesia Event [facility] Main OR [address] [place] [phone] Theron Guerrero MD Steele, Matthew G, CRNA 06/04/2024 1:45 PM EST - 06/04/2024 4:45 PM EST Surgery [facility] Main OR [address] [place] [phone] Hilton Raymundo MD Davinci assisted laparoscopic bilateral salpingo-oophorectom y [03295 (CPT??)] 06/04/2024 12:01 PM EST - 06/04/2024 8:58 PM EST Hospital Encounter [facility] Main [place] [address] [place] [phone] Hilton Raymundo MD Adnexal mass; Cysts of both ovaries; Pelvic pain Discharge Disposition: Home or Self Care 05/22/2024 1:00 PM EST Office Visit Internal Medicine [facility] [address] [phone] Candy Almanzar PA Adnexal mass (Primary Dx); Chronic neck and back pain 05/07/[address] [phone] Hilton Raymundo MD OTHER; Advice Only 05/03/2024 1:20 PM EST Consult [address] [phone] Hilton Raymundo MD Adnexal mass (Primary Dx); Cysts of both ovaries; Pelvic pain; Ovarian mass 04/23/[address] [phone] Nini Zelaya, RN Appointment 04/19/2024 2:45 PM EST Office Visit [facility] Hematology Oncology [address] [place] [phone] Liza Guajardo MD Ovarian mass from Last 3 Months Immunizations Name Administration Dates Next Due Influenza Quadravalent, MDCK , 0.5ml, preservative free (Flucelvax) 6mo and older 05/04/2021 Surgical History Surgery Date Site/Laterality Comments CHOLECYSTECTOMY PROCEDURE: HISTORICAL CHOLECYSTECTOMY OTHER SURGICAL HISTORY PROCEDURE: ---- OTHER ----; COMMENT: hist lung biopsy x 2 COLONOSCOPY PROCEDURE: HISTORICAL COLONOSCOPY CHOLECYSTECTOMY PROCEDURE: HI LAPAROSCOPY SURG CHOLECYSTECTOMY ESOPHAGOGASTRODUODENOSCOPY PROCEDURE: HI ESOPHAGOGASTRODUODENOSCOPY TRANSORAL DIAGNOSTIC CARDIAC CATHETERIZATION Right right wrist, related to h/o chest pain BILATERAL SALPINGOOPHORECTOMY Robot assisted laparoscopic bilateral salpingo-oophorectomy. Medical History Medical History Date Comments Fibrosis [...] Asthma DX:Asthma Anxiety Heart murmur Depression Arthritis Glaucoma Family History Medical History Relation Name Comments [...] drink = 0.6 oz pur e alcohol) Interpersonal Safety Answer Date Record ed Physical Abuse 06/04/2024 Verbal Abuse 06/04/2024 Comments No Sex and Gender Information Value Date Recorded Sex Assigned at Female 05/28/2024 9:32 AM EST Legal Sex Female 1:00 AM EST Gender Identity Female 05/28/2024 9:32 AM EST Sexual Orientation Straight 06/01/2024 1: 37 PM EST Obstetrics History Last Filed Vital Signs Vital Sign Reading Time Taken Comments Blood Pressure 142/88 07/03/2024 12:59 PM EDT Pulse 75 07/03/2024 12:59 PM EDT Temperature 36.6 ??C (97.8 ??F) 07/03/2024 1 2:59 PM EDT Respiratory Rate 20 06/04/2024 7:28 PM EST Oxygen Saturation 98% 07/03/2024 12: 59 PM EDT Inhaled Oxygen Concentration - - Weight 66.1 kg (145 lb 12.8 oz) 025 12:59 PM EDT Height 160 cm (5' 3 ) 07/03/2024 12:59 PM EDT Body Mass Index 25.83 07/03/2024 12:59 PM EDT Plan of Treatment Upcoming Encounters Date Type Department Care Team (Late st Contact Info) Description 08/28/2024 10:00 AM EDT Office Visit [facility] Hematology Oncology [address] [place] [phone] Richa-Liza Cruz MD [address] [place] [phone] 10/04/2024 11:00 AM EDT Office Visit Internal Medicine - [place] 175 [facility] [address] [place] [phone] Candy Almanzar PA 175 [facility] 200 [place] [address] Health Maintenance Due Date Last Done Comments Breast Cancer Screening 1960 DTaP,Tdap,and Td Vaccines (1 - Tdap) 01/24/1980 Pneumococcal Vaccine: 50+ Years (1 of 2 - PCV) 01/24/1980 Pneumococcal Vaccine: Pediatrics (0 to 5 Years) and At-Risk Patients (6 to 64 Years) (1 of 2 - PCV) 01/24/1980 Cervical Cancer Screening: P ap Smear 1982 Zoster Vaccines (1 of 2) 2011 RSV Immunization Adult Patients (1 - Risk 60-74 years 1-dose series) 2021 Colorectal Cancer Screening: Colonoscopy 03/14/2022 Depression Screening 03/14/2022 HIV Screening 03/14/2022 Social Influencers of Health Screening 03/14/2022 COVID-19 Vaccine (1 - 2023-2 5 season) 2023 Influenza Vaccine (Season Ended) 2024 05/04/2021, 02/21/2015 Hypertension/CHF/CAD Annual BMP Blood Test 04/18/2025 [...] age to complete this topic Meningococcal B Vaccine Aged Out No l onger eligible based on patient's age to complete this topic RSV Immunization Patients Under 20 months Aged Out No longer eligible b ased on patient's age to complete this topic Varicella Vaccines Aged Out No longer eligible based on patient's age to complete this topic Procedures Procedure Name Priority Date/Time Associated Diagnosis Comments TISSUE EXAM Routine 06/04/2024 4:27 PM EST Adnexal mass Cysts of both ovaries Pelvic pain NON-GYNECOLOGIC CYTOLOGY Routine 06/04/2024 3:45 PM EST Adnexal mass Cysts of both ovaries Pelvic pain TH AN ENDOTRACHEAL(NO CHARGE) Routine 06/04/2024 3:33 PM EST HI LAP SURG W REM ADNEXAL STRUCTURES 06/04/2024 3:11 PM EST Adnexal mass Cysts of both ovaries Pelvic pain Case Notes HEALTHCARE REPRESENTATIVE, 23-HR BED Special Needs Asking 150 mins CBC WITH AUTO DIFFERENTIAL Routine 05/28/2024 9:45 AM EST Adnexal mass Cysts of both ovaries Pelvic pain CBC AND DIFFERENTIAL Routine 05/28/2024 9:45 AM EST Adnexal mass Cysts of both ovaries Pelvic pain TYPE AND SCREEN Routine 05/28/2024 9:45 AM EST Adnexal mass Cysts of both ovaries Pelvic pain COMPREHENSIVE METABOLIC PANEL STAT 04/18/2024 10:54 AM EST LIPID PANEL Routine 12/09/2022 HEPATITIS C SCREENING Routine 02/06/2018 from Last 3 Months or Most Recently Relevant to Health Maintenance Results * Tissue exam (06/04/2024 4:27 PM EST) Final Diagnosis A. Right ovary and fallopian tube, RSO: Ovarian serous cystadenofibroma , 8 cm Ovarian adhesions Fallopian tube without atypia or neoplasm B. 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 The hyalinized nodule may represent an old corpus albicans/degener ated follicular cyst. 06/06/2024 3:37 PM EST [facility] Gross Description A. Ovary, Right, right ovary and fallopian tube: Labeled right ovary . Received fresh for frozen section diagnosis is an 8.1 x 3.6 x 1.1 cm partially deflated thin-walled ovarian cyst with attached fallopian tube measuring 3.1 cm in length by 0.5 cm in diameter. The external surface of the ovarian cyst is mack-white, smooth and glistening with some adherent adipose tissue. The cyst lining is predominantly smooth and glistening with some trabeculations. There is a 2.5 cm in diameter area of thickening measuring up to 0.8 cm. There are a few additional intact and disrupted smaller smooth-walled cyst containing a serous fluid within the second area, measuring up to 0.5 cm in diameter. Residual normal ovarian parenchyma is identified. The fallopian tube have a pink-purple smooth, glistening serosa, a wall measuring up to 0.3 cm and a pinpoint lumen. Jalousies Installer sections of the ovarian cyst are submitted for frozen section diagnosis. The additional community engagement representative sections are submitted as follows: 1, frozen section remnant, cyst wall, two pieces 2-4, additional cyst wall to include adjacent ovarian parenchyma, three pieces each 5, fallopian tube, four pieces. B. Ovary, Left, left ovary and fallopian tube: Labeled left ovary . Received fresh for frozen section diagnosis is a 5.4 x 3.8 x 2.6 cm firm cystic ovary with attached 3.8 x 0.5 cm fimbriated fallopian tube. The external surface of the ovary is tom-yellow to brown, smooth and glistening. The cut surfaces are moderately calcified and display a 2.8 cm cyst containing brown fluid and clotted blood. The uninvolved cut surfaces of the ovary are mack-pink to yellow with normal physiologic structures identified. The attached fallopian tube has a mack-pink smooth, glistening serosa, a wall measuring up to 0.3 cm and a pinpoint lumen. The fimbria are not distinct. A community engagement representative section of the cyst wall is submitted for frozen section diagnosis. Additional community engagement representative sections are submitted as follows: 1, frozen section remnant, cyst wall, two pieces 2, cyst wall with adjacent ovary, one piece 3, cyst wall following decalcification, three pieces 4, cyst wall with adjacent ovary, following decalcification, one piece 5, fallopian tube, four pieces PEGGY 06/06/2024 3:37 PM [facility] LAB Intraoperative Consultation A. Ovary, Right, right ovary and fallopian tube: Right ovary and fallopian tube, salpingo-oophore ctomy, frozen section diagnosis: -Serous cystadenoma Per Dr. Zackary Garcia notified on 06/04/2024 B. Ovary, Left, left ovary and fallopian tube: Left ovary and fallopian tube, salpingo-oophore ctomy, frozen section diagnosis: -Fibrous and calcified cyst wall associated with hemorrhage and chronic inflammation including hemosiderin-lade n macrophages -No cyst lining epithelium identified -No malignancy identified on community engagement representative sections Per Dr. Zackary Garcia notified on 06/04/2024 at 5:20 PM 06/06/2024 3:37 PM [facility] Disclaimer Unless otherwise specified, all tissue is 10% NB formalin fixed and paraffin embedded. 06/06/2024 3:37 PM [facility] Tissue Structure of left ovary / Unknown 06/04/2024 4:27 PM EST 06/05/2024 5:46 AM EST Tissue specimen (specimen) Structure of left ovary / Unknown 06/04/2024 4:27 PM EST 06/05/2024 5:46 AM EST us Hilton Raymundo MD LAB PATHOLOGY ORDERABLES Final R esult [facility] [address] [place] [id number], * Non-gynecologic cytology (06/04/2024 3:45 PM EST) Final Diagnosis A. Peritoneal washings, (ThinPrep, cell block): No malignant cells identified 06/06/2024 4:28 PM [facility] Specimen A Adequacy Satisfactory for evaluation 06/06/2024 4:28 PM [facility] Gross Description A. Peritoneal Washings, pelvic washings: Received 40 ml of clear fluid; 1 ThinPrep, 1 Cell block Cell block in formalin @8:30-total formalin fixation time 12.5 hours. 06/06/2024 4:28 PM [facility] Disclaimer Unless otherwise specified, all tissue is 10% NB formalin fixed and paraffin embedded. Technical cytopathology services provided by [facility], at [address] [place] [address] (CLIA # [id number]/Priscila Villanueva MD, Lead Javascript Developer.) 06/06/2024 4:28 PM [facility] Wash Specimen obtained by peritoneal lavage / Unknown 06/04/2024 3:45 PM EST 06/05/2024 8:15 AM EST us Hilton Raymundo MD LAB CYTOLOGY ORDERABLES Final Re sult [facility] [address] [place] [address], [place] [phone] * TH AN ENDOTRACHEAL(NO CHARGE) (06/04/2024 3:33 PM EST) Gwendolyn Dumont CRNA - 06/04/2024 3:33 PM EST Gwendolyn Justin CRNA ? 06/04/2024 ??3:33 PM General Information and Staff Patient location during procedure: OR Resident/ROOFING LAYER: Gwendolyn Justin CRNA Performed: resident/ROOFING LAYER/CAA Performed by: Gwendolyn Justin CRNA Authorized by: Verónica Villatoro MD ?? Intubation Airway not difficult Urgency: elective Final Airway Details Successful airway: ETT Successful intubation technique: direct laryngoscopy Facilitating devices/methods: intubating stylet Endotracheal tube insertion site: oral Blade: Jean Blade size: #3 ETT size (mm): 7.5 Cormack-Lehane Classification: grade I - full view of glottis Placement verified by: chest auscultation and capnometry Measured from: lips ETT to lips (cm): 22 Number of attempts at approach: 1Final airway type: endotracheal airway Indications and Patient Condition Indications for airway management: anesthesia and airway protection Spontaneous ventilation: present Sedation level: Yes Preoxygenated: yes Soft Tissue Damage: No Dentition Unchanged: Yes Patient position: sniffing MILS maintained throughout Mask difficulty assessment: 1 - vent by mask us Verónica Villatoro MD ANESTHESIA ORDERABLES Final Resu lt * (ABNORMAL) CBC auto differential (05/28/2024 9:45 AM EST) WBC 9.4 4.8 - 10.8 K/[facility] HEMETOLOGY METHOD 05/28/2024 10:[address] [facility] RBC 4.00 3.80 - 4.80 M/[facility] LAB HEMETOLOGY METHOD 05/28/2024 10:[address] [facility] Hemoglobin 11.9 11.5 - 16.0 g/dL LAB HEMETOLOGY METHOD 05/28/2024 10:19 AM [facility] Hematocrit 37.6 35.0 - 47.0 % LAB HEMETOLOGY METHOD 05/28/2024 10:19 AM [facility] MCV 94.5 79.0 - 98.0 FL LAB HEMETOLOGY METHOD 05/28/2024 10:19 AM [facility] MCH 29.9 27.0 - 32.0 pcg LAB HEMETOLOGY METHOD 05/28/2024 10:19 AM [facility] MCHC 31.6(L) 32.0 - 37.0 g/dL LAB HEMETOLOGY METHOD 05/28/2024 10:19 AM [facility] RDW 13.8 11.0 - 15.0 % LAB HEMETOLOGY METHOD 05/28/2024 10:19 AM [facility] Platelets 324 130 - 400 K/mcL LAB HEMETOLOGY METHOD 05/28/2024 10:19 AM [facility] MPV 8.5 7.0 - 11.0 FL LAB HEMETOLOGY METHOD 05/28/2024 10:19 AM [facility] NRBC 0.0 <1.0 % LAB HEMETOLOGY METHOD 05/28/2024 10:19 AM [facility] NRBC Absolute 0.00 <0.10 K/mcL LAB HEMETOLOGY METHOD 05/28/2024 10:19 AM [facility] Neutrophils Relative 57.9 % LAB HEMETOLOGY METHOD 05/28/2024 10:19 AM [facility] Lymphocytes Relative 34.5 % LAB HEMETOLOGY METHOD 05/28/2024 10:19 AM [facility] Monocytes Relative 5.6 % LAB HEMETOLOGY METHOD 05/28/2024 10:[address] [facility] Eosinophils Relative 1.1 % LAB HEMETOLOGY METHOD 05/28/2024 10:19 AM [facility] Basophils Relative 0.5 % LAB HEMETOLOGY METHOD 05/28/2024 10:19 AM [facility] Immature Granulocytes Relative 0.4 % LAB HEMETOLOGY METHOD 05/28/2024 10:[address] [facility] Neutrophils Absolute 5.42 1.50 - 7.00 K/mcL LAB HEMETOLOGY METHOD 05/28/2024 10:[address] [facility] Lymphocytes Absolute 3.23 1.00 - 5.00 K/mcL LAB HEMETOLOGY METHOD 05/28/2024 10:19 AM [facility] Monocytes Absolute 0.52 0.20 - 1.00 K/mcL LAB HEMETOLOGY METHOD 05/28/2024 10:[address] [facility] Eosinophils Absolute 0.10 0.00 - 0.50 K/mcL LAB HEMETOLOGY METHOD 05/28/2024 10:[address] [facility] Basophils Absolute 0.05 0.00 - 0.20 K/mcL LAB HEMETOLOGY METHOD 05/28/2024 10:19 AM [facility] Immature Granulocytes Absolute 0.04(H) 0.00 - 0.03 K/mcL LAB HEMETOLOGY METHOD 05/28/2024 10:[address] [facility] Blood Venous blood specimen / Unknown Venipuncture / Unknown 05/28/2024 9:45 AM EST 05/28/2024 10:13 AM EST us Hilton Raymundo MD LAB BLOOD ORDERABLES Final Resul t [facility] [address] [place] [address], * Type and screen (05/28/2024 9:45 AM EST) Pathologist [facility] ABO Group O 05/28/2024 11:[address] [facility] Rh Type Positive 05/28/2024 11:16 AM [facility] Antibody Screen Negative 05/28/2024 11:16 AM [facility] Blood Venous blood specimen / Unknown Venipuncture / Unknown 05/28/2024 9:45 AM EST 05/28/2024 10:14 AM EST us Hilton Raymundo MD LAB BLOOD BANK TEST ORDERABLES F inal Result [facility] [address] [place] [address], [place] [phone] * (ABNORMAL) Comprehensive metabolic panel (04/18/2024 10:54 AM EST) Pathologist [facility] Sodium 137 133 - 145 mmol/L LAB [...] 10:54 AM EST 04/18/2024 11:59 AM EST us Jose Daniel Collazo MD LAB BLOOD ORDERABLES Final Resu lt [facility] [address] [place] [address], * Lipid panel (12/09/2022) LDL/HDL Ratio 3 0 - 4 Triglycerides 148 0 - 150 mg/dL Cholesterol 168 0 - 200 mg/dL HDL 65 >=40 mg/dL LDL Cholesterol 74 0 - 100 mg/dL Blood Venous blood specimen / Unknown us Historical Provider LAB BLOOD ORDERABLES Sheyla l Result * Hepatitis C Screening (02/06/2018) Hepatitis C Screening abstracted Historical Provider HEALTH MAINTENANCE Final Result from Last 3 Months or Most Recently Relevant to Health Maintenance Insurance [facility] PUBLIC PLANS Advance Directives Documents on File Type Date Recorded Patient Jalousies Installer Expl anation Power of Ux Developer 06/04/2024 12:44 PM HEAL [employer]CARE PROXY * Full Code - Default (Latest Code Status on File) Date Activated Date Inactivated Comments 06/04/2024 12:13 PM 06/04/2024 11:04 PM This is or roverto is used when code status has not been discussed with the patient, or code status is otherwise unknown/unconfirmed To update the patient's code status, place a code status order. Do not modify or discontinue any currently active code status orders. Care Teams Developmental Specialist Relationship Specialty Start Date End Date Candy Almanzar PA [facility] [address] [place] [address] PCP - General Internal Medicine 05/04/21
--- OUTSIDE RECORDS SUMMARY | 2024-07-18 10:54 | XMS_ITS | Encounter Summary ---
Author Organization [facility] Address [address] [place] [address] Care Team Providers Care Senior Php Web Developer Name Role Phone Candy Almanzar PA-C Primary Care Provider + Axel Montero MD Unavailable [phone] Dorothea Barragan NP Unavailable [phone] Reason for Visit * Reason Comments E-prescribe Rx Request Encounter Details Date Type Department Care Team Description 06/29/2021 Refill Internal Medicine - [address], [address] [place] [address] Candy Almanzar PA-C [address] [place] [phone] E-prescribe Rx Request Social History Tobacco [...] encounter Miscellaneous Notes * Telephone Encounter - Alexsandra Mcgrath L.P.N. - 06/30/2021 11:33 AM EDT Seen 05/04/2021 No follow up Refill tizanidine 4 mg take at HS prn muscle spasms Last refilled 05/04/2021 #30 1 refill documented in this encounter Plan of Treatment Not on file documented as of this encounter Visit Diagnoses Diagnosis Upper back pain on left side Pain in thoracic spine documented in this encounter Care Teams Senior Php Web Developer Relationship Specialty Start Date End Date Candy Almanzar PA-C PCP - General Internal Medicine 05/04/21 Axel Montero MD [address] [place] [address] [id number] Specialist Cardiovascular Disease 09/09/22 Dorothea Barragan NP [address] [place] [address] [phone] Cardiology 09/07/23 documented as of this encounter
--- OUTSIDE RECORDS SUMMARY | 2024-07-18 10:54 | XMS_ITS | Clinical Summary ---
Author Organization [facility] Address [address] [place] [address] Care Team Providers Care Item Repair Manager Name Role Phone Unavailable Primary Care Provider [...] (06/03/2015): 03/24/15 Eval by Nena Buckner at [facility] for Colon Consult. Will plan for colonoscopy. H/O mammogram 05/23/2015 Overview (05/23/2015): Done on 03/31/2015 at [facility]: no mammographic evidence of malignancy is seen. Next due 03/2016 Positive ROSEY (antinuclear antibody) 02/27/2015 Pulmonary fibrosis (HCC-CMS) 02/21/2015 Interstitial pneumonitis (HCC-CMS) Immunizations Immunization Administration Dates Next Due INFLUENZA, SEASONAL, INJECTABLE [...] on file Insurance [employer] SAF[employer] NET DENTAL [place] [id number] [employer] [facility] Member Subscriber Plan / Payer (Ef fective 2015-Present) Name:George Bonillaga Relation to Subscriber:Self Name:Chad Payer ID:[id number] Group ID:Not on file Type:Indemnity Address: [place] [address] [address] [id number]
--- OUTSIDE RECORDS SUMMARY | 2024-07-18 10:54 | XMS_ITS | Encounter Summary ---
Author Organization [facility] Address [address] [place] [address] Care Team Providers Care Integrative Medicine Physician Name Role Phone Candy Almanzar PA-C Primary Care Provider + Axel Montero MD Unavailable [phone] Dorothea Barragan NP Unavailable [phone] Encounter Details Date Type Department Care Team Description 06/23/2023 Hospital Medical Records [address] [place] [id number] Vaibhav White DO Social History Tobacco Use [...] on filedocumented in this encounter Care Teams Integrative Medicine Physician Relationship Specialty Start Date End Date Candy Almanzar PA-C PCP - General Internal Medicine 05/04/21 Axel Montero MD [address] [place] [address] [place] [address] Specialist Cardiovascular Disease 09/09/22 Dorothea Barragan, KATT [address] [place] [address] [place] [address] Cardiology 09/07/23 documented as of this encounter
--- OUTSIDE RECORDS SUMMARY | 2024-07-18 10:54 | XMS_ITS | Encounter Summary ---
Author Organization [facility] Address [address] [place] [address] Care Team Providers Care Imitation Marble Mechanic Name Role Phone Candy Almanzar PA-C Primary Care Provider + Axel Montero MD Unavailable [phone] Dorothea Barragan NP Unavailable [phone] Encounter Details Date Type Department Care Team Description 01/14/2023 SCAN Medical Records [address] [place] [address] Abstract, Provider Social History Tobacco Use Types [...] Date/Time Associated Diagnosis Comments OUTSIDE CT Routine 01/14/2023 documented in this encounter Results * OUTSIDE CT (01/14/2023) Provider Default RADIOLOGY documented in this encounter Visit Diagnoses Not on filedocumented in this encounter Care Teams Imitation Marble Mechanic Relationship Specialty Start Date End Date Candy Almanzar PA-C PCP - General Internal Medicine 05/04/21 Axel Montero MD [address] [place] [address] [phone] Specialist Cardiovascular Disease 09/09/22 Dorothea Barragan NP [address] [place] [address] Cardiology 09/07/23 documented as of this encounter
--- OUTSIDE RECORDS SUMMARY | 2024-07-18 10:54 | XMS_ITS | Encounter Summary ---
Author Organization [employer] [facility] Address [address] [place] [address] Care Team Providers Care Forest Examiner Name Role Phone Danyel Anthony MD Primary Care Provider [phone] Candy Almanzar PA-C Primary Care Provider + Axel Montero MD Unavailable [phone] Dorothea Barragan NP Unavailable [phone] Encounter Details Date Type Department Care Team Description 04/23/2019 X[employer]ox Machine Assembler Report Medical Records [address] [place] [address] Axel Montero MD [address] [place] [address] Dr Baptiste [address] [place] [address] Social History Tobacco Use Types Packs/Day Years [...] on filedocumented in this encounter Care Teams Forest Examiner Relationship Specialty Start Date End Date Danyel Anthony MD [address] [place], [place] [id number] PCP - General Internal Medicine 07/18/17 05/03/21 Candy Almanzar PA-C [address] [place] [address] PCP - General Internal Medicine 05/04/21 Axel Montero MD [address] [place] [address] Specialist Cardiovascular Disease 09/09/22 Dorothea Barragan NP [address] [place] [address] [address] Cardiology 09/07/23 documented as of this encounter
--- OUTSIDE RECORDS SUMMARY | 2024-07-18 10:54 | XMS_ITS | Encounter Summary ---
Author Organization [facility] Address [address] [place] [address] Care Team Providers Care Office Clerk Routine Name Role Phone Candy Almanzar PA-C Primary Care Provider + Axel Montero MD Unavailable [phone] Dorothea Barragan NP Unavailable [phone] Reason for Visit * Reason Onset Date Comments refill request 01/11/2023 Encounter Details Date Type Department Care Team Description 01/11/2023 Refill Internal Medicine - [address], [address] [place] [address] Candy Almanzar PA-C [address] [place] [address] refill request Social History Tobacco Use [...] * Telephone Encounter - Lashaun Wallace - 01/11/2023 10:17 AM EDT [place] 12/09/22 BP Readings from Last 3 Encounters: 12/09/22 100/60 11/16/22 138/80 08/30/22 110/70 * Telephone Encounter - Shanita Morton - 01/11/2023 10:01 AM EDT Patient is in pain and she is out of medication * Telephone Encounter - Shanita Morton - 01/11/2023 10:00 AM EDT Patient is out of medication documented in this encounter Plan of Treatment Not on file documented as of this encounter Visit Diagnoses Diagnosis Cervico-occipital neuralgia Other syndromes affecting cervical region documented in this encounter Care Teams Office Clerk Routine Relationship Specialty Start Date End Date Candy Almanzar PA-C PCP - General Internal Medicine 05/04/21 Axel Montero MD [address] [place] [address] [place] [address] Specialist Cardiovascular Disease 09/09/22 Dorothea Barragan NP [address] [place] [address] [address] Cardiology 09/07/23 documented as of this encounter
--- OUTSIDE RECORDS SUMMARY | 2024-07-18 10:54 | XMS_ITS | Encounter Summary ---
Author Organization [facility] Address [address] [place] [address] Care Team Providers Care Altitude Chamber Technician Name Role Phone Candy Almanzar PA-C Primary Care Provider + Axel Montero MD Unavailable [phone] Dorothea Barragan NP Unavailable [phone] Reason for Visit * Reason Onset Date Comments refill request 03/19/2022 Encounter Details Date Type Department Care Team Description 03/19/2022 Refill Pulmonology - [place] [address] [facility] [address] [place] [address] Candy Almanzar PA-C [address] [place] [address] refill request Social History Tobacco [...] PM EST This is prescribed by her automobile tester Dr. Calvin, not primary care. Thank you. * Telephone Encounter - Naz Salder MA - 03/19/2022 11:54 AM EST Ready To Wear Department Manager printed and placed on desk * Telephone [...] / Plan[place] / Product Type: MEDICAID [id number] documented in this encounter Plan of Treatment Not on file documented as of this encounter Visit Diagnoses Not on filedocumented in this encounter Care Teams Altitude Chamber Technician Relationship Specialty Start Date End Date Candy Almanzar PA-C PCP - General Internal Medicine 05/04/21 Axel Montero MD [address] [place] [address] Specialist Cardiovascular Disease 09/09/22 Dorothea Barragan NP [address] [place] [address] [phone] Cardiology 09/07/23 documented as of this encounter
== END 2024-07-18 10:37 | disposition home or self-care (01) ==
LOC: HO.HPS 09:52
PROVIDERS: PCP Physician Assistant; Visit Provider Hospitalist
DX: J84.89 Other specified interstitial pulmonary diseases (principal); R76.8 Other specified abnormal immunological findings in serum; R05.3 Chronic cough; F51.01 Primary insomnia; J84.9 Interstitial pulmonary disease, unspecified; J98.4 Other disorders of lung
CPT/HCPCS: 99214

== ENCOUNTER → 2024-07-18 09:52 | Outpatient (BNVA) | payer OTHER, SELFPAY | PROVIDERS: PCP Physician Assistant; Visit Provider Hospitalist | DX: J84.89 Other specified interstitial pulmonary diseases (principal); R76.8 Other specified abnormal immunological findings in serum; J84.9 Interstitial pulmonary disease, unspecified; J98.4 Other disorders of lung; R05.3 Chronic cough; F51.01 Primary insomnia | CPT/HCPCS: 99212 ==

== ENCOUNTER 2024-08-29 13:38 | Outpatient (REF) | payer OTHER, SELFPAY ==
--- NOTE | ~2024-08-29 | XR_ITS ---
EXAMINATION: XR CERVICAL SPINE CLINICAL INFORMATION: CERVICAL DISC DISEASE COMPARISON: None available. TECHNIQUE: AP and oblique and lateral views . Atlantoodontoid view. FINDINGS: Craniocervical junction is intact. Marginal osteophyte formation and endplate sclerosis decreased intervertebral disc height C5-6 and to a lesser extent C6-7. Bilateral neuroforamina narrowing C5-6 and C6-7. No acute cortical disruption or malalignment. No lytic or blastic lesions. Upper airway is patent. XR/XR cervical spine 4V IMPRESSION: Spondylosis C5-6 and C6-7 levels. Electronically signed by: Jarett Seymour MD 08/29/2024 02:22 PM EDT
--- OUTSIDE RECORDS SUMMARY | 2024-08-29 14:10 | XMS_ITS | Encounter Summary ---
Author Organization [facility] Address [address] [place] [address] Care Team Providers Care Stamping Die Maker Bench Name Role Phone Candy Almanzar PA-C Primary Care Provider + Axel Montero MD Unavailable [phone] Dorothea Barragan NP Unavailable [phone] Reason for Visit * Reason Comments E-prescribe Rx Request Encounter Details Date Type Department Care Team Description 10/27/2021 Refill Internal Medicine - [address], [address] [place] [address] Candy Almanzar PA-C [address] [place] [phone] E-prescribe Rx Request Social History Tobacco [...] spine documented in this encounter Care Teams Stamping Die Maker Bench Relationship Specialty Start Date End Date Candy Almanzar PA-C PCP - General Internal Medicine 05/04/21 Axel Montero MD [address] [place] [address] Specialist Cardiovascular Disease 09/09/22 Dorothea Barragan NP [address] [place] [address] Cardiology 09/07/23 documented as of this encounter
--- OUTSIDE RECORDS SUMMARY | 2024-08-29 14:10 | XMS_ITS | Encounter Summary ---
Author Organization [facility] Address [address] [place] [address] Care Team Providers Care Director Of Recruitment And Admissions Name Role Phone Candy Almanzar PA-C Primary Care Provider + Axel Monetro MD Unavailable [phone] Dorothea Barragan NP Unavailable [phone] Reason for Visit * Reason Onset Date Comments refill request 01/02/2024 Encounter Details Date Type Department Care Team Description 01/02/2024 Refill Internal Medicine - [address], [address] [place] [address] Candy Almanzar PA-C [address] [place] [phone] refill request Social History Tobacco Use [...] region documented in this encounter Care Teams Director Of Recruitment And Admissions Relationship Specialty Start Date End Date Candy Almanzar PA-C PCP - General Internal Medicine 05/04/21 Axel Montero MD [address] [place] [address] Specialist Cardiovascular Disease 09/09/22 Dorothea Barragan NP [address] [place] [address] Cardiology 09/07/23 documented as of this encounter
--- OUTSIDE RECORDS SUMMARY | 2024-08-29 14:10 | XMS_ITS | Encounter Summary ---
Author Organization [facility] Address [address] [place] [address] Care Team Providers Care Commercial Litigation Paralegal Name Role Phone Candy Almanzar PA-C Primary Care Provider + Axel Montero MD Unavailable [phone] Dorothea Barragan NP Unavailable Reason for Visit * Reason Onset Date Comments REFERRAL 03/19/2022 Dermatology [facility] Encounter Details Date Type Department Care Team Description 03/19/2022 Telephone Pulmonology - [place] [address] [facility] [address] [place] [address] Candy Almanzar PA-C [address] [place] [address] [facility] Social History Tobacco Use Types Packs/Day [...] Shanda Brookeentes - 05/12/2022 1:59 PM EST Credit Interviewer please advise see message below please contact patient. * Telephone Encounter - Joy Dakota Matamoros - 05/12/2022 10:30 AM EST Patient walked in, she has questions regarding this referral. She would like to know what is going on since she has not herd anything about it. Please Advise. * Telephone Encounter - Shanda Brookeentes - 03/23/2022 2:29 PM EST Credit Interviewer please advise does provider need to put new referral orders for Dermatology and Nutrition patient insurance changed now only has [employer] Derm referral that was processed does not accept [employer]. * Telephone Encounter - Candy Almanzar PA-C - 03/23/2022 11:05 AM EST Okay let me know if I need to place new referrals for dermatology and nutrition. Thank you. * Telephone Encounter - Shanda Najera - 03/23/2022 9:44 AM EST Candy, Yes that is correct per patient Dr. Sharma does not accept [email or web address]. I did send a message to the [...] she stated Dr. Sharma does not accept [employer] Patient needs to be seen by a dermetologist and Nutrionist who accepts [employer]. Not sure if Anitra takes [employer] but the previous issue was she could not see the nutrionist because Anitra is notcredentialed with [facility] patient no longer has behzad so maybe she can now see her. * Telephone Encounter - Shanda Najera - 03/22/2022 2:38 PM EST Credit Interviewer please advise patient had nutriton referral placed on 03/02/22 note stated Anitra Pereira is not credientialed with [facility]. Patient no longer has [employer] only [employer] can she now see the nutrionist.? * [...] Patient walked in, Her insurance change to [employer] and she needs a new referral to a dermatologythat accepts [email or web address] since the one that was sent to doesn't. Please Advice documented in this encounter Plan of Treatment Not on file documented as of this encounter Visit Diagnoses Not on filedocumented in this encounter Care Teams Commercial Litigation Paralegal Relationship Specialty Start Date End Date Candy Almanzar PA-C PCP - General Internal Medicine 05/04/21 Axel Montero MD [address] [place] [address] Specialist Cardiovascular Disease 09/09/22 Dorothea Barragan NP [address] [place] [address] Cardiology 09/07/23 documented as of this encounter
--- OUTSIDE RECORDS SUMMARY | 2024-08-29 14:10 | XMS_ITS | Encounter Summary ---
Author Organization [facility] Address [address] [place] [address] Care Team Providers Care Information Security Consultant Name Role Phone Danyel Anthony MD Primary Care Provider [phone] Candy Almanzar PA-C Primary Care Provider + Axel Montero MD Unavailable [phone] Dorothea Barragan NP Unavailable [phone] Encounter Details Date Type Department Care Team Description 02/27/2019 Release of Information Medical Records [address] [place] [address] Abstract, Provider Social History Tobacco Use Types [...] on filedocumented in this encounter Care Teams Information Security Consultant Relationship Specialty Start Date End Date Danyel Anthony MD [address] [place] [address] PCP - General Internal Medicine 07/18/17 05/03/21 Candy Almanzar PA-C [address] [place], [place] [phone] PCP - General Internal Medicine 05/04/21 Axel Montero MD [address] [place] [address] Dr Baptiste [address] [place] [address] Specialist Cardiovascular Disease 09/09/22 Dorothea Barragan NP [address] [place] [address] [address] Cardiology 09/07/23 documented as of this encounter
--- OUTSIDE RECORDS SUMMARY | 2024-08-29 14:10 | XMS_ITS | Encounter Summary ---
Author Organization [facility] Address [address] [place] [address] Care Team Providers Care Pipe Cleaner Name Role Phone Danyel Anthony MD Primary Care Provider [phone] Candy Almanzar PA-C Primary Care Provider + Axel Montero MD Unavailable [phone] Dorothea Barragan NP Unavailable [phone] Encounter Details Date Type Department Care Team Description 07/20/2017 Release of Information Medical Records [address] [place] [address] Abstract, Provider Social History Tobacco Use Types Packs/Day Years Used Date Smoking Tobacco: Never Assessed Sex Assigned at Date Recorded Not on file Job Start Date Occupation Industry Not on file Not on file Not on file documented as of this encounter Plan of Treatment Not on file documented as of this encounter Visit Diagnoses Not on filedocumented in this encounter Care Teams Pipe Cleaner Relationship Specialty Start Date End Date Danyel Anthony MD [address] [place], [place] [phone] PCP - General Internal Medicine 07/18/17 05/03/21 Candy Almanzar PA-C [address] [place] [address] PCP - General Internal Medicine 05/04/21 Axel Montero MD [address] [place] [address] Dr Emile [address] [place] [address] Specialist Cardiovascular Disease 09/09/22 Dorothea Barragan NP [address] [place] [address] [address] Cardiology 09/07/23 documented as of this encounter
--- OUTSIDE RECORDS SUMMARY | 2024-08-29 14:10 | XMS_ITS | Encounter Summary ---
Author Organization [facility] Address [address] [place] [address] Care Team Providers Care Jigger Machine Operator Name Role Phone Danyel Anthony MD Primary Care Provider [phone] Candy Almanzar PA-C Primary Care Provider + Axel Montero MD Unavailable [phone] Dorothea Barragan NP Unavailable [phone] Encounter Details Date Type Department Care Team Description 08/17/2017 Transfer Records Medical Records [address] [place] [address] Abstract, Provider Social History Tobacco Use Types [...] on filedocumented in this encounter Care Teams Jigger Machine Operator Relationship Specialty Start Date End Date Danyel Anthony MD [address] [place], [place] [phone] PCP - General Internal Medicine 07/18/17 05/03/21 Candy Almanzar PA-C [address] [place] [address] PCP - General Internal Medicine 05/04/21 Axel Montero MD [address] [place] [address] Dr Baptiste [address] [place] [address] Specialist Cardiovascular Disease 09/09/22 Dorothea Barragan NP [address] [place] [address] [address] Cardiology 09/07/23 documented as of this encounter
--- OUTSIDE RECORDS SUMMARY | 2024-08-29 14:10 | XMS_ITS | Encounter Summary ---
Author Organization [facility] Address [address] [place] [address] Care Team Providers Care Spinal Surgeon Name Role Phone Candy Almnazar PA-C Primary Care Provider + Axel Montero MD Unavailable Dorothea Barragan NP Unavailable [phone] Encounter Details Date Type Department Care Team Description 03/24/2022 [facility] Medical Records [address] [place] [address] Abstract, Provider Social History Tobacco Use Types [...] on filedocumented in this encounter Care Teams Spinal Surgeon Relationship Specialty Start Date End Date Candy Almanzar PA-C PCP - General Internal Medicine 05/04/21 Axel Montero MD [address] [place] [address] Specialist Cardiovascular Disease 09/09/22 Dorothea Barragan NP [address] [place] [address] [address] Cardiology 09/07/23 documented as of this encounter
--- OUTSIDE RECORDS SUMMARY | 2024-08-29 14:10 | XMS_ITS | Encounter Summary ---
Author Organization [facility] Address [address] [place] [address] Care Team Providers Care Stacker Name Role Phone Candy Almanzar PA-C Primary Care Provider + Axel Montero MD Unavailable [phone] Dorothea Barragan NP Unavailable [phone] Reason for Visit * Reason Comments E-prescribe Rx Request Encounter Details Date Type Department Care Team Description 08/23/2022 Refill Internal Medicine - [address], [address] [place] [address] Candy Almanzar PA-C [address] [place] [phone] E-prescribe Rx Request Social History Tobacco [...] region documented in this encounter Care Teams Stacker Relationship Specialty Start Date End Date Candy Almanzar PA-C PCP - General Internal Medicine 05/04/21 Axel Montero MD [address] [place] [address] [phone] Specialist Cardiovascular Disease 09/09/22 Dorothea Barragan NP [address] [place] [address] [phone] Cardiology 09/07/23 documented as of this encounter
--- OUTSIDE RECORDS SUMMARY | 2024-08-29 14:10 | XMS_ITS | Encounter Summary ---
Author Organization [facility] Address [address] [place] [address] Care Team Providers Care Insurance Biller Name Role Phone Candy Almanzar PA-C Primary Care Provider + Axel Montero MD Unavailable [phone] Dorothea Barragan NP Unavailable [phone] Encounter Details Date Type Department Care Team Description 09/13/2023 Orders Only Cardio [facility] [address] [place] [address] [address] [place] [address] Default, Provider Social History Tobacco [...] on filedocumented in this encounter Care Teams Insurance Biller Relationship Specialty Start Date End Date Candy Almanzar PA-C PCP - General Internal Medicine 1/24/22 Axel Montero MD [address] [place] [address] Specialist Cardiovascular Disease 09/09/22 Dorothea Barragan NP [address] [place] [address] Cardiology 09/07/23 documented as of this encounter
--- OUTSIDE RECORDS SUMMARY | 2024-08-29 14:11 | XMS_ITS | Clinical Summary ---
Author Organization [facility] Address [address] [place] [address] Care Team Providers Care Smoke Eater Name Role Phone Unavailable Primary Care Provider [...] (06/03/2015): 03/24/15 Eval by Nena Buckner at [facility] for Colon Consult. Will plan for colonoscopy. H/O mammogram 05/23/2015 Overview (05/23/2015): Done on 03/31/2015 at [facility]: no mammographic evidence of malignancy is seen. [...] on file Insurance [employer] [place] [address] [employer] [facility] Member Subscriber Plan / Payer (Ef fective 2015-Present) Name:George Bonillaga Relation to Subscriber:Self Name:Chad Payer ID:[id number] Group ID:Not on file Type:Indemnity Address: [place] [address] [address] [address]
--- OUTSIDE RECORDS SUMMARY | 2024-08-29 14:11 | XMS_ITS | Encounter Summary ---
Author Organization [facility] Address [address] [place] [address] Care Team Providers Care Handicraft Or Hobby Shop Manager Name Role Phone Candy Almanzar PA-C Primary Care Provider + Axel Montero MD Unavailable [phone] Dorothea Barragan NP Unavailable [phone] Encounter Details Date Type Department Care Team Description 01/14/2023 SCAN Medical Records [address] [place] [address] Abstract, Provider Social History Tobacco Use Types [...] on filedocumented in this encounter Care Teams Handicraft Or Hobby Shop Manager Relationship Specialty Start Date End Date Candy Almanzar PA-C PCP - General Internal Medicine 05/04/21 Axel Montero MD [address] [place] [address] [phone] Specialist Cardiovascular Disease 09/09/22 Dorothea Barragan NP [address] [place] [address] Cardiology 09/07/23 documented as of this encounter
--- OUTSIDE RECORDS SUMMARY | 2024-08-29 14:11 | XMS_ITS | Encounter Summary ---
Author Organization [facility] Address [address] [place] [address] Care Team Providers Care Foam Caster Name Role Phone Candy Almanzar PA-C Primary Care Provider + Axel Montero MD Unavailable [phone] Dorothea Barragan NP Unavailable [phone] Encounter Details Date Type Department Care Team Description 09/02/2022 Orders Only Internal Medicine - [address], [address] [place], [place] [phone] Candy Almanzar PA-C [address] [place] [phone] Abnormal chest x-ray Social History Tobacco [...] field documented in this encounter Care Teams Foam Caster Relationship Specialty Start Date End Date Candy Almanzar PA-C PCP - General Internal Medicine 05/04/21 Axel Montero MD [address] [place] [address] Specialist Cardiovascular Disease 09/09/22 Dorothea Barragan NP [address] [place] [address] [address] Cardiology 09/07/23 documented as of this encounter
--- OUTSIDE RECORDS SUMMARY | 2024-08-29 14:11 | XMS_ITS | Encounter Summary ---
Author Organization [facility] Address [address] [place] [address] Care Team Providers Care Heater Worker Name Role Phone Candy Almanzar PA-C Primary Care Provider + Axel Montero MD Unavailable [phone] Dorothea Barragan NP Unavailable [phone] Encounter Details Date Type Department Care Team Description 09/03/2021 Manager Books Report Medical Records [address] [place] [address] Jose Carlos Calvin MD Social History Tobacco [...] on filedocumented in this encounter Care Teams Heater Worker Relationship Specialty Start Date End Date Candy Almanzar PA-C PCP - General Internal Medicine 05/04/21 Axel Montero MD [address] [place] [address] [place] [address] Specialist Cardiovascular Disease 09/09/22 Dorothea Barragan, KATT [address] [place] [address] Cardiology 09/07/23 documented as of this encounter
--- OUTSIDE RECORDS SUMMARY | 2024-08-29 14:11 | XMS_ITS | Encounter Summary ---
Author Organization [facility] Address [address] [place] [address] Care Team Providers Care Garnett Machine Operator Helper Name Role Phone Candy Almanzar PA-C Primary Care Provider + Axel Montero MD Unavailable [phone] Dorothea Barragan NP Unavailable [phone] Reason for Visit * Reason Comments E-prescribe Rx Request Encounter Details Date Type Department Care Team Description 12/26/2021 Refill Internal Medicine - [address], [address] [place] [address] Candy Almanzar PA-C [address] [place] [phone] E-prescribe Rx Request Social History Tobacco [...] spine documented in this encounter Care Teams Garnett Machine Operator Helper Relationship Specialty Start Date End Date Candy Almanzar PA-C PCP - General Internal Medicine 05/04/21 Axel Montero MD [address] [place] [address] Specialist Cardiovascular Disease 09/09/22 Dorothea Barragan NP [address] [place] [address] [address] Cardiology 09/07/23 documented as of this encounter
--- OUTSIDE RECORDS SUMMARY | 2024-08-29 14:11 | XMS_ITS | Encounter Summary ---
Author Organization [employer] [facility] Address [address] [place] [address] Care Team Providers Care Staff Research Associate Name Role Phone Danyel Anthony MD Primary Care Provider [phone] Candy Almanzar PA-C Primary Care Provider + Axel Montero MD Unavailable [phone] Dorothea Barragan NP Unavailable [phone] Encounter Details Date Type Department Care Team Description 06/06/2020 Old Medical Records Medical Records [address] [place] [id number] Abstract, Provider Social History Tobacco Use Types [...] on filedocumented in this encounter Care Teams Staff Research Associate Relationship Specialty Start Date End Date Danyel Anthony MD [address] [place] [address] PCP - General Internal Medicine 07/18/17 05/03/21 Candy Almanzar PA-C [address] [place], [place] [phone] PCP - General Internal Medicine 05/04/21 Axel Montero MD [address] [place] [address] Dr Baptiste [address] [place] [phone] Specialist Cardiovascular Disease 09/09/22 Dorothea Barragan NP [address] [place] [address] [id number] Cardiology 09/07/23 documented as of this encounter
--- OUTSIDE RECORDS SUMMARY | 2024-08-29 14:11 | XMS_ITS | Encounter Summary ---
Author Organization [facility] Address [address] [place] [address] Care Team Providers Care Automotive Parts Specialist Name Role Phone Candy Almanzar PA-C Primary Care Provider + Axel Montero MD Unavailable [phone] Dorothea Barragan NP Unavailable [phone] Reason for Visit * Reason Onset Date Comments refill request 10/11/2022 Patient is reque sting Rx Refill on Duloxetine 30mg, Tizanidine 4mg, Atorvastatin 10mg. Encounter Details Date Type Department Care Team Description 10/11/2022 Refill Internal Medicine - [address], [address] [place] [address] Candy Almanzar PA-C [address] [place] [phone] refill request (Patient is requesting Rx Refill [...] region documented in this encounter Care Teams Automotive Parts Specialist Relationship Specialty Start Date End Date Candy Almanzar PA-C PCP - General Internal Medicine 05/04/21 Axel Montero MD [address] [place] [phone] Specialist Cardiovascular Disease 09/09/22 Dorothea Barragan NP [address] [place] [address] Cardiology 09/07/23 documented as of this encounter
--- OUTSIDE RECORDS SUMMARY | 2024-08-29 14:11 | XMS_ITS | Encounter Summary ---
Author Organization [facility] Address [address] [place] [address] Care Team Providers Care Cable Installation Manager Name Role Phone Candy Almanzar PA-C Primary Care Provider + Axel Montero MD Unavailable [phone] Dorothea Barragan NP Unavailable [phone] Reason for Visit * Reason Onset Date Comments refill request 01/11/2023 Encounter Details Date Type Department Care Team Description 01/11/2023 Refill Internal Medicine - [address], [address] [place] [address] Candy Almanzar PA-C [address] [place] [phone] refill request Social History Tobacco Use [...] region documented in this encounter Care Teams Cable Installation Manager Relationship Specialty Start Date End Date Candy Almanzar PA-C PCP - General Internal Medicine 05/04/21 Axel Montero MD [address] [place] [address] [place] [address] Specialist Cardiovascular Disease 09/09/22 Dorothea Barragan NP [address] [place] [address] [address] Cardiology 09/07/23 documented as of this encounter
--- OUTSIDE RECORDS SUMMARY | 2024-08-29 14:11 | XMS_ITS | Encounter Summary ---
Author Organization [facility] Address [address] [place] [address] Care Team Providers Care Commercial Attorney Name Role Phone Danyel Anthony MD Primary Care Provider [phone] Candy Almanzar PA-C Primary Care Provider + Axel Montero MD Unavailable [phone] Dorothea Barragan NP Unavailable [phone] Encounter Details Date Type Department Care Team Description 04/23/2019 Appraiser Oil And Water Report Medical Records [address] [place] [address] Axel Montero MD [address] [place] [address] Dr Baptiste [address] [place] [phone] Social History Tobacco Use Types Packs/Day Years [...] filedocumented in this encounter Care Teams Commercial Attorney Relationship Specialty Start Date End Date Danyel Anthony MD [address] [place], [place] [phone] PCP - General Internal Medicine 07/18/17 05/03/21 Candy Almanzar PA-C [address] [place] [address] PCP - General Internal Medicine 05/04/21 Axel Montero MD [address] [place] [address] Specialist Cardiovascular Disease 09/09/22 Dorothea Barragan NP [address] [place] [address] [address] Cardiology 09/07/23 documented as of this encounter
--- OUTSIDE RECORDS SUMMARY | 2024-08-29 14:11 | XMS_ITS | Clinical Summary ---
Author Organization [address] [facility] Address [address] [place] [address] Phone Care Team Providers Care Touch Up Carver Name Role Phone Candy Almanzar Primary Care Provider + Allergies No known active allergies Medications cholecalciferol (VITAMIN D-3) 50 mcg (2,000 unit) capsule Take 1 capsule (2,000 Units total) by mouth 1 (one) time each day. 3 Active eszopiclone (LUNESTA) 3 mg tablet Take 3 mg by mouth at bedtime as needed. Active FLUoxetine (PROzac) 10 mg tablet Take 1 tablet (10 mg total) by mouth 1 (one) time each day. Active LORazepam (ATIVAN) 0.5 mg tablet Take 1 tablet (0.5 mg total) by mouth every 6 (six) hours if needed. Active busPIRone (BUSPAR) 10 mg tablet 4 Active meloxicam (MOBIC) 15 mg tabletIndicatio ns:Chronic neck and back pain Take 1 tablet (15 mg total) by mouth 1 (one) time each day if needed for moderate pain. Take with food. 90 tablet 1 4 Active tiZANidine (ZANAFLEX) 4 mg tabletIndicatio ns:Chronic neck and back pain Take 1 tablet (4 mg total) by mouth at bedtime as needed for muscle spasms (neck spasms). 90 tablet 1 5 Active gabapentin (NEURONTIN) 100 mg capsuleIndicati ons:Chronic neck and back pain TAKE 1 CAPSULE BY MOUTH 2 TIMES DAILY. 60 capsule 2 5 Active acetaminophen (TYLENOL) 500 mg tablet Take 2 tablets (1,000 mg total) by mouth every 8 (eight) hours. 30 tablet 5 Active lidocaine (LIDODERM) 5 % patchIndication s:Chronic neck and back pain Apply 1 patch topically 1 (one) time each day if needed for mild pain. Apply to painful area 12 hours per day, remove for 12 hours. 30 each 11 5 07/04/19 26 Active Active Problems Problem Noted Date Diagnosed Date Serous adenofibroma of right ovary 08/22/2024 Ovarian mass 08/22/2024 Adnexal mass 05/03/2024 Cysts of both ovaries [...] ROSEY (antinuclear antibody) 07/29/2017 Fibrosis of lung ([facility] V24, [facility] V28) 01/09 Interstitial lung disease ([facility] V24, [facility] V28) 01/20/2017 Encounters Date Type Department Care Team Description 08/28/2024 10:00 AM EDT Office Visit [facility] Hematology Oncology [address] [place] [phone] Liza Guajardo MD Serous adenofibroma of right ovary (Primary Dx); Ovarian mass 07/09/2024 Telephone Internal Medicine - [place] [address] [phone] Alee Elder [place] Medication Problem 07/03/2024 1:00 PM EDT Office Visit Internal Medicine [facility] [address] [phone] Candy Almanzar PA Adnexal mass (Primary Dx); Cysts of both ovaries; Chronic neck and back pain 06/19/2024 2:20 PM EDT Office Visit [facility] [address] [phone] Hilton Raymundo MD S/P BSO (bilateral salpingo-oophorectom y) (Primary Dx); Cystadenofibroma of right ovary; Cystadenoma of left ovary 06/04/2024 3:11 PM EST Anesthesia Event [facility] Main OR [address] [place] [phone] Theron Guerrero MD Steele, Matthew G, HELIO 06/04/2024 1:45 PM EST - 06/04/2024 4:45 PM EST Surgery [facility] Main OR [address] [place] [phone] Hilton Raymundo MD Davinci assisted laparoscopic bilateral salpingo-oophorectom y [63486 (CPT??)] 06/04/2024 12:01 PM EST - 06/04/2024 8:58 PM EST Hospital Encounter [facility] Main OR [address] [place] [phone] Hilton Raymundo MD Adnexal mass; Cysts of [...] 2 COLONOSCOPY PROCEDURE: HISTORICAL COLONOSCOPY CHOLECYSTECTOMY PROCEDURE: [place] LAPAROSCOPY SURG CHOLECYSTECTOMY ESOPHAGOGASTRODUODENOSCOPY PROCEDURE: WA ESOPHAGOGASTRODUODENOSCOPY TRANSORAL DIAGNOSTIC CARDIAC CATHETERIZATION Right right wrist, related to h/o chest pain BILATERAL SALPINGOOPHORECTOMY Robot assisted laparoscopic bilateral salpingo-oophorectomy. Medical History Medical History Date Comments Fibrosis of lung (CMS/HCC V2 4, CMS/HCC V28) 01/20/2017 DX:Fibrosis of lung (HCC) Interstitial lung disease ([place]/HCC V24, CMS/HCC V28) 01/20/2017 DX:Interstitial lung disease (HCC) GERD (gastroesophageal [...] Sign Reading Time Taken Comments Blood Pressure 113/60 08/28/2024 9:54 AM EDT Pulse 64 08/28/2024 9:54 AM EDT Temperature 36.9 ??C (98.5 ??F) 08/28/2024 9:54 AM ED T Respiratory Rate 20 06/04/2024 7:28 PM EST Oxygen Saturation 99% 08/28/2024 9:54 AM EDT Inhaled Oxygen Concentration - - Weight 68 kg (150 lb) 08/28/2024 9:54 AM EDT Height 160 cm (5' 3 ) 08/28/2024 9:54 AM EDT Body Mass Index 26.57 08/28/2024 9:54 AM EDT Plan of Treatment Upcoming Encounters Date Type Department Care Team (Late st Contact Info) Description 10/04/2024 11:00 AM EDT Office Visit Internal Medicine - [place] 175 [facility] [address] [place] [phone] Candy Almanzar, PA 175 [facility] Emile [address] [place] [address] Health Maintenance Due Date Last Done Comments [...] ENDOTRACHEAL(NO CHARGE) Routine 06/04/2024 3:33 PM EST [place] LAP SURG W REM ADNEXAL STRUCTURES 06/04/2024 3:11 PM EST Adnexal mass Cysts of both ovaries Pelvic pain Case Notes FLUE TILE PRESS OPERATOR, 23-HR BED Special Needs Asking 150 mins COMPREHENSIVE METABOLIC PANEL STAT 04/18/2024 10:54 AM [...] atypia or neoplasm 06/06/2024 3:37 PM EST [facility] Comment B. The hyalinized nodule may represent an old corpus albicans/degener ated follicular cyst. 06/06/2024 3:37 PM EST [facility] Gross Description A. Ovary, Right, right [...] to 0.3 cm and a pinpoint lumen. Power Generation Turbine Room Operator sections of the ovarian cyst are submitted for frozen section diagnosis. The additional employee representative sections are submitted as follows: 1, [...] lumen. The fimbria are not distinct. A employee representative section of the cyst wall is submitted for frozen section diagnosis. Additional employee representative sections are submitted as follows: 1, frozen section remnant, cyst wall, two pieces 2, cyst wall with adjacent ovary, one piece 3, cyst wall following decalcification, three pieces 4, cyst wall with adjacent ovary, following decalcification, one piece 5, fallopian tube, four pieces PEGGY 06/06/2024 3:37 PM EST [facility] Intraoperative Consultation A. Ovary, Right, right ovary and fallopian tube: Right ovary and fallopian tube, salpingo-oophore ctomy, frozen section diagnosis: -Serous cystadenoma Per Dr. Zavaleta, Dr. Raymundo notified on 06/04/2024 B. Ovary, Left, left ovary and fallopian tube: Left ovary and fallopian tube, salpingo-oophore ctomy, frozen section diagnosis: -Fibrous and calcified cyst wall associated with hemorrhage and chronic inflammation including hemosiderin-lade n macrophages -No cyst lining epithelium identified -No malignancy identified on employee representative sections Per Dr. Zavaleta, Dr. Raymundo notified on 06/04/2024 at 5:20 PM 06/06/2024 3:37 PM EST [facility] Disclaimer Unless otherwise specified, all tissue is 10% NB formalin fixed and paraffin embedded. 06/06/2024 3:37 PM EST [facility] Tissue Structure of left ovary / Unknown 06/04/2024 4:27 PM EST 06/05/2024 5:46 AM EST Tissue specimen (specimen) Structure of left ovary / Unknown 06/04/2024 4:27 PM EST 06/05/2024 5:46 AM EST Hilton Raymundo MD LAB PATHOLOGY ORDERABLES Final R esult [facility] [address] [place] [address], * Non-gynecologic cytology (06/04/2024 3:45 PM EST) Final Diagnosis A. Peritoneal washings, (ThinPrep, cell block): No malignant cells identified 06/06/2024 4:28 PM [facility] Specimen A Adequacy Satisfactory for evaluation 06/06/2024 4:28 PM EST [facility] Gross Description A. Peritoneal Washings, pelvic washings: Received 40 ml of clear fluid; 1 ThinPrep, 1 Cell block Cell block in formalin @8:30-total formalin fixation time 12.5 hours. 06/06/2024 4:28 PM EST [facility] Disclaimer Unless otherwise specified, all tissue is 10% NB formalin fixed and paraffin embedded. Technical cytopathology services provided by [facility], at [address] [place] [phone] (CLIA # [id number]/Priscila Villanueva MD, Network Coordinator.) 06/06/2024 4:28 PM EST [facility] Wash Specimen obtained by peritoneal lavage / Unknown 06/04/2024 3:45 PM EST 06/05/2024 8:15 AM EST us Hilton Raymundo MD LAB CYTOLOGY ORDERABLES Final Re sult [facility] [address] [place] [address], [place] [phone] * TH AN ENDOTRACHEAL(NO CHARGE) (06/04/2024 3:33 PM EST) Gwendolyn Dumont CRNA - 06/04/2024 3:33 PM EST Gwendolyn Justin CRNA ? 06/04/2024 ??3:33 PM General Information and Staff Patient location during procedure: OR Resident/RAILROAD TRACK MECHANIC: Gwendolyn Justin CRNA Performed: resident/HELIO/CAA Performed by: Gwendolyn Justin CRNA Authorized by: [...] ANESTHESIA ORDERABLES Final Resu lt * (ABNORMAL) Comprehensive metabolic panel (04/18/2024 10:54 AM EST) Sodium 137 133 - 145 mmol/L LAB CHEMISTRY METHOD 04/18/2024 12:29 PM EST [facility] Potassium 4.0 3.5 - 5.5 mmol/L LAB CHEMISTRY METHOD 04/18/2024 12:29 PM [facility] Chloride 106 96 - 110 mmol/L LAB CHEMISTRY METHOD 04/18/2024 12:29 PM [facility] CO2 27 21 - 32 mmol/L LAB CHEMISTRY METHOD 04/18/2024 12:29 PM [facility] Anion Gap 4 3 - 11 LAB CHEMISTRY METHOD 04/18/2024 12:29 PM [facility] Glucose 89 70 - 100 mg/dL LAB CHEMISTRY METHOD 04/18/2024 12:29 PM [facility] BUN 16 5 - 25 mg/dL LAB CHEMISTRY METHOD 04/18/2024 12:29 PM [facility] Creatinine 0.90 0.50 - 1.10 mg/dL LAB CHEMISTRY METHOD 04/18/2024 12:29 PM [facility] eGFR 72 >=60 mL/min/1. 73m2 LAB CHEMISTRY METHOD 04/18/2024 12:29 PM [facility] Comment:Calculation based on the??Chronic Kidney Disease Epidemiology Collaboration (CKD-EPI) equation refit??without adjustment for race. BUN/Creatinine Ratio 17.8 LAB CHEMISTRY METHOD 04/18/2024 12:29 PM [facility] Calcium 9.0 8.5 - 10.5 mg/dL LAB CHEMISTRY METHOD 04/18/2024 12:29 PM [facility] AST (SGOT) 24 10 - 42 unit/L LAB CHEMISTRY METHOD 04/18/2024 12:29 PM [facility] ALT (SGPT) 36 10 - 60 unit/L LAB CHEMISTRY METHOD 04/18/2024 12:29 PM [facility] Alkaline Phosphatase 258(H) 42 - 121 unit/L LAB CHEMISTRY METHOD 04/18/2024 12:29 PM [facility] Total Protein 7.8 6.0 - 8.0 g/dL LAB CHEMISTRY METHOD 04/18/2024 12:29 PM EST [facility] Albumin 3.6 3.2 - 5.0 g/dL LAB CHEMISTRY METHOD 04/18/2024 12:29 PM EST [facility] Total Bilirubin 0.3 0.0 - 1.4 mg/dL LAB CHEMISTRY METHOD 04/18/2024 12:29 PM EST [facility] Blood Venous blood specimen / Unknown Venipuncture / Unknown 04/18/2024 10:54 AM EST 04/18/2024 11:59 AM EST Jose Daniel Collazo MD LAB BLOOD ORDERABLES Final Resu lt [facility] [address] [place] [address], * Lipid panel (12/09/2022) LDL/HDL Ratio 3 0 - 4 Triglycerides 148 0 - 150 mg/dL Cholesterol 168 0 - 200 mg/dL HDL 65 >=40 mg/dL LDL Cholesterol 74 0 - 100 mg/dL Blood Venous blood specimen / Unknown Buddy Mccann MD LAB BLOOD ORDERABLES Sheyla l Result * Hepatitis C Screening (02/06/2018) Pathologist [facility] Hepatitis C Screening abstracted Buddy Mccann MD HEALTH MAINTENANCE Final Result from Last 3 Months or Most Recently Relevant to Health Maintenance Insurance [facility] [employer] Advance Directives Documents on File Type Date Recorded Patient Power Generation Turbine Room Operator Expl anation Power of Block Making Machine Operator 06/04/2024 12:44 PM HEAL THCARE PROXY * [...] currently active code status orders. Care Teams Touch Up Carver Relationship Specialty Start Date End Date Candy Almanzar PA 175 [facility] [address] [place] [address] PCP - General Internal Medicine 05/04/21
--- OUTSIDE RECORDS SUMMARY | 2024-08-29 14:11 | XMS_ITS | Encounter Summary ---
Author Organization [facility] Address [address] [place] [address] Care Team Providers Care Validation Leader Name Role Phone Candy Almanzar Primary Care Provider + Reason for Visit * Reason Comments Follow-up Encounter Details Date Type Department Care Team (Late st Contact Info) Description 08/28/2024 10:00 AM EDT Office Visit [facility] Hematology Oncology [address] [place] [phone] Liza Guajardo MD [address] [place] [phone] Serous adenofibroma of right ovary (Primary Dx); Ovarian mass Social History Tobacco Use Types [...] Orientation Straight 06/01/2024 1: 37 PM EST documented as of this encounter Last Filed Vital Signs Vital Sign Reading Time Taken Comments Blood Pressure 113/60 08/28/2024 9:54 AM EDT Pulse 64 08/28/2024 9:54 AM EDT Temperature 36.9 ??C (98.5 ??F) 08/28/2024 9:54 AM ED T Respiratory Rate - - Oxygen Saturation 99% 08/28/2024 9:54 AM EDT Inhaled Oxygen Concentration - - Weight 68 kg (150 lb) 08/28/2024 9:54 AM EDT Height 160 cm (5' 3 ) 08/28/2024 9:54 AM EDT Body Mass Index 26.57 08/28/2024 9:54 AM EDT documented in this encounter Functional Status * [...] documented in this encounter Progress Notes * Liza Guajardo MD - 08/28/2024 10:00 AM EDT CHIEF COMPLAINT: No chief complaint on file. 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 female. HPI: The patient returns for follow up of Left ovarian serous cystadenofibroma, 8 cm patient was evaluated after an ER visit as she presentedwith a left adnexal mass. At the request of ER physician patient was evaluated in medical oncology clinic. Thereafter referral made to [facility]. After counseling patient underwent surgery on 06/04/2024 bilateral salpingo-oophorectomy Results were reviewed, revealed ovarian serous cystadenofibroma, there is a benign tumor On the right side on the left side there was a 8 mm ovarian seromucinous cystadenoma Patient returns for follow-up. Recovering very well from surgery, has plans for [facility] oncology follow-up Tumor marker CA125 was still in the normal range 14.2, in April The following is copied, reviewed and edited Cancer Staging No matching staging information was found for the patient. Oncology History No history exists. 04/2024 64-year-old lady, who is referred from the emergency room after she presented there with abdominal pain and was found to have a complex left-sided ovarian mass concerning for malignancy Patient is accompanied by her granddaughter, Corinna who acts as Lithuanian [employer] computer language coder Patient reports that she has had increasing [...] low at 14.2. I recommended referral to [facility] onc[facility] and patient agrees PLAN --64-year-old lady with bilateral adnexal cystic changes, particularly calcified complex cyst in the left pelvis, concerning for benign/malignant ovarian lesion. She seems to have particularly symptoms related to abdominal pain, however no other concerning B symptoms such as weight loss. Tumormarker CA125 is in the normal range. She may have a borderline malignancy or benign lesion. Regarding the lung findings, in the absence of symptoms suggestive of pneumonia this is more likelyrelated to her pre-existing pulmonary fibrosis. Recommend follow-up with hospital social worker and continueuse of inhaler. Patient agrees I discussed with the patient and her daughter regarding the imaging, lab and clinical findings. I recommended a referral to [facility] oncology. Patient does not usually follow with a drum attendant. Will contact the nurse navigator of the office to expedite her appointment. Follow-up here in 3 months and sooner if any findings indicating need for systemic therapy. Patient and granddaughter are in agreement with this plan. ROS: GENERAL: No malaise, significant weight loss or fever NECK: No lumps, goiter, pain or significant neck swelling RESPIRATORY: No cough, wheezing or shortness of breath CARDIOVASCULAR: No chest pain, leg swelling or palpitations GI: No abdominal discomfort, blood in stools or black stools MUSCULOSKELETAL: No joint pain or swelling, back pain, or muscle pain. HEMATOLOGY/LYMPHOLOGY No prolonged bleeding, easy bruisability or swollen nodes Other Systems review is non contributory PAST MEDICAL HISTORY: Active Ambulatory Problems Diagnosis Date Noted Asthma 2024 Chest pain 11/12/2022 Cyst of right kidney 07/29/2017 Fibrosis of lung ([facility] V24, [facility] V28) 01/20/2017 GERD (gastroesophageal reflux disease) 07/29/2017 Interstitial lung disease ([facility] V24, [facility] V28) 01/20/2017 Pain, joint, multiple sites 07/29/2017 Positive ROSEY (antinuclear antibody) 07/29/2017 Pure hypercholesterolemia 03/02/2022 Vitamin D deficiency 03/02/2022 Adnexal mass 05/03/2024 Cysts of both ovaries 05/03/2024 Pelvic pain 05/03/2024 Serous adenofibroma of right ovary 08/22/2024 Ovarian mass 08/22/2024 Resolved Ambulatory Problems Diagnosis Date Noted No Resolved Ambulatory Problems Past Medical History: Diagnosis Date Anxiety Arthritis Depression Glaucoma Heart murmur SOCIAL HISTORY: Social History Tobacco Use Smoking [...] artery disease Uncle Coronary artery disease Sister Current Outpatient Medications: acetaminophen (TYLENOL) 500 mg tablet, Take 2 tablets (1,000 mg total) by mouth every 8 (eight) hours., Disp: 30 tablet, Rfl: 0 busPIRone (BUSPAR) 10 mg tablet, , Disp: , Rfl: cholecalciferol (VITAMIN D-3) 50 mcg (2,000 unit) capsule, Take 1 capsule (2,000 Units total) by mouth 1 (one) time each day., Disp: , Rfl: eszopiclone (LUNESTA) 3 mg tablet, Take 3 mg by mouth at bedtime as needed., Disp: , Rfl: FLUoxetine (PROzac) 10 mg tablet, Take 1 tablet (10 mg total) by mouth 1 (one) time each day., Disp: , Rfl: gabapentin (NEURONTIN) 100 mg capsule, TAKE 1 CAPSULE BY MOUTH 2 TIMES DAILY., Disp: 60 capsule, Rfl: 2 lidocaine (LIDODERM) 5 % patch, Apply 1 patch topically 1 (one) time each day if needed for mild pain. Apply to painful area 12 hours per day, remove for 12 hours., Disp: 30 each, Rfl: 11 LORazepam (ATIVAN) 0.5 mg tablet, Take 1 [...] No Known Allergies PHYSICAL EXAM: Visit Vitals OB Status Postmenopausal Smoking Status Former APPEARANCE: Alert and in no acute distress EYES: PERRL, conjunctiva pink and sclera are Normal without icterus ORAL CAVITY: No erythema or exudates NECK: Neck supple, no adenopathy, HEART: RRR with normal S1 and S2, no murmurs, no gallops, no JVD appreciated LUNG: clear to auscultation bilaterally Percussion note normal LYMPH NODES: No palpable superficial adenopathy ABDOMEN: Bowel sounds normoactive, no bruits, soft, non-tender, without organomegaly or palpable masses EXTREMITIES: Extremities warm and well perfused without clubbing, cyanosis, rash or edema NEURO: Oriented X 3, no focal weakness; sensation is normal LABS: Review of Lab results , interpreted Lab Results Component Value Date WBC 9.4 05/28/2024 HGB 11.9 05/28/2024 HCT 37.6 05/28/2024 MCV 94.5 05/28/2024 PLT 324 05/28/2024 Lab Results Component Value Date NA 137 [...] performed without IV contrast. DLP: 360.76 mGy/cm idiagpeNetwork Vision VCT Iterative reconstruction technique Findings: Image detail [...] process not excluded. Short-term follow-up is recommended. Telejassi ROWAN ([id number]) -------- FINAL REPORT -------- Dictated By: Mayi Avila Dictated Date: 04/18/2024 19:22 ET Assigned Physician: Mayi Avila Reviewed and Electronically Signed By: Mayi Avila Signed Date: 04/18/2024 19:30 ET Workstation ID: [id number] Transcribed By: Self Edit Transcribed Date: 04/18/2024 [...] Signed Date: 04/18/2024 16:33 ET Workstation ID: [id number] Transcribed By: Self Edit Transcribed Date: 04/18/2024 16:[address] Abdomen Pelvis w Contrast Narrative: INDICATION: Bilateral lower quadrant abdominal pain TECHNIQUE: CT scan of the abdomen and pelvis obtained with a total of 90 cc of Isovue-370 administered intravenously without incident. Oral contrast administered. Scanner: N[employer] Technology[employer] Vision 64 slice VCT Dose reduction technique: ASIR (Adaptive statistical iterative reconstruction) and/or AEC (automated exposure control) Dose: total exam DLP 589 mGY per cm COMPARISON: No prior studies are available for comparison. FINDINGS: Mild branching ghlt-fx-vdu-like attenuation within the lingula and inferior lateral [...] Signed Date: 04/18/2024 14:55 ET Workstation ID: [id number] Transcribed By: Self Edit Transcribed Date: 04/18/2024 14:48 ET Review of External Documentation Notes from [facility] oncology, imaging and pathology Tests ordered -none IMPRESSION: 1. Serous adenofibroma of right ovary 2. Ovarian mass PLAN: 64-year-old lady who presented with large ovarian mass, underwent surgery and found to have benign lesions including fibroadenoma and cystadenoma. Patient is doing well postoperatively. Tumor marker was low. I reviewed with the patient regarding the benign nature of the lesions. Pathology report was reviewed and copy provided. I advised her to continue follow-up with her PCP and [facility] oncology and return to this clinic in future as needed. She is quite relieved to review the benign pathology results. Will continue follow-up with [facility] oncology Patient is in agreement with this plan. Pain Control--no issues Health Care Proxy--her daughter Liza Guajardo MD Cc HARPAL May documented in this encounter Plan of Treatment Upcoming Encounters Date Type Department Care Team (Late st Contact Info) Description 10/04/2024 11:00 AM EDT Office Visit Internal Medicine - [place] [address] [facility] [address] [place] [address] Candy Almanzar PA 175 [facility] [address] [place] [address] documented as of this encounter Visit Diagnoses Diagnosis Serous adenofibroma of right ovary- Primary Ovarian mass Unspecified noninflammatory disorder of ovary, fallopian tube, and broad ligament documented in this encounter Care Teams Validation Leader Relationship Specialty Start Date End Date Candy Almanzar PA 175 [facility] [address] [place] [address] PCP - General Internal Medicine 05/04/21 documented as of this encounter
--- OUTSIDE RECORDS SUMMARY | 2024-08-29 14:11 | XMS_ITS | Encounter Summary ---
Author Organization [facility] Address [address] [place] [address] Care Team Providers Care Energy Project Engineer Name Role Phone Candy Almanzar PA-C Primary Care Provider + Axel Montero MD Unavailable [phone] Dorothea Barragan NP Unavailable [phone] Reason for Visit * Reason Comments E-prescribe Rx Request Encounter Details Date Type Department Care Team Description 03/07/2023 Refill Internal Medicine - [address], [address] [place] [address] Candy Almanzar PA-C [address] [place] [phone] E-prescribe Rx Request Social History Tobacco [...] Miscellaneous Notes * Telephone Encounter - Alee Florez - 03/08/2023 9:30 AM EST BP Readings from Last 3 Encounters: 02/22/23 120/60 12/09/22 100/60 11/16/22 138/80 Lab Results Component Value Date CHOL 168 12/09/2022 LDL 74 12/09/2022 HDL 65 12/09/2022 TRIG 148 12/09/2022 * Telephone Encounter - Aimee Weissa - 03/07/2023 3:31 PM EST Brian 12/09/22 Nov 06/09/23 documented in this encounter Plan of Treatment Not on file documented as of this encounter Visit Diagnoses Diagnosis Cervico-occipital neuralgia Other syndromes affecting cervical region documented in this encounter Care Teams Energy Project Engineer Relationship Specialty Start Date End Date Candy Almanzar PA-C PCP - General Internal Medicine 05/04/21 Axel Montero MD [address] [place] [id number] Specialist Cardiovascular Disease 09/09/22 Dorothea Barragan NP [address] [place] [address] Cardiology 09/07/23 documented as of this encounter
--- OUTSIDE RECORDS SUMMARY | 2024-08-29 14:11 | XMS_ITS | Encounter Summary ---
Author Organization [facility] Address [address] [place] [address] Care Team Providers Care Car Audio Installer Name Role Phone Candy Almanzar PA-C Primary Care Provider + Axel Montero MD Unavailable [phone] Dorothea Barragan NP Unavailable [phone] Reason for Visit * Reason Onset Date Comments Faxed Order 04/25/2023 [facility] Encounter Details Date Type Department Care Team Description 04/25/2023 Telephone Internal Medicine - [address], [address] [place] [address] Candy Almanzar PA-C [address] [place] [phone] Faxed Order ([facility]) Social History Tobacco Use Types Packs/Day Years [...] on filedocumented in this encounter Care Teams Car Audio Installer Relationship Specialty Start Date End Date Candy Almanzar PA-C PCP - General Internal Medicine 05/04/21 Axel Montero MD [address] [place] [address] Specialist Cardiovascular Disease 09/09/22 Dorothea Barragan NP [address] [place] [address] Cardiology 09/07/23 documented as of this encounter
--- OUTSIDE RECORDS SUMMARY | 2024-08-29 14:11 | XMS_ITS | Encounter Summary ---
Author Organization [facility] Address [address] [place] [address] Care Team Providers Care Hot Pond Operator Name Role Phone Candy Almanzar PA-C Primary Care Provider + Axel Montero MD Unavailable [phone] Dorothea Barragan NP Unavailable [phone] Encounter Details Date Type Department Care Team Description 08/25/2021 Manager Stylist Report Medical Records [address] [place] [id number] Sarah Jarquin MD Social History Tobacco Use [...] on filedocumented in this encounter Care Teams Hot Pond Operator Relationship Specialty Start Date End Date Candy Almanzar PA-C PCP - General Internal Medicine 05/04/21 Axel Montero MD [address] [place] [address] [address] [place], [place] [phone] Specialist Cardiovascular Disease 09/09/22 Dorothea Barragan, KATT [address] [place] [address] [place] [address] Cardiology 09/07/23 documented as of this encounter
--- OUTSIDE RECORDS SUMMARY | 2024-08-29 14:11 | XMS_ITS | Encounter Summary ---
Author Organization [facility] Address [address] [place] [address] Care Team Providers Care Gas Pumping Station Helper Name Role Phone Candy Almanzar PA-C Primary Care Provider + Axel Montero MD Unavailable [phone] Dorothea Barragan NP Unavailable [phone] Encounter Details Date Type Department Care Team Description 05/03/2023 3D Designer Report Medical Records [address] [place] [address] Vaibhav White DO Social History Tobacco Use [...] on filedocumented in this encounter Care Teams Gas Pumping Station Helper Relationship Specialty Start Date End Date Candy Almanzar PA-C PCP - General Internal Medicine 05/04/21 Axel Montero MD [address] [place] [address] [place] [address] Specialist Cardiovascular Disease 09/09/22 Dorothea Barragan, KATT [address] [place] [address] Cardiology 09/07/23 documented as of this encounter
== END 2024-08-29 13:39 | disposition home or self-care (01) ==
LOC: HO.XRAY 13:38
PROVIDERS: PCP Physician Assistant; Visit Provider Psychiatry & Neurology Neurology
DX: M50.90 Cervical disc disorder, unspecified, unspecified cervical region (principal)
CPT/HCPCS: 72050

== ENCOUNTER → 2024-08-29 13:49 | Outpatient (BNV) | payer OTHER, SELFPAY | PROVIDERS: PCP Physician Assistant; Visit Provider Radiology Diagnostic Radiology | DX: M47.812 Spondylosis without myelopathy or radiculopathy, cervical region (principal) | CPT/HCPCS: 72050 ==

== ENCOUNTER 2024-11-30 12:35 | Outpatient (REF) | payer OTHER, SELFPAY ==
--- NOTE | ~2024-11-30 | CT_ITS ---
CLINICAL HISTORY: J84.9 - Interstitial pulmonary disease, unspecified CT chest without contrast Comparison: None provided Findings: The heart size is normal. The visualized thyroid and mediastinum are unremarkable. The lungs are clear. The visualized upper abdomen is unremarkable. The bones are intact. IMPRESSION: 1. Unremarkable chest CT. This document has been electronically signed by: Jerry Reina MD on 12/02/2024 09:02:57
--- OUTSIDE RECORDS SUMMARY | 2024-11-30 12:38 | XMS_ITS ---
Author Name [facility] Organization Unknown Care Team Organization Name Specialty Phone Email Start Date End Da morgan [facility] Fouzia Horta Primary Care 10/14/2022 024
--- OUTSIDE RECORDS SUMMARY | 2024-11-30 12:38 | XMS_ITS | Clinical Summary ---
Author Organization [facility] Address [address] [place] [address] Care Team Providers Care Wagon Driver Salesperson Name Role Phone Unavailable Primary Care Provider [...] (06/03/2015): 03/24/15 Eval by Nena Buckner at [facility] for Colon Consult. Will plan for colonoscopy. H/O mammogram 05/23/2015 Overview (05/23/2015): Done on 03/31/2015 at [facility]: no mammographic evidence of malignancy is seen. Next due 03/2016 Positive ROSEY (antinuclear antibody) 02/27/2015 Pulmonary fibrosis ([facility]) 02/21/2015 Interstitial pneumonitis ([facility]) Immunizations Immunization Administration Dates Next Due INFLUENZA, [...] 65 01/10/2017 11:07 AM EDT Temperature 36.9 C (98.5 F) 01/10/2017 11:07 AM EDT Respiratory Rate 16 01/10/2017 11:07 AM EDT Oxygen Saturation - - Inhaled Oxygen Concentration - - Weight 65.8 kg (145 lb) 01/10/2017 11:07 AM EDT Height 160 cm (5' 3 ) 01/10/2017 11:07 AM EDT Body Mass Index 25.69 01/10/2017 11:07 AM EDT Plan of Treatment Not on file Insurance [place] [address] [employer] [facility]
== END 2024-11-30 12:36 | disposition home or self-care (01) ==
LOC: HO.CT 12:35
PROVIDERS: PCP Physician Assistant; Visit Provider Hospitalist
DX: J84.9 Interstitial pulmonary disease, unspecified (principal); J98.4 Other disorders of lung
CPT/HCPCS: 71250

== ENCOUNTER → 2024-11-30 12:38 | Outpatient (BNV) | payer OTHER, SELFPAY | PROVIDERS: PCP Physician Assistant; Visit Provider Specialist | DX: J84.9 Interstitial pulmonary disease, unspecified (principal) | CPT/HCPCS: 71250 ==

== ENCOUNTER 2024-12-07 08:45 | Outpatient (REF) | payer OTHER, SELFPAY ==
--- NOTE | 2024-12-07 08:57 | PFT_ITS ---
Flows: FEV1: 94 % of predicted at 2.10 L FVC: 89 % of predicted at 2.53 L FEV1/FVC: 83 % Bronchodilator response: Absent Volumes: Total lung capacity: 78 % of predicted at 3.67 L Residual volume: 67 % of predicted at 1.13 L Slow vital capacity: 83 % of predicted at 2.54 L Expiratory reserve volume: 50 % of predicted at 0.36 L Diffusion capacity: Normal Impression: Mild restrictive ventilatory defect with no bronchodilator response. Decreased expiratory reserve volume suggests extrathoracic restriction likely secondary to abdominal obesity. MTDD
[2024-12-07 09:33] VITALS: PULSE 63; O2SAT 99
--- OUTSIDE RECORDS SUMMARY | 2024-12-07 09:38 | XMS_ITS | Clinical Summary ---
Author Organization [facility] Address [address] [place] [address] Care Team Providers Care Biztalk Developer Name Role Phone Unavailable Primary Care Provider [...] (06/03/2015): 03/24/15 Eval by Nena Buckner at [facility] for Colon Consult. Will plan for colonoscopy. H/O mammogram 05/23/2015 Overview (05/23/2015): Done on 03/31/2015 at [facility]: no mammographic evidence of malignancy is seen. Next due 03/2016 Positive ROSEY (antinuclear antibody) 02/27/2015 Pulmonary fibrosis ([facility]) 02/21/2015 Interstitial pneumonitis ([facility]) Immunizations Immunization Administration Dates Next Due INFLUENZA, [...] on file Insurance [place] [id number] [employer] [facility]
--- OUTSIDE RECORDS SUMMARY | 2024-12-07 09:38 | XMS_ITS | Clinical Summary ---
Author Organization [facility] Address [address] [place] [address] Phone Care Team Providers Care Floor Representative Name Role Phone Candy Almanzar Primary Care [...] with food. 90 tablet 1 4 Active acetaminophen (TYLENOL) 500 mg tablet Take 2 tablets (1,000 mg total) by mouth every 8 (eight) hours. 30 tablet 5 Active lidocaine (LIDODERM) 5 % patchIndication s:Chronic neck and back pain Apply 1 patch topically 1 (one) time each day if needed for mild pain. Apply to painful area 12 hours per day, remove for 12 hours. 30 each 5 07/04/19 26 Active tiZANidine (ZANAFLEX) 4 mg tabletIndicatio ns:Chronic neck and back pain Take 1 tablet (4 mg total) by mouth at bedtime as needed for muscle spasms. 90 tablet 5 Active gabapentin (NEURONTIN) 300 mg capsuleIndicati ons:Chronic neck and back pain Take 1 capsule (300 mg total) by mouth at bedtime. Active dexAMETHasone (DECADRON) 4 mg tablet Take 1 tablet (4 mg total) by mouth 2 (two) times a day for 4 days. 8 each 5 Active Active Problems Problem Noted Date Diagnosed [...] ROSEY (antinuclear antibody) 07/29/2017 Fibrosis of lung ([facility] V24, [facility] V28) 01/09 Interstitial lung disease ([facility] V24, [facility] V28) 01/20/2017 Encounters Date Type Department Care Team Description 10/07/2024 9:42 AM EDT - 10/07/2024 2:35 PM EDT Emergency [facility] Emergency [address] [place] [phone] Cal Pearson MD COVID-19 virus infection (Primary Dx) Discharge Disposition: Home or Self Care 10/04/2024 11:00 AM EDT Office Visit Internal Medicine - [place] [address] [facility] [address] [place] [phone] Candy Almanzar PA Chronic neck and back pain (Primary Dx) from Last 3 Months Immunizations Name Administration Dates Next Due Influenza Quadravalent, MDCK , 0.5ml, preservative free (Flucelvax) 6mo and older 05/04/2021 Surgical History Surgery Date Site/Laterality Comments CHOLECYSTECTOMY PROCEDURE: HISTORICAL CHOLECYSTECTOMY OTHER SURGICAL HISTORY PROCEDURE: ---- OTHER ----; COMMENT: hist lung biopsy x 2 COLONOSCOPY PROCEDURE: HISTORICAL COLONOSCOPY CHOLECYSTECTOMY PROCEDURE: ID LAPAROSCOPY SURG CHOLECYSTECTOMY ESOPHAGOGASTRODUODENOSCOPY PROCEDURE: ID ESOPHAGOGASTRODUODENOSCOPY TRANSORAL DIAGNOSTIC CARDIAC CATHETERIZATION Right right wrist, related to h/o chest pain BILATERAL SALPINGOOPHORECTOMY Robot assisted laparoscopic bilateral salpingo-oophorectomy. Medical History Medical History Date Comments Fibrosis of lung (CMS/HCC V2 4, CMS/HCC V28) 01/20/2017 DX:Fibrosis of lung (HCC) Interstitial lung disease (C MS/HCC V24, CMS/HCC V28) 01/20/2017 DX:Interstitial lung disease [...] Sign Reading Time Taken Comments Blood Pressure 116/59 10/07/2024 11:27 AM EDT Pulse 88 10/07/2024 11:27 AM EDT Temperature 37.5 C (99.5 F) 10/07/2024 11:27 AM EDT Respiratory Rate 16 10/07/2024 11:27 AM EDT Oxygen Saturation 98% 10/07/2024 11:27 AM EDT Inhaled Oxygen Concentration - - Weight 65.8 kg (145 lb) 10/07/2024 9:12 AM EDT Height 160 cm (5' 3 ) 10/07/2024 9:12 AM EDT Body Mass Index 25.69 10/07/2024 9:12 AM EDT Plan of Treatment Upcoming Encounters Date Type Department Care Team (Late st Contact Info) Description 04/05/2025 11:00 AM EST Office Visit Internal Medicine - [place] [address] [place] [address] Candy Almanzar PA [address] [facility] [place] [phone] Health Maintenance Due Date Last Done Comments Breast Cancer Screening 1961 DTaP,Tdap,and Td Vaccines (1 - Tdap) 01/24/1980 Pneumococcal Vaccine: 50+ Years (1 of 2 - PCV) 01/24/1980 Cervical Cancer Screening: Pap Smear 1982 Zoster Vaccines (1 of 2) 2011 RSV Immunization Adult Patients (1 - Risk 60-74 years 1-dose series) 2021 Colorectal Cancer Screening: Colonoscopy 03/14/2022 HIV Screening 03/14/2022 Social Influencers of Health Screening 03/14/2022 COVID-19 Vaccine ( season) 2023 Depression Screening 04/11/2024 Influenza Vaccine (#1) 2024 05/04/2021, 2014 Hypertension/CHF/CAD Annual BMP Blood Test 10/07/2025 10/07/2024, 04/18/2024, 01/25/2024, Additional history exists Cholesterol Screening (Lipid Panel) 01/24/2029 01/25/2024, 12/09/2022 [...] 20 months Aged Out No longer eligible based on patient's age to complete this topic Varicella Vaccines Aged Out No longer eligible based on patient's age to complete this topic Procedures Procedure Name Priority Date/Time Associated Diagnosis Comments XR CHEST 1 VIEW STAT 10/07/2024 12:43 PM EDT XR CHEST 2 VIEWS STAT 10/07/2024 9:29 AM EDT CBC WITH AUTO DIFFERENTIAL STAT 10/07/2024 9:20 AM EDT COMPREHENSIVE METABOLIC PANEL STAT 10/07/2024 9:20 AM EDT CBC AND DIFFERENTIAL STAT 10/07/2024 9:20 AM EDT RESPIRATORY VIRUS PANEL MOLECULAR STUDY STAT 10/07/2024 9:20 AM EDT LIPID PANEL Routine 12/09/2022 HEPATITIS C SCREENING Routine 02/06/2018 from Last 3 Months or Most Recently Relevant to Health Maintenance Results * XR Chest 1 View (10/07/2024 12:43 PM EDT) Anatomical Region Laterality Modality Body Radiographic Reva ging 10/07/2024 12:5 0 PM EDT Impressions 10/07/2024 12:50 PM EDT No acute findings. -------- FINAL REPORT -------- Dictated By: Sunday Alexis Dictated Date: 10/07/2024 12:50 ET Assigned Physician: Sunday Alexis Reviewed and Electronically Signed By: Sunday Alexis Signed Date: 10/07/2024 12:50 ET Workstation ID: [id number] Transcribed By: Self Edit Transcribed Date: 10/07/2024 12:50 ET Narrative 10/07/2024 12:50 PM EDT PROCEDURE: AP chest radiograph. HISTORY: pain Pulmonary fibrosis, COVID infection. COMPARISON: 10/07/2024. FINDINGS: Stable slight elevation of the left hemidiaphragm. Lungs, pleural spaces, pulmonary vasculature, and cardiomediastinal contours are normal. Mild degenerative changes of the spine and shoulders. Cholecystectomy clips. Procedure Note Sunday Alexis MD - 10/07/2024 PROCEDURE: AP chest radiograph. HISTORY: pain Pulmonary fibrosis, COVID infection. COMPARISON: 10/07/2024. FINDINGS: Stable slight elevation of the left hemidiaphragm. Lungs, pleural spaces,pulmonary vasculature, and cardiomediastinal contours are normal. Milddegenerative changes of the spine and shoulders. Cholecystectomy clips. IMPRESSION: No acute findings. -------- FINAL REPORT -------- Dictated By: Sunday Alexis Dictated Date: 10/07/2024 12:50 ET Assigned Physician: Sunday Alexis Reviewed and Electronically Signed By: Sunday Alexis Signed Date: 10/07/2024 12:50 ET Workstation ID: [id number] Transcribed By: Self Edit Transcribed Date: 10/07/2024 12:50 ET Cal Pearson MD IMG XR PROCEDURES Final Result * XR Chest 2 Views (10/07/2024 9:29 AM EDT) Anatomical Region Laterality Modality Body Radiographic Reva ging 10/07/2024 9:31 AM EDT Impressions 10/07/2024 9:31 AM EDT No acute findings. -------- FINAL REPORT -------- Dictated By: Sunday Alexis Dictated Date: 10/07/2024 09:31 ET Assigned Physician: Sunday Alexis Reviewed and Electronically Signed By: Sunday Alexis Signed Date: 10/07/2024 09:31 ET Workstation ID: [id number] Transcribed By: Self Edit Transcribed Date: 10/07/2024 09:31 ET Narrative 10/07/2024 9:31 AM EDT PROCEDURE: PA and lateral radiographs of the chest. HISTORY: fever. COMPARISON: 09/02/2022. FINDINGS: Slightly elevated left hemidiaphragm. Lungs, pleural spaces, pulmonary vasculature, and cardiomediastinal contours are normal. Bones appear demineralized. Cholecystectomy clips. Procedure Note Sunday Alexis MD - 10/07/2024 PROCEDURE: PA and lateral radiographs of the chest. HISTORY: fever. COMPARISON: 09/02/2022. FINDINGS: Slightly elevated left hemidiaphragm. Lungs, pleural spaces, pulmonaryvasculature, and cardiomediastinal contours are normal. Bones appeardemineralized. Cholecystectomy clips. IMPRESSION: No acute findings. -------- FINAL REPORT -------- Dictated By: Sunday Alexis Dictated Date: 10/07/2024 09:31 ET Assigned Physician: Sunday Alexis Reviewed and Electronically Signed By: Sunday Alexis Signed Date: 10/07/2024 09:31 ET Workstation ID: [id number] Transcribed By: Self Edit Transcribed Date: 10/07/2024 09:31 ET Cal Pearson MD IMG XR PROCEDURES Final Result * (ABNORMAL) Respiratory virus panel molecular study (10/07/2024 9:20 AM EDT) Adenovirus Detection by PCR Not Detected Not Detected LAB MICROBIOLOGY METHOD 10/07/2024 10:50 AM EDT [facility] Influenza A PCR Not Detected Not Detected LAB MICROBIOLOGY METHOD 10/07/2024 10:50 AM EDT [facility] Influenza B PCR Not Detected Not Detected LAB MICROBIOLOGY METHOD 10/07/2024 10:50 AM EDT [facility] Coronavirus 229E Not Detected Not Detected LAB MICROBIOLOGY METHOD 10/07/2024 10:50 AM EDT [facility] Coronavirus HKU1 Not Detected Not Detected LAB MICROBIOLOGY METHOD 10/07/2024 10:50 AM EDT [facility] Coronavirus OC43 Not Detected Not Detected LAB MICROBIOLOGY METHOD 10/07/2024 10:50 AM EDT [facility] Coronavirus NL63 Not Detected Not Detected LAB MICROBIOLOGY METHOD 10/07/2024 10:50 AM EDT [facility] Parainfluenza Virus 1 Not Detected Not Detected LAB MICROBIOLOGY METHOD 10/07/2024 10:50 AM EDT [facility] Parainfluenza Virus 2 Not Detected Not Detected LAB MICROBIOLOGY METHOD 10/07/2024 10:50 AM EDT [facility] Parainfluenza Virus 3 Not Detected Not Detected LAB MICROBIOLOGY METHOD 10/07/2024 10:50 AM EDT [facility] Parainfluenza Virus 4 Not Detected Not Detected LAB MICROBIOLOGY METHOD 10/07/2024 10:50 AM EDT [facility] RSV PCR Not Detected Not Detected LAB MICROBIOLOGY METHOD 10/07/2024 10:50 AM EDT [facility] Human Metapneumovirus A and B Not Detected Not Detected LAB MICROBIOLOGY METHOD 10/07/2024 10:50 AM EDT [facility] Rhinovirus/Entero virus Not Detected Not Detected LAB MICROBIOLOGY METHOD 10/07/2024 10:50 AM EDT [facility] Bordetella pertussis Not Detected Not Detected LAB MICROBIOLOGY METHOD 10/07/2024 10:50 AM EDT [facility] Bordetella parapertussis Not Detected Not Detected LAB MICROBIOLOGY METHOD 10/07/2024 10:50 AM EDT [facility] Mycoplasma pneumo by PCR Not Detected Not Detected LAB MICROBIOLOGY METHOD 10/07/2024 10:50 AM EDT [facility] Chlamydia pneumoniae Not Detected Not Detected LAB MICROBIOLOGY METHOD 10/07/2024 10:50 AM EDT [facility] SARS COV-2 Detected(A ) Not Detected LAB MICROBIOLOGY METHOD 10/07/2024 10:50 AM EDT [facility] Swab Both anterior nares / Unknown Non-blood Collection / Unknown 10/07/2024 9:20 AM EDT 10/07/2024 9:52 AM EDT Narrative [facility] - 10/07/2024 10:50 AM EDT Testing was performed using the Spotsetter Respiratory Pathogen PCR Assay. All results must be correlated with the clinical findings. Results should not be used as the sole basis for diagnosis. False Negative results may occur from the presence of sequence variants in the region targeted by the assay or the presence of inhibitors. Results may be affected by concurrent antiviral/antimicrobial therapy or levels of organisms that are below the limit of detection. us Cal Pearson MD LAB MICROBIOLOGY - GENERAL ORD ERABLES Final Result [facility] [address] [place] [address], [place] [phone] * (ABNORMAL) CBC auto differential (10/07/2024 9:20 AM EDT) WBC 10.2 4.8 - 10.8 K/mcL LAB HEMETOLOGY [facility] RBC 3.90 3.80 - 4.80 M/mcL LAB HEMETOLOGY METHOD [facility]/07[facility]24 [facility] Hemoglobin 11.5 11.5 - 16.0 g/dL LAB HEMETOLOGY METHOD 10/07/2024 10:02 AM [facility] Hematocrit 36.2 35.0 - 47.0 % LAB HEMETOLOGY METHOD 10/07/2024 10:02 AM [facility] MCV 92.1 79.0 - 98.0 FL LAB HEMETOLOGY METHOD 10/07/2024 10:02 AM [facility] MCH 29.3 27.0 - 32.0 pcg LAB HEMETOLOGY METHOD 10/07/2024 10:02 AM [facility] MCHC 31.8(L) 32.0 - 37.0 g/dL LAB HEMETOLOGY METHOD 10/07/2024 10:02 AM [facility] RDW 12.8 11.0 - 15.0 % LAB HEMETOLOGY METHOD 10/07/2024 10:02 AM [facility] Platelets 295 130 - 400 K/mcL LAB HEMETOLOGY METHOD 10/07/2024 10:02 AM [facility] MPV 9.2 7.0 - 11.0 FL LAB HEMETOLOGY METHOD 10/07/2024 10:02 AM [facility] NRBC 0.0 <1.0 % LAB HEMETOLOGY METHOD 10/07/2024 10:02 AM [facility] NRBC Absolute 0.00 <0.10 K/mcL LAB HEMETOLOGY METHOD 10/07/2024 10:02 AM [facility] Neutrophils Relative 77.0 % LAB HEMETOLOGY METHOD 10/07/2024 10:02 AM [facility] Lymphocytes Relative 15.8 % LAB HEMETOLOGY METHOD 10/07/2024 10:02 AM [facility] Monocytes Relative 6.2 % LAB HEMETOLOGY METHOD 10/07/2024 10:02 AM [facility] Eosinophils Relative 0.5 % LAB HEMETOLOGY METHOD 10/07/2024 10:02 AM [facility] Basophils Relative 0.2 % LAB HEMETOLOGY METHOD 10/07/2024 10:02 AM [facility] Immature Granulocytes Relative 0.3 % LAB HEMETOLOGY METHOD 10/07/2024 10:02 AM [facility] Neutrophils Absolute 7.85(H) 1.50 - 7.00 K/mcL LAB HEMETOLOGY METHOD 10/07/2024 10:02 AM [facility] Lymphocytes Absolute 1.61 1.00 - 5.00 K/mcL LAB HEMETOLOGY METHOD 10/07/2024 10:02 AM EDT [facility] Monocytes Absolute 0.63 0.20 - 1.00 K/[facility] LAB HEMETOLOGY METHOD 10/07/2024 10:02 AM EDT [facility] Eosinophils Absolute 0.05 0.00 - 0.50 K/[facility] LAB HEMETOLOGY METHOD 10/07/2024 10:02 AM EDT [facility] Basophils Absolute 0.02 0.00 - 0.20 K/[facility] LAB HEMETOLOGY METHOD 10/07/2024 10:02 AM EDT [facility] Immature Granulocytes Absolute 0.03 0.00 - 0.03 K/[facility] LAB HEMETOLOGY METHOD 10/07/2024 10:02 AM [facility] Blood Venous blood specimen / Unknown Venipuncture / Unknown 10/07/2024 9:20 AM EDT 10/07/2024 9:52 AM EDT us Cal Pearson MD LAB BLOOD ORDERABLES Final Res ult [facility] [address] [place] [address], * Comprehensive metabolic panel (10/07/2024 9:20 AM EDT) Sodium 142 133 - 145 mmol/L LAB CHEMISTRY METHOD 10/07/2024 11:04 AM EDT [facility] Potassium 3.8 3.5 - 5.5 mmol/L LAB CHEMISTRY METHOD [facility]/07[facility]24 [facility] Chloride 109 96 - 110 mmol/L LAB CHEMISTRY METHOD 10/07/2024 11:04 AM [facility] CO2 26 21 - 32 mmol/L LAB CHEMISTRY METHOD 10/07/2024 11:04 AM [facility] Anion Gap 7 3 - 11 LAB CHEMISTRY METHOD 10/07/2024 11:04 AM [facility] Glucose 98 70 - 100 mg/dL LAB CHEMISTRY METHOD 10/07/2024 11:04 AM [facility] BUN 14 5 - 25 mg/dL LAB CHEMISTRY METHOD 10/07/2024 11:04 AM [facility] Creatinine 0.94 0.50 - 1.10 mg/dL LAB CHEMISTRY METHOD 10/07/2024 11:04 AM [facility] eGFR 68 >=60 mL/min/1. 73m2 LAB CHEMISTRY METHOD 10/07/2024 11:04 AM [facility] Comment:Calculation based on the Chronic Kidney Disease Epidemiology Collaboration (CKD-EPI) equation refit without adjustment for race. BUN/Creatinine Ratio 14.9 LAB CHEMISTRY METHOD 10/07/2024 11:04 AM [facility] Calcium 9.4 8.5 - 10.5 mg/dL LAB CHEMISTRY METHOD 10/07/2024 11:04 AM [facility] AST (SGOT) 17 10 - 42 unit/L LAB CHEMISTRY METHOD 10/07/2024 11:04 AM [facility] ALT (SGPT) 23 10 - 60 unit/L LAB CHEMISTRY METHOD 10/07/2024 11:04 AM [facility] Alkaline Phosphatase 120 42 - 121 unit/L LAB CHEMISTRY METHOD 10/07/2024 11:04 AM [facility] Total Protein 7.9 6.0 - 8.0 g/dL LAB CHEMISTRY METHOD 10/07/2024 11:04 AM [facility] Albumin 4.2 3.2 - 5.0 g/dL LAB CHEMISTRY METHOD 10/07/2024 11:04 AM [facility] Total Bilirubin 0.6 0.0 - 1.4 mg/dL LAB CHEMISTRY METHOD 10/07/2024 11:04 AM EDT [facility] Blood Venous blood specimen / Unknown Venipuncture / Unknown 10/07/2024 9:20 AM EDT 10/07/2024 9:52 AM EDT Cal Pearson MD LAB BLOOD ORDERABLES Final Res ult [facility] [address] [place] [address], * Lipid panel (12/09/2022) LDL/HDL Ratio 3 0 - 4 Triglycerides 148 0 - 150 mg/dL Cholesterol 168 0 - 200 mg/dL HDL 65 >=40 mg/dL LDL Cholesterol 74 0 - 100 mg/dL Blood Venous blood specimen / Unknown Buddy Mccann MD LAB BLOOD ORDERABLES Sheyla l Result * Hepatitis C Screening (02/06/2018) Hepatitis C Screening abstracted Historical [facility] [employer] Final Result from Last 3 Months or Most Recently Relevant to Health Maintenance Insurance [facility] PUBLIC PL[facility] Advance Directives Documents on File Type Date Recorded Patient Creative Director Expl anation Power of [employer] Person 06/04/2024 12:44 PM [facility] PROXY * [...] currently active code status orders. Care Teams Floor Representative Relationship Specialty Start Date End Date Candy Almanzar PA [address] [place] [address] PCP - General Internal Medicine 05/04/21
== END 2024-12-07 08:46 | disposition home or self-care (01) ==
LOC: HO.RESP 08:45
PROVIDERS: PCP Physician Assistant; Visit Provider Hospitalist
DX: J84.9 Interstitial pulmonary disease, unspecified (principal); J98.4 Other disorders of lung
CPT/HCPCS: 94010; 94640; 94727; 94729

== ENCOUNTER → 2024-12-07 08:57 | Outpatient (BNV) | payer OTHER, SELFPAY | PROVIDERS: PCP Physician Assistant; Visit Provider Internal Medicine Pulmonary Disease | DX: J98.4 Other disorders of lung (principal) | CPT/HCPCS: 94060; 94727; 94729 ==

== ENCOUNTER 2024-12-24 09:48 | Outpatient (AMB) | payer OTHER, SELFPAY ==
[2024-12-24 09:49] VITALS: BP 127/82; PULSE 69; O2SAT 99; BMI 27.8
--- NOTE | 2024-12-24 09:49 | A.OFFVIS_ITS ---
Vital Signs 12/24/24 09:49 Height 5 ft 2 in Weight 152 lb BMI 27.8 BP 127/82 Blood Pressure Location Lt brachial Position Sitting Pulse 69 Pulse Source Pulse Oximeter Pulse Oximetry (%) 99 Oxygen Delivery Method Room Air Intake Visit Reasons: COPD Allergies No Known Allergies Allergy (Verified 12/24/24 09:54) HPI Comments Details: The patient is a 64-year-old woman with a known history of elevated ROSEY in addition to interstitial lung disease in the past with evidence of organizing pneumonia biopsy. The patient had been doing very well. She recovered completely from the interstitial lung disease. This happened many years ago and she hasn't had any recurrence. Her respiratory status has been stable. She has been evaluated at [facility] with left-sided headaches. The been significant affecting her whole left side. She went to the ER there she had an x-ray that was relatively normal. She also had blood work demonstrating an elevated creatinine. It is unclear at this point. However, she did have elevations in the an a in the past. Subsequent workup for the positive ROSEY resulted in negative double-stranded DNA. The patient had had some arthritis and rashes in the past but she no longer has does findings. The patient is here for pulmonary follow-up visit. The patient is a 59-year-old woman with a known history of elevated ROSEY in addition to interstitial lung disease in the past with evidence of organizing pneumonia biopsy. The patient had been doing very well. She recovered completely from the interstitial lung disease. This happened many years ago and she hasn't had any recurrence. Her respiratory status has been stable. She has been evaluated at [facility] with left-sided he adaches. The been significant affecting her whole left side. She went to the ER there she had an x-ray that was relatively normal. She also had blood work demonstrating an elevated creatinine. It is unclear at this point. However, she did have elevations in the an a in the past. Subsequent workup for the positive ROESY resulted in negative double-stranded DNA. The patient had had some arthritis and rashes in the past but she no longer has does findings. 03/26/2024 the patient is here for a pulmonary follow-up visit. Overall the patient has been doing well. She did develop COVID over the summer while she was in [place] and she was treated with prescriptions medicines. She did require a nebulizer and also albuterol for her wheezing. Subsequently after that she got back [facility] and she developed the flu. She decided not to seek medical care so therefore she continue with conservative therapies at home. She knows back to her baseline will make sure she has inhalers to be able to take a. Her last chest x-ray was back in July and it was intact without any acute disease. In addition to that she is complaining of some arthralgias and myalgias. At this point she has had elevations in her ROESY therefore Rheumatology referral will be warranted. She is going to follow-up with her primary care and though hopefully refer her to Rheumatology of the time. 05/11/2024 the patient is here for sick visit. Apparently she started developing worsening pelvic discomfort. She went to [facility] where she was evaluated in the ER. She had a CT scan of the abdomen. It demonstrates she had adnexal masses bilaterally. They were concerned for malignancy. In addition to that picked up some changes on the lung windows. Therefore she underwent a CT scan of the chest. The description demonstrates areas of opacities airspace disease with ground-glass opacities. The patient is asymptomatic denies any cough wheezing. She denies any recent viral syndromes. She does have joint pains. She does take Motrin and also other Ryder 2 inhibitors for that. The patient was seen by Oncology. And she also seen a general surgeon and she is going to undergo surgery. She does have a history of positive ROSEY and has a history of cryptogenic organizing pneumonia treated with prednisone while in [place]. Most likely she has an underlying active interstitial process. Her previous x- rays have been okay. Will go ahead and start her on prednisone after she gets blood work and then will follow-up with an x-ray in a few weeks to see if there is interval improvement of the areas. Ultimately she will need another CT scan and only to review the images from [facility]. 07/18/2024 the patient is here for pulmonary follow-up visit. He is status post surgery. It went well. The masses on the ovaries were benign tumors. This is per report. She tolerated surgery well that she did have significant pain afterwards. She did complain of prednisone as prescribed. The patient's breathing is better. She does have arthralgias. She does have Rheumatology evaluation pending. We did plenty of blood work. We did fever copies. Her connective tissue disease workup was only positive for the low titer ROSEY but everything else was negative for any specific connective tissue disease. She will follow-up with Rheumatology. Otherwise patient is doing well. Will have her repeat her CT scan sometime November or December to follow-up with the basilar opacities and ground-glass opacities. In addition to that will have her undergo pulmonary function studies in the follow-up after that. If she has any issues between now and then she is going to call for earlier if asthma. 12/24/2024 the patient is here for pulmonary follow-up visit. The patient continues to have some heaviness in the chest area. Dyspnea on exertion. Also complains of significant arthralgias. We have requested rheumatology referral but for some reason she has not been seen as of yet. Still though she did have a CT scan of the chest that I personally reviewed. It appears that she has some residual areas of scarring which would be potentially related to the previous flare-up that she had. In my review she also has some areas of ground-glass opacities very faint in the right hemithorax right middle lobe area. He has a very minimal but still present. She does have significant arthralgias like I mentioned. ROSEY continues to be little elevated although double-stranded DNA is negative. She does carry a diagnosis of fibromyalgia which could indeed could be ROSEY which could be related to some underlying autoimmune disease that has not declared itself. Therefore, will go ahead and try her on some Plaquenil in the meantime to decrease the inflammatory condition and hopefully in that way reducing any risk of any inflammatory involvements of the lungs. The patient will monitor closely for any visual changes while she is on the Plaquenil. Otherwise will follow-up in 3-4 months. If she has not issues prior to this she can always call for further recommendations. [facility] Medical History (Updated 05/11/24 @ 09:10 by Jose Carlos Calvin MD) Pneumonitis ILD (interstitial lung disease) Cervical neuralgia GERD (gastroesophageal reflux disease) Vitamin D deficiency Hypercholesterolemia Palpitations Insomnia Organizing pneumonia ROSEY positive Cough Surgical History (Updated 12/10/22 @ 13:50 by Christi Ovalle PA-C) History of laparoscopic cholecystectomy Family History (Updated 12/10/22 @ 13:53 by Christi Ovalle PA-C) Father Prostate cancer Mother Stroke, Onset Age: 65 Brother Myocardial infarction Social History Patient Tobacco Use Status: Former Tobacco user Tobacco use type: Cigarette Years Smoked: 20 years Review of Systems Const Denies night sweats ENT Denies change in voice, Denies lip swelling, Denies mouth pain, Reports nasal congestion, Reports nasal discharge and Denies tongue swelling Card Reports chest pain and Denies dyspnea on exertion Resp Reports cough and Denies dyspnea on exertion GI Denies abdominal pain Reports as per HPI Musc Reports back pain, Reports myalgias and Reports arthralgias Skin/Breast Reports rash Neuro Denies Neuro-related abnormal movements Psych Denies no additional complaints Nick/Lymph Denies easy bleeding and Denies lymphadenopathy Aller/Immun Denies lip swelling and Denies tongue swelling Physical Exam Vital Signs: Last Vital Signs Pulse 69 12/24/24 09:49 BP 127/82 12/24/24 09:49 Pulse Ox 99 12/24/24 09:49 Oxygen Delivery Method Room Air 12/24/24 09:49 BMI result Body Mass Index 27.8 Const General: alert Neck Neck: Yes normal visual inspection, Yes full ROM and Yes no lymphadenopathy Chest Chest palpation & inspection: normal inspection of the chest Resp Effort & Inspection: normal respiratory effort Auscultation: clear to auscultation bilaterally, no crackles, no rales, no rhonchi and no wheezes Cardio Rate: regular rate Rhythm: regular rhythm Heart sounds: S1 normal heart sound present and S2 normal heart sound present GI Palpation (GI): Soft to palpation and nontender Auscultation: normal bowel sounds Skin General skin exam: other ( Hypopigmented macular areas primarily in her lower extremities) Assessment & Plan Assessment & Plan (1) Organizing pneumonia: Code(s): J84.89 - Other specified interstitial pulmonary diseases Category: Medical (2) ROSEY positive: Code(s): R76.8 - Other specified abnormal immunological findings in serum Category: Medical (3) Cough: Code(s): R05 - Cough Category: Medical Qualifiers: Cough type: chronic Qualified Code(s): R05.3 - Chronic cough (4) Insomnia: Code(s): G47.00 - Insomnia, unspecified Category: Medical Qualifiers: Insomnia type: primary Qualified Code(s): F51.01 - Primary insomnia (5) ILD (interstitial lung disease): Code(s): J84.9 - Interstitial pulmonary disease, unspecified Category: Medical (6) Pneumonitis: Code(s): J98.4 - Other disorders of lung Category: Medical Plan Trial Plaquenil continue Symbicort NOEL as needed Rheumatology referral pending PFTs with mild restriction follow-up 4-6 months Medications: New hydroxychloroquine (Plaquenil) 200 mg PO DAILY 30 tabs 12RF Coding Level of Care Code Est Pt Level 4 (84651) Complex EM visit Add On G2211 Diagnoses Organizing pneumonia J84.89 ROSEY positive R76.8 Chronic cough R05.3 Cough type: chronic Primary insomnia F51.01 Insomnia type: primary ILD (interstitial lung disease) J84.9 Pneumonitis J98.4 Time Spent (min) 17
--- OUTSIDE RECORDS SUMMARY | 2024-12-24 12:06 | XMS_ITS | Clinical Summary ---
Author Organization [facility] Address [address] [place] [address] Care Team Providers Care Supply Teacher Name Role Phone Unavailable Primary Care Provider [...] (06/03/2015): 03/24/15 Eval by Nena Buckner at [facility] for Colon Consult. Will plan for colonoscopy. H/O mammogram 05/23/2015 Overview (05/23/2015): Done on 03/31/2015 at [facility]: no mammographic evidence of malignancy is seen. Next due 03/2016 Positive ROSEY (antinuclear antibody) 02/27/2015 Pulmonary fibrosis ([facility]) 02/21/2015 Interstitial pneumonitis ([facility] Immunizations Immunization Administration Dates Next [...] on file [place] [id number] [employer] [facility]
--- OUTSIDE RECORDS SUMMARY | 2024-12-24 12:06 | XMS_ITS | Clinical Summary ---
Author Organization 175 [facility] Address [address] [place] [address] Phone Care Team Providers Care Graphics Editor Name Role Phone Candy Almanzar Primary Care [...] busPIRone (BUSPAR) 10 mg tablet 4 Active acetaminophen (TYLENOL) 500 mg tablet [...] 30 each 11 5 07/04/19 26 Active gabapentin (NEURONTIN) 300 mg capsuleIndicati ons:Chronic neck and back pain Take 1 capsule (300 mg total) by mouth at bedtime. 5 Active dexAMETHasone (DECADRON) 4 mg tablet Take 1 tablet (4 mg total) by mouth 2 (two) times a day for 4 days. 8 each 5 Active meloxicam (MOBIC) 15 mg tabletIndicatio ns:Chronic neck and back pain Take 1 tablet (15 mg total) by mouth 1 (one) time each day if needed for moderate pain. Take with food. 90 tablet 1 5 Active tiZANidine (ZANAFLEX) 4 mg tabletIndicatio ns:Chronic neck and back pain Take 1 tablet (4 mg total) by mouth at bedtime as needed for muscle spasms. 90 tablet 5 Active meloxicam (MOBIC) 15 mg tabletIndicatio ns:Chronic neck and back pain Take 1 tablet (15 mg total) by mouth 1 (one) time each day if needed for moderate pain. Take with food. 90 tablet 1 4 12/12/19 25 Discontinu ed(Reorder ) tiZANidine (ZANAFLEX) 4 mg tabletIndicatio ns:Chronic neck and back pain Take 1 tablet (4 mg total) by mouth at bedtime as needed for muscle spasms. 90 tablet 5 12/12/19 25 Discontinu ed(Reorder ) Active Problems Problem Noted Date Diagnosed Date [...] ROSEY (antinuclear antibody) 07/29/2017 Fibrosis of lung ([facility] V24, [facility] V28) 01/09 Interstitial lung disease ([facility] V24, [facility] V28) 01/20/2017 Encounters Date Type Department Care Team Description 10/07/2024 9:42 AM EDT - 10/07/2024 2:35 PM EDT Emergency [facility] Emergency [address] [place] [id number] Cal Pearson MD COVID-19 virus infection (Primary Dx) Discharge Disposition: Home or Self Care 10/04/2024 11:00 AM EDT Office Visit Internal Medicine - [facility] [address] [facility] [address] [place] [phone] Candy Almanzar PA Chronic neck and back pain (Primary Dx) from Last 3 Months Immunizations Name Administration Dates Next Due Influenza Quadravalent, MDCK , 0.5ml, preservative free (Flucelvax) 6mo and older 05/04/2021 Surgical History Surgery Date Site/Laterality Comments CHOLECYSTECTOMY PROCEDURE: HISTORICAL CHOLECYSTECTOMY OTHER SURGICAL HISTORY PROCEDURE: ---- OTHER ----; COMMENT: hist lung biopsy x 2 COLONOSCOPY PROCEDURE: HISTORICAL COLONOSCOPY CHOLECYSTECTOMY PROCEDURE: NM LAPAROSCOPY SURG CHOLECYSTECTOMY ESOPHAGOGASTRODUODENOSCOPY PROCEDURE: NM ESOPHAGOGASTRODUODENOSCOPY TRANSORAL DIAGNOSTIC CARDIAC CATHETERIZATION Right right [...] AM EST Office Visit Internal Medicine - [facility] [address] [facility] [address] [place] [phone] Candy Almanzar PA [address] [facility] [address] [place] [address] Health Maintenance Due Date Last Done Comments [...] 03/14/2022 Social Influencers of Health Screening 03/14/2022 Depression Screening 04/11/2024 COVID-19 Vaccine ( - season) 2024 Influenza Vaccine (#1) 2024 05/04/2021, 2014 Hypertension/CHF/CAD [...] Signed Date: 10/07/2024 12:50 ET Workstation ID: [id number] Transcribed By: Self Edit Transcribed Date: 10/07/2024 [...] Signed Date: 10/07/2024 12:50 ET Workstation ID: [id number] Transcribed By: Self Edit Transcribed Date: 10/07/2024 12:50 ET us Cal Pearson MD IMG XR PROCEDURES Final [...] Signed Date: 10/07/2024 09:31 ET Workstation ID: [id number] Transcribed By: Self Edit Transcribed Date: 10/07/2024 [...] Signed Date: 10/07/2024 09:31 ET Workstation ID: [id number] Transcribed By: Self Edit Transcribed Date: 10/07/2024 09:31 ET Cal Pearson MD IMG XR PROCEDURES Final Result * (ABNORMAL) Respiratory virus panel molecular study (10/07/2024 9:20 AM EDT) Adenovirus Detection by PCR Not Detected Not Detected LAB MICROBIOLOGY METHOD 10/07/2024 10:50 AM EDT [facility] Influenza A PCR Not Detected Not Detected LAB MICROBIOLOGY METHOD 10/07/2024 10:50 AM EDT [facility] Influenza B PCR Not Detected Not Detected LAB MICROBIOLOGY METHOD 10/07/2024 10:50 AM EDT [facility] Coronavirus 229E Not Detected Not Detected LAB MICROBIOLOGY METHOD 10/07/2024 10:50 AM EDT [facility] Coronavirus HKU1 Not Detected Not Detected LAB MICROBIOLOGY METHOD 10/07/2024 10:50 AM EDT [facility] Coronavirus OC43 Not Detected Not Detected LAB MICROBIOLOGY METHOD 10/07/2024 10:50 AM EDT [facility] Coronavirus NL63 Not Detected Not Detected LAB MICROBIOLOGY METHOD 10/07/2024 10:50 AM EDT [facility] Parainfluenza Virus 1 Not Detected Not Detected LAB MICROBIOLOGY METHOD 10/07/2024 10:50 AM EDT [facility] Parainfluenza Virus 2 Not Detected Not Detected LAB MICROBIOLOGY METHOD 10/07/2024 10:50 AM EDT [facility] Parainfluenza Virus 3 Not Detected Not Detected LAB MICROBIOLOGY METHOD 10/07/2024 10:50 AM EDT [facility] Parainfluenza Virus 4 Not Detected Not Detected LAB MICROBIOLOGY METHOD 10/07/2024 10:50 AM EDT [facility] RSV PCR Not Detected Not Detected LAB MICROBIOLOGY METHOD 10/07/2024 10:50 AM EDT [facility] Human Metapneumovirus A and B Not Detected Not Detected LAB MICROBIOLOGY METHOD 10/07/2024 10:50 AM EDT [facility] Rhinovirus/Entero virus Not Detected Not Detected LAB MICROBIOLOGY METHOD 10/07/2024 10:50 AM EDT [facility] Bordetella pertussis Not Detected Not Detected LAB MICROBIOLOGY METHOD 10/07/2024 10:50 AM EDT [facility] Bordetella parapertussis Not Detected Not Detected LAB MICROBIOLOGY METHOD 10/07/2024 10:50 AM EDT [facility] Mycoplasma pneumo by PCR Not Detected Not Detected LAB MICROBIOLOGY METHOD 10/07/2024 10:50 AM EDT [facility] Chlamydia pneumoniae Not Detected Not Detected LAB MICROBIOLOGY METHOD 10/07/2024 10:50 AM EDT [facility] SARS COV-2 Detected(A ) Not Detected LAB MICROBIOLOGY METHOD 10/07/2024 10:50 AM EDT [facility] Swab Both anterior nares / Unknown Non-blood Collection / Unknown 10/07/2024 9:20 AM EDT 10/07/2024 9:52 AM EDT [facility] - 10/07/2024 10:50 AM EDT Testing was performed using the [employer] Respiratory Pathogen PCR Assay. All results must [...] that are below the limit of detection. Cal Pearson MD LAB MICROBIOLOGY - GENERAL ORD ERABLES Final Result [facility] [address] [place] [address], * (ABNORMAL) CBC auto differential (10/07/2024 9:20 AM EDT) WBC 10.2 4.8 - 10.8 K/mcL LAB HEMETOLOGY METHOD 10/07/2024 10:02 AM EDT [facility] RBC 3.90 3.80 - 4.80 M/mcL LAB HEMETOLOGY METHOD 10/07/2024 10:02 AM EDT [facility] Hemoglobin 11.5 11.5 - 16.0 g/dL LAB HEMETOLOGY METHOD 10/07/2024 10:02 AM [facility] Hematocrit 36.2 35.0 - 47.0 % LAB HEMETOLOGY METHOD 10/07/2024 10:02 AM [facility] MCV 92.1 79.0 - 98.0 FL LAB HEMETOLOGY METHOD 10/07/2024 10:02 AM [facility] MCH 29.3 27.0 - 32.0 pcg LAB HEMETOLOGY METHOD 10/07/2024 10:02 AM [facility] MCHC 31.8(L) 32.0 - 37.0 g/dL LAB HEMETOLOGY METHOD 10/07/2024 10:02 AM [facility] RDW 12.8 11.0 - 15.0 % LAB HEMETOLOGY METHOD 10/07/2024 10:02 AM [facility] Platelets 295 130 - 400 K/mcL LAB HEMETOLOGY METHOD 10/07/2024 10:02 AM [facility] MPV 9.2 7.0 - 11.0 FL LAB HEMETOLOGY METHOD 10/07/2024 10:02 AM [facility] NRBC 0.0 <1.0 % LAB HEMETOLOGY METHOD 10/07/2024 10:02 AM [facility] NRBC Absolute 0.00 <0.10 K/mcL LAB HEMETOLOGY METHOD 10/07/2024 10:02 AM [facility] Neutrophils Relative 77.0 % LAB HEMETOLOGY METHOD 10/07/2024 10:02 AM [facility] Lymphocytes Relative 15.8 % LAB HEMETOLOGY METHOD 10/07/2024 10:02 AM [facility] Monocytes Relative 6.2 % LAB HEMETOLOGY METHOD 10/07/2024 10:02 AM [facility] Eosinophils Relative 0.5 % LAB HEMETOLOGY METHOD 10/07/2024 10:02 AM EDT [facility] Basophils Relative 0.2 % LAB HEMETOLOGY METHOD 10/07/2024 10:02 AM [facility] Immature Granulocytes Relative 0.3 % LAB HEMETOLOGY METHOD 10/07/2024 10:02 AM EDT [facility] Neutrophils Absolute 7.85(H) 1.50 - 7.00 K/mcL LAB HEMETOLOGY METHOD 10/07/2024 10:02 AM EDT [facility] Lymphocytes Absolute 1.61 1.00 - 5.00 K/mcL LAB HEMETOLOGY METHOD 10/07/2024 10:02 AM [facility] Monocytes Absolute 0.63 0.20 - 1.00 K/mcL LAB HEMETOLOGY METHOD 10/07/2024 10:02 AM EDT [facility] Eosinophils Absolute 0.05 0.00 - 0.50 K/mcL LAB HEMETOLOGY METHOD 10/07/2024 10:02 AM EDT [facility] Basophils Absolute 0.02 0.00 - 0.20 K/mcL LAB HEMETOLOGY METHOD 10/07/2024 10:02 AM [facility] Immature Granulocytes Absolute 0.03 0.00 - 0.03 K/mcL LAB HEMETOLOGY METHOD 10/07/2024 10:02 AM EDT [facility] Blood Venous blood specimen / Unknown Venipuncture / Unknown 10/07/2024 9:20 AM EDT 10/07/2024 9:52 AM EDT us Cal Pearson MD LAB BLOOD ORDERABLES Final Res ult [facility] [address] [place] [address], * Comprehensive metabolic panel (10/07/2024 9:20 AM ED) Sodium 142 133 - 145 mmol/L LAB CHEMISTRY METHOD 10/07/2024 11:04 AM [facility] Potassium 3.8 3.5 - 5.5 mmol/L LAB CHEMISTRY METHOD 10/07/2024 11:04 AM [facility] Chloride 109 96 - 110 mmol/L LAB CHEMISTRY METHOD 10/07/2024 11:04 AM [facility] CO2 26 21 - 32 mmol/L LAB CHEMISTRY METHOD 10/07/2024 11:04 AM [facility] Anion Gap 7 3 - 11 LAB CHEMISTRY METHOD 10/07/2024 11:04 AM [facility] Glucose 98 70 - 100 mg/dL LAB CHEMISTRY METHOD 10/07/2024 11:04 AM [facility] BUN 14 5 - 25 mg/dL LAB CHEMISTRY METHOD 10/07/2024 11:04 AM [facility] Creatinine 0.94 0.50 - 1.10 mg/dL LAB CHEMISTRY METHOD 10/07/2024 11:04 AM [facility] eGFR 68 >=60 mL/min/1. 73m2 LAB CHEMISTRY METHOD 10/07/2024 11:04 AM [facility] Comment:Calculation based on the Chronic Kidney Disease Epidemiology Collaboration (CKD-EPI) equation refit without adjustment for race. BUN/Creatinine Ratio 14.9 LAB CHEMISTRY METHOD 10/07/2024 11:04 AM [facility] Calcium 9.4 8.5 - 10.5 mg/dL LAB CHEMISTRY METHOD 10/07/2024 11:04 AM [facility] AST (SGOT) 17 10 - 42 unit/L LAB CHEMISTRY METHOD 10/07/2024 11:04 AM [facility] ALT (SGPT) 23 10 - 60 unit/L LAB CHEMISTRY METHOD 10/07/2024 11:04 AM EDT [facility] Alkaline Phosphatase 120 42 - 121 unit/L LAB CHEMISTRY METHOD 10/07/2024 11:04 AM EDT [facility] Total Protein 7.9 6.0 - 8.0 g/dL LAB CHEMISTRY METHOD 10/07/2024 11:04 AM EDT [facility] Albumin 4.2 3.2 - 5.0 g/dL LAB CHEMISTRY METHOD 10/07/2024 11:04 AM EDT [facility] Total Bilirubin 0.6 0.0 - 1.4 mg/dL LAB CHEMISTRY METHOD 10/07/2024 11:04 AM EDT [facility] Blood Venous blood specimen / Unknown Venipuncture / Unknown 10/07/2024 9:20 AM EDT 10/07/2024 9:52 AM EDT Cal Pearson MD LAB BLOOD ORDERABLES Final Res ult [facility] [address] [place] [address], * Lipid panel (12/09/2022) Pathologist [facility] LDL/HDL Ratio 3 0 - 4 Triglycerides 148 0 - 150 mg/dL Cholesterol 168 0 - 200 mg/dL HDL 65 >=40 mg/dL LDL Cholesterol 74 0 - 100 mg/dL Blood Venous blood specimen / Unknown Buddy Mccann MD LAB BLOOD ORDERABLES Sheyla l Result * Hepatitis C Screening (02/06/2018) Pathologist [facility] Hepatitis C Screening abstracted Buddy Mccann MD HEALTH MAINTENANCE Final Result from Last 3 Months or Most Recently Relevant to Health Maintenance Insurance [facility] [employer] Advance Directives Documents on File Type Date Recorded Patient Inspector Floor Sub Assembly Expl anation Power of Botanical Technical Officer 06/04/2024 12:44 PM HEAL THCARE PROXY * [...] currently active code status orders. Care Teams Graphics Editor Relationship Specialty Start Date End Date Candy Almanzar PA [address] [facility] [address] [place] [address] PCP - General Internal Medicine 05/04/21
== END 2024-12-24 10:30 | disposition home or self-care (01) ==
LOC: HO.HPS 09:48
PROVIDERS: PCP Physician Assistant; Visit Provider Hospitalist
DX: J84.89 Other specified interstitial pulmonary diseases (principal); R76.8 Other specified abnormal immunological findings in serum; R05.3 Chronic cough; F51.01 Primary insomnia; J84.9 Interstitial pulmonary disease, unspecified; J98.4 Other disorders of lung
CPT/HCPCS: 99214

== ENCOUNTER → 2024-12-24 09:48 | Outpatient (BNVA) | payer OTHER, SELFPAY | PROVIDERS: PCP Physician Assistant; Visit Provider Hospitalist | DX: R05.3 Chronic cough (principal); J84.89 Other specified interstitial pulmonary diseases; R76.8 Other specified abnormal immunological findings in serum; J44.9 Chronic obstructive pulmonary disease, unspecified; F51.01 Primary insomnia; J84.9 Interstitial pulmonary disease, unspecified | CPT/HCPCS: 99212 ==

== ENCOUNTER 2025-02-06 09:29 | Outpatient (AMB) | payer OTHER, SELFPAY ==
--- NOTE | 2025-02-06 09:32 | MHC.OFFVIS ---
Intake Visit Reasons: CDD Allergies No Known Allergies Allergy (Verified 02/06/25 09:37) Medication List - Last Reconciled 02/06/25 by Wendy Valdez CNP atorvastatin 20 mg PO DAILY buspirone 15 mg PO BID cholecalciferol (vitamin D3) (Vitamin D3) 0 mcg PO clonidine HCl mg PO eszopiclone (Lunesta) 3 mg PO BEDTIME 30 days fluoxetine 20 mg PO DAILY gabapentin 300 mg PO DAILY hydroxychloroquine (Plaquenil) 200 mg PO DAILY hydroxyzine HCl 10 mg PO TID lorazepam mg PO meloxicam 15 mg PO DAILY Symbicort 160-4.5 mcg/actuation (budesonide-formoterol) 2 puffs inhalation BID 30 days NS tizanidine 4 mg PO BEDTIME HPI Comments Details: 65-year-old woman with chronic neck and shoulder pain, and headaches. She was complaining of pain to neck, shoulders, arms, back, and sometimes knees. No numbness or tingling. No new or increased weakness. No falls. She was taking meloxicam and sometimes diclofenac, but neither medication helped much. She said she was taking tizanidine, but it did not help and made her tired. It was unclear if she was also taking cyclobenzaprine at bedtime. She had tried cyclobenzaprine 10mg up to 3x/day in the past, but was very tired with medication. She was taking gabapentin 300mg at bedtime, which helped with pain for short period of time, but pain would return and it also made her tired. She may have tried medication three times a day in the past, but this was unclear. She was asking if medication such as Tramadol could be prescribed. Headaches happened occasionally. Previously, headaches were almost every day, using Tylenol. Trouble sleeping, tired during the day. COVID positive 08/2021, treated with Paxlovid and prednisone. Had 2 episodes of left-sided prickly paresthesia affecting scalp, face, arm, and leg, lasting up to 3 days. The first was around early 2018 and the second was around 02/2019. She was seen at [facility] and apparently had MRI done. Results not available. No associated symptoms with these episodes. [facility] Medical History (Updated 02/06/25 @ 10:00 by Wendy Rondinelli, RELATIONS LIAISON) Pneumonitis ILD (interstitial lung disease) Cervical neuralgia GERD (gastroesophageal reflux disease) Vitamin D deficiency Hypercholesterolemia Palpitations Insomnia Organizing pneumonia ROSEY positive Cough Surgical History (Updated 12/10/22 @ 13:50 by Christi Ovalle PA-C) History of laparoscopic cholecystectomy Family History (Updated 12/10/22 @ 13:53 by Christi Ovalle PA-C) Father Prostate cancer Mother Stroke, Onset Age: 65 Brother Myocardial infarction Social History Patient Tobacco Use Status: Former Tobacco user Tobacco use type: Cigarette Years Smoked: 20 years Review of Systems Const Denies chills, Denies daytime sleepiness, Reports difficulty sleeping, Denies fatigue, Denies fever(s), Denies frequent falls, Reports headache(s), Denies increased appetite, Denies poor appetite, Denies snoring, Denies weakness, Denies weight gain and Denies weight loss Eyes Denies loss of vision ENT Denies vertigo, Denies dizziness, Reports headache(s) and Reports neck pain Card Denies chest pain at rest, Denies chest pain with activity, Denies syncope, Denies leg edema, Denies palpitations, Denies dyspnea and Denies dyspnea on exertion Resp Denies cough, Denies dyspnea, Denies dyspnea on exertion and Denies snoring GI Denies abdominal pain, Denies constipation, Denies heartburn, Denies diarrhea and Denies nausea Denies urinary frequency, Denies urinary incontinence and Denies urinary urgency Musc Denies abnormal gait, Reports back pain, Reports myalgias, Reports arthralgias, Reports neck pain, Reports numbness and Reports tingling Neuro Denies abnormal gait, Denies vertigo, Denies dizziness, Denies syncope, Denies frequent falls, Reports headache(s), Denies lack of coordination, Denies loss of vision, Denies memory loss, Reports numbness, Denies Other visual disturbances, Denies restless legs, Denies seizure-like activity, Reports tingling, Denies paresthesias, Denies tremor(s) and Denies weakness Psych Reports anxiety, Reports depression, Denies auditory hallucinations, Denies memory loss and Denies visual hallucinations Endo Denies fatigue and Denies palpitations Physical Exam Const Other: General Appearance:? normal, in no acute distress. Heart:? S1, S2 normal, no murmurs. Lungs:? clear anteriorly and posteriorly. Musculoskeletal:? normal. Extremities:? no edema. Psych:? alert, oriented, cognitive function intact, cooperative with exam. Neuro Other: Abnormal Neurological Findings:?submaximal effort on motor testing. Tearful. Mental Status: alert and oriented X 3. Normal attention, orientation, memory, and affect. Cranial Nerves: Pupils are equal, round, and reactive to light. External ocular muscles are intact. Visual starr are full, no ptosis. Face is symmetrical, no facial weakness or droop. Facial sensations are normal. Tongue protrudes in midline. Palate elevates symmetrically. Shoulder shrugging is normal Motor Examination: Normal muscle tone, bulk and strength. No atrophy or fasciculations. No drift of the extended upper extremities. DTR 2+. Plantars are flexor. Sensory Exam: Normal light touch, temperature, pinprick, vibration, and joint-position sensations. Rhomberg sign is absent. Coordination: No ataxia. No titubation. Gait Exam: Within normal limits. Cerebellar Signs: [id number]-ew-puvs is okay. Extrapyramidal System: No tremor, rigidity with normal facial expressions. No bradykinesia. No bradyphrenia. Normal arm swing and posture. No propulsion or retropulsion. Speech: Normal. Results Reviewed Results Reviewed: Abnormal bilateral MOHAN and LSER, Normal NOREEN and USER, 02/27 Ct brain Normal 12/26 MRI brain normal C spine XR 08/2024:?Spondylosis C5-6 and C6-7 levels. Assessment & Plan Assessment & Plan (1) Cervical disc disease: Code(s): M50.90 - Cervical disc disorder, unspecified, unspecified cervical region Category: Medical Plan: She did not have medication list with her. She reported taking meloxicam and sometimes diclofenac with no significant improvement. These are similar medications and should not be taken together. She was educated on this and diclofenac was discontinued. She reported taking tizanidine. It was unclear if she was also taking cyclobenzaprine at bedtime as needed. These are similar medications and should not be taken together. She was educated on this and cyclobenzaprine was discontinued. Gabapentin helped with pain some for period of time. Discussed option of increasing gabapentin dose, however she believes she may have tried this before and did not like side effects of medication. She was asking if medication such as tramadol could be prescribed. This medication was not prescribed. Discussed other medication options including trying pregabalin (however there was some caution with this as medication should not be taken with gabapentin, and as above she has taken similar medications together in the past), but she was not interested in this. Discussed option of PT, but she was not interested as she reports trying this in the past without improvement. She was agreeable to trying duloxetine 20mg 1 capsule twice a day, use/side effects reviewed. She was interested in referral to pain management, and referral was placed. Continue gabapentin 300mg 1 capsule at bedtime. (2) Tension headache: Code(s): G44.209 - Tension-type headache, unspecified, not intractable Category: Medical Plan: (3) Insomnia: Code(s): G47.00 - Insomnia, unspecified Category: Medical Qualifiers: Insomnia type: primary Qualified Code(s): F51.01 - Primary insomnia (4) Fibromyalgia: Code(s): M79.7 - Fibromyalgia Category: Medical Plan: Reviewed labs ordered. Plan . Orders: Orders Lyme IgG/IgM w/reflex to WB Today M79.7 - Fibromyalgia Erythrocyte Sedimentation Rate Today M79.7 - Fibromyalgia C Reactive Protein Today M79.7 - Fibromyalgia TSH reflex Free T4 Today M79.7 - Fibromyalgia Referrals Pain Management Referral M50.90 - Cervical disc disorder, unspecified, unspecified cervical region Medications: New duloxetine 20 mg PO BID 60 caps 1RF 30 days Coding Level of Care Code Est Pt Level 4 (84390) Diagnoses Cervical disc disease M50.90 Tension headache G44.209 Primary insomnia F51.01 Insomnia type: primary Fibromyalgia M79.7
--- OUTSIDE RECORDS SUMMARY | 2025-02-06 11:14 | XMS_ITS | Clinical Summary ---
Author Organization [facility] Address [address] [place] [address] Care Team Providers Care Compotype Operator Name Role Phone Unavailable Primary Care [...] (06/03/2015): 03/24/15 Eval by Nena Buckner at [facility] for Colon Consult. Will plan for colonoscopy. H/O mammogram 05/23/2015 Overview (05/23/2015): Done on 03/31/2015 at [facility]: no mammographic evidence of malignancy is seen. Next due 03/2016 Positive ROSEY (antinuclear antibody) 02/27/2015 Pulmonary fibrosis 02/21/2015 Interstitial pneumonitis Immunizations Immunization Administration Dates Next Due INFLUENZA, [...] on file Insurance [employer]
--- OUTSIDE RECORDS SUMMARY | 2025-02-06 11:14 | XMS_ITS | Clinical Summary ---
Author Organization 175 [facility] Address [address] [place] [address] Phone Care Team Providers Care Superintendent [employer] Name Role Phone Candy Almanzar Primary Care [...] for muscle spasms. 90 tablet 5 Active Active Problems Problem Noted Date [...] ROSEY (antinuclear antibody) 07/29/2017 Fibrosis of lung (CMS/HCC V24, CMS/HCC V28) 01/09 Interstitial lung disease (CMS/HCC V24, CMS/HCC V28) 01/20/2017 Encounters Date Type Department Care Team Description 12/27/2024 Telephone Internal Medicine - [address] [place] [address] Candy Almanzar PA from Last 3 Months Immunizations Immunization Administration Dates Next Due Influenza Quadravalent, MDCK , 0.5ml, preservative free (Flucelvax) 6mo and older 05/04/2021 Surgical History Surgery Date Site/Laterality Comments CHOLECYSTECTOMY PROCEDURE: HISTORICAL CHOLECYSTECTOMY OTHER SURGICAL HISTORY PROCEDURE: ---- OTHER ----; COMMENT: hist lung biopsy x 2 COLONOSCOPY PROCEDURE: HISTORICAL COLONOSCOPY CHOLECYSTECTOMY PROCEDURE: [place] LAPAROSCOPY SURG CHOLECYSTECTOMY ESOPHAGOGASTRODUODENOSCOPY PROCEDURE: [place] ESOPHAGOGASTRODUODENOSCOPY TRANSORAL DIAGNOSTIC CARDIAC CATHETERIZATION Right right wrist, related to h/o chest pain BILATERAL SALPINGOOPHORECTOMY 5 Robot assisted laparoscopic bilateral salpingo-oophorectomy. Medical History [...] Safety Answer Date Record ed Physical Abuse Unrecognized value 06/04/2024 Verbal Abuse Unrecognized value 06/04/2024 Comments No Sex and Gender Information [...] AM EST Office Visit Internal Medicine - [address] [place] [address] Candy Almanzar PA [address] [place] [address] Health Maintenance Due Date Last Done Comments Breast Cancer Screening 1961 Colorectal Cancer Screening: Colonoscopy 1961 DTaP,Tdap,and Td Vaccines (1 - Tdap) 01/24/1980 Pneumococcal Vaccine: 50+ Years (1 of 2 - PCV) 01/24/1980 Cervical Cancer Screening: P ap Smear 1982 RSV Immunization Adult Patients (1 - Risk 50-74 years 1-dose series) 2011 Zoster Vaccines (1 of 2) 2011 HIV Screening 03/14/2022 Social Influencers of Health Screening 03/14/2022 Depression Screening 04/11/2024 COVID-19 Vaccine (1 - 2023-2 5 season) 2024 Influenza Vaccine (#1) 2024 , 02/21/2015 Cholesterol Screening (Lipid Panel) 01/24/2029 01/25/2024, 12/09/2022 [...] Procedure Name Priority Date/Time Associated Diagnosis Comments LIPID PANEL Routine 12/09/2022 HM HEPATITIS C SCREENING Routine 02/06/2018 from Last 3 Months or Most Recently Relevant to Health Maintenance Results * Lipid panel (12/09/2022) LDL/HDL Ratio 3 [...] Most Recently Relevant to Health Maintenance Insurance [facility] [employer] Advance Directives Documents on File Type Date Recorded Patient Chemist Proteins Expl anation Power of Machining Technician 06/04/2024 12:44 PM [facility] [employer] PROX[employer] * [...] currently active code status orders. Care Teams Superintendent [employer] Relationship Specialty Start Date End Date Candy Almanzar PA [facility] [address] [place] [address] PCP - General Internal Medicine 05/04/21
== END 2025-02-06 10:04 | disposition home or self-care (01) ==
LOC: HO.HSM 09:30
PROVIDERS: PCP Physician Assistant; Visit Provider Registered Nurse
DX: M50.90 Cervical disc disorder, unspecified, unspecified cervical region (principal); G44.209 Tension-type headache, unspecified, not intractable; F51.01 Primary insomnia; M79.7 Fibromyalgia
CPT/HCPCS: 99214

== ENCOUNTER 2025-02-06 09:29 | Outpatient (REF) | payer OTHER, SELFPAY ==
[2025-02-07 06:04] LABS: Lyme Abs Screen <0.90 index
[2025-02-19 15:24] LABS: Anti Nuclear Antibody Pattern Nuclear, Speckled; Anti Nuclear Antibody Screen POSITIVE (NEGATIVE); Anti Nuclear Antibody Titer 1:80 titer
== END 2025-02-06 09:30 | disposition home or self-care (01) ==
LOC: HO.LAB 09:29
PROVIDERS: Hospitalist; PCP Physician Assistant; Visit Provider Registered Nurse
DX: M50.90 Cervical disc disorder, unspecified, unspecified cervical region (principal); G44.209 Tension-type headache, unspecified, not intractable; F51.01 Primary insomnia; J98.4 Other disorders of lung; J84.9 Interstitial pulmonary disease, unspecified; M79.7 Fibromyalgia; Z01.84 Encounter for antibody response examination
CPT/HCPCS: 36415; 84443; 85652; 86038; 86039; 86140; 86617; 86618; 99212

== ENCOUNTER 2025-03-01 08:10 | Outpatient (AMB) | payer OTHER, SELFPAY ==
--- OUTSIDE RECORDS SUMMARY | 2025-03-01 08:13 | XMS_ITS | Clinical Summary ---
Author Organization 175 [facility] Address [address] [place] [address] Phone Care Team Providers Care Courseware Developer Name Role Phone Candy Almanzar Primary Care [...] Team Description 12/27/2024 Telephone Internal Medicine - [address] [place] [address] Candy Almaznar PA from Last 3 Months Immunizations Immunization Administration Dates Next Due Influenza Quadravalent, MDCK , 0.5ml, preservative free (Flucelvax) 6mo and older 05/04/2021 Surgical History Surgery Date Site/Laterality Comments CHOLECYSTECTOMY PROCEDURE: HISTORICAL CHOLECYSTECTOMY OTHER SURGICAL HISTORY PROCEDURE: ---- OTHER ----; COMMENT: hist lung biopsy x 2 COLONOSCOPY PROCEDURE: HISTORICAL COLONOSCOPY CHOLECYSTECTOMY PROCEDURE: [place] LAPAROSCOPY SURG CHOLECYSTECTOMY ESOPHAGOGASTRODUODENOSCOPY PROCEDURE: [place] ESOPHAGOGASTRODUODENOSCOPY TRANSORAL DIAGNOSTIC CARDIAC CATHETERIZATION Right right [...] AM EST Office Visit Internal Medicine - [address] [place] [address] Candy Almanzar PA [address] [place] [address] Health Maintenance Due Date Last Done Comments [...] Depression Screening 04/11/2024 COVID-19 Vaccine (1 - 2024-2 6 season) 2024 Influenza Vaccine (#1) 2024 , [...] Most Recently Relevant to Health Maintenance Insurance [facility] [employer] PL[employer] Advance Directives Documents on File Type Date Recorded Patient Order Builder Loader Expl anation Power of Conditioning Room Worker 06/04/2024 12:44 PM [facility] [employer]OX[employer] * [...] currently active code status orders. Care Teams Courseware Developer Relationship Specialty Start Date End Date Candy Almanzar PA [facility] [address] [place] [address] PCP - General Internal Medicine 05/04/21
--- NOTE | 2025-03-01 08:26 | MHC.OFFVIS ---
Vital Signs 03/01/25 08:27 Height 5 ft 2 in Weight 149 lb BMI 27.2 Blood Pressure Location Rt brachial Position Sitting Respiration 16 Pulse 76 Pulse Source Pulse Oximeter Oxygen Delivery Method Room Air Oxygen Flow Rate 97 Intake Visit Reasons: Cervical Disc Disorder Customer Assistance Representative Required: Yes Customer Assistance Representative Language: Account Support Analyst Services: Customer Assistance Representative Present Customer Assistance Representative Name: Lindsey [phone] Information Interpreted: clinical only Accompanied by: Self / Same As Patient Allergies No Known Allergies Allergy (Verified 03/01/25 08:26) HPI Comments Details: The patient is a 65-year-old individual presenting with chronic neck pain. The neck pain has been persistent for approximately four years, with no specific inciting event such as an injury or accident. The pain radiates to the shoulders and back, exacerbated by activities involving arm movements such as cleaning and showering, as well as stress and strong emotions. The patient has tried various interventions, including warm water therapy and medications such as muscle relaxants, anti-inflammatories, and gabapentin, with limited relief. Gabapentin is taken at night due to its sedative effects, and duloxetine was recently started but has not yet shown efficacy. Previous treatments also included spinal injections and physical therapy, neither of which provided significant relief. The patient has a history of arthritis and possible fibromyalgia, which contribute to the pain experienced. The arthritis is confirmed by x-rays, while fibromyalgia remains a consideration due to the widespread nature of the pain and its exacerbation by emotional factors. She is awaiting appt with rheumatology. - Onset: Approximately four years ago - Quality: Radiating pain from neck to shoulders and back - Exacerbating factors: Arm movements, cleaning, showering, stress, strong emotions - Relieving factors: Warm water, medications (limited relief) - Affect: Pain impacts daily activities and emotional well-being - Analgesia: Muscle relaxants, anti-inflammatories, gabapentin, duloxetine (limited efficacy) - Adverse Effects: Gabapentin causes sedation, duloxetine causes cognitive dulling - Activities of Daily Living: Pain limits ability to clean, exercise, and maintain independence - Aberrant Drug Related Behaviors: None reported [facility] Medical History (Updated 03/01/25 @ 13:37 by Eva Amin, SIZE TESTER, NOVELTY BALLOON ASSEMBLER AND PACKER) Pneumonitis ILD (interstitial lung disease) Cervical neuralgia GERD (gastroesophageal reflux disease) Vitamin D deficiency Hypercholesterolemia Palpitations Insomnia Organizing pneumonia ROSEY positive Cough Surgical History (Updated 12/10/22 @ 13:50 by Christi Ovalle PA-C) History of laparoscopic cholecystectomy Family History (Updated 12/10/22 @ 13:53 by Christi Ovalle PA-C) Father Prostate cancer Mother Stroke, Onset Age: 65 Brother Myocardial infarction Social History Patient Tobacco Use Status: Former Tobacco user Tobacco use type: Cigarette Years Smoked: 20 years Review of Systems Narrative - Musculoskeletal: Reports chronic neck, shoulder, and back pain - Neurological: Denies any specific neurological deficits - Psychological: Reports stress and emotional impact on pain Physical Exam Exam Exam: General: awake, alert, oriented. Answers questions appropriately. Fully engaged in examination. Skin: warm, dry, intact HEENT: Normocephalic. Hearing intact. Cardiac: External chest normal in appearance. Respiratory: No cough, audible wheezing or stridor. Abdomen: without gross distension. MS: No obvious swelling or deformities. Able to transition from sit to stand unassisted. Ambulates with bilaterally normal heel strike and toe off Tenderness over midline cervical vertebrae and paraspinal muscles Tenderness to palpation middle and lower trapezius bilaterally Facet loading positive Limited cervical ROM Neurological: Oriented to person, place, time and situation. Thought process intact. No gait abnormalities appreciated. Psychiatric: Appropriate mood and affect. Good judgment and insight. Vital Signs: Last Vital Signs Pulse 76 03/01/25 08:27 Resp 16 03/01/25 08:27 Oxygen Delivery Method Room Air 03/01/25 08:27 Oxygen Flow Rate 97 03/01/25 08:27 BMI result Body Mass Index 27.2 Results Reviewed Results Reviewed: 08/2024 XR/XR cervical spine 4V FINDINGS: Craniocervical junction is intact. Marginal osteophyte formation and endplate sclerosis decreased intervertebral disc height C5-6 and to a lesser extent C6-7. Bilateral neuroforamina narrowing C5-6 and C6-7. No acute cortical disruption or malalignment. No lytic or blastic lesions. Upper airway is patent. IMPRESSION: Spondylosis C5-6 and C6-7 levels. Assessment & Plan Assessment & Plan (1) Cervical disc disease: Code(s): M50.90 - Cervical disc disorder, unspecified, unspecified cervical region Category: Medical (2) Fibromyalgia: Code(s): M79.7 - Fibromyalgia Category: Medical (3) Cervical spondylolysis: Code(s): M43.02 - Spondylolysis, cervical region Category: Medical (4) Myofascial muscle pain: Code(s): M79.18 - Myalgia, other site Category: Medical Plan The plan includes referring the patient to physical therapy to address muscular pain and improve mobility. If physical therapy does not provide sufficient relief, the patient may consider diagnostic injections, although the patient has expressed concerns about this option due to previous experiences. The patient is advised to continue current medications and monitor their effects, particularly the recently started duloxetine, which may take several weeks to show benefits. Additionally, the patient is encouraged to maintain a low-inflammatory diet and engage in lifestyle modifications to manage fibromyalgia symptoms. C/W medications as prescribed Patient was informed and verbally consented to the use of an ambient scribe for clinic note documentation during this visit. Orders: Orders PT Evaluation and Treatment Today M50.90 - Cervical disc disorder, unspecified, unspecified cervical region Patient Instructions: - Attend physical therapy sessions as scheduled. - Monitor the effects of duloxetine and report any concerns. - Consider lifestyle changes, including a low-inflammatory diet, to help manage symptoms. - Contact the office if physical therapy does not contact you within two weeks. Coding Level of Care Code New Pt Level 4 (25701) Complex visit Add On G2211 Diagnoses Cervical disc disease M50.90 Fibromyalgia M79.7 Cervical spondylolysis M43.02 Myofascial muscle pain M79.18
[2025-03-01 08:27] VITALS: PULSE 76; RESP 16; BMI 27.2
== END 2025-03-01 09:26 | disposition home or self-care (01) ==
LOC: HO.PMC 08:11
PROVIDERS: PCP Physician Assistant; Referring Provider Registered Nurse; Visit Provider Registered Nurse Emergency
DX: M50.90 Cervical disc disorder, unspecified, unspecified cervical region (principal); M79.7 Fibromyalgia; M43.02 Spondylolysis, cervical region; M79.18 Myalgia, other site
CPT/HCPCS: 99204

== ENCOUNTER → 2025-03-01 08:10 | Outpatient (BNVA) | payer OTHER, SELFPAY | PROVIDERS: PCP Physician Assistant; Referring Provider Registered Nurse; Visit Provider Registered Nurse Emergency | DX: M79.7 Fibromyalgia (principal); M43.02 Spondylolysis, cervical region | CPT/HCPCS: 99202 ==